=== PATIENT | male | born 1945 | race Caucasian/White ===

== ENCOUNTER 2021-03-07 15:15 | Emergency (ER) | payer MEDICARE, OTHER, SELFPAY ==
--- NOTE | 2021-03-07 | ECG_ITS ---
Test Reason : SYNCOPE Blood Pressure : / mmHG Vent. 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
--- NOTE | ~2021-03-07 | CT_ITS ---
EXAMINATION: CT CERVICAL SPINE WITHOUT CONTRAST CLINICAL INFORMATION: Fall. Neck pain. COMPARISON: None TECHNIQUE: Axial images through the cervical spine without contrast. Sagittal and coronal reconstructions on the technologist workstation were performed. Patient dose 2 3 4 mg/cm. This CT examination was performed using dose optimization techniques as appropriate, variously including the following: *Automated exposure control *Adjustment of mA and/or kV according to patient size (this includes techniques or standardized protocols for targeted exams where dose is matched to indication/reason for exam; i.e. extremities or head) *Use of iterative reconstruction technique DLP: 234 mGy-cm FINDINGS: There is curvature of the proximal cervical spine to the right and lower cervical and upper thoracic spine to the left. Bone alignment is otherwise normal. No fracture or dislocation is seen. There is multilevel degenerative spondylosis and degenerative disc disease from C2-C3 to C6-C7. There are degenerative changes at the C1 dens articulation. No fracture or dislocation is seen. There is mild left carotid calcification. Prevertebral soft tissues are normal. Visualized lung apices are clear. CT/CT cervical spine wo con IMPRESSION: Degenerative changes. No fracture or dislocation seen.
--- NOTE | ~2021-03-07 | XR_ITS ---
EXAMINATION: PORTABLE CHEST 1 VIEW CLINICAL INFORMATION: sob . COMPARISON: Prior studies including the 02/09/2018 exam.. TECHNIQUE: Portable frontal view of the chest was obtained. FINDINGS: Lungs well-expanded with chronic appearing reticular markings seen but no superimposed focal infiltrate, effusion, edema, or pneumothorax. Patient is status post sternotomy with vascular calcification within the tortuous aorta. Old healed right-sided rib fractures are again noted. XR/XR chest 1V IMPRESSION: No acute abnormality seen when compared to the prior study.
--- NOTE | ~2021-03-07 | CT_ITS ---
EXAMINATION: CT ABDOMEN AND PELVIS WITHOUT CONTRAST CLINICAL INFORMATION: Back pain. Fall. COMPARISON: Previous CT of the abdomen and pelvis most recent September 2018 TECHNIQUE: Multidetector volumetric imaging was performed from the superior aspect of the liver through the pubic symphysis. Sagittal and coronal reformatted images were obtained on the technologist's workstation. This CT examination was performed using dose optimization techniques as appropriate, variously including the following: *Automated exposure control *Adjustment of mA and/or kV according to patient size (this includes techniques or standardized protocols for targeted exams where dose is matched to indication/reason for exam; i.e. extremities or head) *Use of iterative reconstruction technique DLP: 478 mGy-cm FINDINGS: LUNG BASES: The visualized lung bases are unremarkable. LIVER, GALLBLADDER, AND BILIARY TREE: The liver is normal in size, shape, and attenuation. No focal hepatic lesion or biliary ductal dilatation is present. The gallbladder is unremarkable with no evidence of radiopaque gallstones, gallbladder wall thickening, or obvious pericholecystic inflammatory changes. PANCREAS: Unremarkable. SPLEEN: Unremarkable. ADRENAL GLANDS: Unremarkable. KIDNEYS AND URETERS: The kidneys are normal in size, shape, and attenuation. No hydronephrosis, hydroureter, or calculi seen. No perinephric stranding. BLADDER: Not well visualized due to artifact from bilateral hip replacements. GASTROINTESTINAL TRACT: There is diverticulosis of the colon. The small and large bowel are otherwise unremarkable. The appendix is unremarkable. ABDOMINAL WALL: There is a small umbilical hernia containing fat. LYMPH NODES: Normal. VASCULAR: There is evidence of atherosclerotic disease. No aneurysm is seen. PELVIC VISCERA: Prostate gland is enlarged. The prostate gland measures at least 3 x 4.8 cm in AP and transverse dimension. OSSEOUS STRUCTURES: There are degenerative changes of the spine. There are bilateral hip replacements. CT/CT abdomen pelvis wo con IMPRESSION: No acute findings. Probable enlarged prostate gland. Diverticulosis of the colon.
--- NOTE | ~2021-03-07 | CT_ITS ---
EXAMINATION: CT HEAD WITHOUT CONTRAST CLINICAL INFORMATION: Fall. Pain. COMPARISON: Previous brain MRI most recent August 2016 TECHNIQUE: Contiguous axial imaging was performed from the skull base to vertex without intravenous administration of contrast. This CT examination was performed using dose optimization techniques as appropriate, variously including the following: *Automated exposure control *Adjustment of mA and/or kV according to patient size (this includes techniques or standardized protocols for targeted exams where dose is matched to indication/reason for exam; i.e. extremities or head) *Use of iterative reconstruction technique DLP: 637 mGy-cm FINDINGS: There is no evidence of an extra-axial collection. There is no evidence of intra-axial or extra-axial hemorrhage. The ventricles and extra-axial CSF spaces are prominent suggestive of mild generalized atrophy. There is nonspecific periventricular white matter disease. No mass, mass effect or infarct is seen. Review of bone windows is normal. No skull fracture is seen. Visualized paranasal sinuses, mastoid air cells and middle ears are clear. CT/CT head/brain wo con IMPRESSION: No acute findings. Generalized atrophy and nonspecific periventricular white matter disease.
[2021-03-07 15:25] VITALS: BP 96/70; PULSE 92; O2SAT 98; BMI 19.8
[2021-03-07 15:31] VITALS: BP 141/71; PULSE 96; RESP 15; O2SAT 97
[2021-03-07 15:32] VITALS: O2SAT 97
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
[2021-03-07 16:13] LABS: MANUAL DIFF FLAG NO
[2021-03-07 16:16] LABS: Basophils Percent Auto 0.3 % (0-2); Eosinophils Percent Auto 0.5 % (0-4); Hematocrit 45.7 % (42-52); Hemoglobin 15.7 g/dl (14.0-18.0); Imm Gran Abs Auto 0.06 X10*3/uL (0.00-0.03); Imm Gran Pct Auto 0.7 % (0.0-0.4); Lymphocytes Absolute Auto 0.9 X10*3/uL (1.2-4.9); Lymphocytes Percent Auto 10.6 % (20-40); Mean Corpuscular HGB Conc 34.4 g/dl (31.0-36.0); Mean Corpuscular Hemoglobin 30.1 pg (27.0-33.0); Mean Corpuscular Volume 87.7 fL (80-98); Mean Platelet Volume 9.5 fL (9.4-12.4); Monocytes Absolute Auto 0.9 X10*3/uL (0.1-1.2); Monocytes Percent Auto 9.6 % (2-11); Neutrophils Absolute Auto 6.9 X10*3/uL (2.0-8.3); Neutrophils Percent Auto 78.3 % (45-73); Platelet Count 226 X10*3/uL (160-400); Red Blood Count 5.21 X10*6/uL (4.60-5.80); Red Cell Distribution Width 11.9 % (11.0-16.0); White Blood Count 8.9 X10*3/uL (4.8-10.8)
[2021-03-07 16:41] LABS: Anion Gap 14 (12-20); Blood Urea Nitrogen 25 mg/dL (9-16); Calcium 9.6 mg/dL (8.4-10.2); Carbon Dioxide 23 mmol/L (22-29); Chloride 112 mmol/L (96-108); Creatinine Clr Calc Pharmacy 42.2; Estimated Glomerular Filt Rate 55; Glucose Random 130 mg/dL (60-115); Potassium 4.5 mmol/L (3.3-5.1); Sodium 144 mmol/L (135-145)
[2021-03-07 16:48] LABS: Troponin-I High Sensitivity 4.3 ng/L (<3.5-35.0)
[2021-03-07 16:54] LABS: COVID-19 Test Positive (Negative)
[2021-03-07 17:10] VITALS: BP 113/62; PULSE 71; RESP 17; TEMP 37; O2SAT 96
[2021-03-07] MEDS: 0.9 % Sodium Chloride 1,000 ML 999 ML IV (17:12)
[2021-03-07 18:00] VITALS: PULSE 59; RESP 22; O2SAT 96
[2021-03-07 19:03] LABS: Troponin-I High Sensitivity 6.5 ng/L (<3.5-35.0)
[2021-03-07 19:14] VITALS: BP 134/62; PULSE 58; RESP 12; TEMP 36.7; O2SAT 97
--- NOTE | 2021-03-07 19:19 | PC.NURSE ---
This RN to bedside, first encounter with pt. Pt aaox4, resting on stretcher in NAD breathing with ease on RA. Pt c/o R lateral CP with movement, neck pain, back pain s/p fall today. Pt IVF complete. Pt denies dizziness. Pt offers no additional complaints. Pt speaking in complete clear sentences, skin warm dry and normal in appearance for age and race. Pt aware of plan for DC, is agreeable, requests this rn contact his family member Holley and/or Joy for ride home. This rn to attempt to call family members per pt request. Pt stretcher in low locked position, rails raised, call bermudez within reach
--- NOTE | 2021-03-07 19:25 | PC.NURSE ---
This RN spoke to pt's family member Joy who states she will leave the house in about 10minutes to pick pt up from ED. Pt to wait in room until his ride arrives d/t covid status. Joy made aware to notify security upon arrival. Pt IV removed, prepared for DC
== END 2021-03-07 20:05 | disposition home or self-care (01) ==
PROVIDERS: Emergency Provider Emergency Medicine Emergency Medical Services
DX: R55 Syncope and collapse (principal); U07.1 COVID-19; E86.0 Dehydration; G44.309 Post-traumatic headache, unspecified, not intractable; R10.9 Unspecified abdominal pain; M54.2 Cervicalgia; Z79.899 Other long term (current) drug therapy
CPT/HCPCS: 36415; 70450; 71045; 72125; 74176; 80048; 84484; 85025; 87635; 93005; 99284; 99285

== ENCOUNTER 2021-11-20 11:06 | Outpatient (REF) | payer MEDICARE, OTHER, SELFPAY ==
--- NOTE | ~2021-11-20 | XR_ITS ---
EXAMINATION: XR CHEST CLINICAL INFORMATION: Cough. Covid 19. COMPARISON: Chest 03/07/2021 TECHNIQUE: 2 views of the chest were obtained. FINDINGS: The lungs are well-expanded and clear of acute process. The heart size and pulmonary vascularity is normal. No gross bony abnormality seen. There are median sternotomy sutures from previous intervention. There is mild deformity right posterior seventh and eighth ribs, likely old injury. XR/XR chest 2V IMPRESSION: No acute cardiopulmonary process seen.
== END 2021-11-20 11:07 | disposition home or self-care (01) ==
LOC: HO.XRAY 11:06
PROVIDERS: PCP Student in an Organized Health Care Education/Training Program; Visit Provider Internal Medicine
DX: U07.1 COVID-19 (principal); R05.8 Other specified cough; T46.4X5A Adverse effect of angiotensin-converting-enzyme inhibitors, initial encounter; Z87.891 Personal history of nicotine dependence
CPT/HCPCS: 71046; 99202

== ENCOUNTER 2021-12-12 10:18 | Outpatient (REF) | payer MEDICARE, OTHER, SELFPAY ==
--- NOTE | 2021-12-12 11:47 | PFT_ITS ---
Forced vital capacity 92% and FEV1 89%. FEV1/FVC ratio is 70. FEF 25-75 is 72% and MVV 85%. Post bronchodilator therapy, the FEF 25-75 is improved by 22%. Total lung capacity is 87% and residual volume 95%. Diffusion capacity is 47%. CONCLUSION: The patient may have a very mild degree of small airway obstructive disorder which corrects to normal after bronchodilator therapy. This indicates possible mild bronchial asthma for which clinical correlation is recommended. The patient does have decreased diffusion capacity, but when corrected with the volume, it is 62%. This decrease in DLCO may be due to non-pulmonary factors, for which clinical correlation is recommended. Rikki Reyes MD [facility]SR[facility]ka/MODL / [id number]
== END 2021-12-12 10:19 | disposition home or self-care (01) ==
LOC: HO.RESP 10:18
PROVIDERS: Visit Provider Internal Medicine
DX: R05.8 Other specified cough (principal); T46.4X5A Adverse effect of angiotensin-converting-enzyme inhibitors, initial encounter; Z87.891 Personal history of nicotine dependence
CPT/HCPCS: 94060; 94727; 94729

== ENCOUNTER 2021-12-20 12:27 | Outpatient (REF) | payer MEDICARE, OTHER, SELFPAY | END 2021-12-20 12:28 | disposition home or self-care (01) | LOC: HO.HOSX 12:27 | PROVIDERS: Visit Provider Orthopaedic Surgery | DX: Z13.89 Encounter for screening for other disorder (principal) ==

== ENCOUNTER 2023-02-12 10:13 | Outpatient (AMB) | payer MEDICARE, SELFPAY ==
[2023-02-12 10:15] VITALS: BP 90/60; PULSE 63; BMI 22.0
--- NOTE | 2023-02-12 10:15 | A.OFFVIS_ITS ---
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 Accompanied by: Self / Same As Patient Allergies cat dander [CAT] Allergy (Unknown, Verified 02/12/23 10:15) WATERY EYES dog dander [DOG] Allergy (Unknown, Verified 02/12/23 10:15) WATERY EYES DUST Allergy (Mild, Uncoded 02/12/23 10:15) WATER EYES GRASS Allergy (Unknown, Uncoded 02/12/23 10:15) WATERY EYES Medication List - Last Reconciled 02/12/23 by Ken Walker MD albuterol sulfate 90 mcg/actuation 2 puffs inhalation Q6H PRN aspirin 81 mg PO DAILY atorvastatin 80 mg PO BEDTIME budesonide-formoterol 80-4.5 mcg/actuation (Symbicort) 2 puffs inhalation BID ezetimibe 10 mg PO DAILY fluconazole 100 mg PO DAILY losartan 25 mg PO DAILY terbinafine HCl 1% 1 appl topical BID HPI HPI Comments History of Present Illness Details Thank you for referring Cruz in cardiology consultation today for reestablishing cardiology care. He underwent coronary artery bypass grafting 2007, 3 vessel coronary artery bypass grafting for syncope. This including ELI to LAD and saphenous venous graft to the diagonal and the OM branches for left main disease. Since then he has had no cardiology follow-up. He has longstanding history of hypertension hyperlipidemia and currently takes losartan which was switched recently because of LIAM-inhibitor induced cough. His cough is improved. He also is on dual therapy with atorvastatin and Zetia for management of his lipids. In August he was admitted to [facility] with syncope in the setting of severe back pain radiating to both his legs. This was suspected to be vasovagal in nature. He underwent testing at [facility] including a CT for pulmonary embolism and aortic dissection. This also suggested occlusion of venous graft but was felt not to be the cause of his syncopal episode. At that time he had ruled out for myocardial infarction and had no acute EKG changes. Since then about 1 month ago he had another episode of dizziness and had fallen down. 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 He drinks about 12 oz of water every day. He denies any palpitations. Denies any heart failure symptoms. Does get exertional shortness of breath. No exertional chest pain. Is referred here for further evaluation management. 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 Father No problems noted. Social History Alcohol intake: current Alcohol intake frequency: holidays/special occasions only Patient Tobacco Use Status: Former Tobacco user Years Smoked: 41 years +/- Review of Systems Const Denies chills, Denies daytime sleepiness, Denies fatigue, Denies fever(s), Denies frequent falls, Denies night sweats, Denies snoring, Denies weakness, Denies weight gain and Denies weight loss Eyes Denies loss of vision ENT Denies dizziness and Denies hearing loss Card Denies chest pain, Denies chest pain with activity, Denies syncope, Denies rapid heart rate, Denies edema, Denies claudication, Denies leg edema, Denies lightheadedness, Denies palpitations, Denies dyspnea, Denies dyspnea on exertion and Denies orthopnea Resp Denies cough, Denies excessive phlegm production, Denies dyspnea, Denies dyspnea on exertion, Denies snoring and Denies wheezing GI Denies abdominal pain, Denies hematochezia, Denies change in bowel habits, Den ies change in stool character, Denies heartburn, Denies nausea and Denies vomiting Denies hematuria, Denies dysuria and Denies urinary frequency Musc Denies arthralgias, Denies muscle weakness, Denies numbness and Denies tingling Skin/Breast Denies nail changes and Denies rash Neuro Denies Abnormal speech present, Denies dizziness, Denies syncope, Denies frequent falls, Denies loss of vision, Denies memory loss, Denies numbness, Denies tingling and Denies weakness Psych Denies depression and Denies memory loss Endo Denies fatigue and Denies palpitations Aller/Immun Denies wheezing Physical Exam Vital Signs: Last Vital Signs Pulse 63 02/12/23 10:15 BP 90/60 02/12/23 10:15 BMI result Body Mass Index 22.0 Const General: cooperative, comfortable, no acute distress, alert and awake Nutritional Appearance: thin Orientation/consciousness: patient oriented x3 Limitations: no limitations HEENT Head: Yes normocephalic and Yes atraumatic Neck Neck: Yes trachea midline, Yes supple and Yes no JVD Chest Chest palpation & inspection: other (Well-healed sternotomy scar) Resp Effort & Inspection: normal respiratory effort Auscultation: clear to auscultation bilaterally Cardio Jugular venous distension: no JVD Palpation: normal PMI Rate: regular rate Rhythm: regular rhythm Heart sounds: S1 normal heart sound present, S2 normal heart sound present, no click, no gallops, no murmurs and no rubs GI Auscultation: normal bowel sounds Skin General skin exam: no rashes or lesions noted Neuro General: patient oriented x3 and no focal motor deficits Speech: No Abnormal speech present Extrem General: Yes no clubbing, cyanosis or edema Office Procedures EKG Details: EKG shows normal sinus rhythm with left axis deviation with inferior as well as anterolateral Q-waves consistent with apical infarct [id number], Complete Assessment & Plan Assessment & Plan (1) CAD (coronary artery disease): Code(s): I25.10 - Atherosclerotic heart disease of [place] coronary artery without angina pectoris Plan: Patient with remote CAD with coronary bypass grafting with CT scan in August at [facility] suggestive occlusion venous graft to the left system. However this is unclear based on this to which graft. Patient having symptoms of syncope which was his presenting symptom in 2007 although these episodes of syncopal episode appear to be related to orthostatic lightheadedness. Most likely related to relative hypovolemia. Discussed with patient about increasing his fluid intake. Continue monitor blood pressure at home. However he requires further workup given remote nature of his coronary artery bypass grafting to evaluate for myocardial ischemia and to further prognosticate from this perspective. Would suggest a vasodilating myocardial perfusion imaging as patient cannot exercise on a treadmill. Also suggest an echocardiogram to evaluate for LV systolic and diastolic function as well as a 7 day Holter monitor to evaluate for any ventricular arrhythmias given of possible apical infarct segment. Further treatment based on the findings. Currently he is on long-term aspirin therapy. Continue dual therapy for lipid with target goal LDL closer to 60 mg/dL. Blood pressure is currently well optimized on losartan therapy. Advised to monitor the same at home. Will follow up in the clinic in 6 weeks time, sooner p.r.n.. Thank you for allowing me to partake in his care Coding Level of Care Code New Pt Level 4 (27843) Diagnoses CAD (coronary artery disease) I25.10 CPT Codes EKG - CPT: 95662-[id number], Complete ([id number])
== END 2023-02-12 10:45 | disposition home or self-care (01) ==
LOC: HO.HCSM 10:13
PROVIDERS: PCP Student in an Organized Health Care Education/Training Program; Referring Provider Student in an Organized Health Care Education/Training Program; Visit Provider Internal Medicine Cardiovascular Disease
DX: I25.10 Atherosclerotic heart disease of native coronary artery without angina pectoris (principal)
CPT/HCPCS: 93010; 99204

== ENCOUNTER → 2023-02-12 10:13 | Outpatient (BNVA) | payer MEDICARE, OTHER, SELFPAY | PROVIDERS: PCP Student in an Organized Health Care Education/Training Program; Referring Provider Student in an Organized Health Care Education/Training Program; Visit Provider Internal Medicine Cardiovascular Disease | DX: I25.10 Atherosclerotic heart disease of native coronary artery without angina pectoris (principal); Z95.1 Presence of aortocoronary bypass graft; Z79.82 Long term (current) use of aspirin | CPT/HCPCS: 93005; 99202 ==

== ENCOUNTER → 2023-03-17 08:37 | Outpatient (REF) | payer MEDICARE, SELFPAY ==
--- NOTE | ~2023-03-17 | NM_ITS ---
Lexiscan Myocardial perfusion study Indication: Coronary artery disease, history of coronary artery bypass surgery, assess for ischemia Technique: The patient was brought in for a Lexiscan perfusion study on 03/17/2023 and was injected 0.4 mg of Lexiscan intravenously. Within a minute of this injection 25 mCi of sestamibi was given intravenously. Images were obtained using the SPECT gamma camera interlaced with the gating device. Images were obtained in supine position. Resting perfusion study was performed on 03/19/2023. Patient was administered 25 mCi of sestamibi intravenously at rest. Images were then obtained in supine position. Images were processed with the software and compared side to side in short axis, horizontal long axis and vertical long axis views. Total DLP 103mGy-cm. Findings: Raw acquisition reviewed. Arms by the patient's side. The stress perfusion study showed diminished tracer uptake in the distal part of inferolateral wall. No significant change with CT attenuation correction. The gated study shows normal LV systolic function with calculated LVEF of 66%. LV cavity is normal in size. The gated study shows normal wall thickening and contraction of segments. Resting study shows diminished tracer uptake in the distal part of inferolateral wall. Gating at rest reveals normal wall motion with ejection fraction at 63%. The findings are consistent with fixed distal inferolateral perfusion defect. Minimal reversibility. NM/NM kaleb perf SPECT rest & str Impression: 1. Myocardial perfusion imaging study shows old transmural infarct in the distal inferolateral wall; mild khanh-infarct ischemia. 2. Gated LVEF is 66% during stress and 63% during rest. 3. Transient ischemic dilatation not present. EKG component of the test reported separately.
--- NOTE | 2023-03-17 08:45 | HM_ITS ---
* Total monitoring time 17 days. * Underlying rhythm is sinus. Average ventricular rate 75/Min. Range 39 to 147/Min. * Frequent supraventricular ectopy with a burden of 3.8%. Very brief runs noted. * Rare ventricular ectopy. Minimal burden. * No significant pauses or AV blocks. * Patient markers used in association with sinus bradycardia and supraventricular ectopy. * No diary events. MTDD
--- NOTE | 2023-03-17 08:45 | CA_ITS ---
Acquisition Time: 2023-03-17 10:33:41 Total Exercise Time: 00:02:00 Test Indications: Medications: Protocol: LEXISCAN Max HR: 121 BPM 84% of Pred: 144 BPM Max BP: 118/054 mmHG Max Work Load: 1.0 METS Pharmacological stress test with Lexiscan injection while sitting and marching in place, without anginal symptoms, without arrhythmias, with normotensive response to injection, with nondiagnositic EKGs. Aminophylline 75mg IVP given to reverse Lexiscan. Nuclear images pending. Test reviewed with Dr. Walker Referred By: Ken Walker Overread By: KEN WALKER MD
--- NOTE | 2023-03-17 08:45 | CA_ITS ---
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 Study Quality: Fair, contrast used Conclusions: - 1. Technically limited study despite use of contrast agent 2. Normal LV ejection fraction 55-60% with underlying wall motion abnormality consistent with prior myocardial infarction 3. Limited visualization cardiac valves with normal cardiac valvular Doppler 4. Normal RV systolic pressure Findings Left Ventricle Normal left ventricular size and systolic function. The visually estimated ejection fraction is between 55-60%. Spectral Doppler is indicative of an impaired relaxation filling pattern. E/E prime ratio is <8, consistent with normal filling pressures. Evidence suggests grade I (mild) diastolic dysfunction. Wall Motion Rest Echo Findings The apical septum is akinetic. The apex and apical inferior segments are dyskinetic. All other scored wall segments showed normal motion. Right Ventricle The right ventricle was not well visualized. Atria The left atrium was not well visualized. Interatrial shunt cannot be excluded. The right atrium was not well visualized. Aortic Valve The aortic valve was not well visualized. There is no aortic valve stenosis. There is no aortic valve regurgitation. Mitral Valve The mitral valve was not well visualized. There is no mitral valve regurgitation. There is no mitral valve stenosis. Pulmonic Valve The pulmonic valve was not well visualized. Tricuspid Valve Likely normal tricuspid valve structure and function. There is trace tricuspid valve regurgitation. The right ventricular systolic pressure is normal. The right ventricular systolic pressure is 23 mmHg. Normal right atrial pressure. Great Vessels The pulmonary artery was not well visualized. There is no dilatation of the ascending aorta. Venous The inferior vena cava is normal in size and collapses greater than 50% with inspiration. Pericardium/Pleural The pericardium was not well visualized. Measurements 2D Linear Measurements LVOT Diam: 1.80 3.0+(-)1.3 cm Mitral Valve MV Pk E: 0.41 MV PK A: 0.63 MV Decel Time: 354.00 E/A: 0.60 E'Lateral: 9.82 E'Medial: 6.51 E/E' Med: 6.30 E/E' Lat: 4.20 PHT: 104.00 MVA PHT: 2.12 Decel Henry: 1.21 Aortic Valve AoV Pk Pito: 1.07 AoV Mn Pito: 0.74 AoV VTI: 0.23 AoV Pk Grad: 5.00 Aov Mn Grad: 2.00 DAVID Cont.VTI: 2.43 LVOT LVOT Pk Pito: 1.04 LVOT Mn Pito: 0.63 LVOT VTI: 0.22 LVOT Pk Grad: 4.00 LVOT Mn Grad: 2.00 LVOT Diam: 1.80 LVOT Area: 2.54 Diastolic Function MV Pk E: 0.41 MV Pk A: 0.63 E/A: 0.60 E'Medial: 6.51 E/E' Med: 6.30 E' Laterial: 9.82 E/E' Lat: 4.20 Right Ventricle TAPSE (mm): 14.90 TVS' Pito: 8.81 Tricuspid Valve TR Pk Pito: 2.21 TR Pk Grad: 20.00 RA Press: 3.00 RVSP: 23.00 Great Vessels Aorta Sinus of Valsalva: 3.11 2.0-3.[address] [place]: 2.40 1.7-3.4 cm Ao Asc: 3.10 2.1-3.4 cm Updated in Other Vendor System with Status of Final Ken Walker MD electronically signed on 03/18/2023 11:32:36 AM with status of Final
== END ==
LOC: HO.CARD 08:37
PROVIDERS: PCP Student in an Organized Health Care Education/Training Program; Visit Provider Internal Medicine Cardiovascular Disease
DX: I25.10 Atherosclerotic heart disease of native coronary artery without angina pectoris (principal)
CPT/HCPCS: 78452; 93017; 93246; 93306; A9500; J0280; J2785; Q9957

== ENCOUNTER → 2023-03-17 08:45 | Outpatient (BNV) | payer MEDICARE, SELFPAY | PROVIDERS: PCP Student in an Organized Health Care Education/Training Program; Visit Provider Internal Medicine Cardiovascular Disease | DX: I25.10 Atherosclerotic heart disease of native coronary artery without angina pectoris (principal) | CPT/HCPCS: 78452; 93016; 93018; 93306 ==

== ENCOUNTER 2023-03-22 23:51 | Inpatient (IN) | payer MEDICARE, SELFPAY ==
--- NOTE | ~2023-03-22 | XR_ITS ---
EXAMINATION: XR CHEST CLINICAL INFORMATION: Chest pain COMPARISON: 11/20/2021 TECHNIQUE: Frontal view of the chest was obtained. FINDINGS: Lungs appear mildly hypoinflated. No focal consolidation is seen. No evidence of pneumothorax, pleural effusion, or pulmonary edema. Cardiac size is within normal limits. Calcification is present at the aortic arch. Sternal wires are present. No acute osseous findings are seen. XR/XR chest 1V IMPRESSION: Low lung volumes without acute findings.
--- NOTE | ~2023-03-22 | CT_ITS ---
EXAMINATION: CT CHEST, ABDOMEN AND PELVIS WITHOUT CONTRAST CLINICAL INFORMATION: Right upper quadrant and chest wall pain, suspect pneumonia, fracture COMPARISON: 03/07/2021 TECHNIQUE: Multidetector volumetric imaging was performed from the thoracic inlet through the pubic symphysis. Sagittal and coronal reformatted images were obtained on the technologist's workstation. Axial MIP volume rendering provided. This CT examination was performed using dose optimization techniques as appropriate, variously including the following: *Automated exposure control *Adjustment of mA and/or kV according to patient size (this includes techniques or standardized protocols for targeted exams where dose is matched to indication/reason for exam; i.e. extremities or head) *Use of iterative reconstruction technique DLP: 719 mGy-cm FINDINGS: CHEST: Lungs: There is volume loss in the right lower lobe with dependent dense opacity and adjacent groundglass opacity. At least some of this is favored to represent atelectasis, though a component of infectious/inflammatory groundglass opacity cannot be excluded. There is curvilinear atelectasis/scarring in the mid to basilar left lung. Mediastinum: The visualized thyroid gland is unremarkable. Scattered mediastinal lymph nodes, some of which approach the upper limits of normal in size. Cardiac size is within normal limits; no pericardial effusion. Scattered calcifications along the aorta. Coronary Artery Calcification: Present Pleura: No pneumothorax. Trace right pleural effusion. Chest Wall/Axilla: Unremarkable. ABDOMEN/PELVIS: Liver, Gallbladder, Biliary Tree: The liver is normal in size, shape, and attenuation. No focal hepatic lesion or biliary ductal dilatation is identified on this noncontrast exam. The gallbladder is unremarkable with no evidence of radiopaque gallstones, gallbladder wall thickening, or pericholecystic inflammatory changes. Pancreas: Unremarkable. Spleen: Unremarkable. Adrenal Glands: Unremarkable. Kidneys and Ureters: Distal ureters are obscured due to streak artifact from bilateral hip arthroplasty hardware. No hydronephrosis to suggest the presence of a distal ureteral calculus. Bladder: Not well assessed, mostly obscured by streak artifact. Gastrointestinal Tract: Colonic diverticulosis is noted. The small and large bowel are otherwise unremarkable without evidence of obstruction or pericolonic inflammatory change. Borderline dilated appendix, without surrounding inflammation to suggest appendicitis. No free fluid or free air is seen. Abdominal Wall: No hernia is demonstrated. Lymphovascular Structures: Lymph nodes: Normal. Vascular: There is atherosclerotic calcification along the aorta. Pelvic Viscera: Not visualized due to streak artifact in the pelvis. OSSEOUS STRUCTURES: Multiple chronic appearing right rib deformities favoring healed old fractures. No acute fracture is seen. Multilevel degenerative changes in the thoracolumbar spine. Bilateral total hip arthroplasty hardware is noted. CT/CT abdomen pelvis wo IV con IMPRESSION: 1. No acute fracture identified. 2. Volume loss in the right lower lobe with dependent dense opacity and adjacent groundglass opacity. At least some of this is favored to represent atelectasis, though a component of infectious/inflammatory groundglass opacity cannot be excluded. 3. Trace right pleural effusion.
[2023-03-22 23:51] VITALS: BP 152/82; PULSE 102; O2SAT 96
[2023-03-23] VITALS (12 sets, daily range): BP systolic 117–133; BP diastolic 57–74; PULSE 64–112; RESP 16–26; TEMP 36.3–37.4; O2SAT 93–98; BMI 20.7; BMI 20.2
--- NOTE | 2023-03-23 00:40 | ECG_ITS ---
Test Reason : CP Blood Pressure : / mmHG Vent. 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
[2023-03-23 01:28] LABS: Venous Blood Gas Refer to POC result
[2023-03-23 01:29] LABS: INTERNATIONAL NORM RATIO 1.2 (0.9-1.1)
[2023-03-23 01:29] LABS: VBG Base Excess -0.7 mmol/L; VBG HCO3 21 mmol/L (22-26); VBG pCO2 29 mmHg; VBG pH 7.47 (7.32-7.43); VBG pO2 42 mmHg
[2023-03-23 01:34] LABS: Basophils Absolute Auto 0.1 X10*3/uL (0.0-0.2); Basophils Percent Auto 0.4 % (0-2); Eosinophils Absolute Auto 0.1 X10*3/uL (0.0-0.4); Eosinophils Percent Auto 0.9 % (0-4); Hematocrit 41.2 % (42.0-52.0); Hemoglobin 14.2 g/dl (14.0-18.0); Imm Gran Abs Auto 0.07 X10*3/uL (0.00-0.03); Imm Gran Pct Auto 0.5 % (0.0-0.4); Lymphocytes Absolute Auto 1.9 X10*3/uL (1.2-4.9); MANUAL DIFF FLAG NO; Mean Corpuscular HGB Conc 34.5 g/dl (31.0-36.0); Mean Corpuscular Hemoglobin 29.4 pg (27.0-33.0); Mean Corpuscular Volume 85.3 fL (80.0-98.0); Mean Platelet Volume 9.8 fL (9.4-12.4); Monocytes Absolute Auto 1.3 X10*3/uL (0.1-1.2); Monocytes Percent Auto 9.5 % (2-11); Neutrophils Absolute Auto 10.4 x10*3/uL (2.0-8.3); Neutrophils Percent Auto 74.7 % (45-73); PLT CLUMP 1; Red Blood Count 4.83 X10*6/uL (4.60-5.80); Red Cell Distribution Width 12.9 % (11.0-16.0); SCAN SMEAR FLAG 1; White Blood Count 13.9 X10*3/uL (4.8-10.8)
[2023-03-23 01:36] LABS: Alanine Aminotransferase 7 U/L (0-40); Albumin Level 3.9 g/dL (3.5-5.0); Alkaline Phosphatase 114 U/L (39-117); Anion Gap 15 (12-20); Aspartate Amino Transferase 10 U/L (5-37); Bilirubin Total 0.9 mg/dL (0.0-1.0); Blood Urea Nitrogen 10 mg/dL (9-16); Calcium 9.6 mg/dL (8.4-10.2); Carbon Dioxide 20 mmol/L (22-29); Chloride 108 mmol/L (96-108); Creatinine Clr Calc Pharmacy 51.3; Estimated Glomerular Filt Rate > 60; Glucose Random 119 mg/dL (60-115); Potassium 4.5 mmol/L (3.3-5.1); Sodium 138 mmol/L (135-145); Total Protein 6.9 g/dL (6.5-8.0)
[2023-03-23 01:44] LABS: COVID-19 Test Negative (Negative); IDNOW Serial# 08D9AD1C; IDNOW Serial# BCCEAD1C; Influenza A Negative (Negative); Influenza B2 Negative (Negative)
[2023-03-23 01:49] LABS: Troponin-I High Sensitivity < 2.7 ng/L (<3.5-35.0)
--- NOTE | 2023-03-23 02:11 | ED_ITS ---
HPI - General Adult General Chief complaint: General Medical Stated complaint: rt rib pain/weakness Time Seen by Provider: 03/23/23 00:24 Source: patient Mode of arrival: EMS History of Present Illness HPI narrative: This is a 77-year-old male who comes in with atraumatic right-sided rib pain that he reports goes up to his neck and states that it started approximately 1 week ago and has progressively gotten worse, and has been associated with chills and cough. Patient reports that the pain gets worse with coughing. Patient does have a significant past medical history of smoking. Related Data Home Medications Medication Instructions Recorded Confirmed albuterol sulfate 90 mcg/actuation 2 puff inhalation Q6H PRN 11/20/21 02/12/23 aerosol inhaler aspirin 81 mg tablet,delayed 81 mg PO DAILY 11/20/21 02/12/23 release budesonide-formoterol HFA 80 2 puff inhalation BID 11/20/21 02/12/23 mcg-4.5 mcg/actuation aerosol inhaler (Symbicort) ezetimibe 10 mg tablet 10 mg PO DAILY 11/20/21 02/12/23 terbinafine HCl 1 % topical cream 1 appl topical BID 11/20/21 02/12/23 atorvastatin 80 mg tablet 80 mg PO BEDTIME 02/12/23 02/12/23 fluconazole 100 mg tablet 100 mg PO DAILY 02/12/23 02/12/23 losartan 25 mg tablet 25 mg PO DAILY 02/12/23 02/12/23 Allergies Allergy/AdvReac Type Severity Reaction Status Date / Time cat dander [CAT] Allergy Unknown WATERY Verified 02/12/23 10:15 EYES dog dander [DOG] Allergy Unknown WATERY EYES Verified 02/12/23 10:15 DUST Allergy Mild WATER EYES Uncoded 02/12/23 10:15 GRASS Allergy Unknown WATERY Uncoded 02/12/23 10:15 EYES Review of Systems 2 Review of Systems: Pertinent positives and negatives as stated in HPI PMFSH Past Medical History Source: nursing notes reviewed Medical History CAD (coronary artery disease) 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 Father No problems noted. Social History Social History Alcohol intake: former Patient Tobacco Use Status: Former Tobacco user Years Smoked: 41 years +/- Smoked in Last 30 Days: No Use of substances other than those prescribed or required for medical reasons: No Advance Directives: No Advance Directives Information Provided: Yes Physical Exam ED Vital Signs: Vital Signs - 24 hr 03/23/23 00:00 03/23/23 00:19 03/23/23 00:19 Temperature 99.3 F Pulse Rate 112 H 102 H Pulse Rate [Monitor] 102 H Respiratory Rate 16 18 Blood Pressure 121/74 133/62 Pulse Oximetry 94 94 Oxygen Delivery Method Room Air Room Air 03/23/23 02:29 Temperature 98.3 F Pulse Rate 96 Pulse Rate [Monitor] Respiratory Rate 16 Blood Pressure 124/66 Pulse Oximetry 94 Oxygen Delivery Method Room Air BMI result Body Mass Index 20.7 VITAL SIGNS: Reviewed. GENERAL: Cachectic, in no acute distress. HEAD: Normocephalic/atraumatic EYES: PERRLA, EOMI EARS: Ext canals without abnormality NOSE: Nares patent bilateral OROPHARYNX: no oral lesions noted, posterior pharynx clear NECK: Supple, no adenopathy LUNGS: Normal breath sounds. No adventitious sounds or accessory muscle use. SpO2<94> CARDIOVASCULAR: Regular rate and rhythm without noted murmurs ABDOMEN: Soft, non-tender, non-distended with bowel sounds. MUSCULOSKELETAL: No tenderness, deformities, or effusions noted on gross inspection. EXTREMITIES: No cyanosis, clubbing or edema. SKIN: Inspection of the skin reveals no rashes NEUROLOGIC: Alert and oriented x 4. Strength and sensation to light touch were grossly intact x 4. Medications Administered Discontinued Medications Generic Name Dose Route Start Last Admin Trade Name Freq PRN Reason Stop Dose Admin Acetaminophen 975 mg 03/23/23 02:31 03/23/23 02:42 Acetaminophen 325 Mg Tablet PO 03/23/23 02:32 975 mg ONCE ONE Administration Piperacillin Sod/Tazobactam 50 mls @ 100 mls/hr 03/23/23 02:17 03/23/23 03:19 Sod 3.375 gm/ Sodium Chloride IV 03/23/23 02:46 Infused ONCE ONE Infusion Sodium Chloride 500 mls @ 999 mls/hr 03/23/23 02:45 03/23/23 03:04 Ns IV 03/23/23 03:15 Infused .Q31M WEI Infusion Medical Decision Making Medical Decision Making [facility] Narrative: 0105: This is a cachectic 77-year-old male who arrives via EMS for progressive worsening of right-sided lower chest pain and associated chills, DDX: Musculoskeletal, pneumonia, rib fracture, no suspicion for pneumothorax. I reviewed all investigations and hematologic indices are significant for a leukocytosis with a left shift and patient was noted to be tachycardic but afebrile. There is no anemia. Coagulation studies show mild elevation of PT-14 and INR-1.2. ABG not consistent with hypercapnic respiratory acidosis. Chemistry indices are negative for JAY, electrolyte or liver enzyme abnormalities. Troponin levels are undetectable and no acute findings on EKG. On my preliminary evaluation of the chest x-ray I determined that there was an infiltrate that was not present on prior imaging studies but was read by Radiology to be benign, this prompted me to proceed with CT of the chest which does demonstrate an infiltrate. Patient has been treated with IV fluids, antibiotics and lactic acid/blood cultures were completed. Urinalysis negative for a UTI. Viral testing is otherwise negative for COVID-19 and influenza. 0357: I discussed case with inpatient hospitalist who accepts admission. Differential Diagnosis Differential Diagnoses: The differential diagnosis associated with the presentation includes Please see the discussion above Admission/Observation Consideration of admission/observation: Escalation of care including admission/observation considered Please see the discussion above Consult Healthcare Provider Management of the patient was discussed with: Hospitalist Please see the discussion above Lab Data MDM Lab Attestation statement: I reviewed the patient's lab results. Please see the discussion above 03/23/23 01:18 03/23/23 01:18 Labs: Lab Results 03/23/23 03/23/23 03/23/23 Range/Units 01:18 01:22 02:26 WBC 13.9 H (4.8-10.8) X10*3/uL RBC 4.83 (4.60-5.80) X10*6/uL Hgb 14.2 (14.0-18.0) g/dl Hct 41.2 L (42.0-52.0) % MCV 85.3 (80.0-98.0) fL MCH 29.4 (27.0-33.0) pg MCHC 34.5 (31.0-36.0) g/dl RDW 12.9 (11.0-16.0) % Plt Count TNP MPV 9.8 (9.4-12.4) fL Immature Gran % (Auto) 0.5 H (0.0-0.4) % Neut % (Auto) 74.7 H (45-73) % Lymph % (Auto) 14.0 L (20-40) % Crawford % (Auto) 9.5 (2-11) % Eos % (Auto) 0.9 (0-4) % Baso % (Auto) 0.4 (0-2) % Lymph # (Auto) 1.9 (1.2-4.9) X10*3/uL Crawford # (Auto) 1.3 H (0.1-1.2) X10*3/uL Eos # (Auto) 0.1 (0.0-0.4) X10*3/uL Baso # (Auto) 0.1 (0.0-0.2) X10*3/uL Abs Immat Gran (auto) 0.07 H (0.00-0.03) X10*3/uL Absolute Neuts (auto) 10.4 H (2.0-8.3) x10*3/uL Absolute Nucleated RBC 0.000 (0.0-0.012) X10*3/uL Nucleated RBC % (auto) 0.0 (0.0-0.2) /100WBC PT 14.0 H (11.1-13.3) SEC INR 1.2 H (0.9-1.1) VBG pH 7.47 H (7.32-7.43) VBG pCO2 29 mmHg VBG pO2 42 mmHg VBG HCO3 21 L (22-26) mmol/L VBG O2 Saturation 76.0 % VBG Base Excess -0.7 mmol/L Sodium 138 (135-145) mmol/L Potassium 4.5 (3.3-5.1) mmol/L Chloride 108 (96-108) mmol/L Carbon Dioxide 20 L (22-29) mmol/L Anion Gap 15 (12-20) BUN 10 (9-16) mg/dL Creatinine 1.10 (0.5-1.4) mg/dL Estim Creat Clear Calc 51.3 Estimated GFR > 60 Random Glucose 119 H (60-115) mg/dL Lactic Acid 1.1 (0.5-2.0) mmol/L Calcium 9.6 (8.4-10.2) mg/dL Total Bilirubin 0.9 (0.0-1.0) mg/dL AST 10 (5-37) U/L ALT 7 (0-40) U/L Alkaline Phosphatase 114 (39-117) U/L Troponin I High Sens < 2.7 (<3.5-35.0) ng/L Total Protein 6.9 (6.5-8.0) g/dL Albumin 3.9 (3.5-5.0) g/dL Urine Color Urine Appearance Urine pH (5.0-9.0) Ur Specific [place] (1.005-1.025) Urine Protein (Neg-Trace) mg/dL Urine Glucose (UA) (Negative) mg/dL Urine Ketones (Negative) mg/dL Urine Blood (Negative) Urine Nitrite (Negative) Ur Leukocyte Esterase (Negative) Urine RBC (0-2) /HPF Urine WBC (0-5) /HPF Ur Squamous Epith Cells (0-2) /HPF Urine Bacteria (None Seen) Hyaline Casts (0-2) /LPF COVID-19 (RAY) Negative (Negative) COVID-19 Clin Com See Note Influenza Type A (LUPE) Negative (Negative) Influenza Type B (LUPE) Negative (Negative) Influenza A & B Note See Note 03/23/23 Range/Units 02:35 WBC (4.8-10.8) X10*3/uL RBC (4.60-5.80) X10*6/uL Hgb (14.0-18.0) g/dl Hct (42.0-52.0) % MCV (80.0-98.0) fL MCH (27.0-33.0) pg MCHC (31.0-36.0) g/dl RDW (11.0-16.0) % Plt Count MPV (9.4-12.4) fL Immature Gran % (Auto) (0.0-0.4) % Neut % (Auto) (45-73) % Lymph % (Auto) (20-40) % Crawford % (Auto) (2-11) % Eos % (Auto) (0-4) % Baso % (Auto) (0-2) % Lymph # (Auto) (1.2-4.9) X10*3/uL [place] # (Auto) (0.1-1.2) X10*3/uL Eos # (Auto) (0.0-0.4) X10*3/uL Baso # (Auto) (0.0-0.2) X10*3/uL Abs Immat Gran (auto) (0.00-0.03) X10*3/uL Absolute Neuts (auto) (2.0-8.3) x10*3/uL Absolute Nucleated RBC (0.0-0.012) X10*3/uL Nucleated RBC % (auto) (0.0-0.2) /100WBC PT (11.1-13.3) SEC INR (0.9-1.1) VBG pH (7.32-7.43) VBG pCO2 mmHg VBG pO2 mmHg VBG HCO3 (22-26) mmol/L VBG O2 Saturation % VBG Base Excess mmol/L Sodium (135-145) mmol/L Potassium (3.3-5.1) mmol/L Chloride (96-108) mmol/L Carbon Dioxide (22-29) mmol/L Anion Gap (12-20) BUN (9-16) mg/dL Creatinine (0.5-1.4) mg/dL Estim Creat Clear Calc Estimated GFR Random Glucose (60-115) mg/dL Lactic Acid (0.5-2.0) mmol/L Calcium (8.4-10.2) mg/dL Total Bilirubin (0.0-1.0) mg/dL AST (5-37) U/L ALT (0-40) U/L Alkaline Phosphatase (39-117) U/L Troponin I High Sens (<3.5-35.0) ng/L Total Protein (6.5-8.0) g/dL Albumin (3.5-5.0) g/dL Urine Color Yellow Urine Appearance Clear Urine pH 7.5 (5.0-9.0) Ur Specific [place] 1.025 (1.005-1.025) Urine Protein Negative (Neg-Trace) mg/dL Urine Glucose (UA) Negative (Negative) mg/dL Urine Ketones Negative (Negative) mg/dL Urine Blood Moderate (2+) H (Negative) Urine Nitrite Negative (Negative) Ur Leukocyte Esterase Negative (Negative) Urine RBC >20 H (0-2) /HPF Urine WBC 0-5 (0-5) /HPF Ur Squamous Epith Cells 0-2 (0-2) /HPF Urine Bacteria None Seen (None Seen) Hyaline Casts 0-2 (0-2) /LPF COVID-19 (RAY) (Negative) COVID-19 Clin Com Influenza Type A (LUPE) (Negative) Influenza Type B (LUPE) (Negative) Influenza A & B Note Independent Interpretation I performed an independent interpretation of an: EKG Interpretation: Normal sinus rhythm, HR-93, no STEMI, [place]/QRS/QTC is within normal limits. Radiology Impression Discussion of test interpretation with radiology: I have reviewed the radiologist's reading. Radiologist Impression: Please see the discussion above External Record Review External record reviewed: Outpatient record, Prior outpatient labs and Prior outpatient radiology Critical Care Time Critical Care Time Critical Care Time: Yes Total Critical Care Time: 30 Attestation: I personally attest to this time spent taking care of the patient. Discharge Plan Discharge Clinical Impression: Sepsis, Pneumonia Patient Disposition: Admitted As Inpatient
[2023-03-23] MEDS: Piperacillin Sodium/Tazobactam 3.375 GM in 0.9 % Sodium Chloride 50 ML IV (02:30)
[2023-03-23 02:41] LABS: Lactic Acid 1.1 mmol/L (0.5-2.0)
[2023-03-23] MEDS: Acetaminophen 325 MG TABLET 975 MG PO (02:42)
[2023-03-23] MEDS: 0.9 % Sodium Chloride 500 ML 999 ML IV (02:44)
[2023-03-23 02:47] LABS: Appearance Urine Clear; Color Urine Yellow; Glucose Urine UA Negative (Negative); Leukocyte Esterase Urine Negative (Negative); Nitrite Urine Negative (Negative); PH 7.5 (5.0-9.0); Specific Gravity - Urine 1.025 (1.005-1.025); UMIC TRIGGER UACC YES; Urine Blood Moderate (2+) (Negative); Urine Ketones Negative (Negative); Urine Protein Negative (Neg-Trace)
[2023-03-23 02:49] LABS: Bacteria Urine None Seen (None Seen); Hyaline Casts Urine 0-2 /LPF (0-2); RBC Urine >20 /HPF (0-2); Squamous Epithelial Cell Urine 0-2 /HPF (0-2); WBC Urine 0-5 /HPF (0-5)
--- NOTE | 2023-03-23 02:51 | PC.NURSE ---
Pt aox4 resting at the bedside. No apparent distress noted. Reports right side flank pain, 8/10. Medicated as ordered. Labs and urine and sent. Pt is aware of plan of care.
--- NOTE | 2023-03-23 06:22 | PM.IMHP ---
History of Present Illness Date of Service: 03/23/23 Chief Complaint: Shortness of breath This is a 77-year-old male with past medical history of CAD, hyperlipidemia of the hypertension comes into the hospital with complaints of shortness of breath for the past 2 days. Patient reports no cough, no sputum production, no fever some chills. No abdominal pain nausea vomiting, no diarrhea constipation, no urinary symptoms and no lower extremity edema On arrival to the ED patient hemodynamically stable with a heart rate of 112 Labs are significant for WBC count of 13.9, COVID-19, RSV and influenza negative Chest CT shows dense opacity in the right lower lobe Patient will be admitted for further management Review of Systems Review of Systems: Yes all other systems are reviewed and are negative [facility] Medical History (Updated 03/23/23 @ 06:48 by Fatuma Davenport MD) Hyperlipidemia Hypertension CAD (coronary artery disease) Cough due to LIAM inhibitor History of smoking at least 1 pack per day for at least 30 years Cough in adult Family History Mother No problems noted. Father No problems noted. Surgical History S/P CABG x 3 Social History Alcohol intake: former Patient Tobacco Use Status: Former Tobacco user Years Smoked: 41 years +/- Smoked in Last 30 Days: No Use of substances other than those prescribed or required for medical reasons: No Advance Directives: No Advance Directives Information Provided: Yes Nutrition Risks: Poor intake 0-25% >4 days Meds Allergies Allergy/AdvReac Type Severity Reaction Status Date / Time cat dander [CAT] Allergy Unknown WATERY Verified 02/12/23 10:15 EYES dog dander [DOG] Allergy Unknown WATERY EYES Verified 02/12/23 10:15 DUST Allergy Mild WATER EYES Uncoded 02/12/23 10:15 GRASS Allergy Unknown WATERY Uncoded 02/12/23 10:15 EYES Active Medications: Current Medications Acetaminophen (Acetaminophen 325 Mg Tablet) 650 mg PO Q6H PRN PRN Reason: Pain, Mild (Pain Scale 1-3) Docusate Sodium (Docusate Sodium 100 Mg Capsule) 100 mg PO DAILY PRN PRN Reason: Constipation Ceftriaxone Sodium 1 gm/ (Sodium Chloride) 50 mls @ 100 mls/hr IV Q24H [facility] Azithromycin 500 mg/ Sodium (Chloride) 250 mls @ 125 mls/hr IV Q24H [facility] Ondansetron HCl (Ondansetron Hcl 4 Mg/2 Ml Vial) 4 mg IVPUSH Q8H PRN PRN Reason: Nausea and Vomiting Sodium Chloride (0.9 % Sodium Chloride Flush 3 Ml Syringe) 3 ml IVFLUSH QSHIFT [facility] Home Medications Medication Instructions Recorded Confirmed Last Taken Type albuterol sulfate 90 mcg/actuation 2 puff inhalation Q6H PRN 11/20/21 02/12/23 Unknown History aerosol inhaler aspirin 81 mg tablet,delayed 81 mg PO DAILY 11/20/21 02/12/23 Unknown History release budesonide-formoterol HFA 80 2 puff inhalation BID 11/20/21 02/12/23 Unknown History mcg-4.5 mcg/actuation aerosol inhaler (Symbicort) ezetimibe 10 mg tablet 10 mg PO DAILY 11/20/21 02/12/23 Unknown History terbinafine HCl 1 % topical cream 1 appl topical BID 11/20/21 02/12/23 Unknown History atorvastatin 80 mg tablet 80 mg PO BEDTIME 02/12/23 02/12/23 Unknown History fluconazole 100 mg tablet 100 mg PO DAILY 02/12/23 02/12/23 Unknown History losartan 25 mg tablet 25 mg PO DAILY 02/12/23 02/12/23 Unknown History Physical Exam Vital Signs and Narrative: Vital Signs: Last Vital Signs Temp 98.0 F 03/23/23 05:55 Pulse 69 03/23/23 05:55 Resp 18 03/23/23 05:55 BP 117/63 03/23/23 05:55 Pulse Ox 93 03/23/23 05:55 O2 Del Method Room Air 03/23/23 05:55 BMI result Body Mass Index 20.7 Const: General: cooperative and no acute distress Orientation/consciousness: patient oriented x3 Eyes: General: appearance normal, both eyes and all related structures Resp: Other: Crackles right lower lobe Effort & Inspection: normal respiratory effort Cardio: Rate: regular rate Rhythm: regular rhythm GI: Palpation (GI): Soft to palpation Auscultation: normal bowel sounds Skin: General skin exam: no rashes or lesions noted Neuro: General: patient oriented x3 Cognition (Neuro): normal cognition Extrem: General: Yes normal to inspection and Yes no pedal edema Results Labs 03/23/23 01:18 03/23/23 01:18 Labs: Laboratory Results - last 24 hr 03/23/23 03/23/23 03/23/23 01:18 01:22 02:26 MCV 85.3 MCH 29.4 MCHC 34.5 RDW 12.9 Plt Count TNP MPV 9.8 Immature Gran % (Auto) 0.5 H Neut % (Auto) 74.7 H Lymph % (Auto) 14.0 L [place] % (Auto) 9.5 Eos % (Auto) 0.9 Baso % (Auto) 0.4 Lymph # (Auto) 1.9 [place] # (Auto) 1.3 H Eos # (Auto) 0.1 Baso # (Auto) 0.1 Abs Immat Gran (auto) 0.07 H Absolute Neuts (auto) 10.4 H Absolute Nucleated RBC 0.000 Nucleated RBC % (auto) 0.0 PT 14.0 H INR 1.2 H VBG pH 7.47 H VBG pCO2 29 VBG pO2 42 VBG HCO3 21 L VBG O2 Saturation 76.0 VBG Base Excess -0.7 Anion Gap 15 Estim Creat Clear Calc 51.3 Estimated GFR > 60 Random Glucose 119 H Lactic Acid 1.1 Calcium 9.6 Total Bilirubin 0.9 AST 10 ALT 7 Alkaline Phosphatase 114 Total Protein 6.9 Albumin 3.9 Urine Color Urine Appearance Urine pH Ur Specific [place] Urine Protein Urine Glucose (UA) Urine Ketones Urine Blood Urine Nitrite Ur Leukocyte Esterase Urine RBC Urine WBC Ur Squamous Epith Cells Urine Bacteria Hyaline Casts COVID-19 (RAY) Negative COVID-19 Clin Com See Note Influenza Type A (LUPE) Negative Influenza Type B (LUPE) Negative Influenza A & B Note See Note 03/23/23 02:35 MCV MCH MCHC RDW Plt Count MPV Immature Gran % (Auto) Neut % (Auto) Lymph % (Auto) [place] % (Auto) Eos % (Auto) Baso % (Auto) Lymph # (Auto) [place] # (Auto) Eos # (Auto) Baso # (Auto) Abs Immat Gran (auto) Absolute Neuts (auto) Absolute Nucleated RBC Nucleated RBC % (auto) PT INR VBG pH VBG pCO2 VBG pO2 VBG HCO3 VBG O2 Saturation VBG Base Excess Anion Gap Estim Creat Clear Calc Estimated GFR Random Glucose Lactic Acid Calcium Total Bilirubin AST ALT Alkaline Phosphatase Total Protein Albumin Urine Color Yellow Urine Appearance Clear Urine pH 7.5 Ur Specific [place] 1.025 Urine Protein Negative Urine Glucose (UA) Negative Urine Ketones Negative Urine Blood Moderate (2+) H Urine Nitrite Negative Ur Leukocyte Esterase Negative Urine RBC >20 H Urine WBC 0-5 Ur Squamous Epith Cells 0-2 Urine Bacteria None Seen Hyaline Casts 0-2 COVID-19 (RAY) COVID-19 Clin Com Influenza Type A (LUPE) Influenza Type B (LUPE) Influenza A & B Note Imaging Radiologist's Impressions: Impressions Chest X-Ray 03/23/23 01:45 IMPRESSION: Low lung volumes without acute findings. Abdomen/Pelvis CT 03/23/23 03:25 IMPRESSION: 1. No acute fracture identified. 2. Volume loss in the right lower lobe with dependent dense opacity and adjacent groundglass opacity. At least some of this is favored to represent atelectasis, though a component of infectious/inflammatory groundglass opacity cannot be excluded. 3. Trace right pleural effusion. Chest CT 03/23/23 03:25 IMPRESSION: 1. No acute fracture identified. 2. Volume loss in the right lower lobe with dependent dense opacity and adjacent groundglass opacity. At least some of this is favored to represent atelectasis, though a component of infectious/inflammatory groundglass opacity cannot be excluded. 3. Trace right pleural effusion. Assessment and Plan (1) Sepsis: Qualifiers: Sepsis type: sepsis due to unspecified organism Sepsis acute organ dysfunction status: without acute organ dysfunction Qualified Code(s): A41.9 - Sepsis, unspecified organism Status: Acute (2) Pneumonia: Qualifiers: Pneumonia type: due to unspecified organism Laterality: right Lung location: lower lobe of lung Qualified Code(s): J18.9 - Pneumonia, unspecified organism Status: Acute Plan 77-year-old male past medical history of CAD HTN HLD comes into the hospital with complaints of shortness of breath found to have sepsis and pneumonia # sepsis - leukocytosis, tachycardic - secondary to pneumonia - IV antibiotics - follow cultures # community-acquired pneumonia - will treat with IV antibiotics - follow cultures # HTN - stable - continue antihypertensives # HLD - continue statin DVT prophylaxis Lovenox Given patient's need for IV antibiotics patient require minimum 2 nights inpatient hospital stay for further management and monitoring Time Spent With Patient Time: Total time managing care of this patient today ____ minutes. Quality Stroke Does the patient have a stroke diagnosis?: No VTE Prior VTE?: No VTE Risk Level:: Medical - moderate - high VTE Device Contraindication: Treatment Not Indicated VTE Drug Contraindication: N/A - Med Ordered
[2023-03-23] MEDS: cefTRIAXone sodium 1 GM in 0.9 % Sodium Chloride 50 ML IV (06:30)
[2023-03-23] MEDS: Azithromycin 500 MG in 0.9 % Sodium Chloride 250 ML 125 MG IV (07:38)
[2023-03-23] MEDS: 0.9 % Sodium Chloride Flush 3 ML SYRINGE IVFLUSH ×3 (07:39→23:50)
--- NOTE | 2023-03-23 07:50 | PC.NURSE ---
PT IS A/O X 3, NO SOB/THEO NOTED SPEAKS IN FULL SENTENCES . CAHUILLA. LUNGS - DIMINISHED. HEART SOUNDS REGULAR. ABD SOFT AND NON-TENDER.BS + X 4 QUADS. NO EDEMA NOTED. PT IS ADMITTED TO HOSP. PT IS AWARE OF PLAN OF CARE.
--- NOTE | 2023-03-23 08:11 | PHA.MEDREC ---
Pharmacy Consult ? Medication Reconciliation Pharmacy has completed the medication reconciliation.
--- NOTE | 2023-03-23 08:50 | PC.NURSE ---
PT IS EATING BREAKFAST.
--- NOTE | 2023-03-23 09:25 | PM.EVENT ---
Event Note Date of Service: 03/24/23 Event Note: I personally saw and examined this patient admitted this morning for treatment of Sepsis d/t PNA and responding to IV Abx, A/P as per H and P from this morning. Time Spent With Patient Time: Total time managing care of this patient today ____ minutes.
[2023-03-23] MEDS: Losartan Potassium 25 MG TABLET PO (10:37)
[2023-03-23] MEDS: Fluticasone/Vilanterol 100/25 BLST.W.DEV 1 PUFF INHALE (10:37)
[2023-03-23] MEDS: Ezetimibe 10 MG TABLET PO (10:37)
[2023-03-23] MEDS: Aspirin Enteric Coated 81 MG TABLET.DR PO (10:37)
--- NOTE | 2023-03-23 12:08 | PC.NURSE ---
RN TO RN REPORT GIVEN TO KEM. PT AWARE OF PLAN OF CARE.
[2023-03-23] MEDS: Acetaminophen 325 MG TABLET 650 MG PO ×2 (12:49→21:09)
--- NOTE | 2023-03-23 18:20 | PC.NURSE ---
Pt doing well, on RA, able to make needs known, lungs clear, no cough or SOB, call bermudez within reach, will continue to monitor for needs. IV ABT in early AM tomorrow.
[2023-03-23] MEDS: Atorvastatin Calcium 80 MG TABLET PO (21:07)
[2023-03-24 03:07] VITALS: BP 114/57; PULSE 89; RESP 14; TEMP 36.1; O2SAT 92
[2023-03-24] MEDS: cefTRIAXone sodium 1 GM in 0.9 % Sodium Chloride 50 ML IV (05:32)
[2023-03-24 05:55] LABS: MANUAL DIFF FLAG NO
[2023-03-24 06:14] LABS: Anion Gap 14 (12-20); Blood Urea Nitrogen 10 mg/dL (9-16); Calcium 9.5 mg/dL (8.4-10.2); Carbon Dioxide 22 mmol/L (22-29); Chloride 108 mmol/L (96-108); Creatinine Clr Calc Pharmacy 52.1; Estimated Glomerular Filt Rate > 60; Glucose Random 103 mg/dL (60-115); Potassium 4.5 mmol/L (3.3-5.1); Sodium 139 mmol/L (135-145)
[2023-03-24 06:24] LABS: Basophils Absolute Auto 0.1 X10*3/uL (0.0-0.2); Basophils Percent Auto 0.5 % (0-2); Eosinophils Absolute Auto 0.5 X10*3/uL (0.0-0.4); Eosinophils Percent Auto 3.9 % (0-4); Hematocrit 41.2 % (42.0-52.0); Hemoglobin 13.7 g/dl (14.0-18.0); Imm Gran Abs Auto 0.06 X10*3/uL (0.00-0.03); Imm Gran Pct Auto 0.5 % (0.0-0.4); Lymphocytes Absolute Auto 2.3 X10*3/uL (1.2-4.9); Lymphocytes Percent Auto 19.3 % (20-40); Mean Corpuscular HGB Conc 33.3 g/dl (31.0-36.0); Mean Corpuscular Hemoglobin 29.5 pg (27.0-33.0); Mean Corpuscular Volume 88.8 fL (80.0-98.0); Mean Platelet Volume 9.7 fL (9.4-12.4); Monocytes Absolute Auto 1.3 X10*3/uL (0.1-1.2); Monocytes Percent Auto 10.7 % (2-11); Neutrophils Absolute Auto 7.9 x10*3/uL (2.0-8.3); Neutrophils Percent Auto 65.1 % (45-73); Platelet Count 263 X10*3/uL (160-400); Red Blood Count 4.64 X10*6/uL (4.60-5.80); White Blood Count 12.1 X10*3/uL (4.8-10.8)
[2023-03-24] MEDS: traMADoL HCL 50 MG TABLET PO (06:28)
[2023-03-24] MEDS: Azithromycin 500 MG in 0.9 % Sodium Chloride 250 ML 125 MG IV (06:28)
[2023-03-24 07:21] VITALS: BP 115/68; PULSE 93; RESP 18; TEMP 37.3; O2SAT 93
[2023-03-24] MEDS: 0.9 % Sodium Chloride Flush 3 ML SYRINGE IVFLUSH ×3 (08:43→23:44)
[2023-03-24] MEDS: Aspirin Enteric Coated 81 MG TABLET.DR PO (08:43)
[2023-03-24] MEDS: Ezetimibe 10 MG TABLET PO (08:43)
[2023-03-24] MEDS: Losartan Potassium 25 MG TABLET PO (08:43)
--- NOTE | 2023-03-24 09:50 | MHC.CM.PN ---
IMM DELIVERED. PT LIVES IN A SECOND FLOOR APARTMENT WITH DAUGHTER AND GRANDCHILDREN. NO SERVICES, INDEPENDENT, USES CANE PRN. PCP: DR. WINN, [facility], RESOURCE GUIDE PROVIDED. NO HCP IN PLACE, PROVIDED EDUCATION, PT DECLINES AT THIS TIME BUT WILL ADDRESS WITH PCP. DP: PT WISHES TO RETURN HOME, NO SERVICES. DAUGHTER CAN TRANSPORT.
--- NOTE | 2023-03-24 11:00 | P.PNIM_ITS ---
Subjective Subjective Date of Service: 03/24/23 Interval History: f/u on sepsis, PNA interval history: he is doing better, and feels better, no sob Physical Exam 2 Vital Signs: Vital Signs: Last Vital Signs Temp 99.1 F 03/24/23 07:21 Pulse 93 03/24/23 07:21 Resp 18 03/24/23 07:21 BP 115/68 03/24/23 07:21 Pulse Ox 93 03/24/23 07:21 O2 Del Method Room Air 03/24/23 07:21 BMI result Body Mass Index 20.2 Const: Other: General: AO X 3, no acute distress Resp: CTA bilateral CVS: S1,S2,RRR GI: +BS, NT, no distention Skin: No rash Neuro: motor grossly intact Psych: appropriate affect Objective Data Active Medications Acetaminophen (Acetaminophen 325 Mg Tablet) 650 mg PO Q6H PRN PRN Reason: Pain, Mild (Pain Scale 1-3) Last Admin: 03/23/23 21:09 Dose: 650 mg Documented By: SAVANNA Albuterol Sulfate (Albuterol Sulfate 90 Mcg 8 Gm Inhaler) 2 puff INHALE Q6H PRN PRN Reason: Shortness Of Breath Aspirin (Aspirin Enteric Coated 81 Mg Tablet.Dr) 81 mg PO DAILY [facility] Last Admin: 03/24/23 08:43 Dose: 81 mg Documented By: AVA Atorvastatin Calcium (Atorvastatin Calcium 80 Mg Tablet) 80 mg PO BEDTIME [facility] Last Admin: 03/23/23 21:07 Dose: 80 mg Documented By: SAVANNA Docusate Sodium (Docusate Sodium 100 Mg Capsule) 100 mg PO DAILY PRN PRN Reason: Constipation Ezetimibe (Ezetimibe 10 Mg Tablet) 10 mg PO DAILY [facility] Last Admin: 03/24/23 08:43 Dose: 10 mg Documented By: AVA Fluticasone/Vilanterol (Fluticasone/Vilanterol 100/25 Blst.W.Dev) 1 puff INHALE RDAILY [facility] Last Admin: 03/23/23 10:37 Dose: 1 puff Documented By: TAYO Guaifenesin/Codeine Phosphate (Guaifen/Codeine Sf 200/20/10ml 10 Ml Liquid) 5 ml PO Q6H PRN PRN Reason: Cough Ceftriaxone Sodium 1 gm/ (Sodium Chloride) 50 mls @ 100 mls/hr IV Q24H [facility] Last Infusion: 03/24/23 06:02 Dose: Infused Documented By: VINCENZO Azithromycin 500 mg/ Sodium (Chloride) 250 mls @ 125 mls/hr IV Q24H [facility] Last Infusion: 03/24/23 08:38 Dose: Infused Documented By: AVA Losartan Potassium (Losartan Potassium 25 Mg Tablet) 25 mg PO DAILY [facility]; Protocol Last Admin: 03/24/23 08:43 Dose: 25 mg Documented By: AVA Non-Formulary Medication (Clobetasol) 1 appl TOPICAL Q OTHER DAY [facility] Ondansetron HCl (Ondansetron Hcl 4 Mg/2 Ml Vial) 4 mg IVPUSH Q8H PRN PRN Reason: Nausea and Vomiting Sodium Chloride (0.9 % Sodium Chloride Flush 3 Ml Syringe) 3 ml IVFLUSH QSHIFT [facility] Last Admin: 03/24/23 08:43 Dose: 3 ml Documented By: AVA Tramadol HCl (Tramadol Hcl 50 Mg Tablet) 25 mg PO Q6H PRN PRN Reason: Pain, Severe (Pain Scale 7-10) Labs 03/24/23 05:31 03/24/23 05:31 Labs: Laboratory Results - last 24 hr 03/24/23 05:31 MCV 88.8 MCH 29.5 MCHC 33.3 RDW 13.0 Plt Count 263 MPV 9.7 Immature Gran % (Auto) 0.5 H Neut % (Auto) 65.1 Lymph % (Auto) 19.3 L [place] % (Auto) 10.7 Eos % (Auto) 3.9 Baso % (Auto) 0.5 Lymph # (Auto) 2.3 [place] # (Auto) 1.3 H Eos # (Auto) 0.5 H Baso # (Auto) 0.1 Abs Immat Gran (auto) 0.06 H Absolute Neuts (auto) 7.9 Absolute Nucleated RBC 0.000 Nucleated RBC % (auto) 0.0 Anion Gap 14 Estim Creat Clear Calc 52.1 Estimated GFR > 60 Random Glucose 103 Calcium 9.5 Microbiology Microbiology Results: Microbiology 03/23/23 02:26 Blood Culture - Preliminary Blood - Venous No growth after 24 hours. 03/23/23 02:26 Blood Culture - Preliminary Blood - Venous No growth after 24 hours. Assessment and Plan (1) Sepsis: Status: Acute (2) Pneumonia: Status: Acute Plan 77-year-old male past medical history of CAD HTN HLD comes into the hospital with complaints of shortness of breath found to have sepsis and pneumonia # sepsis d/t PNA, clinically responding to treatment, WBC down, no fever, Sepsis resolved. -Continue Ceftriaxone + Azithro, Cultures thus far negative. # HTN--Losartan # HLD - continue statin DVT prophylaxis Lovenox Need for inpt: IV Abx for Sepsis Time Spent With Patient Time: Total time managing care of this patient today ____ minutes. Quality Stroke Does the patient have a stroke diagnosis?: No VTE Prior VTE?: No VTE Risk Level:: Medical - moderate - high VTE Device Contraindication: Treatment Not Indicated VTE Drug Contraindication: N/A - Med Ordered
[2023-03-24] MEDS: guaiFEN/Codeine SF 200/20/10ML 10 ML LIQUID 5 ML PO (11:14)
[2023-03-24 11:56] VITALS: TEMP 37
[2023-03-24 12:26] LABS: Hematocrit 42.4 % (42.0-52.0); Hemoglobin 14.2 g/dl (14.0-18.0); Mean Corpuscular HGB Conc 33.5 g/dl (31.0-36.0); Mean Corpuscular Hemoglobin 29.6 pg (27.0-33.0); Mean Corpuscular Volume 88.3 fL (80.0-98.0); Mean Platelet Volume 9.3 fL (9.4-12.4); Platelet Count 288 X10*3/uL (160-400); White Blood Count 12.2 X10*3/uL (4.8-10.8)
[2023-03-24 15:10] VITALS: BP 111/59; PULSE 63; RESP 16; TEMP 36.7; O2SAT 94
[2023-03-24 19:09] VITALS: BP 119/57; PULSE 78; RESP 16; TEMP 36.7; O2SAT 94
[2023-03-24] MEDS: Atorvastatin Calcium 80 MG TABLET PO (20:15)
[2023-03-25 03:13] VITALS: BP 112/53; PULSE 68; RESP 14; TEMP 36.7; O2SAT 94
[2023-03-25] MEDS: guaiFEN/Codeine SF 200/20/10ML 10 ML LIQUID 5 ML PO (04:31)
[2023-03-25] MEDS: traMADoL HCL 50 MG TABLET 25 MG PO (04:31)
[2023-03-25] MEDS: cefTRIAXone sodium 1 GM in 0.9 % Sodium Chloride 50 ML IV (05:38)
[2023-03-25] MEDS: Azithromycin 500 MG in 0.9 % Sodium Chloride 250 ML 125 MG IV (06:38)
[2023-03-25 06:57] VITALS: BP 106/57; PULSE 78; RESP 16; TEMP 37.1; O2SAT 93
[2023-03-25] MEDS: Aspirin Enteric Coated 81 MG TABLET.DR PO (08:44)
[2023-03-25] MEDS: Fluticasone/Vilanterol 100/25 BLST.W.DEV 1 PUFF INHALE (08:44)
[2023-03-25] MEDS: Ezetimibe 10 MG TABLET PO (08:45)
[2023-03-25] MEDS: Losartan Potassium 25 MG TABLET PO (08:45)
[2023-03-25] MEDS: 0.9 % Sodium Chloride Flush 3 ML SYRINGE IVFLUSH ×3 (08:45→23:48)
[2023-03-25 08:49] VITALS: PULSE 78; RESP 16; O2SAT 94
[2023-03-25 10:10] VITALS: PULSE 78
--- NOTE | 2023-03-25 14:46 | P.PNIM_ITS ---
Subjective Subjective Date of Service: 03/25/23 Interval History: f/u on sepsis, PNA Review of Systems no sob , cough improving no fevers Physical Exam 2 Vital Signs: Vital Signs: Last Vital Signs Temp 98.7 F 03/25/23 06:57 Pulse 78 03/25/23 10:10 Resp 16 03/25/23 08:49 BP 106/57 L 03/25/23 06:57 Pulse Ox 93 03/25/23 06:57 O2 Del Method Room Air 03/25/23 06:57 BMI result Body Mass Index 20.2 General: AO X 3, no acute distress Resp: CTA bilateral CVS: S1,S2,RRR GI: +BS, NT, no distention Skin: No rash Neuro: motor grossly intact Psych: appropriate affect Objective Data Active Medications Acetaminophen (Acetaminophen 325 Mg Tablet) 650 mg PO Q6H PRN PRN Reason: Pain, Mild (Pain Scale 1-3) Last Admin: 03/23/23 21:09 Dose: 650 mg Documented By: SAVANNA Albuterol Sulfate (Albuterol Sulfate 90 Mcg 8 Gm Inhaler) 2 puff INHALE Q6H PRN PRN Reason: Shortness Of Breath Aspirin (Aspirin Enteric Coated 81 Mg Tablet.Dr) 81 mg PO DAILY [facility] Last Admin: 03/25/23 08:44 Dose: 81 mg Documented By: LUIS MANUEL Atorvastatin Calcium (Atorvastatin Calcium 80 Mg Tablet) 80 mg PO BEDTIME [facility] Last Admin: 03/24/23 20:15 Dose: 80 mg Documented By: DANNY Docusate Sodium (Docusate Sodium 100 Mg Capsule) 100 mg PO DAILY PRN PRN Reason: Constipation Ezetimibe (Ezetimibe 10 Mg Tablet) 10 mg PO DAILY [facility] Last Admin: 03/25/23 08:45 Dose: 10 mg Documented By: LUIS MANUEL Fluticasone/Vilanterol (Fluticasone/Vilanterol 100/25 Blst.W.Dev) 1 puff INHALE RDAILY [facility] Last Admin: 03/25/23 08:44 Dose: 1 puff Documented By: GADIEL Guaifenesin/Codeine Phosphate (Guaifen/Codeine Sf 200/20/10ml 10 Ml Liquid) 5 ml PO Q6H PRN PRN Reason: Cough Last Admin: 03/25/23 04:31 Dose: 5 ml Documented By: VINCENZO Ceftriaxone Sodium 1 gm/ (Sodium Chloride) 50 mls @ 100 mls/hr IV Q24H [facility] Last Infusion: 03/25/23 06:10 Dose: Infused Documented By: VINCENZO Azithromycin 500 mg/ Sodium (Chloride) 250 mls @ 125 mls/hr IV Q24H [facility] Last Infusion: 03/25/23 09:01 Dose: Infused Documented By: AVA Losartan Potassium (Losartan Potassium 25 Mg Tablet) 25 mg PO DAILY [facility]; Protocol Last Admin: 03/25/23 08:45 Dose: 25 mg Documented By: LUIS MANUEL Non-Formulary Medication (Clobetasol) 1 appl TOPICAL Q OTHER DAY [facility] Ondansetron HCl (Ondansetron Hcl 4 Mg/2 Ml Vial) 4 mg IVPUSH Q8H PRN PRN Reason: Nausea and Vomiting Sodium Chloride (0.9 % Sodium Chloride Flush 3 Ml Syringe) 3 ml IVFLUSH QSHIFT [facility] Last Admin: 03/25/23 08:45 Dose: 3 ml Documented By: LUIS MANUEL Tramadol HCl (Tramadol Hcl 50 Mg Tablet) 25 mg PO Q6H PRN PRN Reason: Pain, Severe (Pain Scale 7-10) Last Admin: 03/25/23 04:31 Dose: 25 mg Documented By: VINCENZO Labs 03/24/23 11:57 03/24/23 05:31 Microbiology Microbiology Results: Microbiology 03/23/23 02:26 Blood Culture - Preliminary Blood - Venous No growth after 48 hours. 03/23/23 02:26 Blood Culture - Preliminary Blood - Venous No growth after 48 hours. Assessment and Plan (1) Pneumonia: Status: Acute (2) Sepsis: Status: Acute Plan 77-year-old male past medical history of CAD HTN HLD comes into the hospital with complaints of shortness of breath found to have sepsis and pneumonia sepsis d/t PNA, clinically responding to treatment, WBC down, no fever, Sepsis resolved. Continue Ceftriaxone + Azithro since (03/23/23), Cultures thus far negative. HTN--Losartan HLD- continue statin DVT prophylaxis Lovenox generalised weak-Pt eval. Need for inpt: IV Abx for Sepsis/pneumonia ,pt eval Time Spent With Patient Time: Total time managing care of this patient today ____ minutes. Quality Stroke Does the patient have a stroke diagnosis?: No VTE Prior VTE?: No VTE Risk Level:: Medical - moderate - high VTE Device Contraindication: Treatment Not Indicated VTE Drug Contraindication: N/A - Med Ordered
[2023-03-25 15:25] VITALS: BP 103/54; PULSE 67; RESP 16; TEMP 36.9; O2SAT 93
[2023-03-25] MEDS: Acetaminophen 325 MG TABLET 650 MG PO (16:49)
[2023-03-25 19:33] VITALS: BP 101/52; PULSE 63; RESP 16; TEMP 36.7; O2SAT 94
[2023-03-25] MEDS: Atorvastatin Calcium 80 MG TABLET PO (20:58)
[2023-03-26 03:36] VITALS: BP 122/68; PULSE 68; RESP 16; TEMP 36; O2SAT 94
[2023-03-26] MEDS: cefTRIAXone sodium 1 GM in 0.9 % Sodium Chloride 50 ML IV (05:39)
[2023-03-26] MEDS: Azithromycin 500 MG in 0.9 % Sodium Chloride 250 ML 125 MG IV (06:12)
[2023-03-26 07:55] VITALS: BP 119/69; PULSE 93; RESP 16; TEMP 36.6; O2SAT 95
[2023-03-26 08:19] VITALS: PULSE 90; RESP 16; O2SAT 94
[2023-03-26] MEDS: Fluticasone/Vilanterol 100/25 BLST.W.DEV 1 PUFF INHALE (08:19)
[2023-03-26] MEDS: Losartan Potassium 25 MG TABLET PO (08:51)
[2023-03-26] MEDS: Aspirin Enteric Coated 81 MG TABLET.DR PO (08:51)
[2023-03-26] MEDS: 0.9 % Sodium Chloride Flush 3 ML SYRINGE IVFLUSH (08:52)
[2023-03-26] MEDS: Ezetimibe 10 MG TABLET PO (08:52)
--- NOTE | 2023-03-26 09:45 | PM.DS ---
DS: Providers Provider Date of Service: 03/26/23 Date of admission: 03/23/23 06:08 Date of discharge: 03/26/23 Primary care physician: Maddi Sellers MD Attending physician on discharge: Paola Davison Discharging clinician: Paola Davison DS: Diagnosis Discharge Diagnosis (1) Pneumonia: Status: Acute (2) Sepsis: Status: Acute DS: Summary Hospital Course Hospital Course: HPI: 77-year-old male with past medical history of CAD, hyperlipidemia of the hypertension comes into the hospital with complaints of shortness of breath for the past 2 days. Patient reports no cough, no sputum production, no fever some chills. No abdominal pain nausea vomiting, no diarrhea constipation, no urinary symptoms and no lower extremity edema On arrival to the ED patient hemodynamically stable with a heart rate of 112 Labs are significant for WBC count of 13.9, COVID-19, RSV and influenza negative Chest CT shows dense opacity in the right lower lobe Patient will be admitted for further management. Hospital course: Patient was admitted for shortness of breath found to have sepsis secondary to pneumonia started on IV antibiotic and blood cultures sent. Patient's symptoms seems to be improved with above management. Blood culture negative at 48 hours, patient will be going home with p.o. antibiotics(Ceftin and azithromycin for 6 more days.). Patient was advised to have chest imaging in 3-4 weeks to see resolution of pneumonia outpatient. Patient was seen by PT-recommended home pt. Follow-up with PCP. plan; Complete Ceftin and azithromycin for 6 more days. Patient was advised to have chest imaging in 3-4 weeks to see resolution of pneumonia outpatient. Assessment plan coordination time spent 50 minute. Time Spent with Patient Time attestation: Total time managing care of this patient today ____ minutes. Discharge coordination time: Greater than 30 minutes Quality: Safe Use of Opioids Does Pt have an Active Cancer Diagnosis on the Problem List?: No Quality: Stroke Does the patient have a stroke diagnosis?: No Physical Exam Vital Signs: Vital Signs: Last Vital Signs Temp 97.9 F 03/26/23 07:55 Pulse 90 03/26/23 08:19 Resp 16 03/26/23 08:19 BP 119/69 03/26/23 07:55 Pulse Ox 95 03/26/23 07:55 O2 Del Method Room Air 03/26/23 07:55 BMI result Body Mass Index 20.2 General: AO X 3, no acute distress Resp: CTA bilateral CVS: S1,S2,RRR GI: +BS, NT, no distention Skin: No rash Neuro: motor grossly intact Psych: appropriate affect DS: Data Data Completed and Pending Labs on day of discharge: Preliminary micro results at discharge 03/23/23 02:26 Blood Culture - Preliminary Blood - Venous No growth after 48 hours. 03/23/23 02:26 Blood Culture - Preliminary Blood - Venous No growth after 48 hours. Imaging Chest x-ray: Radiologist's impression: ITS Impressions Chest X-Ray 03/23/23 01:45 IMPRESSION: Low lung volumes without acute findings. Abdomen/Pelvis CT 03/23/23 03:25 IMPRESSION: 1. No acute fracture identified. 2. Volume loss in the right lower lobe with dependent dense opacity and adjacent groundglass opacity. At least some of this is favored to represent atelectasis, though a component of infectious/inflammatory groundglass opacity cannot be excluded. 3. Trace right pleural effusion. Chest CT 03/23/23 03:25 IMPRESSION: 1. No acute fracture identified. 2. Volume loss in the right lower lobe with dependent dense opacity and adjacent groundglass opacity. At least some of this is favored to represent atelectasis, though a component of infectious/inflammatory groundglass opacity cannot be excluded. 3. Trace right pleural effusion. Discharge Plan Discharge Anticipated Discharge Date/Time: 03/26/23 09:38 Patient Disposition: Home Health Service Discharge Diagnosis: sepsis sec to pneumonia ,generalised weak Referrals: Maddi Sellers MD [Primary Care Provider] - 1 Week Discharge Medications: New cefuroxime axetil 500 mg tablet 500 mg PO BID Qty: 12 0RF azithromycin 500 mg tablet 500 mg PO DAILY 6 Days Qty: 6 0RF Continued clobetasol 0.05 % shampoo 1 appl topical Q OTHER DAY aspirin 81 mg tablet,delayed release (DR/EC) 81 mg PO DAILY ezetimibe 10 mg tablet 10 mg PO DAILY terbinafine HCl 1 % cream 1 appl topical BID albuterol sulfate 90 mcg/actuation HFA aerosol inhaler 2 puff inhalation Q6H PRN (Reason: Shortness Of Breath) budesonide-formoterol [Symbicort] 80-4.5 mcg/actuation HFA aerosol inhaler 2 puff inhalation BID atorvastatin 80 mg tablet 80 mg PO BEDTIME losartan 25 mg tablet 25 mg PO DAILY Discharge Orders: Discharge Order (Routine); Ordered 03/26/23 Ordered By: Paola Davison Diet: Advance to usual diet Activity on Discharge: As tolerated Stand Alone Forms: Patient Portal Discharge page Care Plan Goals: Patient was admitted for shortness of breath found to have sepsis secondary to pneumonia started on IV antibiotic and blood cultures sent. Patient's symptoms seems to be improved with above management. Blood culture negative at 48 hours, patient will be going home with p.o. antibiotics(Ceftin and azithromycin for 6 more days.). Patient was advised to have chest imaging in 3-4 weeks to see resolution of pneumonia outpatient. Patient was seen by PT-recommended home pt. Follow-up with PCP. Health Concerns: As above. Plan of Treatment: As above. Assessment: As above.
--- NOTE | 2023-03-26 09:48 | P.F2F_ITS ---
Service Date Service Date: 03/26/23 Encounter Date of encounter: 03/26/23 Encounter: sepsis /pneumonia Reasons for Services Signs and symptoms assessed: Shortness of breath or cough or fever Reason for long term: medication management, medication treatment and teach disease management Reason for physical therapy: home safety and mobility, therapeutic exercises, restore joint function, gait/transfer training, assess need for DME, ADL training, energy conservation and other MD Overseeing Care: Maddi Sellers Homebound: Leaving the home is medically contraindicated at this time without the asist of a device and/or another person due th the listed conditions above and below. Reason homebound: weakness related to hospital stay Homebound supporting statement: Patient is generalized weak post hospitalization stay has multiple comorbidities: Need help disease management, appointment, with PT. Certification: Based on the above findings, I certify that this patient is confined to the home and needs intermittent long term care, physical therapy and/or speech therapy, or continues to need occupational therapy. The patient is under my care, and I have initiated the establishment of the plan of care. The patient will be followed by a physician who will periodically review the plan of care. Time Spent With Patient Time: Total time managing care of this patient today ____ minutes.
--- NOTE | 2023-03-26 10:37 | MHC.CM.PN ---
Patient is discharged to home today. [facility] was referred at patients request. They are 1st choice. They will provide Home services , SN and PT. All dc info has been sent to the [facility]. Patients dtr will provide transport home.
== END 2023-03-26 10:38 | disposition home health service (06) | DRG 871 ==
LOC: HO.ED 03-23 02:33 → HO.EDOVER 03-23 06:16 → HO.S3 03-23 12:57
PROVIDERS: Internal Medicine; Admitting Provider Internal Medicine; Emergency Provider Student in an Organized Health Care Education/Training Program; PCP Student in an Organized Health Care Education/Training Program; Visit Provider Internal Medicine
DX: A41.9 Sepsis, unspecified organism (principal); J18.9 Pneumonia, unspecified organism; I25.10 Atherosclerotic heart disease of native coronary artery without angina pectoris; I10 Essential (primary) hypertension; E78.5 Hyperlipidemia, unspecified; Z20.822 Contact with and (suspected) exposure to COVID-19; Z95.1 Presence of aortocoronary bypass graft; Z79.82 Long term (current) use of aspirin; Z79.899 Other long term (current) drug therapy
CPT/HCPCS: 36415; 71045; 71250; 74176; 80048; 80053; 81001; 82803; 83605; 84484; 85025; 85027; 85610; 87040; 87502; 87635; 93005; 94640; 97162; 99221; 99285; J0456; J0696; J2543

== ENCOUNTER → 2023-03-23 06:08 | Outpatient (BNV) | payer MEDICARE, SELFPAY | PROVIDERS: Admitting Provider Internal Medicine; Emergency Provider Student in an Organized Health Care Education/Training Program; PCP Student in an Organized Health Care Education/Training Program; Visit Provider Internal Medicine | DX: J18.9 Pneumonia, unspecified organism (principal); A41.9 Sepsis, unspecified organism | CPT/HCPCS: 99223; 99232; 99239; 99499; G0180 ==

== ENCOUNTER 2023-09-18 10:47 | Outpatient (REF) | payer MEDICARE, SELFPAY ==
--- NOTE | ~2023-09-18 | XR_ITS ---
STUDY: Bilateral hands. INDICATION: Numbness and tingling right hand, left hand pain. COMPARISON: None TECHNIQUE: 3 views each hand. FINDINGS: Right hand: No fracture or dislocation. Alignment and articulations are maintained. No focal soft tissue swelling. Left hand: Alignment and articulations are maintained. No fracture or dislocation. No focal soft tissue swelling. XR/XR hand LT min 3V IMPRESSION: No acute bony pathology bilateral hands.
--- NOTE | ~2023-09-18 | XR_ITS ---
STUDY: Bilateral hands. INDICATION: Numbness and tingling right hand, left hand pain. COMPARISON: None TECHNIQUE: 3 views each hand. FINDINGS: Right hand: No fracture or dislocation. Alignment and articulations are maintained. No focal soft tissue swelling. Left hand: Alignment and articulations are maintained. No fracture or dislocation. No focal soft tissue swelling. XR/XR hand RT min 3V IMPRESSION: No acute bony pathology bilateral hands.
[2023-09-18 11:25] LABS: MANUAL DIFF FLAG NO
[2023-09-18 11:47] LABS: Basophils Absolute Auto 0.1 X10*3/uL (0.0-0.2); Basophils Percent Auto 0.8 % (0-2); Eosinophils Absolute Auto 0.3 X10*3/uL (0.0-0.4); Eosinophils Percent Auto 2.9 % (0-4); Hematocrit 50.4 % (42.0-52.0); Hemoglobin 16.8 g/dl (14.0-18.0); Imm Gran Abs Auto 0.07 X10*3/uL (0.00-0.03); Imm Gran Pct Auto 0.7 % (0.0-0.4); Lymphocytes Percent Auto 31.4 % (20-40); Mean Corpuscular HGB Conc 33.3 g/dl (31.0-36.0); Mean Corpuscular Hemoglobin 29.2 pg (27.0-33.0); Mean Corpuscular Volume 87.7 fL (80.0-98.0); Mean Platelet Volume 9.5 fL (9.4-12.4); Monocytes Absolute Auto 0.8 X10*3/uL (0.1-1.2); Monocytes Percent Auto 8.5 % (2-11); Neutrophils Absolute Auto 5.3 x10*3/uL (2.0-8.3); Neutrophils Percent Auto 55.7 % (45-73); Platelet Count 253 X10*3/uL (160-400); Red Blood Count 5.75 X10*6/uL (4.60-5.80); Red Cell Distribution Width 12.7 % (11.0-16.0); White Blood Count 9.5 X10*3/uL (4.8-10.8)
[2023-09-18 12:06] LABS: Alanine Aminotransferase 15 U/L (0-40); Albumin Level 4.5 g/dL (3.5-5.0); Alkaline Phosphatase 70 U/L (39-117); Anion Gap 13 (12-20); Aspartate Amino Transferase 17 U/L (5-37); Bilirubin Total 0.7 mg/dL (0.0-1.0); Blood Urea Nitrogen 22 mg/dL (9-16); Calcium 9.7 mg/dL (8.4-10.2); Carbon Dioxide 24 mmol/L (22-29); Chloride 110 mmol/L (96-108); Cholesterol 120 mg/dL (<200); Estimated Glomerular Filt Rate 50; Glucose Random 99 mg/dL (60-115); HDL Cholesterol 42 mg/dL (>40); LDL Cholesterol Calculated 40 mg/dL (<100); Potassium 4.6 mmol/L (3.3-5.1); Sodium 142 mmol/L (135-145); Total Protein 7.4 g/dL (6.5-8.0); Triglycerides 191 mg/dL (<150)
[2023-09-18 12:28] LABS: TSH reflex Free T4 2.53 uIU/mL (0.32-4.0)
[2023-09-18 12:35] LABS: Folate 8.2 ng/mL (> or = 4.0); Vitamin B12 330 pg/mL (200-900)
[2023-09-18 14:37] LABS: Creatinine Urine 169.09 mg/dL; Microalbum/Creatinine Ratio Ur 5.9 ug/mg cr (<30)
== END 2023-09-18 10:48 | disposition home or self-care (01) ==
LOC: HO.XRAY 10:47
PROVIDERS: PCP Family Medicine; Visit Provider Family Medicine
DX: Z13.6 Encounter for screening for cardiovascular disorders (principal); J44.9 Chronic obstructive pulmonary disease, unspecified; R20.0 Anesthesia of skin; R20.2 Paresthesia of skin; M79.642 Pain in left hand
CPT/HCPCS: 36415; 73130; 80053; 80061; 82043; 82570; 82607; 82746; 84443; 85025

== ENCOUNTER 2023-12-04 06:45 | Outpatient (REF) | payer MEDICARE, SELFPAY | END 2023-12-04 06:46 | disposition home or self-care (01) | LOC: HO.HOSX 06:45 | PROVIDERS: Visit Provider Orthopaedic Surgery | DX: Z13.89 Encounter for screening for other disorder (principal) ==

== ENCOUNTER 2023-12-12 06:36 | Outpatient (REF) | payer MEDICARE, SELFPAY ==
--- NOTE | ~2023-12-12 | XR_ITS ---
EXAMINATION: XR PELVIS CLINICAL INFORMATION: Pain. COMPARISON: CT abdomen/pelvis 03/23/2023. TECHNIQUE: AP view of the pelvis. FINDINGS: Total bilateral hip arthroplasties. No evidence of hardware fracture or malfunctioning. No acute fractures or subluxation. Small pelvic phleboliths. Scattered vascular calcifications. No significant soft tissue abnormality. XR/XR pelvis 1-2V IMPRESSION: Total bilateral hip arthroplasties. No acute radiographic abnormality.
== END 2023-12-12 06:37 | disposition home or self-care (01) ==
LOC: HO.HOSX 06:36
PROVIDERS: Visit Provider Orthopaedic Surgery
DX: M47.816 Spondylosis without myelopathy or radiculopathy, lumbar region (principal); M25.551 Pain in right hip; M25.552 Pain in left hip; Z96.643 Presence of artificial hip joint, bilateral
CPT/HCPCS: 72170; 99202

== ENCOUNTER 2023-12-12 12:03 | Outpatient (AMB) | payer MEDICARE, SELFPAY ==
--- NOTE | 2023-12-12 12:09 | MHC.OFFVIS ---
Intake Visit Reasons: New Patient - B/L hip pain/ Rt hip worse Intake Note: Yamil is a 78 year old male who presents today as a new patient with complaints of bilateral hip pain. Right hip worse than the left. He has had hip surgery with Dr. Smith in the past. He reports both were hip replacements done many years ago. He takes Tylenol as needed for his pain. He does not use ice or heat and he has not had any physical therapy for his hips in the last year. He had x rays updated in the office today. He does use a salonpas cream to help with the pain. Allergies cat dander [CAT] Allergy (Unknown, Verified 12/12/23 12:13) WATERY EYES dog dander [DOG] Allergy (Unknown, Verified 12/12/23 12:13) WATERY EYES DUST Allergy (Mild, Uncoded 12/12/23 12:13) WATER EYES GRASS Allergy (Unknown, Uncoded 12/12/23 12:13) WATERY EYES Medication List - Last Reconciled 12/12/23 by Marlene Hernandez RN albuterol sulfate 90 mcg/actuation 2 puffs inhalation Q6H PRN aspirin 81 mg PO DAILY atorvastatin 80 mg PO BEDTIME azithromycin 500 mg PO DAILY 6 days budesonide-formoterol 80-4.5 mcg/actuation (Symbicort) 2 puffs inhalation BID cefuroxime axetil 500 mg PO BID clobetasol 0.05% 1 appl topical Q OTHER DAY ezetimibe 10 mg PO DAILY losartan 25 mg PO DAILY terbinafine HCl 1% 1 appl topical BID HPI HPI New Patient - B/L hip pain/ Rt hip worse: Details: Yamil had a left hip replacement in 2013 and a right hip replacement in 2017. He complains of occasional bilateral anterior hip pain right greater than left. This pain extends into his thighs. It has not associated with activity and there is no burning numbness or tingling. His primary pain complaint is back pain. He does not use a cane to walk and for the most part feels good [facility] Medical History (Updated 12/12/23 @ 12:31 by Artur Smith MD) Hyperlipidemia Hypertension CAD (coronary artery disease) Cough due to LIAM inhibitor History of smoking at least 1 pack per day for at least 30 years Cough in adult Surgical History (Updated 12/12/23 @ 12:33 by Artur Smith MD) S/P CABG x 3 Family History Mother No problems noted. Father No problems noted. Social History Household Members: Family Housing: Apartment Do you presently have visiting nurse or other home services: No Alcohol intake: former Patient Tobacco Use Status: Former Tobacco user Years Smoked: 41 years +/- Substance Use Type: Marijuana service: No Physical Exam Extrem Other: Normal gait. No pain with hip range of motion. Results Reviewed Results Reviewed: I personally reviewed relevant radiographs. Bilateral total knee arthroplasty in expected post operative position with no hardware complications or evidence of loosening Assessment & Plan Assessment & Plan (1) Lumbar arthropathy: Code(s): M47.816 - Spondylosis without myelopathy or radiculopathy, lumbar region Category: Medical Plan: I referred Yamil to pain management for his ongoing lumbar back pain. (2) Status post bilateral total hip replacement: Code(s): Z96.643 - Presence of artificial hip joint, bilateral Category: Surgical Plan: This is a 78-year-old gentleman status post bilateral hip replacements doing well. No evidence of hip pathology. I do not think his pain is from his hips. Continue activity as tolerated Orders: Orders XR pelvis 1-2V Today M25.559 - Pain in unspecified hip Referrals Pain Management Referral M47.816 - Spondylosis without myelopathy or radiculopathy, lumbar region Coding Level of Care Code New Pt Level 3 (19168) Diagnoses Lumbar arthropathy M47.816 Status post bilateral total hip replacement Z96.643
== END 2023-12-12 12:35 | disposition home or self-care (01) ==
PROVIDERS: PCP Family Medicine; Visit Provider Orthopaedic Surgery
DX: M47.816 Spondylosis without myelopathy or radiculopathy, lumbar region (principal); Z96.643 Presence of artificial hip joint, bilateral
CPT/HCPCS: 99203

== ENCOUNTER 2024-01-23 10:36 | Outpatient (AMB) | payer MEDICARE, SELFPAY ==
--- NOTE | 2024-01-23 10:43 | A.OFFVIS_ITS ---
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 Endorses midline lower back pain with radiation across his lower back. He has been suffering with this pain for greater than 10 years. Denies radiation of the pain down either lower extremity, though does report some discomfort in both anterior thighs. Denies radiation into the buttocks Denies numbness, weakness, tingling of either lower extremity Pain is worse with activity,, rising from a seated position and bending forward at the waist Denies recent fall, trauma, injury. Denies flag symptoms including new loss of bowel, bladder or saddle anesthesia. Patient denies previous attempts at physical therapy, chiropractor, acupuncture, massage or injections. Denies history of spinal surgeries. Taking Tylenol with minimal improvement of his symptoms. Certainly anti-inflammatory medications due to current use of Plavix Will use Salonpas with some improvement his symptoms. In terms of muscle damage condition is described as stabbing, sharp, throbbing. Pain is negatively impacting patient's enjoyment of life, general activity, sl eeping, walking. Denies implantable devices, pacemaker defibrillator Endorses current use anticoagulants. [facility] Medical History (Updated 01/23/24 @ 11:09 by Cheri Angeles APRN, [employer] REPRESENTATIVE) Hyperlipidemia Hypertension CAD (coronary artery disease) Cough due to LIAM inhibitor History of smoking at least 1 pack per day for at least 30 years Cough in adult Surgical History (Updated 12/12/23 @ 12:33 by Artur Smith MD) S/P CABG x 3 Family History Mother No problems noted. Father No problems noted. Social History Household Members: Family Housing: Apartment Do you presently have visiting nurse or other home services: No Alcohol intake: former Patient Tobacco Use Status: Former Tobacco user Years Smoked: 41 years +/- Substance Use Type: Marijuana service: No Review of Systems Const All systems reviewed & are unremarkable except as noted in HPI and below Physical Exam Vital Signs: Last Vital Signs Pulse 71 01/23/24 10:48 BP 120/70 01/23/24 10:48 Pulse Ox 98 01/23/24 10:48 Oxygen Delivery Method Room Air 01/23/24 10:48 BMI result Body Mass Index 20.7 General: awake, alert, oriented. Answers questions appropriately. Fully engaged in examination. Skin: warm, dry, intact HEENT: Normocephalic. Hearing intact. Cardiac: External chest normal in appearance. Respiratory: No cough, audible wheezing or stridor. Abdomen: without gross distension. MS: No obvious swelling or deformities. Able to stand on bilateral tiptoes and bilateral heels.? Able to transition from sit to stand unassisted. Ambulates with bilaterally normal heel strike and toe off Facet loading positive Tender to palpation midline lumbar vertebrae and lumbar paraspinal muscle SLR negative bilaterally Nontender over bilateral PSIS Decreased range motion, pain with forward flexion Bilateral lower extremity strength 5/5 Neurological: Oriented to person, place, time and situation. Thought process intact. No gait abnormalities appreciated. Psychiatric: Appropriate mood and affect. Good judgment and insight. Assessment & Plan Assessment & Plan (1) Lumbar arthropathy: Code(s): M47.816 - Spondylosis without myelopathy or radiculopathy, lumbar region Category: Medical (2) Lower back pain: Code(s): M54.50 - Low back pain, unspecified Category: Medical Plan Yamil is a very pleasant 78-year-old male who presents the office today for evaluation and management of his chronic lower back pain History, physical exam and provocative testing consistent with lumbar spondylosis without radiculopathy. Order placed for PT eval and treat Lidocaine 5% patches, apply to most painful area 12 hours daily. Continue with Tylenol as needed. Unable to take nonsteroidal anti-inflammatory medications due to current use of Plavix. All questions and concerns answered, patient agrees with the plan. Follow up after PT, sooner if needed. Orders: Orders PT Evaluation and Treatment Today M47.816 - Spondylosis without myelopathy or radiculopathy, lumbar region, M54.50 - Low back pain, unspecified XR lumbar spine 4V min Today M47.816 - Spondylosis without myelopathy or radiculopathy, lumbar region, M54.50 - Low back pain, unspecified Medications: New lidocaine 5% leave on most painful area for up to 12 hrs 1 patch topical DAILY 30 ea 3RF Coding Level of Care Code New Pt Level 4 (04784) Diagnoses Lumbar arthropathy M47.816 Lower back pain M54.50
[2024-01-23 10:48] VITALS: BP 120/70; PULSE 71; O2SAT 98; BMI 20.7
== END 2024-01-23 11:03 | disposition home or self-care (01) ==
PROVIDERS: PCP Family Medicine; Referring Provider Orthopaedic Surgery; Visit Provider Registered Nurse Emergency
DX: M47.816 Spondylosis without myelopathy or radiculopathy, lumbar region (principal); M54.50 Low back pain, unspecified
CPT/HCPCS: 99204

== ENCOUNTER 2024-01-23 10:36 | Outpatient (REF) | payer MEDICARE, SELFPAY ==
--- NOTE | ~2024-01-23 | XR_ITS ---
EXAMINATION: XR LUMBOSACRAL SPINE WITH OBLIQUES CLINICAL INFORMATION: Low back pain. COMPARISON: CT abdomen/pelvis 03/23/2023. TECHNIQUE: AP, both oblique, and lateral views of the lumbar spine. Lateral view of the lumbosacral junction. FINDINGS: No evidence of acute compression deformity or subluxation. Moderate multilevel spondylosis with intervertebral disc height loss and facet arthropathy leading to some degree of neural foraminal encroachment from L3 through S1. Prominent multilevel anterior marginal osteophytes, largest at L2-L3. Atherosclerotic disease of the abdominal aorta. No significant paraspinal soft tissue abnormality. XR/XR lumbar spine 4V min IMPRESSION: 1. No acute compression deformity or subluxation. 2. Lumbar spondylosis with neural foraminal encroachment in the lower lumbar spine, further evaluation with an MRI as clinically warranted.
== END 2024-01-23 10:37 | disposition home or self-care (01) ==
LOC: HO.XRAY 10:36
PROVIDERS: PCP Family Medicine; Referring Provider Orthopaedic Surgery; Visit Provider Registered Nurse Emergency
DX: M54.50 Low back pain, unspecified (principal); M47.816 Spondylosis without myelopathy or radiculopathy, lumbar region
CPT/HCPCS: 72110; 99202

== ENCOUNTER 2024-02-03 14:27 | Outpatient (REF) | payer MEDICARE, SELFPAY ==
--- NOTE | ~2024-02-03 | US_ITS ---
EXAMINATION: ULTRASOUND RIGHT INGUINAL REGION CLINICAL INFORMATION: Right lower quadrant and inguinal pain. COMPARISON: None available. TECHNIQUE: Using a linear transducer with grayscale and color analysis on ultrasound examination is performed of the right groin soft tissues. FINDINGS: The cutaneous, subcutaneous, muscular and fascial planes are unremarkable. At the site of pain described by the patient in the right inguinal region, measuring 3.0 x 0.6 x 0.7 cm lymph node is seen. No mass or fluid collection is seen. There is no foreign body. No hernia defect is noted. The right common femoral vein is patent and compressible. No right common femoral artery aneurysm is seen. US/US pelvic limited IMPRESSION: A mildly prominent, nonspecific right inguinal lymph node is seen, corresponding with the palpable finding described by the patient. Recommend management on a clinical basis. Electronically signed by: Rafa Davila MD 02/23/2024 10:26 PM EDT Workstation: -WS
== END 2024-02-03 14:28 | disposition home or self-care (01) ==
LOC: HO.US 14:27
PROVIDERS: PCP Family Medicine; Visit Provider Family Medicine
DX: R10.31 Right lower quadrant pain (principal)
CPT/HCPCS: 76857

== ENCOUNTER 2024-11-22 09:52 | Outpatient (REF) | payer MEDICARE, SELFPAY ==
--- OUTSIDE RECORDS SUMMARY | 2024-11-22 10:40 | XMS_ITS | Encounter Summary ---
Author Organization [facility] [employer] Address [address] [place] [address] [address] [place] [address] Care Team Providers Care Director Talent Management Name Role Phone Valery Espinoza MD Primary Care Provider [phone] Reason for Visit * Reason Comments Med Refill Encounter Details Date Type Department Care Team (Late st Contact Info) Description 10/28/2024 Refill [facility] MEDICINE [address] [place] [address] Pam Mnedoza FNP [address] [place] [address] Social History Tobacco Use Types Packs/Day Years Used Date Smoking Tobacco: Former Cigarettes 2 45 1 963 - 2008 Smokeless Tobacco: Never Alcohol Use Standard Drinks/Week Comments Never 0 (1 standard drink = 0.6 oz pur e alcohol) Depression Answer Date Recorded Patient Health Questionnaire-9 Score 0 10/21/2024 Patient Health Questionnaire-9 Score 0 10/21/2024 Last PHQ-9: Questionnaire Data Not on file 0 10/21/2024 Housing Stability Answer Date Recorded What is your housing situation today? I have joselin lucero 10/14/[address] you li ve. Do you have problems with any of the following? Pests such as bugs, ants, or mice 10/14/2024 Food Insecurity Answer Date Recorded Within the past 12 months, y ou worried that your food would run out before you got money to buy more: Never True 10/14/2024 Within the past 12 months,th e food you bought just didn't last and you didn't have enough money to get more: Never True Transportation Answer Date Recorded In the past 12 months, has l ack of transportation kept you from medical appts, meetings, work or from getting things needed for daily living? No 10/14/2024 Utilities Answer Date Recorded In the past 12 months, has t he electric, gas, oil or water company threatened to shut off services in your home? No 10/14/2024 Depression Answer Date Recorded Patient Health Questionnaire-2 Score 0 10/21/2024 Internet Access Answer Date Recorded Internet Access Q1 No 10/14/2024 Internet Access Q2 I do not want or need it 09/22 Sex and Gender Information Value Date Recorded Sex Assigned at Male 04/22/2022 10:18 AM EDT Legal Sex Male 10:18 AM EDT Gender Identity Male 04/22/2022 10:18 AM EDT Sexual Orientation Don't know 04/22/2022 10 :18 AM EDT documented as of this encounter Plan of Treatment Not on file documented as of this encounter Visit Diagnoses Not on filedocumented in this encounter Additional Health Concerns Assessment Noted Time PHQ-9 Depression Total Score: 0 10/22/19 25 11:28 AM EDT documented as of this encounter Care Teams Director Talent Management Relationship Specialty Start Date End Date Valery Espinoza MD [address] [place] [address] PCP - General Family Medicine 09/14/21 Antoine Billings MD Hardware Technician 04/24/23 documented as of this encounter
[2024-11-22 12:26] LABS: Vitamin B12 284 pg/mL (200-900)
== END 2024-11-22 09:53 | disposition home or self-care (01) ==
LOC: HO.LAB 09:52
PROVIDERS: PCP Family Medicine; Visit Provider Psychiatry & Neurology Neurology
DX: F01.50 Vascular dementia, unspecified severity, without behavioral disturbance, psychotic disturbance, mood disturbance, and anxiety (principal)
CPT/HCPCS: 36415; 82607

== ENCOUNTER 2025-03-15 15:13 | Outpatient (AMB) | payer MEDICARE, SELFPAY ==
--- NOTE | 2025-03-15 15:15 | A.OFFVIS_ITS ---
Intake Visit Reasons: 2m AD Allergies cat dander (CAT) Allergy (Unknown, Verified 01/23/24 10:47) WATERY EYES dog dander (DOG) Allergy (Unknown, Verified 01/23/24 10:47) WATERY EYES DUST Allergy (Mild, Uncoded 12/12/23 12:13) WATER EYES GRASS Allergy (Unknown, Uncoded 12/12/23 12:13) WATERY EYES HPI Comments Details: 79 y/o man with h/o chronic migriane in young age with vascular dementiing process, probably CADASIL. He is presenting for a follow-up on dementia management. He reports challenges with sleep patterns, generally sleeping at 2:00 AM but managing to nap during the afternoon without feeling sleep-deprived. His sleep-wake cycles are noted to be inconsistent, a common occurrence in dementia. He is on a stable regimen of memantine, twice daily, with adherence and no significant side effects reported. Activities of daily living include staying at home and watching television, maintaining a consistent routine despite cognitive challenges. [facility] Medical History (Updated 03/15/25 @ 15:20 by Aniceto Lizarraga MD) Vascular dementia Hyperlipidemia Hypertension CAD (coronary artery disease) Cough due to LIAM inhibitor History of smoking at least 1 pack per day for at least 30 years Cough in adult Surgical History (Updated 12/12/23 @ 12:33 by Artur Smith MD) S/P CABG x 3 Family History Mother No problems noted. Father No problems noted. Social History Household Members: Family Housing: Apartment Do you presently have visiting nurse or other home services: No Alcohol intake: former Patient Tobacco Use Status: Former Tobacco user Years Smoked: 41 years +/- Substance Use Type: Marijuana service: No Review of Systems Const Details: - Neurological: Reports difficulty with maintaining structured sleep-wake cycles. - General: Denies feeling sleep deprived. Physical Exam Neuro Other: Mental Status: Alert and oriented to person, place, and time. Normal attention. Normal spontaneous speech, fluency, and comprehension. No obvious issues with mood and memory. Affect is appropriate. Cranial Nerves: CN II: Visual streeter full to confrontation, visual acuity intact. CN III, IV, : Pupils equal, round, reactive to light and accommodation. Extraocular movements are normal. CN V: Facial sensation is normal. CN VII: Facial movements symmetrical. CN VIII: Hearing intact to bedside conversation is normal. CN IX, X: Palate elevates symmetrically. CN XI: Shoulder shrug and head turn symmetrical. CN XII: Tongue midline without atrophy or fasciculations. Extrapyramidal: Full facial expressions and blinking. No rigidity. Movements are appropriate with no tremor or abnormality. Speech: Normal; no dysarthria or tremor. Assessment & Plan Assessment & Plan (1) Vascular dementia: Comment: MRI brain WO at [facility] [place] [place] in 2017: mild to mod diff atrophy and mod non specific WM lesions, probably microangiopathic. Code(s): F01.50 - Vascular dementia, unspecified severity, without behavioral disturbance, psychotic disturbance, mood disturbance, and anxiety Category: Medical Qualifiers: Dementia severity: moderate Dementia behavioral or psychological symptom: without behavioral, psychotic, or mood disturbance or anxiety Qualified Code(s): F01.B0 - Vascular dementia, moderate, without behavioral disturbance, psychotic disturbance, mood disturbance, and anxiety Plan We discussed the continued use of memantine for dementia management. I explained that disturbed sleep-wake cycles are typical in dementia patients, and specific sleep pattern regulations might not be necessary unless they cause distress or f unctional impairment. The patient and family were reassured about the current approach to his sleep schedule, emphasizing that maintaining a flexible attitude towards his sleeping habits is appropriate. Follow-up was advised to monitor his cognitive status and medication tolerance. Medications: New memantine (Namenda) 10 mg PO BID 180 tabs 1RF Coding Level of Care Code Est Pt Level 4 (40906) Diagnoses Moderate vascular dementia without behavioral disturbance, psychotic disturbance, mood disturbance, or anxiety F01.B0 Dementia severity: moderate Dementia behavioral or psychological symptom: without behavioral, psychotic, or mood disturbance or anxiety
--- OUTSIDE RECORDS SUMMARY | 2025-03-15 18:10 | XMS_ITS | Clinical Summary ---
Author Organization [employer] Address [address] [place] [address] [address] [place] [address] Care Team Providers Care Refinisher Name Role Phone Valery Espinoza MD Primary Care Provider [phone] Allergies Active Allergy Reactions Criticality Noted Date Comments Cat Dander 11/20/2018 Dust Mite Extract 11/20/2018 Gramineae Pollens 03/18/2024 Morphine Unknown 04/25/2023 Vomiting Medications cetirizine (ZyrTEC) 10 MG tablet Take 1 tablet by mouth if needed each day. 12/27/19 22 Active famotidine (Pepcid) 20 MG tablet Take 20 mg by mouth at bedtime. 04/11/20 22 Active hydrocortisone 2.5 % cream Apply 1 application topically every 12 (twelve) hours. 04/04/20 22 Active tiZANidine (Zanaflex) 4 MG tabletIndications: Paraspinal muscle spasm Take 1 tablet (4 mg) by mouth every 6 (six) hours if needed for muscle spasms for up to 10 days. 30 tablet 12/24/19 23 Active albuterol 108 (90 Base) MCG/ACT inhaler Inhale 2 puffs every 4 (four) hours if needed for shortness of breath or wheezing. 18 g 2 03/28/20 23 Active lisinopril 5 MG tablet 04/24/20 23 Active nitroglycerin (Nitrostat) 0.[address] 1 tablet (0.4 mg) under the tongue every 5 (five) minutes if needed for chest pain. 10 tablet 04/25/20 23 Active Blood Pressure kitIndications:Hyp ertension, unspecified type 1 Units in the morning. 1 kit 05/01/20 23 Active aspirin 81 MG chewable tablet Chew 81 mg in the morning. 04/25/20 23 Active acetaminophen (Tylenol Extra Strength) 500 MG tablet Take 2 tablets (1,000 mg) by mouth every 8 (eight) hours if needed for mild pain. 90 tablet 06/26/19 24 Active Diclofenac Sodium 1 % gel Apply 1 Application topically 4 times daily. 200 g 2 06/26/19 24 Active ketoconazole (Nizoral) 2 % shampooIndications :Sebopsoriasis Apply topically 2 (two) times a week. 120 mL 3 07/31/19 24 Active Diclofenac Sodium 1 % gel Apply 5 g topically 4 times daily. 200 g 3 11/06/19 24 Active montelukast (Singulair) 10 MG tablet Take 1 tablet (10 mg) by mouth at bedtime. 90 tablet 1 11/26/19 24 Active metoprolol succinate XL (Toprol-XL) 25 MG 24 hr tablet Take 1 tablet (25 mg) by mouth Once per day. 90 tablet 1 03/11/20 24 Active temazepam (Restoril) 7.5 MG capsule Take 1 capsule (7.5 mg) by mouth if needed at bedtime for sleep. 28 capsule 1 03/11/20 24 Active olopatadine (Pataday) 0.2 % ophthalmic solution Administer 1 drop into affected eye(s) Once per day. 2.5 mL 2 03/15/20 24 Active clopidogrel (Plavix) 75 MG tablet Take 1 tablet (75 mg) by mouth Once per day. 90 tablet 1 04/29/20 24 Active clobetasol (Temovate) 0.05 % gelIndications:Steve opsoriasis 1 ribbon to rub on the scalp daily 60 g 1 07/13/19 25 Active Fluocinolone Acetonide Scalp 0.01 % oilIndications:Steve opsoriasis USE DIRECTED TWICE A WEEK; COVER THE HEAD WITH A DURAG-CAP 118.28 mL 1 08/04/19 25 Active fenofibrate (Triglide) 160 MG tablet TAKE ONE TABLET (!60MG) BY MOUTH DAILY AT 9 AM 90 tablet 11 09/21/19 25 Active ezetimibe (Zetia) 10 MG tabletIndications: Mixed hyperlipidemia TAKE ONE TABLET (10MG) BY MOUTH DAILY AT 9 AM 90 tablet 11 09/30/19 25 Active rosuvastatin (Crestor) 40 MG tabletIndications: Mixed hyperlipidemia TAKE ONE TABLET (40 MG) BY MOUTH DAILY AT 9 PM AT BEDTIME FOR CHOLESTEROL 90 tablet 11 09/30/19 25 Active pantoprazole (ProtoNix) 40 MG EC tablet Take 1 tablet (40 mg) by mouth if needed each day (acid reflux). 90 tablet 1 10/22/19 25 Active Symbicort 160-4.5 MCG/ACT inhaler Inhale 2 puffs in the morning and at bedtime. Rinse mouth with water after use to reduce aftertaste and incidence of candidiasis. Do not swallow. 10.2 g 1 10/22/19 25 Active Spacer/Aero-Holdin g Chambers deviceIndications: COPD without exacerbation (CMS/HCC) 1 Units 2 times daily. 1 Units 1 10/22/19 25 Active predniSONE (Deltasone) 20 MG tabletIndications: Acute midline low back pain without sciatica Take 1 tablet (20 mg) by mouth Once per day for 5 days. 5 tablet 03/02/20 25 025 acetaminophen (Tylenol) 325 MG tabletIndications: Acute midline low back pain without sciatica Take 2 tablets (650 mg) by mouth every 8 (eight) hours if needed for mild pain for up to 10 days. 40 tablet 03/02/20 25 025 Active Problems Problem Noted Date Diagnosed Date Loss of functional autonomy in activities of daily living (ADLs) 10/21/2024 Assessment & Plan (10/21/2024 12:19 PM EDT): [facility] is [facility] including help with medications and transportation to appointments. Family reports that current level of care may be insufficient, particularly in light of suspected cognitive decline. Plan: - Provide letter requesting re-evaluation of personal care assistance needs to current home care agency - Advise family on process for requesting increased home care services - Recommend family explore alternative agencies if current services are unsatisfactory Itch of eye 03/11/2024 Assessment & Plan (03/11/2024 7:57 PM EDT): Advised to use eye drops for Sx and follow up with Ophthalmology. Right inguinal pain 01/28/2024 Assessment & Plan (01/28/2024 4:41 PM EDT): Patient with right inguinal pain, no herniation appreciated on exam but tenderness on palpation, will send to groin US. Right hip pain 11/06/2023 Assessment & Plan (11/11/2023 11:38 AM EDT): Pt was provided a letter of medical necessity to support his request for re- location to first-floor apartment. Will send imaging of hip and lumbar ddx osteoarthritis. Patient reports he prefers seeing Ortho, referral placed Numbness and tingling in right hand 09/01/2023 Assessment & Plan (09/01/2023 11:30 PM EDT): Right hand pain and tingling persist. Plan to conduct X-ray and EMG test for further evaluation. + Tinel. Back pain of lumbar region with sciatica 024 Assessment & Plan (06/26/2023 3:49 PM EST): Patient that presented visit with complaints of back pain will be provided with a higher dose of Tylenol, and topical Diclofenac to treat concern. Left hand pain 06/26/2023 Assessment & Plan (06/26/2023 3:48 PM EST): Patient that presented visit with complaints of L Hand Pain will be sent for imaging for further evaluation. Chronic pain of both knees 06/26/2023 Assessment & Plan (06/26/2023 3:43 PM EST): Medical Condition and Necessity for Knee Braces: Yamil Hurt has been diagnosed with bilateral knee pain resulting from osteoarthritis. This chronic pain significantly impairs their ability to perform daily activities and maintain mobility. Moreover, the pain has secondary effects, causing strain on their lower back, resulting in additional discomfort and limitations in movement. We recommended the use of knee braces as part of the treatment plan to provide support, reduce pain, and prevent further deterioration of the knee joints. The braces are deemed medically necessary to stabilize the knees, alleviate discomfort, and mitigate the associated back pain. The goal is to improve Yamil Hurt 's quality of life by managing pain, enhancing mobility, and preventing further complications related to their knee and back conditions. Counseling regarding advance d care planning and goals of care 05/20/2023 Assessment & Plan (05/20/2023 2:56 PM EST): Advanced care was discussed and filled by patient. Thickened nails 05/20/2023 Assessment & Plan (05/20/2023 2:57 PM EST): Patient with concerns of thicken nails will be referred to Podiatry. NSTEMI (non-ST elevated myocardial infarction) 1 06/25/2022 Assessment & Plan (04/25/2023 10:24 AM EDT): Patient with complaints of chest pains will be prescribed Nitroglycerin. Insomnia 04/25/2023 Assessment & Plan (09/01/2023 11:30 PM EDT): Over-sedation noted with current sleeping medication. Plan to reduce the dose and advised patient to use the bathroom before taking the medication. F/U to evaluate the effectiveness of the sleeping medication dose adjustment and to review results of the EMG, XR and labs. Assessment & Plan (06/26/2023 3:48 PM EST): Patient still presents visit with complaints of insomnia, therefore, will change medications for further improvements. Recommended to notify office if is in need of a medication refill. Assessment & Plan (04/25/2023 10:19 AM EDT): Patient with complaints of insomnia will be prescribed Zolpidem. Patient was advised if medication doesn't improve concern, will try another medication. COPD without exacerbation 09/11/2022 Assessment & Plan (10/21/2024 12:16 PM EDT): - Continue Symbicort inhaler, 2 puffs twice daily - Prescribe spacer device to improve medication delivery - Sent to patient's pharmacy with instructions for daily use - Educate patient on proper inhaler technique - Recommend visit to pharmacy for technique assessment - Consider referral to configuration engineer for further evaluation and management - Advise to seek immediate care for severe exacerbations - Encourage smoking cessation if still smoking Assessment & Plan (09/01/2023 11:31 PM EDT): Noted low oxygen levels and wheezing. Plan to prescribe a 5-day course of steroids to improve air movement. Compliant with current cardiac medications. No changes recommended at this time. Labs: CBC, Comprehensive Metabolic Panel, Lipid Panel, Albumin, TSH w/ reflex to FT4, Vitamin B12 Assessment & Plan (04/25/2023 10:24 AM EDT): Patient still presents complains of dry cough due to COPD: will be prescribing Montelukast. Paraspinal muscle spasm 08/26/2022 Assessment & Plan (08/26/2022 4:38 PM EST): Paraspinal spasms on examination, will send muscle relaxer and NSAIDs, f/u as needed Vascular dementia 01/25/2019 Assessment & Plan (03/24/2024 1:11 PM EDT): Patient with known MCI, concern for dementia, family concern of behavioral issues associated with his Ordering lab work for TSH and referral to Neurology for further evaluation. Tubular adenoma 01/25/2019 Overview (08/13/2022): 2007 colonoscopy History of substance abuse 01/25/2019 Overview (08/13/2022): Hx use of cocaine. Hiatal hernia 01/25/2019 Overview (08/13/2022): [facility] assoc w/ GERD, barium swallow 07/2009 [facility]. History of bilateral hip replacements 01/25/2019 Asthma 01/25/2019 Arthritis 11/20/2018 Assessment & Plan (12/23/2022 4:00 PM EDT): Patient with history of arthritis and persistent chronic joint pain. Will send trial of oxycodone for x5 days prn and muscle relaxer. GERD (gastroesophageal reflux disease) 9 Assessment & Plan (10/21/2024 12:15 PM EDT): Patient has not refilled his PPI since 2022, will refill protonix and f/up in 6 weeks to assess if he has improvement of symptoms. Assessment & Plan (04/06/2023 8:32 AM EDT): Refill pantoprazole PRN Mild intermittent asthma 05/16/2015 Avascular necrosis of bone of hip 09/13/2013 HTN (hypertension) 06/04/2012 Assessment & Plan (08/26/2022 4:38 PM EST): Controlled. Will send lab testing. Carotid stenosis 06/04/2012 Atherosclerosis of coronary artery 05/06/2012 External hemorrhoids 05/06/2012 Sebopsoriasis 11/22/2011 Assessment & Plan (12/23/2022 4:01 PM EDT): Patient with history of psoriasis with recent exacerbation. Will scheduled appointment with Dr. Ag for further evaluation on 2022. Depressive disorder 06/23/1959 Mixed hyperlipidemia 06/23/1959 Assessment & Plan (04/06/2023 8:30 AM EDT): Reviewed active medications with patient, he has bottles for both atorvastatin 80mg nightly and rosuvastatin 40mg nightly Discussed risks of duplicate therapy Plan: DC atorvastatin, continue rosuvastatin Multi-infarct dementia, uncomplicated 06/23/1959 Assessment & Plan (10/21/2024 12:18 PM EDT): There is concern for cognitive decline, as evidenced by the family's request for increased home care assistance and the scheduled neurology appointment for dementia evaluation. The patient has demonstrated forgetfulness, including missing appointments and potentially not taking medications as prescribed. Plan: - Neurology appointment scheduled for November 22 at 9:10 AM for dementia evaluation - Provide letter requesting re-evaluation of personal care assistance needs - Recommend changing primary contact and service clerks supervisor for appointment notifications to ensure family awareness - Advise family to request portal password reset at front desk admin to maintain access to patient's medical information Assessment & Plan (03/11/2024 7:55 PM EDT): Ordering lab work for TSH and referral to Neurology for further evaluation. Encounters Date Type Department Care Team Description 03/03/2025 Results Follow-Up [facility] [address] [place] [address] Valery Espinoza MD XR Lumbar Spine Complete 4+ Views 03/02/2025 3:20 PM EDT Office Visit [facility] [address] [place] [address] Vasquez Whitley MD Acute midline low back pain without sciatica (Primary Dx) 03/02/2025 Travel 02/25/2025 Telephone [facility] [address] [place] [address] Valery Espinoza MD Appointment Request 02/08/2025 Telephone [facility] [address] [place] [address] Valery Espinoza MD chart prep from Last 3 Months Immunizations Immunization Administration Dates Next Due Influenza High-dose Quadrivalent Preservative Fr ee 04/04/2022 Pfizer Covid-19 Vaccine 12+ 11/02/2020, Pneumococcal Conjugate PCV 20 05/20/2023 TD (adult), 2 Lf tetanus tox oid, preservative free, adsorbed 01/28/2012,11/10/2010 Td (adult) 01/28/2012 Social History Tobacco Use Types Packs/Day Years Used Date Smoking Tobacco: Former Cigarettes 2 45 1 963 - 2007 Smokeless Tobacco: Never Tobacco Cessation:Counseling Given: Not Answered Alcohol Use Standard Drinks/Week Comments Never 0 [...] Don't know 04/22/2022 10 :18 AM EDT Last Filed Vital Signs Vital Sign Reading Time Taken Comments Blood Pressure 113/66 03/02/2025 2:48 PM EDT Pulse 75 03/02/2025 2:48 PM EDT Temperature 36.4 C (97.5 F) 10/21/2024 11:27 AM EDT Respiratory Rate 20 03/02/2025 2:48 PM EDT Oxygen Saturation 97% 03/02/2025 2:48 PM EDT Inhaled Oxygen Concentration - - Weight 68.5 kg (151 lb) 03/02/2025 2:48 PM EDT Height 171 cm (5' 7.32 ) 03/02/2025 2:48 PM EDT Body Mass Index 23.43 03/02/2025 2:48 PM EDT Plan of Treatment Upcoming Encounters Date Type Department Care Team (Late st Contact Info) Description 04/14/2025 11:15 AM EDT Office Visit [facility] [address] [place] [address] Valery Espinoza MD [address] [place] [address] 04/27/2025 11:30 AM EST Office Visit [facility] [address] [place] [address] Valery Espinoza MD [address] [place] [address] 07/15/2025 9:00 AM EST Office Visit [facility] [address] [place] [address] Zay, Leonor, OD [address] [place] [address] Health Maintenance Due Date Last Done Comments Dental Prophylaxis 1945 Hepatitis C Screening 1964 Zoster Vaccines (1 of 2) 1996 Dental X-Ray: Bitewings 11/25/2013 11/24/2012 Dental X-Ray: Full Mouth 05/13/2016 013, 11/24/2012 RSV Patients and Patients Aged 60 years or older (1 - 1-dose 75+ series) 2021 Dental Oral Exam 09/16/2024 03/18/2024, 05/12/2013, 11/24/2012 COVID-19 Vaccine (4 - 2024-2 6 season) 2025 06/13/2021, 11/02/2020, 10/12/2020 Influenza Vaccine (#1) 2025 04/04/2022 SDOH Screening 10/14/2025 10/14/2024 Alcohol/Substance Use Screening 10/21/2025 10/21/2024 DTaP/Tdap/Td Vaccines (1 - Tdap) 10/21/2025 01/28/2012, 01/28/2012, 11/10/2010 Postponed from 01/29/2012 (Patient Refused) Depression Screening 10/21/2025 10/21/2024, 10/21/2024 Tobacco Screening 10/21/2025 10/21/2024 Lipid Panel 09/17/2028 09/18/2023, 08/23/2022 Colonoscopy Discontinued 10/18/2018 Colorectal Cancer Screening Discontinued Pneumococcal Vaccine: 50+ Years Completed 05/20/2023 CT Colonography Discontinued FIT DNA/Cologuard Discontinued FIT Discontinued FOBT Discontinued HIB Vaccines Aged Out No longer eligi ble based on patient's age to complete this topic HPV Vaccines Aged Out No longer eligi ble based on patient's age to complete this topic Hepatitis A Vaccines Aged Out No long er eligible based on patient's age to complete this topic Hepatitis B Vaccines Aged Out No long er eligible based on patient's age to complete this topic IPV Vaccines Aged Out No longer eligi ble based on patient's age to complete this topic Meningococcal B Vaccine Aged Out No l onger eligible based on patient's age to complete this topic Meningococcal Vaccine Aged Out No tammie hola eligible based on patient's age to complete this topic RSV under 20 months Aged Out No longe r eligible based on patient's age to complete this topic Rotavirus Vaccines Aged Out No longer eligible based on patient's age to complete this topic Sigmoidoscopy Discontinued Procedures Procedure Name Priority Date/Time Associated Diagnosis Comments XR LUMBAR SPINE COMPLETE 4+ VIEWS Routine 03/02/2025 Acute midline low back pain without sciatica PERIODIC ORAL EVALUATION - ESTABLISHED PATIENT Routine 03/18/2024 1:30 PM EDT LIPID PANEL, STANDARD Routine 09/18/2023 11:24 AM EDT COPD without exacerbation (CMS/HCC) HM COLONOSCOPY Routine 10/18/2018 PANORAMIC RADIOGRAPHIC IMAGE Routine 05/12/2013 12:00 AM EST INTRAORAL - COMPLETE SERIES OF RADIOGRAPHIC IMAGES Routine 11/24/2012 12:00 AM EDT from Last 3 Months or Most Recently Relevant to Health Maintenance Results * XR Lumbar Spine Complete 4+ Views (03/02/2025) Anatomical Region Laterality Modality Spine, L-spine Radiographic Dana ging us Vasquez Whitley MD IMG XR PROCEDURES Final Res ult * (ABNORMAL) Lipid Panel, Standard (09/18/2023 11:24 AM EDT) Triglycerides 191(H) <150 mg/dL [facility] Comment:Desirable Triglyceri de: less than 150 mg/dLBorderline High Triglyceride 150-199 mg/dLHigh Triglyceride: 200-499 mg/dLVery High Triglyceride: greater than or equal to 5OO mg/dL Cholesterol 120 <200 mg/dL [facility] Comment:Desirable Cholestero l: less than 200 mg/dLBorderline High Cholesterol: 200-239 mg/dLHigh Cholesterol: greater than 239 mg/dL LDL Cholesterol Calculated 40 <100 mg/dL [facility] Comment:Desirable LDL: less than 100 mg/dLNear Optimal/Above Optimal LDL: 110- 129 mg/dLBorderline High LDL: 130-159 mg/dLHigh LDL: 160-189 mg/dLVery High LDL: greater than or equal to 190 mg/dL HDL Cholesterol 42 >40 mg/dL [facility] Comment:Desirable HDL: great er than 40 mg/dL Note: This HDL assay may give artificially low results in patients with liver disease. 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
--- OUTSIDE RECORDS SUMMARY | 2025-03-15 18:10 | XMS_ITS | Encounter Summary ---
Author Organization [employer] Address [address] [place] [address] [address] [place] [address] Care Team Providers Care Consumer Affairs Specialist Name Role Phone Valery Espinoza MD Primary Care Provider [phone] Reason for Visit * Reason Comments Med Refill Encounter Details Date Type Department Care Team ([facility] st Contact Info) Description 07/31/2023 Refill [facility] [address] [place], [place] [phone] Valery Espinoza MD [address] [place] [address] Social History Tobacco Use Types Packs/Day Years Used Date Smoking Tobacco: Former Cigarettes 2 45 1 963 - 2008 Smokeless Tobacco: Never Alcohol Use Standard Drinks/Week Comments Never 0 (1 standard drink = 0.6 oz pur e alcohol) Depression Answer Date Recorded Patient Health Questionnaire-9 Score 2 04/25/2023 Patient Health Questionnaire-9 Score 2 04/25/2023 Last PHQ-9: Questionnaire Data Not on file 1 06/25/2022 Housing Stability Answer Date Recorded What is your housing situation today? I have joselin lucero 04/07/[address] you li ve. Do you have problems with any of the following? None of the above 04/07/2023 Food Insecurity Answer Date Recorded Within the past 12 months, y ou worried that your food would run out before you got money to buy more: Never True 04/07/2023 Within the past 12 months,th e food you bought just didn't last and you didn't have enough money to get more: Never True Transportation Answer Date Recorded In the past 12 months, has l ack of transportation kept you from medical appts, meetings, work or from getting things needed for daily living? Yes, it has kept me from medical appointments or getting medications. 04/01/2023 Utilities Answer Date Recorded In the past 12 months, has t he [employer], gas, oil or water company threatened to shut off services in your home? No 04/07/2023 Depression Answer Date Recorded Patient Health Questionnaire-2 Score 2 04/25/2023 Sex and Gender Information Value Date Recorded Sex Assigned at Male 04/22/2022 10:18 AM EDT Legal Sex Male 10:18 AM EDT Gender Identity Male 04/22/2022 10:18 AM EDT Sexual Orientation Don't know 04/22/2022 10 :18 AM EDT documented as of this encounter Plan of Treatment Upcoming Encounters Date Type Department Care Team (Late st Contact Info) Description 04/14/2025 11:15 AM EDT Office Visit [facility] [address] [place] [address] Valery Espinoza MD [address] [place] [address] 04/27/2025 11:30 AM EST Office Visit [facility] [address] [place] [address] Valery Espinoza MD [address] [place] [address] 07/15/2025 9:00 AM EST Office Visit [facility] [address] [place], [place] [phone] Leonor Collazo, OD [address] [place] [address] documented as of this encounter Visit Diagnoses Not on filedocumented in this encounter Additional Health Concerns Assessment Noted Time PHQ-9 Depression Total Score: 2 11/03/20 23 9:44 AM EDT documented as of this encounter Care Teams Consumer Affairs Specialist Relationship Specialty Start Date End Date Valery Espinoza MD [address] [place] [address] PCP - General Family Medicine 09/14/21 Antoine Billings MD Warp Doffer 04/24/23 documented as of this encounter
--- OUTSIDE RECORDS SUMMARY | 2025-03-15 18:10 | XMS_ITS | Encounter Summary ---
Author Organization [employer] Address [address] [place] [address] 7t [place] [address] Care Team Providers Care Electrician Aircraft Name Role Phone Valery Espinoza MD Primary Care Provider [phone] Reason for Visit * Reason Onset Date Comments Referral 08/19/2024 Encounter Details Date Type Department Care Team (Late st Contact Info) Description 08/19/2024 Telephone [facility] MEDICINE 230 [place] [address] Valery Espinoza MD [address] [place] [address] Referral Social History Tobacco Use Types Packs/Day Years [...] housing situation today? I have joselin lucero 08/14/[address] you li ve. Do you have problems with any of the following? Pests such as bugs, ants, or mice 08/14/2023 Food Insecurity Answer Date Recorded Within the [...] AM EDT documented as of this encounter Miscellaneous Notes * Telephone Encounter - Wing Roxy RN - 08/20/2024 1:46 PM EST Tc to pt's daughter about neurology request. Said referral was done by PCP on 03/11/24 and neurologyappt was suppose to be on 06/02/24. No note from this neurology visit if it did occur in [facility] or [facility] chart. No answer, left message to call back. * Telephone Encounter - Weston Torres - 08/19/2024 12:36 PM EST TC from pt Daughter requesting Ref[place] for [place] [facility] Contact pt Daughter at [phone] documented in this encounter Plan of Treatment Upcoming Encounters Date Type Department Care Team (Late st Contact Info) Description 04/14/2025 11:15 AM EDT Office Visit [facility] MED & PEDS 505 [place] [address] Valery Espinoza MD 505 [place] [address] 04/27/2025 11:30 AM EST Office Visit [facility] MED & PEDS 505 [place] [address] Valery Espinoza MD 505 [place] [address] 07/15/2025 9:00 AM EST Office Visit [facility] OPTOMETRY [address] [place] [address] ZayLeonor patel, OD 230 [place] [address] documented as of this encounter Visit Diagnoses Not on filedocumented in this encounter Additional Health Concerns Assessment Noted Time PHQ-9 Depression Total Score: 2 04/25/20 23 9:44 AM EDT documented as of this encounter Care Teams Electrician Aircraft Relationship Specialty Start Date End Date Valery Espinoza MD 230 [place] [address] PCP - General Family Medicine 09/14/21 Antoine Billings MD Prepared Foods Production Team Member 04/24/23 documented as of this encounter
--- OUTSIDE RECORDS SUMMARY | 2025-03-15 18:10 | XMS_ITS | Encounter Summary ---
Author Organization [employer] Address [address] [facility] 7t [place] [address] Care Team Providers Care Senior Research Analyst Name Role Phone Valery Espinoza MD Primary Care Provider [phone] Encounter Details Date Type Department Care Team (Late st Contact Info) Description 04/12/2024 Telephone [facility] MEDICINE 230 [place] [address] Valery Espinoza MD [address] [place], [place] [phone] Social History Tobacco Use Types Packs/Day Years [...] the past 12 months, has t he [employer], gas, oil or water company threatened to [...] Description 04/14/2025 11:15 AM EDT Office Visit [facility] MED & PEDS 505 [place] [address] Valery Espinoza MD 505 [place] [address] 04/27/2025 11:30 AM EST Office Visit [facility] MED & PEDS 505 [place] [address] Valery Espinoza MD 505 [place] [address] 07/15/2025 9:00 AM EST Office Visit [facility] OPTOMETRY [address] [place] [address] Leonor Collazo, OD [address] [place] [address] documented as of this encounter Visit Diagnoses Not on filedocumented in this encounter Additional Health Concerns Assessment Noted Time PHQ-9 Depression Total Score: 2 04/25/20 9:44 AM EDT documented as of this encounter Care Teams Senior Research Analyst Relationship Specialty Start Date End Date Valery Espinoza MD [address] [place] [address] PCP - General Family Medicine 09/14/21 Antoine Billings MD Clinching Machine Operator 04/24/23 documented as of this encounter
--- OUTSIDE RECORDS SUMMARY | 2025-03-15 18:10 | XMS_ITS | Encounter Summary ---
Author Organization [employer] Address [address] [place] [address] 7t [place] [address] Care Team Providers Care Loom Repairer Name Role Phone Valery Espinoza MD Primary Care Provider [phone] Reason for Visit * Reason Onset Date Comments Med Refill 02/14/2023 Encounter Details Date Type Department Care Team ([facility] st Contact Info) Description 02/14/2023 Telephone [facility] CHC MED & PEDS 505 [place], [place] [phone] Valery Espinoza MD 505 [place] [address] Med Refill Social History Tobacco Use Types Packs/Day Years Used Date Smoking Tobacco: Former Cigarettes 2 45 1 963 - 2008 Smokeless Tobacco: Never Alcohol Use Standard Drinks/Week Comments Never 0 (1 standard drink = 0.6 oz pur e alcohol) Sex and Gender Information Value Date Recorded Sex Assigned at Male 04/22/2022 10:18 AM EDT Legal Sex Male 10:18 AM EDT Gender Identity Male 04/22/2022 10:18 AM EDT Sexual Orientation Don't know 04/22/2022 10 :18 AM EDT documented as of this encounter Miscellaneous Notes * Telephone Encounter - Megan Brito LPN - 02/14/2023 3:02 PM EDT Tacrolimus was sent to [id number] on 02/11/23 with 1 refill and Losartan was sent on 09/11/22 #90 with 1 refill. * Telephone Encounter - Nayely Hanley - 02/14/2023 3:00 PM EDT Tc from pt requesting medication refill on tacrolimus (Protopic) 0.1 % ointment and losartan (Cozaar) 25 MG tablet documented in this encounter Plan of Treatment Upcoming Encounters Date Type Department Care Team (Late st Contact Info) Description 04/14/2025 11:15 AM EDT Office Visit [facility] MED & PEDS 505 [place] [address] Valery Espinoza MD 505 [place] [address] 04/27/2025 11:30 AM EST Office Visit [facility] MED & PEDS [address] [place] [address] Valery Espinoza MD 505 [place] [address] 07/15/2025 9:00 AM EST Office Visit [facility] OPTOMETRY [address] [place] [address] Leonor Collazo, OD 230 [place] [address] documented as of this encounter Visit Diagnoses Not on filedocumented in this encounter Care Teams Loom Repairer Relationship Specialty Start Date End Date Valery Espinoza MD 230 [place] [address] PCP - General Family Medicine 09/14/21 Antoine Billings MD Drop Board Worker 04/24/23 documented as of this encounter
--- OUTSIDE RECORDS SUMMARY | 2025-03-15 18:10 | XMS_ITS | Encounter Summary ---
Author Organization [employer] Address [address] [place] [address] 7t [place] [address] Care Team Providers Care Release Engineer Name Role Phone Valery Espinoza MD Primary Care Provider [phone] Reason for Visit * Reason Comments Med Refill Encounter Details Date Type Department Care Team (Late st Contact Info) Description 10/28/2024 Refill [facility] MEDICINE 230 [place] [address] Pam Mendoza FNP 505 [place] [address] Social History Tobacco Use Types Packs/Day Years [...] the past 12 months, has t he [employer], gas, oil or water company threatened to [...] Description 04/14/2025 11:15 AM EDT Office Visit [facility] MED & PEDS 505 [place] [address] Valery Espinoza MD 505 [place] [address] 04/27/2025 11:30 AM EST Office Visit [facility] MED & PEDS [address] [place] [address] Valery Espinoza MD 505 [place] [address] 07/15/2025 9:00 AM EST Office Visit [facility] OPTOMETRY [address] [place] [address] Zay, Leonor, OD [address] [place] [address] documented as of this encounter Visit Diagnoses Not on filedocumented in this encounter Additional Health Concerns Assessment Noted Time PHQ-9 Depression Total Score: 0 10/22/19 25 11:28 AM EDT documented as of this encounter Care Teams Release Engineer Relationship Specialty Start Date End Date Valery Espinoza MD 230 [place] [address] PCP - General Family Medicine 09/14/21 Antoine Billings MD Eyeglass Lens Generator 04/24/23 documented as of this encounter
--- OUTSIDE RECORDS SUMMARY | 2025-03-15 18:10 | XMS_ITS | Encounter Summary ---
Author Organization [employer] Address [address] [place] [address] 7t [place] [address] Care Team Providers Care Electronic Science Teacher Name Role Phone Valery Espinoza MD Primary Care Provider [phone] Reason for Visit * Reason Onset Date Comments Med Refill 10/12/2024 Encounter Details Date Type Department Care Team (Late st Contact Info) Description 10/12/2024 Telephone [facility] 230 [place] [address] Valery Espinoza MD 505 [place] [address] Med Refill Social History Tobacco Use Types [...] Recorded Patient Health Questionnaire-2 Score 2 04/25/2023 Internet Access Answer Date Recorded Internet Access [...] Telephone Encounter - Megan Brito LPN - 10/12/2024 11:49 AM EDT Scripts were sent to [facility] on 09/29/24 with 11 refills. * Telephone Encounter - Weston Torres - 10/12/2024 11:32 AM EDT TC from pt requesting medication refill. Medications needing refill : ezetimibe (Zetia) 10 MG tablet rosuvastatin (Crestor) 40 MG tablet To be sent to: [facility] ([place]) - [facility] [place] - [address] [place] [address] documented in this encounter Plan of Treatment Upcoming Encounters Date Type Department Care Team (Late st Contact Info) Description 04/14/2025 11:15 AM EDT [facility] Visit [facility] MED [facility]EDS 505 [place] [address] Valery Espinoza MD 505 [place] [address] 04/27/2025 11:30 AM EST Office Visit [facility] MED & PEDS [address] [place] [address] Valery Espinoza MD 505 [place] [address] 07/15/2025 9:00 AM EST Office Visit [facility] [address] [place] [address] Leonor Collazo, OD 230 [place] [address] documented as of this encounter Visit Diagnoses Not on filedocumented in this encounter Additional Health Concerns Assessment Noted Time PHQ-9 Depression Total Score: 2 04/25/20 23 9:44 AM EDT documented as of this encounter Care Teams Electronic Science Teacher Relationship Specialty Start Date End Date Valery Espinoza MD 230 [place] [address] PCP - General Family Medicine 09/14/21 Antoine Billings MD Content Creation Manager 04/24/23 documented as of this encounter
--- OUTSIDE RECORDS SUMMARY | 2025-03-15 18:10 | XMS_ITS | Encounter Summary ---
Author Organization [employer] Address [address] [facility] 7t [place] [address] Care Team Providers Care In Flight Technician Name Role Phone Valery Espinoza MD Primary Care Provider [phone] Encounter Details Date Type Department Care Team (Late st Contact Info) Description 07/01/2024 Telephone [facility] MEDICINE 230 [place] [address] Valery Espinoza MD [address] [place], [place] [phone] Social History Tobacco Use Types Packs/Day Years [...] the past 12 months, has t he [employer], gas, oil or water company threatened to [...] Description 04/14/2025 11:15 AM EDT Office Visit [facility] CHC MED & PEDS 505 [place] [address] Valery Espinoza MD 505 [place] [address] 04/27/2025 11:30 AM EST Office Visit [facility] MED & PEDS 505 [place] [address] Valery Espinoza MD 505 [place] [address] 07/15/2025 9:00 AM EST Office Visit [facility] OPTOMETRY [address] [place] [address] Leonor Collazo, OD [address] [place] [address] documented as of this encounter Visit Diagnoses Not on filedocumented in this encounter Additional Health Concerns Assessment Noted Time PHQ-9 Depression Total Score: 2 04/25/20 9:44 AM EDT documented as of this encounter Care Teams In Flight Technician Relationship Specialty Start Date End Date Valery Espinoza MD [address] [place] [address] PCP - General Family Medicine 09/14/21 Antoine Billings MD Javascript Ui Developer 04/24/23 documented as of this encounter
--- OUTSIDE RECORDS SUMMARY | 2025-03-15 18:10 | XMS_ITS | Encounter Summary ---
Author Organization [employer] Address [address] [place] [address] 7t [place] [address] Care Team Providers Care Sales Clerk Name Role Phone Valery Espinoza MD Primary Care Provider [phone] Reason for Visit * Reason Onset Date Comments Referral 10/21/2022 Encounter Details Date Type Department Care Team ([facility] st Contact Info) Description 10/21/2022 Telephone [facility] MED & PEDS 505 [place], [place] [phone] Valery Espinoza MD 505 [place] [address] Referral Social History Tobacco Use Types Packs/Day [...] encounter Miscellaneous Notes * Telephone Encounter - Shira Mortensen - 10/25/2022 2:09 PM EDT Tc from pt requesting status on referral made for Podiatry on 09/11/2022. Please contact pt at [phone] * Telephone Encounter - Shira Mortensen - 10/21/2022 11:17 AM EDT Tc from pt requesting status on referral made for Podiatry on 09/11/2022. Please contact pt at [phone] documented in this encounter Plan of Treatment Upcoming Encounters Date Type Department Care Team (Late st Contact Info) Description 04/14/2025 11:15 AM EDT Office Visit [facility] MED & PEDS 505 [place] [address] Valery Espinoza MD 505 [place] [address] 04/27/2025 11:30 AM EST Office Visit [facility] MED & PEDS 505 [place] [address] Valery Espinoza MD 505 [place] [address] 07/15/2025 9:00 AM EST Office Visit [facility] OPTOMETRY [address] [place] [address] Leonor Collazo, OD 230 [place] [address] documented as of this encounter Visit Diagnoses Not on filedocumented in this encounter Care Teams Sales Clerk Relationship Specialty Start Date End Date Valery Espinoza MD 230 [place] [address] PCP - General Family Medicine 09/14/21 Antoine Billings MD Clinical Law Professor 04/24/23 documented as of this encounter
--- OUTSIDE RECORDS SUMMARY | 2025-03-15 18:10 | XMS_ITS | Encounter Summary ---
Author Organization [employer] Address [address] [place] [address] 7t [place] [address] Care Team Providers Care Automotive Consultant Name Role Phone Valery Espinoza MD Primary Care Provider Reason for Visit * Reason Onset Date Comments Med Refill 04/12/2024 Encounter Details Date Type Department Care Team (Late st Contact Info) Description 04/12/2024 Telephone [facility] MEDICINE 230 [place] [address] Valery Espinoza MD 505 [place] [address] Med Refill Social History Tobacco Use Types [...] Telephone Encounter - Megan Brito LPN - 04/12/2024 1:13 PM EDT Patient needs to call to confirm changing pharmacies. * Telephone Encounter - Salma Curtis - 04/12/2024 12:58 PM EDT TC from [facility] requesting medication refill for pt and changing location for pickup. Medications needing refill : montelukast (Singulair) 10 MG tablet , temazepam (Restoril) 7.5 MG capsule , rosuvastatin (Crestor) 40 MG tablet To be sent to: [facility] [address] [facility] [place] [address] documented in this encounter Plan of Treatment Upcoming Encounters Date Type Department Care Team (Late st Contact Info) Description 04/14/2025 11:15 AM EDT Office Visit [facility] MED [facility] PEDS [address] [place] [address] Valery Espinoza MD 505 [place] [address] 04/27/2025 11:30 AM EST Office Visit [facility] MED & PEDS 505 [place] [address] Valery Espinoza MD 505 [place] [address] 07/15/2025 9:00 AM EST Office Visit [facility] OPTOMETRY [address] [place] [address] Leonor Collazo, OD 230 [place] [address] documented as of this encounter Visit Diagnoses Not on filedocumented in this encounter Additional Health Concerns Assessment Noted Time PHQ-9 Depression Total Score: 2 04/25/20 23 9:44 AM EDT documented as of this encounter Care Teams Automotive Consultant Relationship Specialty Start Date End Date Valery Espinoza MD 230 [place] [address] PCP - General Family Medicine 09/14/21 Antoine Billings MD Office System Analyst 04/24/23 documented as of this encounter
--- OUTSIDE RECORDS SUMMARY | 2025-03-15 18:10 | XMS_ITS | Encounter Summary ---
Author Organization [employer] Address [address] [place] [address] 7t [place] [address] Care Team Providers Care Author Name Role Phone Valery Espinoza MD Primary Care Provider [phone] Reason for Visit * Reason Comments Med Refill Encounter Details Date Type Department Care Team ([facility] Contact Info) Description 05/24/[address] [facility] CHC MED & PEDS 505 [place], [place] [phone] Valery Espinoza MD 505 [place] [address] Social History Tobacco Use Types Packs/Day Years [...] the past 12 months, has t he [employer], gas, oil or water company threatened to [...] Description 04/14/2025 11:15 AM EDT Office Visit [facility] MED & PEDS 505 [place] [address] Valery Espinoza MD [address] [place] [address] 04/27/2025 11:30 AM EST Office Visit [facility] MED & PEDS [address] [place] [address] Valery Espinoza MD [address] [place] [address] 07/15/2025 9:00 AM EST Office [facility] OPTOMETRY [address] [place] [address] Leonor Collazo, OD [address] [place] [address] documented as of this encounter Visit Diagnoses Not on filedocumented in this encounter Additional Health Concerns Assessment Noted Time PHQ-9 Depression Total Score: 2 04/25/20 23 9:44 AM EDT documented as of this encounter Care Teams Author Relationship Specialty Start Date End Date Valery Espinoza MD 230 [place] [address] PCP - General Family Medicine 09/14/21 Antoine Billings MD Kayaking Instructor 04/24/23 documented as of this encounter
== END 2025-03-15 15:25 | disposition home or self-care (01) ==
LOC: HO.HSM 15:13
PROVIDERS: PCP Family Medicine; Visit Provider Psychiatry & Neurology Neurology
DX: F01.B0 Vascular dementia, moderate, without behavioral disturbance, psychotic disturbance, mood disturbance, and anxiety (principal)
CPT/HCPCS: 99214

== ENCOUNTER → 2025-03-15 15:13 | Outpatient (BNVA) | payer MEDICARE, SELFPAY | PROVIDERS: PCP Family Medicine; Visit Provider Psychiatry & Neurology Neurology | DX: F01.B0 Vascular dementia, moderate, without behavioral disturbance, psychotic disturbance, mood disturbance, and anxiety (principal) | CPT/HCPCS: 99212 ==

== ENCOUNTER 2025-04-14 14:24 | Outpatient (REF) | payer MEDICARE, SELFPAY ==
--- OUTSIDE RECORDS SUMMARY | 2025-04-14 11:15 | XMS_ITS | Encounter Summary ---
Author Organization [employer] Address [address] [place] [address] 7 [place] [address] Care Team Providers Care Pipeline Superintendent Name Role Phone Valery Espinoza MD Primary Care Provider Reason for Referral * PFT (Routine) - Authorized Specialty Diagnoses / Procedures Referred By Contac t Referred To Contact Diagnoses COPD without exacerbation ([facility]/HCC) ([facility]) Procedures Pulmonary Function Test Valery Espinoza MD [address] [place] [address] Phone: tel: fax: [address] Phone: tel: fax: Referral ID Status Reason Start Date Expiration Date V isits Requested Visits Authorized [id number] Authorized 04/14/2025 04/14/2026 1 1 Encounter Details Date Type Department Care Team ([facility] st Contact Info) Description 04/14/2025 11:15 AM EDT Office Visit [facility] MED & PEDS 505 [place], [place] [phone] Valery Espinoza MD [address] [place], [place] [phone] COPD without exacerbation (CMS/HCC) (HCC) (Primary Dx); Dizziness of unknown etiology; JAY (acute kidney injury) Social History Tobacco Use Types Packs/Day Years Used Date Smoking Tobacco: Former Cigarettes 2 45 1 963 - 2007 Smokeless Tobacco: Never Alcohol Use Standard Drinks/Week Comments Never 0 (1 standard drink = 0.6 oz pur e alcohol) Depression Answer Date Recorded Patient Health Questionnaire-9 Score 0 10/21/2024 Patient Health Questionnaire-9 Score 0 10/21/2024 Last PHQ-9: Questionnaire Data Not on file 0 10/21/2024 Housing Stability Answer Date Recorded What is your housing situation today? I have joselinelly lucero 10/14/[address] you [...] AM EDT documented as of this encounter Last Filed Vital Signs Vital Sign Reading Time Taken Comments Blood Pressure 100/63 04/14/2025 11:10 AM EDT Pulse 84 04/14/2025 11:10 AM EDT Temperature 36.6 C (97.8 F) 04/14/2025 11:10 AM EDT Respiratory Rate 20 04/14/2025 11:10 AM EDT Oxygen Saturation 97% 04/14/2025 11:10 AM EDT Inhaled Oxygen Concentration - - Weight 68 kg (150 lb) 04/14/2025 11:10 AM EDT Height 170.2 cm (5' 7 ) 04/14/2025 11:10 AM EDT Body Mass Index 23.49 04/14/2025 11:10 AM EDT documented in this encounter Plan of Treatment Upcoming Encounters Date Type Department Care Team (Late st Contact Info) Description 04/20/2025 9:15 AM EDT Office Visit [facility] MED & PEDS [address] [place] [address] Vasquez Whitley MD 505 [place] [address] 04/27/2025 11:30 AM EST Office Visit [facility]C MED & PEDS 505 [place] [address] Valery Espinoza MD [address] [place] [address] 07/15/2025 9:00 AM EST Office Visit [facility] OPTOMETRY [address] [place] [address] ZayLeonor patel, OD [address] [place] [address] Scheduled Orders Name Type Priority Associated Diagnoses Orde r Schedule Pulmonary Function Test PFT Routine COPD without exacerbation (CMS/HCC) (HCC) Expected: 04/14/2025, Expires: 10/13/2025 documented as of this encounter Procedures Procedure Name Priority Date/Time Associated Diagnosis Comments BASIC METABOLIC PANEL Routine 04/14/2025 2:27 PM EDT JAY (acute kidney injury) documented in this encounter Results * (ABNORMAL) Basic Metabolic Panel (04/14/2025 2:27 PM EDT) Sodium 143 135 - 145 mmol/L [facility] Potassium 4.4 3.3 - 5.1 mmol/L [facility] Chloride 111(H) 96 - 108 mmol/L [facility] Carbon Dioxide 24 22 - 29 mmol/L [facility] Anion Gap 12 12 - 20 [facility] Urea Nitrogen (BUN) 17(H) 9 - 16 mg/dL [facility] Creatinine, Serum 1.56(H) 0.5 - 1.4 mg/dL [facility] Estimated Glomerular Filt Rate 43 [facility] Comment:Chronic Kidney Disea se: Estimated GFR < 60 mL/min/[id number] Kidney Disease: Estimated GFR < 15 mL/min/1.73m2 Glucose 81 60 - 115 mg/dL [facility] Calcium 9.5 8.4 - 10.2 mg/dL [facility] Blood Venous blood specimen / Unknown 04/14/2025 2:27 PM EDT 04/14/2025 5:50 PM EDT us Valery Espinoza MD LAB BLOOD ORDERABLES Final Re sult [facility] [address] [place] [phone] documented in this encounter Visit Diagnoses Diagnosis COPD without exacerbation (CMS/HCC) (HCC)- Primary Dizziness of unknown etiology JAY (acute kidney injury) documented in this encounter Additional Health Concerns Assessment Noted Time PHQ-9 Depression Total Score: 0 10/22/19 25 11:28 AM EDT documented as of this encounter Care Teams Pipeline Superintendent Relationship Specialty Start Date End Date Valery Espinoza MD [address] [place] [address] PCP - General Family Medicine 09/14/21 Antoine Billings MD Justice Professor 04/24/23 documented as of this encounter
[2025-04-14 18:17] LABS: Anion Gap 12 (12-20); Blood Urea Nitrogen 17 mg/dL (9-16); Calcium 9.5 mg/dL (8.4-10.2); Carbon Dioxide 24 mmol/L (22-29); Chloride 111 mmol/L (96-108); Estimated Glomerular Filt Rate 43; Potassium 4.4 mmol/L (3.3-5.1); Sodium 143 mmol/L (135-145)
--- OUTSIDE RECORDS SUMMARY | 2025-04-14 18:18 | XMS_ITS | Encounter Summary ---
Author Organization [employer] Address [address] [place] [address] [address] [place] [address] Care Team Providers Care Ad Operations Coordinator Name Role Phone Valery Espinoza MD Primary Care Provider Reason for Visit * Reason Onset Date Comments Referral 10/21/2022 Encounter Details Date Type Department Care Team ([facility] st Contact Info) Description 10/21/2022 Telephone C [facility] MED [facility]EDS [address] [place], [place] [phone] Valery Espinoza MD [address] [place] [address] Referral Social History Tobacco Use Types Packs/Day [...] Podiatry on 09/11/2022. Please contact pt at [phone] * Telephone Encounter - Shira Mortensen - 10/21/2022 11:17 AM EDT Tc from pt requesting status on referral made for Podiatry on 09/11/2022. Please contact pt at [phone] documented in this encounter Plan of Treatment Upcoming Encounters Date Type Department Care Team (Late st Contact Info) Description 04/20/2025 9:15 AM EDT Office Visit [facility] CHC MED & PEDS [address] [place] [address] Vasquez Whitley MD [address] [place] [address] 04/27/2025 11:30 AM EST Office Visit [facility] CHC MED & PEDS [address] [place] [address] Valery Espinoza MD [address] [place] [address] 07/15/2025 9:00 AM EST Office Visit [facility] OPTOMETRY [address] [place] [address] Leonor Collazo, OD [address] [place] [address] documented as of this encounter Visit Diagnoses Not on filedocumented in this encounter Care Teams Ad Operations Coordinator Relationship Specialty Start Date End Date Valery Espinoza MD [address] [place] [address] PCP - General Family Medicine 09/14/21 Antoine Billings MD Dry Transfer Worker 04/24/23 documented as of this encounter
--- OUTSIDE RECORDS SUMMARY | 2025-04-14 18:18 | XMS_ITS | Encounter Summary ---
Author Organization [employer] Address [address] [place] [address] 7[address] [place] [address] Care Team Providers Care Pipe Joints Supervisor Name Role Phone Valery Espinoza MD Primary Care Provider [phone] Reason for Visit * Reason Comments Med Refill Encounter Details Date Type Department Care Team (Late st Contact Info) Description 10/28/2024 Refill [facility] [address] [place] [address] Pam Mendoza FNP [address] [place] [address] Social History Tobacco Use Types Packs/Day Years [...] the past 12 months, has t he [employer], gas, oil or water company threatened to [...] Description 04/20/2025 9:15 AM EDT Office Visit [facility] MED & PEDS [address] [place] [address] Vasuqez Whitley MD [address] [place] [address] 04/27/2025 11:30 AM EST Office Visit [facility] MED & PEDS [address] [place] [address] Valery Espinoza MD [address] [place] [address] 07/15/2025 9:00 AM EST Office Visit [facility] OPTOMETRY [address] [place] [address] Leonor Collazo, OD [address] [place] [address] documented as of this encounter Visit Diagnoses Not on filedocumented in this encounter Additional Health Concerns Assessment Noted Time PHQ-9 Depression Total Score: 0 10/22/19 11:28 AM EDT documented as of this encounter Care Teams Pipe Joints Supervisor Relationship Specialty Start Date End Date Valery Espinoza MD [address] [place] [address] PCP - General Family Medicine 09/14/21 Antoine Billings MD Booking Supervisor 04/24/23 documented as of this encounter
--- OUTSIDE RECORDS SUMMARY | 2025-04-14 18:18 | XMS_ITS | Encounter Summary ---
Author Organization [employer] Address [address] [place] [address] [address] [place] [address] Care Team Providers Care Die Casting Supervisor Name Role Phone Valery Espinoza MD Primary Care Provider [phone] Reason for Visit * Reason Onset Date Comments chart prep 04/13/2025 Encounter Details Date Type Department Care Team ([facility] Contact Info) Description 04/13/2025 Telephone [facility] CHC MED & PEDS [address] [place], [place] [phone] Valery Espinoza MD [address] [place] [address] chart prep Social History Tobacco Use Types Packs/Day Years [...] encounter Miscellaneous Notes * Telephone Encounter - Connie Francis MA - 04/13/2025 2:41 PM EDT Chart Prep Labs: done Images: done Referrals: complete Vaccines due: Covid, Flu, RSV, and Zoster Screenings: Overdue care gaps: documented in this encounter Plan of Treatment Upcoming Encounters Date Type Department Care Team (Late st Contact Info) Description 04/20/2025 9:15 AM EDT Office Visit [facility] MED & PEDS [address] [place] [address] Vasquez Whitley MD [address] [place] [address] 04/27/2025 11:30 AM EST Office Visit [facility] MED & PEDS [address] [place] [address] aVlery Espinoza MD [address] [place] [address] 07/15/2025 9:00 AM EST Office Visit [facility] OPTOMETRY [address] [place] [address] Zay, Leonor, OD [address] [place] [address] documented as of this encounter Visit Diagnoses Not on filedocumented in this encounter Additional Health Concerns Assessment Noted Time PHQ-9 Depression Total Score: 0 10/22/19 25 11:28 AM EDT documented as of this encounter Care Teams Die Casting Supervisor Relationship Specialty Start Date End Date Valery Espinoza MD [address] [place] [address] PCP - General Family Medicine 09/14/21 Antoine Billings MD Auto Painter Helper 04/24/23 documented as of this encounter
--- OUTSIDE RECORDS SUMMARY | 2025-04-14 18:18 | XMS_ITS | Encounter Summary ---
Author Organization [employer] Address [address] [facility] [address] [place] [address] Care Team Providers Care Dry End Tester Name Role Phone Valery Espinoza MD Primary Care Provider [phone] Encounter Details Date Type Department Care Team (Late st Contact Info) Description 04/12/2024 Telephone [facility] [address] [place] [address] Valery Espinoza MD [address] [place], [place] [phone] Social History Tobacco Use Types Packs/Day Years [...] the past 12 months, has t he [employer], gas, oil or water company threatened to [...] Description 04/20/2025 9:15 AM EDT Office Visit [facility] CHC MED & PEDS [address] [place] [address] Vasquez Whitley MD [address] [place] [address] 04/27/2025 11:30 AM EST Office Visit [facility] MED & PEDS [address] [place] [address] Valery Espinoza MD [address] [place] [address] 07/15/2025 9:00 AM EST Office Visit [facility] OPTOMETRY [address] [place] [address] Leonor Collazo, OD [address] [place] [address] documented as of this encounter Visit Diagnoses Not on filedocumented in this encounter Additional Health Concerns Assessment Noted Time PHQ-9 Depression Total Score: 2 04/25/20 9:44 AM EDT documented as of this encounter Care Teams Dry End Tester Relationship Specialty Start Date End Date Valery Espinoza MD [address] [place] [address] PCP - General Family Medicine 09/14/21 Antoine Billings MD Senior Business Development Analyst 04/24/23 documented as of this encounter
--- OUTSIDE RECORDS SUMMARY | 2025-04-14 18:18 | XMS_ITS | Encounter Summary ---
Author Organization [employer] Address [address] [place] [address] 7[address] [place] [address] Care Team Providers Care Electric Range Servicer Name Role Phone Valery Espinoza MD Primary Care Provider [phone] Reason for Visit * Reason Onset Date Comments Med Refill 04/12/2024 Encounter Details Date Type Department Care Team (Late st Contact Info) Description 04/12/2024 Telephone [facility] [address] [place] [address] Valery Espinoza MD [address] [place] [address] Med Refill Social History Tobacco Use Types [...] To be sent to: [facility] [id number] [facility] [place] [address] documented in this encounter Plan of Treatment Upcoming Encounters Date Type Department Care Team (Late st Contact Info) Description 04/20/2025 9:15 AM EDT Office Visit [facility] MED & PEDS [address] [place] [address] Vasquez Whitley MD [address] [place] [address] 04/27/2025 11:30 AM EST Office Visit [facility] MED & PEDS [address] [place] [address] Valery Espinoza MD [address] [place] [address] 07/15/2025 9:00 AM EST Office Visit [facility] OPTOMETRY [address] [place] [address] Leonor Collazo, OD [address] [place] [address] documented as of this encounter Visit Diagnoses Not on filedocumented in this encounter Additional Health Concerns Assessment Noted Time PHQ-9 Depression Total Score: 2 04/25/20 23 9:44 AM EDT documented as of this encounter Care Teams Electric Range Servicer Relationship Specialty Start Date End Date Valery Espinoza MD [address] [place] [address] PCP - General Family Medicine 09/14/21 Antoine Billings MD Seo Coordinator 04/24/23 documented as of this encounter
--- OUTSIDE RECORDS SUMMARY | 2025-04-14 18:18 | XMS_ITS | Encounter Summary ---
Author Organization [employer] Address [address] [place] [address] [address]t [place] [address] Care Team Providers Care Foreign Collection Clerk Name Role Phone Valery Espinoza MD Primary Care Provider [phone] Reason for Visit * Reason Onset Date Comments Med Refill 02/14/2023 Encounter Details Date Type Department Care Team ([facility] st Contact Info) Description 02/14/2023 Telephone [facility] CHC MED & PEDS [address] [place], [place] [phone] Valery Espinoza MD [address] [place] [address] Med Refill Social History Tobacco Use Types [...] PM EDT Tacrolimus was sent to [id number] on 02/11/23 with 1 refill and Losartan [...] Description 04/20/2025 9:15 AM EDT Office Visit [facility] & PEDS [address] [place] [address] Vasquez Whitley MD [address] [place] [address] 04/27/2025 11:30 AM EST Office Visit [facility] MED & PEDS [address] [place] [address] Valery Espinoza MD [address] [place] [address] 07/15/2025 9:00 AM EST Office Visit [facility] OPTOMETRY [address] [place] [address] Leonor Collazo, OD [address] [place] [address] documented as of this encounter Visit Diagnoses Not on filedocumented in this encounter Care Teams Foreign Collection Clerk Relationship Specialty Start Date End Date Valery Espinoza MD [address] [place] [address] PCP - General Family Medicine 09/14/21 Antoine Billings MD Ward Assistant 04/24/23 documented as of this encounter
--- OUTSIDE RECORDS SUMMARY | 2025-04-14 18:18 | XMS_ITS | Clinical Summary ---
Author Organization [employer] Address [address] [place] [address] 7t [place] [address] Care Team Providers Care Wastewater Treatment Engineer Name Role Phone Valery Espinoza MD Primary Care Provider [phone] Allergies Active Allergy Reactions Criticality Noted Date Comments Cat Dander 11/20/2018 Dust Mite Extract 11/20/2018 Gramineae Pollens 03/18/2024 Morphine Unknown 04/25/2023 Vomiting Medications cetirizine (ZyrTEC) 10 MG tablet Take 1 tablet by mouth if needed each day. Active famotidine (Pepcid) 20 MG tablet Take 20 mg by mouth at bedtime. Active hydrocortisone 2.5 % cream Apply 1 application topically every 12 (twelve) hours. 022 Active tiZANidine (Zanaflex) 4 MG tabletIndications :Paraspinal muscle spasm Take 1 tablet (4 mg) by mouth every 6 (six) hours if needed for muscle spasms for up to 10 days. 30 tablet 023 Active albuterol 108 (90 Base) MCG/ACT inhaler Inhale 2 puffs every 4 (four) hours if needed for shortness of breath or wheezing. 18 g 2 023 Active nitroglycerin (Nitrostat) 0.[address] 1 tablet (0.4 mg) under the tongue every 5 (five) minutes if needed for chest pain. 10 tablet 023 Active Blood Pressure kitIndications:Hy pertension, unspecified type 1 Units in the morning. 1 kit 023 Active aspirin 81 MG chewable tablet Chew 81 mg in the morning. 023 Active acetaminophen (Tylenol Extra Strength) 500 MG tablet Take 2 tablets (1,000 mg) by mouth every 8 (eight) hours if needed for mild pain. 90 tablet 024 Active Diclofenac Sodium 1 % gel Apply 1 Application topically 4 times daily. 200 g 2 024 Active ketoconazole (Nizoral) 2 % shampooIndication s:Sebopsoriasis Apply topically 2 (two) times a week. 120 mL 3 024 Active Diclofenac Sodium 1 % gel Apply 5 g topically 4 times daily. 200 g 3 024 Active montelukast (Singulair) 10 MG tablet Take 1 tablet (10 mg) by mouth at bedtime. 90 tablet 1 024 Active temazepam (Restoril) 7.5 MG capsule Take 1 capsule (7.5 mg) by mouth if needed at bedtime for sleep. 28 capsule 1 024 Active olopatadine (Pataday) 0.2 % ophthalmic solution Administer 1 drop into affected eye(s) Once per day. 2.5 mL 2 024 Active clopidogrel (Plavix) 75 MG tablet Take 1 tablet (75 mg) by mouth Once per day. 90 tablet 1 024 Active clobetasol (Temovate) 0.05 % gelIndications:Se bopsoriasis 1 ribbon to rub on the scalp daily 60 g 1 025 Active Fluocinolone Acetonide Scalp 0.01 % oilIndications:Se bopsoriasis USE DIRECTED TWICE A WEEK; COVER THE HEAD WITH A DURAG-CAP 118.28 mL 1 025 Active fenofibrate (Triglide) 160 MG tablet TAKE ONE TABLET (!60MG) BY MOUTH DAILY AT 9 AM 90 tablet 11 025 Active ezetimibe (Zetia) 10 MG tabletIndications :Mixed hyperlipidemia TAKE ONE TABLET (10MG) BY MOUTH DAILY AT 9 AM 90 tablet 11 025 Active rosuvastatin (Crestor) 40 MG tabletIndications :Mixed hyperlipidemia TAKE ONE TABLET (40 MG) BY MOUTH DAILY AT 9 PM AT BEDTIME FOR CHOLESTEROL 90 tablet 11 025 Active pantoprazole (ProtoNix) 40 MG EC tablet Take 1 tablet (40 mg) by mouth if needed each day (acid reflux). 90 tablet 1 025 Active Symbicort 160-4.5 MCG/ACT inhaler Inhale 2 puffs in the morning and at bedtime. Rinse mouth with water after use to reduce aftertaste and incidence of candidiasis. Do not swallow. 10.2 g 1 Active Spacer/Aero-Holdi ng Chambers deviceIndications :COPD without exacerbation (CMS/HCC) (HCC) 1 Units 2 times daily. 1 Units 1 Active memantine (Namenda) 5 MG tablet Take 1 tablet by mouth 2 times daily. Active metoprolol succinate XL (Toprol XL) 25 MG 24 hr tablet Take 0.5 tablets (12.5 mg) by mouth Once per day. Do not crush or chew. 15 tablet 5 Active lisinopril 5 MG tablet 023 2024 Discontinued(T herapy completed) metoprolol succinate XL (Toprol-XL) 25 MG 24 hr tablet Take 1 tablet (25 mg) by mouth Once per day. 90 tablet 1 024 2024 Discontinued Active Problems Problem Noted Date Diagnosed Date Dizziness of unknown etiology 04/14/2025 JAY (acute kidney injury) 04/14/2025 Loss of functional autonomy in activities of daily living (ADLs) 10/21/2024 Assessment & Plan (10/21/2024 12:19 PM EDT): [facility], including help with medications and transportation [...] will try another medication. COPD without exacerbation ([facility]) 09/11/2022 Assessment & Plan (10/21/2024 12:16 PM EDT): - Continue Symbicort inhaler, 2 puffs twice daily - Prescribe spacer device to improve medication delivery - Sent to patient's pharmacy with instructions for daily use - Educate patient on proper inhaler technique - Recommend visit to pharmacy for technique assessment - Consider referral to ip counsel for further evaluation and management - Advise [...] (08/13/2022): 2007 colonoscopy History of substance abuse ([facility]) 01/25/2019 Overview (08/13/2022): Hx use of cocaine. Hiatal hernia 01/25/2019 Overview (08/13/2022): [facility]oc w/ GERD, barium swallow 07/2009 [facility]. History of bilateral hip replacements 01/25/2019 Asthma [...] DC atorvastatin, continue rosuvastatin Multi-infarct dementia, uncomplicated (CMS/HCC) 06/23/1959 Assessment & Plan (10/21/2024 12:18 PM [...] assistance needs - Recommend changing primary contact clerk for appointment notifications to ensure family awareness - Advise family to request portal password reset at bowling or skating front desk clerk to maintain access to patient's medical information Assessment & Plan (03/11/2024 7:55 PM EDT): Ordering lab work for TSH and referral to Neurology for further evaluation. Encounters Date Type Department Care Team Description 04/14/2025 11:15 AM EDT Office Visit [facility] [address] [place] [address] Valery Espinoza MD COPD without exacerbation (CMS/HCC) (HCC) (Primary Dx); Dizziness of unknown etiology; JAY (acute kidney injury) 04/14/2025 Travel 04/13/2025 Telephone [facility] [address] [place] [address] Valery Espinoza MD chart prep 03/03/2025 Results Follow-Up [facility] [address] [place] [address] Valery Espinoza MD XR Lumbar Spine Complete 4+ Views 03/02/2025 3:20 PM EDT Office Visit [facility] [address] [place] [address] Vasquez Whitley MD Acute midline low back pain without sciatica (Primary Dx) 03/02/2025 Travel 02/25/2025 Telephone [facility] [address] [place] [address] Valery Espinoza MD Appointment Request 02/08/2025 Telephone [facility] [address] [place] [address] Valery Espinoza MD chart prep from Last [...] 1 963 - 2008 Smokeless Tobacco: Never Tobacco Cessation:Counseling Given: Not [...] Mass Index 23.49 04/14/2025 11:10 AM EDT Plan of Treatment Upcoming Encounters Date Type Department Care Team (Late st Contact Info) Description 04/20/2025 9:15 AM EDT Office Visit [facility] [address] [place] [address] Vsaquez Whitley MD [address] [place] [address] 04/27/2025 11:30 AM EST Office Visit [facility] [address] [place] [address] Valery Espinoza MD [address] [place] [address] 07/15/2025 9:00 AM EST Office Visit [facility] [address] [place] [address] Leonor Collazo, OD [address] [place] [address] Health Maintenance Due Date Last Done Comments [...] Depression Screening 10/21/2025 10/21/2024, 10/21/2024 Tobacco Screening 04/14/2026 04/14/2025 Lipid Panel 09/17/2028 09/18/2023, 08/23/2022 Colonoscopy Discontinued [...] 2:27 PM EDT JAY (acute kidney injury) XR LUMBAR SPINE COMPLETE 4+ VIEWS Routine [...] Recently Relevant to Health Maintenance Results * (ABNORMAL) Basic Metabolic Panel (04/14/2025 2:27 PM EDT) Sodium 143 135 - 145 mmol/L [facility] Potassium 4.4 3.3 - 5.1 mmol/L [facility] Chloride 111(H) 96 - 108 mmol/L [facility] Carbon Dioxide 24 22 - 29 mmol/L [facility] Anion Gap 12 12 - 20 [facility] Urea Nitrogen (BUN) 17(H) 9 - 16 mg/dL [facility] Creatinine, Serum 1.56(H) 0.5 - 1.4 mg/dL [facility] Estimated Glomerular Filt Rate 43 [facility] Comment:Chronic Kidney Disea se: Estimated GFR < 60 mL/min/[id number] Kidney Disease: Estimated GFR < 15 mL/min/1.73m2 Glucose 81 60 - 115 mg/dL [facility] Calcium 9.5 8.4 - 10.2 mg/dL [facility] Blood Venous blood specimen / Unknown 04/14/2025 2:27 PM EDT 04/14/2025 5:50 PM EDT us Valery Espinoza MD LAB BLOOD ORDERABLES Final Re sult [facility] [address] [place] [address] [phone] * XR Lumbar Spine Complete 4+ Views (03/02/2025) Anatomical Region Laterality Modality Spine, L-spine Radiographic Dana ging us Vasquez Whitley MD IMG XR PROCEDURES Final Res ult * (ABNORMAL) Lipid Panel, Standard (09/18/2023 11:24 AM EDT) Triglycerides 191(H) <150 mg/dL [facility] Comment:Desirable Triglyceri de: less than 150 mg/dLBorderline High Triglyceride 150-199 mg/dLHigh Triglyceride: 200-499 mg/dLVery High Triglyceride: greater than or equal to 5OO mg/dL Cholesterol 120 <200 mg/dL [facility] Comment:Desirable Cholestero l: less than 200 mg/dLBorderline High Cholesterol: 200-239 mg/dLHigh Cholesterol: greater than 239 mg/dL LDL Cholesterol Calculated 40 <100 mg/dL [facility] Comment:Desirable LDL: less than 100 mg/dLNear Optimal/Above Optimal LDL: 110- 129 mg/dLBorderline High LDL: 130-159 mg/dLHigh LDL: 160-189 mg/dLVery High LDL: greater than or equal to 190 mg/dL HDL Cholesterol 42 >40 mg/dL [facility] Comment:Desirable HDL: great er than 40 mg/dL Note: This HDL assay may give artificially low results in patients with liver disease. Blood Venous blood specimen / Unknown 09/18/2023 11:24 AM EDT 09/18/2023 11:24 AM EDT us Valery Espinoza MD LAB BLOOD ORDERABLES Final Re sult [facility] [address] [place] [address] [phone] * Hm Colonoscopy (10/18/2018) Colonoscopy performed us Historical Provider HEALTH MAINTENANCE Final Result from Last 3 Months or Most Recently Relevant to Health Maintenance Insurance DENTAL - HSN PARTIAL (MEDICAID) Advance Directives Documents on File Type Date Recorded Patient Rippler Expl anation MOLST form 05/21/2023 ROSE MARY napier for Life-Sustaining Treatment Care Teams Wastewater Treatment Engineer Relationship Specialty Start Date End Date Valery Espinoza MD [address] [place] [address] PCP - General Family Medicine 09/14/21 Antoine Billings MD Technical Assistance Consultant 04/24/23
--- OUTSIDE RECORDS SUMMARY | 2025-04-14 18:18 | XMS_ITS | Encounter Summary ---
Author Organization [employer] Address [address] [place] [address] Care Team Providers Care Play Therapist Name Role Phone Valery Espinoza MD Primary Care Provider [phone] Encounter Details Date Type Department Care Team (Latest Contact Info) Description 04/14/2025 Travel Social History Tobacco Use Types Packs/Day Years [...] 9:15 AM EDT Office Visit [facility] [address] [place] [address] Vasquez Whitley MD [address] [place] [address] 04/27/2025 11:30 AM EST Office Visit [facility] [address] [place] [address] Valery Espinoza MD [address] [place] [address] 07/15/2025 9:00 AM EST Office Visit [facility] [address] [place] [address] Zay, Leonor, OD [address] [place] [address] documented as of this encounter Visit Diagnoses Not on filedocumented in this encounter Additional Health Concerns Assessment Noted Time PHQ-9 Depression Total Score: 0 10/22/19 25 11:28 AM EDT documented as of this encounter Care Teams Play Therapist Relationship Specialty Start Date End Date Valery Espinoza MD [address] [place] [address] PCP - General Family Medicine 09/14/21 Antoine Billings MD Metal Mockup Maker 04/24/23 documented as of this encounter
--- OUTSIDE RECORDS SUMMARY | 2025-04-14 18:18 | XMS_ITS | Encounter Summary ---
Author Organization [employer] Address [address] [place] [address] [address]t [place] [address] Care Team Providers Care Coper Hand Name Role Phone Valery Espinoza MD Primary Care Provider [phone] Reason for Visit * Reason Comments Med Refill Encounter Details Date Type Department Care Team ([facility] Contact Info) Description 05/24/2024 Refill [facility]S [address] [place], [place] [phone] Valery Espinoza MD [address] [place] [address] Social History Tobacco Use Types Packs/Day Years [...] Description 04/20/2025 9:15 AM EDT Office Visit [facility] [address] [place] [address] Vasquez Whitley MD [address] [place] [address] 04/27/2025 11:30 AM EST Office Visit [facility] [address] [place] [address] Valery Espinoza MD [address] [place] [address] 07/15/2025 9:00 AM EST Office Visit [facility] [address] [place], [place] [phone] Leonor Collazo, OD [address] [place] [address] documented as of this encounter Visit Diagnoses Not on filedocumented in this encounter Additional Health Concerns Assessment Noted Time PHQ-9 Depression Total Score: 2 04/25/20 23 9:44 AM EDT documented as of this encounter Care Teams Coper Hand Relationship Specialty Start Date End Date Valery Espinoza MD [address] [place] [address] PCP - General Family Medicine 09/14/21 Antoine Billings MD Signal Helper 04/24/23 documented as of this encounter
--- OUTSIDE RECORDS SUMMARY | 2025-04-14 18:18 | XMS_ITS | Encounter Summary ---
Author Organization [employer] Address [address] [place] [address] [address]t [place] [address] Care Team Providers Care Intake Coordinator Name Role Phone Valery Espinoza MD Primary Care Provider [phone] Reason for Visit * Reason Comments Med Refill Encounter Details Date Type Department Care Team ([facility] st Contact Info) Description 07/31/2023 Refill [facility] & PEDS [address] [place], [place] [phone] Valery Espinoza MD [address] [place] [address] Social History Tobacco Use Types Packs/Day Years [...] the past 12 months, has t he [employer], gas, oil or water company threatened to [...] Description 04/20/2025 9:15 AM EDT Office Visit [facility] PEDS [address] [place] [address] Vasquez Whitley MD [address] [place] [address] 04/27/2025 11:30 AM EST Office Visit [facility] [address] [place] [address] Valery Espinoza MD [address] [place] [address] 07/15/2025 9:00 AM EST Office Visit [facility] [address] [place] [address] Leonor Collazo, OD [address] [place] [address] documented as of this encounter Visit Diagnoses Not on filedocumented in this encounter Additional Health Concerns Assessment Noted Time PHQ-9 Depression Total Score: 2 04/25/20 23 9:44 AM EDT documented as of this encounter Care Teams Intake Coordinator Relationship Specialty Start Date End Date Valery Espinoza MD [address] [place] [address] PCP - General Family Medicine 09/14/21 Antoine Billings MD Electrogalvanizing Machine Operator 04/24/23 documented as of this encounter
--- OUTSIDE RECORDS SUMMARY | 2025-04-14 18:18 | XMS_ITS | Encounter Summary ---
Author Organization [employer] Address [address] [facility] 7t [place] [address] Care Team Providers Care Academic Affairs Specialist Name Role Phone Valery Espinoza MD Primary Care Provider [phone] Encounter Details Date Type Department Care Team (Late st Contact Info) Description 07/01/2024 Telephone [facility] [address] [place] [address] Valery Espinoza MD [address] [place], [place] [phone] Social History Tobacco Use Types Packs/Day Years [...] the past 12 months, has t he [employer] gas, oil or water company threatened to [...] Description 04/20/2025 9:15 AM EDT Office Visit [facility] [address] [place] [address] Vasquez Whitley MD [address] [place] [address] 04/27/2025 11:30 AM EST Office Visit [facility] [address] [place] [address] Valery Espinoza MD [address] [place] [address] 07/15/2025 9:00 AM EST Office Visit [facility] [address] [place] [address] Leonor Collazo, OD [address] [place] [address] documented as of this encounter Visit Diagnoses Not on filedocumented in this encounter Additional Health Concerns Assessment Noted Time PHQ-9 Depression Total Score: 2 04/25/20 9:44 AM EDT documented as of this encounter Care Teams Academic Affairs Specialist Relationship Specialty Start Date End Date Valery Espinoza MD [address] [place] [address] PCP - General Family Medicine 09/14/21 Antoine Billings MD Financial Coordinator 04/24/23 documented as of this encounter
--- OUTSIDE RECORDS SUMMARY | 2025-04-14 18:19 | XMS_ITS | Encounter Summary ---
Author Organization [employer] Address [address] [place] [address] [address]t [place] [address] Care Team Providers Care Fast Food Fry Cook Name Role Phone Valery Espinoza MD Primary Care Provider [phone] Reason for Visit * Reason Onset Date Comments Referral 08/19/2024 Encounter Details Date Type Department Care Team (Late st Contact Info) Description 08/19/2024 Telephone [facility] [address] [place] [address] Valery Espinoza MD [address] [place] [address] Referral Social History Tobacco Use Types Packs/Day [...] neurology visit if it did occur in [facility] or [facility] chart. No answer, left message to call back. * Telephone Encounter - Weston Torres - 08/19/2024 12:36 PM EST TC from pt Daughter requesting Referral for Neurology for [facility]. Contact pt Daughter at [phone] documented in this encounter Plan of Treatment Upcoming Encounters Date Type Department Care Team (Late st Contact Info) Description 04/20/2025 9:15 AM EDT Office Visit [facility] [address] [place] [address] Vasquez Whitley MD [address] [place] [address] 04/27/2025 11:30 AM EST Office Visit [facility] [address] [place] [address] Valery Espinoza MD [address] [place], [place] [phone] 07/15/2025 9:00 AM EST Office Visit [facility] [address] [place] [address] ZayLeonor patel, OD [address] [place] [address] documented as of this encounter Visit Diagnoses Not on filedocumented in this encounter Additional Health Concerns Assessment Noted Time PHQ-9 Depression Total Score: 2 04/25/20 23 9:44 AM EDT documented as of this encounter Care Teams Fast Food Fry Cook Relationship Specialty Start Date End Date Valery Espinoza MD [address] [place] [address] PCP - General Family Medicine 09/14/21 Antoine Billings MD Air Compressor Engineer 04/24/23 documented as of this encounter
--- OUTSIDE RECORDS SUMMARY | 2025-04-14 18:19 | XMS_ITS | Encounter Summary ---
Author Organization [employer] Address [address] [place] [address] [address]t [place] [address] Care Team Providers Care Cooky Machine Operator Name Role Phone Valery Espinoza MD Primary Care Provider [phone] Reason for Visit * Reason Onset Date Comments Med Refill 10/12/2024 Encounter Details Date Type Department Care Team (Late st Contact Info) Description 10/12/2024 Telephone [facility] [address] [place] [address] Valery Espinoza MD [address] [place] [address] Med Refill Social History Tobacco Use Types [...] is your housing situation today? I have joselni lucero 10/14/[address] you [...] 11:49 AM EDT Scripts were sent to [facility] on 09/29/24 with 11 refills. * Telephone Encounter - Weston Torres - 10/12/2024 11:32 AM EDT TC from pt requesting medication refill. Medications needing refill : ezetimibe (Zetia) 10 MG tablet rosuvastatin (Crestor) 40 MG tablet To be sent to: [facility] [employer] [facility] ([place]) - [facility] [place] - [address] [place] [address] documented in this encounter Plan of Treatment Upcoming Encounters Date Type Department Care Team (Late st Contact Info) Description 04/20/2025 9:15 AM EDT Office Visit [facility] [address] [place] [address] Vasquez Whitley MD [address] [place] [address] 04/27/2025 11:30 AM EST Office Visit [facility] [address] [place] [address] Valery Espinoza MD [address] [place] [address] 07/15/2025 9:00 AM EST Office Visit [facility] [address] [place] [address] Leonor Collazo, OD [address] [place] [address] documented as of this encounter Visit Diagnoses Not on filedocumented in this encounter Additional Health Concerns Assessment Noted Time PHQ-9 Depression Total Score: 2 04/25/20 23 9:44 AM EDT documented as of this encounter Care Teams Cooky Machine Operator Relationship Specialty Start Date End Date Valery Espinoza MD [address] [place] [address] PCP - General Family Medicine 09/14/21 Antoine Billings MD Gambreler Helper 04/24/23 documented as of this encounter
== END 2025-04-14 14:25 | disposition home or self-care (01) ==
LOC: HO.CHCLDS 14:24
PROVIDERS: Visit Provider Family Medicine
DX: N17.9 Acute kidney failure, unspecified (principal)
CPT/HCPCS: 36415; 80048

== ENCOUNTER 2025-04-19 14:54 | Outpatient (REF) | payer MEDICARE, SELFPAY ==
--- OUTSIDE RECORDS SUMMARY | 2025-04-14 11:15 | XMS_ITS | Encounter Summary ---
Author Organization [email or web address] Address [address] [place] [address] 7[address] [place] [address] Care Team Providers Care Soap Worker Name Role Phone Valery Espinoza MD Primary Care Provider [phone] Reason for Referral * PFT (Routine) - Authorized Specialty Diagnoses / Procedures Referred By Contac t Referred To Contact Diagnoses COPD without exacerbation ([facility]/HCC) ([facility]) Procedures Pulmonary Function Test Valery Espinoza MD [address] [place] [address] Phone: tel: fax: [address] Phone: tel: fax: Referral ID Status Reason Start Date Expiration Date V isits Requested Visits Authorized [id number] Authorized 04/14/2025 04/14/2026 1 1 Reason for Visit * Reason Comments COPD Encounter Details Date Type Department Care Team ([facility] Contact Info) Description 04/14/2025 11:15 AM EDT Office Visit [facility] MED & [facility] [address] [place], [place] [phone] Valery Espinoza MD [address] [place], [place] [phone] COPD without exacerbation (CMS/HCC) (HCC) (Primary Dx); [...] 11:10 AM EDT documented in this encounter Progress Notes * Valery Espinoza MD - 04/14/2025 11:15 AM EDT Subjective Patient ID: Yamil Hurt is a 79 y.o. male who presents for COPD. Yamil presents for follow-up of ongoing dizziness that led to hospitalization on March 21. During that hospitalization, he was found to have acute kidney injury and bradycardia, which were identified as contributing factors to his dizziness. He was advised to discontinue his blood pressure medication until his cardiology appointment with Dr. Antoine Billings scheduled for April 26 at 3:20 PM. The patient reports that his dizziness has continued since discharge, stating it continues and noting that he almost fell. His blood pressure remains low, which is contributing to his ongoing symptoms. He has been experiencing orthostatic symptoms related to his hypotension. Regarding medication adherence, the patient stopped taking the Symbicort inhalers that were previously prescribed because he wasn't sure if they were helping. He continues taking his BP meds. The patient recently started physical therapy on April 11 and has an upcoming appointment scheduled for April 21 at 11 AM. This represents a new addition to his treatment regimen since the last visit. Medical History - Hospitalization on March 21 for acute kidney injury and bradycardia with associated dizziness Review of Systems Neurological: Positive for dizziness with near fall episode. Review of Systems Musculoskeletal: Positive for arthralgias and gait problem. Neurological: Positive for dizziness, weakness and light-headedness. Negative for seizures, speech difficulty and headaches. Objective BP 100/63 Pulse 84 Temp 97.8 ??F (36.6 ??C) (Oral) Resp 20 Ht 5' 7 (1.702 m) Wt 150 lb (68 kg) SpO2 97% BMI 23.49 kg/m?? Physical Exam Constitutional: Appearance: He is not toxic-appearing or diaphoretic. HENT: Head: Normocephalic and atraumatic. Eyes: Extraocular Movements: Extraocular movements intact. Pupils: Pupils are equal, round, and reactive to light. Cardiovascular: Rate and Rhythm: Regular rhythm. Pulses: Normal pulses. Pulmonary: Effort: Pulmonary effort is normal. Breath sounds: Normal breath sounds. Neurological: Gait: Gait abnormal. Assessment/Plan Problem List Items Addressed This Visit COPD without exacerbation (CMS/HCC) (HCC) - Primary Relevant Orders Pulmonary Function Test Dizziness of unknown etiology JAY (acute kidney injury) Relevant Medications metoprolol succinate XL (Toprol XL) 25 MG 24 hr tablet Other Relevant Orders Basic Metabolic Panel (Completed) Yamil presents with ongoing dizziness following hospitalization on March 21 for acute kidney injury and bradycardia-induced dizziness. Dizziness with hypotension Assessment: Patient continues to experience dizziness following recent hospitalization where he hadbradycardia and acute kidney injury. Current blood pressure is low, contributing to ongoing dizziness symptoms. Patient reports nearly falling due to persistent dizziness. Hospital recommended discontinuing blood pressure medications until cardiology follow-up. Plan: - Discontinue lisinopril - Reduce metoprolol from 25 mg to 12.5 mg once daily - Increase dietary salt intake - Obtain orthostatic vital signs to assess blood pressure in different positions - Follow up with cardiology (Dr. Antoine Billings) on April 26 at 3:20 PM Acute kidney injury, resolved Assessment: Patient had acute kidney injury during recent hospitalization with creatinine elevated to 2.34, which has improved to 1.34 on repeat testing. Blood culture was negative, no anemia present, platelets normal at 208. Sodium normal at 140, potassium was elevated during hospitalization. Plan: - Continue monitoring kidney function COPD Assessment: Patient was previously prescribed Symbicort inhaler but discontinued use due to uncertainty about its effectiveness. Plan: - Resume Symbicort if not , discard if - Pharmacy to contact patient for medication reconciliation Physical therapy needs Assessment: Patient recently started physical therapy on April 11. Plan: - Continue physical therapy with next appointment scheduled for April 21 at 11 AM documented in this encounter Plan of Treatment Upcoming Encounters Date Type Department Care Team (Late st Contact Info) Description 04/27/2025 11:30 AM EST Office Visit [facility] CHC MED & PEDS [address] [place], [place] [phone] Valery Espinoza MD [address] [place], [place] [phone] 07/15/2025 9:00 AM EST Office Visit [facility] OPTOMETRY [address] [place] [address] ZayLeonor, OD [address] [place], [place] [phone] Scheduled Orders Name Type Priority Associated Diagnoses Orde r Schedule Pulmonary Function Test PFT Routine COPD without exacerbation ([facility]) ([facility]) Expected: 04/14/2025, Expires: 10/13/2025 documented as of this encounter Procedures Procedure Name Priority Date/Time Associated Diagnosis Comments BASIC METABOLIC PANEL Routine 04/14/2025 2:27 PM EDT JAY (acute kidney injury) documented in this encounter Results * (ABNORMAL) Basic Metabolic Panel (04/14/2025 2:27 PM EDT) Sodium 143 135 - 145 mmol/L [facility] Potassium 4.4 3.3 - 5.1 mmol/L [facility] Chloride 111(H) 96 - 108 mmol/L [facility] Carbon Dioxide 24 22 - 29 mmol/L [facility] Anion Gap 12 12 - 20 [facility] Urea Nitrogen (BUN) 17(H) 9 - 16 mg/dL [facility] Creatinine, Serum 1.56(H) 0.5 - 1.4 mg/dL [facility] Estimated Glomerular Filt Rate 43 [facility] Comment:Chronic Kidney Disea se: Estimated GFR < 60 mL/min/1.62e4Tjhbkh Kidney Disease: Estimated GFR < 15 mL/min/1.73m2 Glucose 81 60 - 115 mg/dL [facility] Calcium 9.5 8.4 - 10.2 mg/dL [facility] Blood Venous blood specimen / Unknown 04/14/2025 2:27 PM EDT 04/14/2025 5:50 PM EDT us Valery Espinoza MD LAB BLOOD ORDERABLES Final Re sult [facility] [address] [place] [address] [phone] documented in this encounter Visit Diagnoses Diagnosis COPD without exacerbation (CMS/HCC) (HCC)- Primary Dizziness of unknown etiology JAY (acute kidney injury) documented in this encounter Additional Health Concerns Assessment Noted Time PHQ-9 Depression Total Score: 0 10/22/19 11:28 AM EDT documented as of this encounter Care Teams Soap Worker Relationship Specialty Start Date End Date Valery Espinoza MD [address] [place] [address] PCP - General Family Medicine 09/14/21 Antoine Billings MD Environmental Program Manager 04/24/23 documented as of this encounter
[2025-04-19 18:36] LABS: Anion Gap 15 (12-20); Blood Urea Nitrogen 27 mg/dL (9-16); Calcium 9.6 mg/dL (8.4-10.2); Carbon Dioxide 21 mmol/L (22-29); Chloride 109 mmol/L (96-108); Estimated Glomerular Filt Rate 41; Potassium 4.5 mmol/L (3.3-5.1); Sodium 140 mmol/L (135-145)
--- OUTSIDE RECORDS SUMMARY | 2025-04-19 19:19 | XMS_ITS | Encounter Summary ---
Author Organization [employer] Address [address] [place] [address] [address] [place] [address] Care Team Providers Care Gas Appliance Adjuster Name Role Phone Valery Espinoza MD Primary Care Provider [phone] Reason for Visit * Reason Comments Med Refill Encounter Details Date Type Department Care Team (Late st Contact Info) Description 10/28/2024 Refill [facility] MED[facility] [address] [place] [address] Pam Mendoza FNP [address] [place] [address] Social History Tobacco Use Types Packs/Day Years [...] the past 12 months, has t he [employer], gas, oil or water company threatened to [...] Description 04/27/2025 11:30 AM EST Office Visit [facility] MED & PEDS [address] [place] [address] Valery Espinoza MD [address] [place] [address] 07/15/2025 9:00 AM EST Office Visit [facility] [address] [place] [address] Zay, Leonor, OD [address] [place] [address] documented as of this encounter Visit Diagnoses Not on filedocumented in this encounter Additional Health Concerns Assessment Noted Time PHQ-9 Depression Total Score: 0 10/22/19 25 11:28 AM EDT documented as of this encounter Care Teams Gas Appliance Adjuster Relationship Specialty Start Date End Date Valrey Espinoza MD [address] [place] [address] PCP - General Family Medicine 09/14/21 Antoine Billings MD Drilling And Production Superintendent 04/24/23 documented as of this encounter
--- OUTSIDE RECORDS SUMMARY | 2025-04-19 19:20 | XMS_ITS | Encounter Summary ---
Author Organization [employer] Address [address] [place] [address] 7t [place] [address] Care Team Providers Care Child Caregiver Private Home Name Role Phone Valery Espinoza MD Primary Care Provider [phone] Reason for Visit * Reason Onset Date Comments Med Refill 10/12/2024 Encounter Details Date Type Department Care Team (Late st Contact Info) Description 10/12/2024 Telephone [facility] MEDICINE [address] [place] [address] Valery Espinoza MD [address] [place] [address] Med Refill Social History Tobacco Use Types [...] 11:49 AM EDT Scripts were sent to [facility] on 09/29/24 with 11 refills. * Telephone Encounter - Weston Torres - 10/12/2024 11:32 AM EDT TC from pt requesting medication refill. Medications needing refill : ezetimibe (Zetia) 10 MG tablet rosuvastatin (Crestor) 40 MG tablet To be sent [place]: [facility] [place] [facility] [address] [place] [address] documented in this encounter Plan of Treatment Upcoming Encounters Date Type Department Care Team (Late st Contact Info) Description 04/27/2025 11:30 AM EST Office Visit [facility] [address] [place] [address] Valery Espinoza MD [address] [place] [address] 07/15/2025 9:00 AM EST Office Visit [facility] OPTOMETRY [address] [place] [address] ZayMitch pateln, OD [address] [place] [address] documented as of this encounter Visit Diagnoses Not on filedocumented in this encounter Additional Health Concerns Assessment Noted Time PHQ-9 Depression Total Score: 2 04/25/20 23 9:44 AM EDT documented as of this encounter Care Teams Child Caregiver Private Home Relationship Specialty Start Date End Date Valery Espinoza MD [address] [place] [address] PCP - General Family Medicine 09/14/21 Antoine Billings MD Wage Conciliator 04/24/23 documented as of this encounter
--- OUTSIDE RECORDS SUMMARY | 2025-04-19 19:20 | XMS_ITS | Clinical Summary ---
Author Organization [employer] Address [address] [place] [address] 7t [place] [address] Care Team Providers Care Head Of Human Resources Name Role Phone Valery Espinoza MD Primary Care Provider [phone] Allergies Active Allergy Reactions Criticality Noted Date Comments Cat Dander 11/20/2018 Dust Mite Extract 11/20/2018 Gramineae Pollens 03/18/2024 Morphine Unknown 04/25/2023 Vomiting Medications cetirizine (ZyrTEC) 10 MG tablet Take 1 tablet by mouth if needed each day. 022 Active albuterol 108 (90 Base) MCG/ACT inhaler [...] for mild pain. 90 tablet 024 Active clopidogrel (Plavix) 75 MG tablet Take 1 tablet (75 mg) by mouth Once per day. 90 tablet 1 Active Fluocinolone Acetonide Scalp 0.01 % oilIndications:Se bopsoriasis USE DIRECTED TWICE A WEEK; COVER THE HEAD WITH A DURAG-CAP 118.28 mL 1 Active fenofibrate (Triglide) 160 MG tablet TAKE [...] AT BEDTIME FOR CHOLESTEROL 90 tablet 11 Active pantoprazole (ProtoNix) 40 MG EC tablet Take 1 tablet (40 mg) by mouth if needed each day (acid reflux). 90 tablet 1 Active Symbicort 160-4.5 MCG/ACT inhaler Inhale 2 [...] crush or chew. 15 tablet 5 Active famotidine (Pepcid) 20 MG tablet Take 20 mg by mouth at bedtime. 2024 Discontinued(M ed list cleanup (will not trigger notification to Pharmacy)) hydrocortisone 2.5 % cream Apply 1 application topically every 12 (twelve) hours. 2024 Discontinued(M ed list cleanup (will not trigger notification to Pharmacy)) tiZANidine (Zanaflex) 4 MG tabletIndications :Paraspinal muscle spasm Take 1 tablet (4 mg) by mouth every 6 (six) hours if needed for muscle spasms for up to 10 days. 30 tablet 023 2024 Discontinued(M ed list cleanup (will not trigger notification to Pharmacy)) lisinopril 5 MG tablet 023 2024 Discontinued(T herapy completed) Diclofenac Sodium 1 % gel Apply 1 Application topically 4 times daily. 200 g 2 024 2024 Discontinued(M ed list cleanup (will not trigger notification to Pharmacy)) ketoconazole (Nizoral) 2 % shampooIndication s:Sebopsoriasis Apply topically 2 (two) times a week. 120 mL 3 024 2024 Discontinued(M ed list cleanup (will not trigger notification to Pharmacy)) Diclofenac Sodium 1 % gel Apply 5 g topically 4 times daily. 200 g 3 024 2024 Discontinued(M ed list cleanup (will not trigger notification to Pharmacy)) montelukast (Singulair) 10 MG tablet Take 1 tablet (10 mg) by mouth at bedtime. 90 tablet 1 024 2024 Discontinued(M ed list cleanup (will not trigger notification to Pharmacy)) metoprolol succinate XL (Toprol-XL) 25 MG 24 hr tablet Take 1 tablet (25 mg) by mouth Once per day. 90 tablet 1 024 2024 Discontinued temazepam (Restoril) 7.5 MG capsule Take 1 capsule (7.5 mg) by mouth if needed at bedtime for sleep. 28 capsule 1 024 2024 Discontinued(M ed list cleanup (will not trigger notification to Pharmacy)) olopatadine (Pataday) 0.2 % ophthalmic solution Administer 1 drop into affected eye(s) Once per day. 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 COPD without exacerbation ([facility]) 09/11/2022 Assessment & Plan (10/21/2024 12:16 PM EDT): - Continue Symbicort inhaler, 2 puffs twice daily - Prescribe spacer device to improve medication delivery - Sent to patient's pharmacy with instructions for daily use - Educate patient on proper inhaler technique - Recommend visit to pharmacy for technique assessment - Consider referral to health services director for further evaluation and management - Advise [...] (08/13/2022): 2007 colonoscopy History of substance abuse ([facility]) 01/25/2019 Overview (08/13/2022): Hx use of cocaine. Hiatal hernia 01/25/2019 Overview (08/13/2022): [facility] assoc w/ GERD, barium swallow 07/2009 [facility]. History of bilateral hip replacements 01/25/2019 [...] DC atorvastatin, continue rosuvastatin Multi-infarct dementia, uncomplicated ([facility]) 06/23/1958 Assessment & Plan (10/21/2024 12:18 PM [...] care assistance needs - Recommend changing primary crewman armoured personnel carrier [email or web address] for appointment notifications to ensure family awareness - Advise family to request portal password reset at desk assistant to maintain access to patient's medical information Assessment & Plan (03/11/2024 7:55 PM EDT): Ordering lab work for TSH and referral to Neurology for further evaluation. Encounters Date Type Department Care Team Description 04/19/2025 Telephone [facility] MED & PEDS [address] [place] [address] Valery Espinoza MD Chart Prep 04/15/2025 Results Follow-Up [facility] MED & PEDS [address] [place] [address] Valery Espinoza MD Basic Metabolic Panel 04/14/2025 11:15 AM EDT Office Visit [facility] MED & PEDS [address] [place] [address] Valery Espinoza MD COPD without exacerbation (CMS/HCC) (HCC) (Primary Dx); Dizziness of unknown etiology; JAY (acute kidney injury) 04/14/2025 Travel 04/13/2025 Telephone [facility] MED & PEDS [address] [place] [address] Valery Espinoza MD chart prep 03/03/2025 Results Follow-Up [facility] & PEDS [address] [place] [address] Valery Espinoza MD XR Lumbar Spine Complete 4+ Views 03/02/2025 3:20 PM EDT Office Visit [facility] MED & PEDS [address] [place] [address] Vasquez Whitley MD Acute midline low back pain without sciatica (Primary Dx) 03/02/2025 Travel 02/25/2025 Telephone [facility] MED & PEDS [address] [place] [address] Valery Espinoza MD Appointment Request 02/08/2025 Telephone [facility] PED[facility] [address] [place] [address] Valery Espinoza MD chart prep from Last 3 Months Immunizations Immunization Administration Dates Next Due Influenza High-dose Quadrivalent Preservative Fr ee 04/04/2022 Pfizer Covid-19 Vaccine 12+ 11/02/2020, 1 Pneumococcal Conjugate PCV 20 05/20/2023 TD (adult), [...] Description 04/27/2025 11:30 AM EST Office Visit [facility] MED & PEDS [address] [place] [address] Valery Espinoza MD [address] [place] [address] 07/15/2025 9:00 AM EST Office Visit [facility] OPTOMETRY [address] [place] [address] Leonor Collazo, OD [address] [place] [address] Health Maintenance Due Date Last Done Comments [...] Associated Diagnosis Comments BASIC METABOLIC PANEL Routine 04/19/2025 2:56 PM EDT JYA (acute kidney injury) BASIC METABOLIC PANEL Routine 04/14/2025 2:27 PM [...] Maintenance Results * (ABNORMAL) Basic Metabolic Panel (04/19/2025 2:56 PM EDT) Only the most recent of2 resultswithin the time period is included. Sodium 140 135 - 145 mmol/L [facility] Potassium 4.5 3.3 - 5.1 mmol/L [facility] Chloride 109(H) 96 - 108 mmol/L [facility] Carbon Dioxide 21(L) 22 - 29 mmol/L [facility] Anion Gap 15 12 - 20 [facility] Urea Nitrogen (BUN) 27(H) 9 - 16 mg/dL [facility] Creatinine, Serum 1.62(H) 0.5 - 1.4 mg/dL [facility] Estimated Glomerular Filt Rate 41 [facility] Comment:Chronic Kidney Disea se: Estimated GFR < 60 mL/min/1.91a4Hbifvt Kidney Disease: Estimated GFR < 15 mL/min/1.73m2 Glucose 87 60 - 115 mg/dL [facility] Calcium 9.6 8.4 - 10.2 mg/dL [facility] Blood Venous blood specimen / Unknown 04/19/2025 2:56 PM EDT 04/19/2025 6:04 PM EDT us Valery Espinoza MD LAB BLOOD ORDERABLES Final Re sult [facility] [address] [place] [phone] * XR Lumbar Spine Complete 4+ Views (03/02/2025) Anatomical Region Laterality Modality Spine, L-spine Radiographic Dana ging us Vasquez Whitley MD IMG XR PROCEDURES Final Res ult * (ABNORMAL) Lipid Panel, Standard (09/18/2023 11:24 AM EDT) Triglycerides 191(H) <150 mg/dL [facility] Comment:Desirable Triglyceri de: less than 150 mg/dLBorderline High Triglyceride 150-199 mg/dLHigh Triglyceride: 200-499 mg/dLVery High Triglyceride: greater than or equal to 5OO mg/dL Cholesterol 120 <200 mg/dL [facility] Comment:Desirable Cholestero l: less than 200 mg/dLBorderline High Cholesterol: 200-239 mg/dLHigh Cholesterol: greater than 239 mg/dL LDL Cholesterol Calculated 40 <100 mg/dL [facility] Comment:Desirable LDL: less than 100 mg/dLNear Optimal/Above Optimal LDL: 110- 129 mg/dLBorderline High LDL: 130-159 mg/dLHigh LDL: 160-189 mg/dLVery High LDL: greater than or equal to 190 mg/dL HDL Cholesterol 42 >40 mg/dL [facility] Comment:Desirable HDL: great er than 40 mg/dL Note: This HDL assay may give artificially low results in patients with liver disease. Blood Venous blood specimen / Unknown 09/18/2023 11:24 AM EDT 09/18/2023 11:24 AM EDT Valery Espinoza MD LAB BLOOD ORDERABLES Final Re sult [facility] [address] [place] [phone] * Colonoscopy (10/18/2018) Colonoscopy performed Historical Provider HEALTH MAINTENANCE Final Result from Last 3 Months or Most Recently Relevant to Health Maintenance Insurance [facility] [place]IC[place] [phone] DENTAL - HSN PARTIAL (MEDICAID) Advance Directives Documents on File Type Date Recorded Patient Loan Supervisor Expl anation MOLST form 05/21/2023 ROSE MARY napier for Life-Sustaining Treatment Care Teams Head Of Human Resources Relationship Specialty Start Date End Date Valery Espinoza MD [address] [place] [address] PCP - General Family Medicine 09/14/21 Antoine Billings MD Baling Machine Operator 04/24/23
--- OUTSIDE RECORDS SUMMARY | 2025-04-19 19:20 | XMS_ITS | Encounter Summary ---
Author Organization [employer] Address [address] [facility] 7t [place] [address] Care Team Providers Care Hot Wire Glass Tube Cutter Name Role Phone Valery Espinoza MD Primary Care Provider [phone] Encounter Details Date Type Department Care Team (Late st Contact Info) Description 04/12/2024 Telephone [facility] MEDICINE [address] [place] [address] Valery Espinoza MD [address] [place], [place] [phone] Social History Tobacco Use Types Packs/Day Years [...] the past 12 months, has t he [employer], gas, oil or water company threatened to [...] Description 04/27/2025 11:30 AM EST Office Visit [facility] MED [facility] PEDS 505 [place] [address] Valery Espinoza MD 505 [place] [address] 07/15/2025 9:00 AM EST Office Visit [facility] OPTOMETRY [address] [place] [address] Zay, Leonor, OD 230 [place] [address] documented as of this encounter Visit Diagnoses Not on filedocumented in this encounter Additional Health Concerns Assessment Noted Time PHQ-9 Depression Total Score: 2 04/25/20 23 9:44 AM EDT documented as of this encounter Care Teams Hot Wire Glass Tube Cutter Relationship Specialty Start Date End Date Valery Espinoza MD [address] [place] [address] PCP - General Family Medicine 09/14/21 Antoine Billings MD Health And Human Performance Professor 04/24/23 documented as of this encounter
--- OUTSIDE RECORDS SUMMARY | 2025-04-19 19:20 | XMS_ITS | Encounter Summary ---
Author Organization [employer] Address [address] 7[address] [place] [address] Care Team Providers Care Senior Recruiter Name Role Phone Valery Espinoza MD Primary Care Provider [phone] Encounter Details Date Type Department Care Team [...] Description 04/27/2025 11:30 AM EST Office Visit [facility] MED [facility] PEDS [address] [place] [address] Valery Espinoza MD [address] [place] [address] 07/15/2025 9:00 AM EST Office Visit [facility] OPTOMETRY [address] [place] [address] Zay, Leonor, OD [address] [place] [address] documented as of this encounter Visit Diagnoses Not on filedocumented in this encounter Additional Health Concerns Assessment Noted Time PHQ-9 Depression Total Score: 0 10/22/19 11:28 AM EDT documented as of this encounter Care Teams Senior Recruiter Relationship Specialty Start Date End Date Valery Espinoza MD [address] [place] [address] PCP - General Family Medicine 09/14/21 Antoine Billings MD Company Accountant 04/24/23 documented as of this encounter
--- OUTSIDE RECORDS SUMMARY | 2025-04-19 19:20 | XMS_ITS | Encounter Summary ---
Author Organization [employer] Address [address] [facility] 7[address] [place] [address] Care Team Providers Care Stranding Supervisor Name Role Phone Valery Espinoza MD Primary Care Provider [phone] Encounter Details Date Type Department Care Team (Late st Contact Info) Description 07/01/2024 Telephone [facility] MEDICINE [address] [place] [address] Valery Espinoza MD [address] [place], [place] [phone] Social History Tobacco Use Types Packs/Day Years [...] the past 12 months, has t he [employer], gas, oil or water company threatened to [...] Description 04/27/2025 11:30 AM EST Office Visit [facility] MED [facility] PEDS [address] [place] [address] Valery Espinoza MD [address] [place] [address] 07/15/2025 9:00 AM EST Office Visit [facility] OPTOMETRY [address] [place] [address] Zay, Leonor, OD [address] [place] [address] documented as of this encounter Visit Diagnoses Not on filedocumented in this encounter Additional Health Concerns Assessment Noted Time PHQ-9 Depression Total Score: 2 04/25/20 23 9:44 AM EDT documented as of this encounter Care Teams Stranding Supervisor Relationship Specialty Start Date End Date Valery Espinoza MD [address] [place] [address] PCP - General Family Medicine 09/14/21 Antoine Billings MD Canvas Shop Laborer 04/24/23 documented as of this encounter
--- OUTSIDE RECORDS SUMMARY | 2025-04-19 19:20 | XMS_ITS | Encounter Summary ---
Author Organization [employer] Address [address] [place] [address] 7t [place] [address] Care Team Providers Care Strand Galvanizer Name Role Phone Valery Espinoza MD Primary Care Provider Reason for Visit * Reason Onset Date Comments Med Refill 02/14/2023 Encounter Details Date Type Department Care Team ([facility] st Contact Info) Description 02/14/2023 Telephone [facility] MED & PEDS [address] [place], [place] [phone] Valery Espinoza MD [address] [place] [address] Med Refill Social History Tobacco Use Types [...] PM EDT Tacrolimus was sent to [id number] on 02/11/23 with 1 refill and Losartan was sent on 09/11/22 #90 with 1 refill. * Telephone Encounter - Nayely Talon - 02/14/2023 3:00 PM EDT Tc from pt requesting medication refill on tacrolimus (Protopic) 0.1 % ointment and losartan (Cozaar) 25 MG tablet documented in this encounter Plan of Treatment Upcoming Encounters Date Type Department Care Team (Late st Contact Info) Description 04/27/2025 11:30 AM EST Office Visit [facility] MED & PEDS [address] [place] [address] Valery Espinoza MD [address] [place] [address] 07/15/2025 9:00 AM EST Office Visit [facility] OPTOMETRY [address] [place] [address] Leonor Collazo, OD [address] [place] [address] documented as of this encounter Visit Diagnoses Not on filedocumented in this encounter Care Teams Strand Galvanizer Relationship Specialty Start Date End Date Valery Espinoza MD [address] [place] [address] PCP - General Family Medicine 09/14/21 Antoine Billings MD Art Objects Repairer 04/24/23 documented as of this encounter
--- OUTSIDE RECORDS SUMMARY | 2025-04-19 19:20 | XMS_ITS | Encounter Summary ---
Author Organization [employer] Address [address] [place] [address] 7t [place] [address] Care Team Providers Care Corrosion Engineer Name Role Phone Valery Espinoza MD Primary Care Provider [phone] Reason for Visit * Reason Onset Date Comments Referral 08/19/2024 Encounter Details Date Type Department Care Team (Late st Contact Info) Description 08/19/2024 Telephone [facility] MEDICINE [address] [place] [address] Valery Espinoza MD [address] [place] [address] Referral Social History Tobacco Use Types Packs/Day [...] neurology visit if it did occur in [facility] or [facility] chart. No answer, left message to call back. * Telephone Encounter - Weston Torres - 08/19/2024 12:36 PM EST TC from pt Daughter requesting Referral for Neurology for [facility]. Contact pt Daughter at [phone] documented in this encounter Plan of Treatment Upcoming Encounters Date Type Department Care Team (Late st Contact Info) Description 04/27/2025 11:30 AM EST Office Visit [facility] MED & PEDS [address] [place], [place] [phone] Valery Espinoza MD [address] [place] [address] 07/15/2025 9:00 AM EST Office Visit [facility] OPTOMETRY [address] [place] [address] Zay Leonor, OD [address] [place] [address] documented as of this encounter Visit Diagnoses Not on filedocumented in this encounter Additional Health Concerns Assessment Noted Time PHQ-9 Depression Total Score: 2 04/25/20 9:44 AM EDT documented as of this encounter Care Teams Corrosion Engineer Relationship Specialty Start Date End Date Valery Espinoza MD [address] [place] [address] PCP - General Family Medicine 09/14/21 Antoine Billings MD Hand Trucker 04/24/23 documented as of this encounter
--- OUTSIDE RECORDS SUMMARY | 2025-04-19 19:20 | XMS_ITS | Encounter Summary ---
Author Organization [employer] Address [address] [place] [address] [address]t [place] [address] Care Team Providers Care Summer Sessions Director Name Role Phone Valery Espinoza MD Primary Care Provider [phone] Encounter Details Date Type Department Care Team ([facility] [address] Contact Info) Description 04/15/2025 Results Follow-Up [facility] MED & PEDS [address] [place], [place] [phone] Valery Espinoza MD [address] [place], [place] [phone] Basic Metabolic Panel Social History Tobacco Use Types Packs/Day Years [...] the past 12 months, has t he [employer], gas, oil or water company threatened to [...] encounter Miscellaneous Notes * Telephone Encounter - Angeli Mir RN - 04/16/2025 9:55 AM EDT TC placed to pt to discuss the message below patient daughter states that all pt medication is sentto the home already set up with meds so medication should be accurate if med changes have been made. Patient is aware of HDF and daughter will make sure pt has labs done prior to appointment to recheck kidney function. Daughter states pt doesn't like water to much encouraged to have pt drink liquids that he likes. ----- Message from Vaelry Espinoza MD sent at 04/15/2025 12:52 PM EDT ----- Please inform patient that his kidney function is worse, last visit I requested for him to stop hislisinopril and I lowered his metoprolol, recommended adequate hydration. I will repeat test to be done next week Friday or Friday, Please and thanks! Preferably before he comes and sees Dr. Whitley. ----- Message ----- From: Interface, Lab Results In Sent: 04/14/2025 6:17 PM EDT To: Valery Espinoza MD documented in this encounter Plan of Treatment Upcoming Encounters Date Type Department Care Team (Late st Contact Info) Description 04/27/2025 11:30 AM EST Office Visit [facility] MED & PEDS [address] [place], [place] [phone] Valery Espinoza MD [address] [place], [place] [phone] 07/15/2025 9:00 AM EST Office Visit [facility] OPTOMETRY [address] [place], [place] [phone] Zay, Leonor, OD [address] [place] [address] documented as of this encounter Procedures Procedure Name Priority Date/Time Associated Diagnosis Comments BASIC METABOLIC PANEL Routine 04/19/2025 2:56 PM EDT JAY (acute kidney injury) documented in this encounter Results * (ABNORMAL) Basic Metabolic Panel (04/19/2025 2:56 PM EDT) Sodium 140 135 - 145 mmol/L [facility] [...] Kidney Disea se: Estimated GFR < 60 mL/min/[id number] Kidney Disease: Estimated GFR < 15 mL/min/1.73m2 Glucose 87 60 - 115 mg/dL [facility] Calcium 9.6 8.4 - 10.2 mg/dL [facility] Blood Venous blood specimen / Unknown 04/19/2025 2:56 PM EDT 04/19/2025 6:04 PM EDT us Valery Espinoza MD LAB BLOOD ORDERABLES Final Re sult [facility] [address] [place] [phone] [phone] documented in this encounter Visit Diagnoses Diagnosis JAY (acute kidney injury)- Primary documented in this encounter Additional Health Concerns Assessment Noted Time PHQ-9 Depression Total Score: 0 10/22/19 25 11:28 AM EDT documented as of this encounter Care Teams Summer Sessions Director Relationship Specialty Start Date End Date Valery Espinoza MD [address] [place] [address] PCP - General Family Medicine 09/14/21 Antoine Billings MD Gospel Worker 04/24/23 documented as of this encounter
--- OUTSIDE RECORDS SUMMARY | 2025-04-19 19:20 | XMS_ITS | Encounter Summary ---
Author Organization [employer] Address [address] [place] [address] 7t [place] [address] Care Team Providers Care Pencils Washer Name Role Phone Valery Espinoza MD Primary Care Provider [phone] Reason for Visit * Reason Comments Med Refill Encounter Details Date Type Department Care Team ([facility] st Contact Info) Description 07/31/2023 Refill [facility] CHC MED & PEDS [address] [place], [place] [phone] Valery Espinoza MD 505 [place] [address] Social History Tobacco Use Types Packs/Day Years [...] Description 04/27/2025 11:30 AM EST Office Visit [facility] CHC MED & PEDS [address] [place] [address] Valery Espinoza MD [address] [place] [address] 07/15/2025 9:00 AM EST Office Visit [facility] OPTOMETRY [address] [place] [address] Leonor Collazo, OD [address] [place] [address] documented as of this encounter Visit Diagnoses Not on filedocumented in this encounter Additional Health Concerns Assessment Noted Time PHQ-9 Depression Total Score: 2 04/25/20 23 9:44 AM EDT documented as of this encounter Care Teams Pencils Washer Relationship Specialty Start Date End Date Valery Espinoza MD 230 [place] [address] PCP - General Family Medicine 09/14/21 Antoine Billings MD Retail Support Manager 04/24/23 documented as of this encounter
--- OUTSIDE RECORDS SUMMARY | 2025-04-19 19:20 | XMS_ITS | Encounter Summary ---
Author Organization [employer] Address [address] [place] [address] 7t [place] [address] Care Team Providers Care Facilities Maintenance Worker Name Role Phone Valery Espinoza MD Primary Care Provider [phone] Reason for Visit * Reason Onset Date Comments Referral 10/21/2022 Encounter Details Date Type Department Care Team ([facility] st Contact Info) Description 10/21/2022 Telephone C CHC MED & PEDS [address] [place], [place] [phone] Valery Espinoza MD 505 [place] [address] Referral Social History Tobacco Use Types Packs/Day [...] Podiatry on 09/11/2022. Please contact pt at [phone] * Telephone Encounter - Shira Mortensen - 10/21/2022 11:17 AM EDT Tc from pt requesting status on referral made for Podiatry on 09/11/2022. Please contact pt at [phone] documented in this encounter Plan of Treatment Upcoming Encounters Date Type Department Care Team (Late st Contact Info) Description 04/27/2025 11:30 AM EST Office Visit [facility] CHC MED & PEDS [address] [place] [address] Valery Espinoza MD 505 [place] [address] 07/15/2025 9:00 AM EST Office Visit [facility] OPTOMETRY [address] [place] [address] Leonor Collazo, OD 230 [place] [address] documented as of this encounter Visit Diagnoses Not on filedocumented in this encounter Care Teams Facilities Maintenance Worker Relationship Specialty Start Date End Date Valery Espinoza MD 230 [place] [address] PCP - General Family Medicine 09/14/21 Antoine Billings MD Turnaround Engineer 04/24/23 documented as of this encounter
--- OUTSIDE RECORDS SUMMARY | 2025-04-19 19:20 | XMS_ITS | Encounter Summary ---
Author Organization [employer] Address [address] [place] [address] 7t [place] [address] Care Team Providers Care Technician Chemical Cleaning Name Role Phone Valery Espinoza MD Primary Care Provider [phone] Reason for Visit * Reason Comments Med Refill Encounter Details Date Type Department Care Team ([facility] Contact Info) Description 05/24/2024 Refill [facility] CHC MED & PEDS 505 [place], [place] [phone] Valery Espinoza MD 505 [place] [address] Social History Tobacco Use Types Packs/Day Years [...] Description 04/27/2025 11:30 AM EST Office Visit [facility] CHC MED & PEDS [address] [place] [address] Valery Espinoza MD 505 [place] [address] 07/15/2025 9:00 AM EST Office Visit [facility] OPTOMETRY [address] [place] [address] Zay, Leonor, OD [address] [place] [address] documented as of this encounter Visit Diagnoses Not on filedocumented in this encounter Additional Health Concerns Assessment Noted Time PHQ-9 Depression Total Score: 2 04/25/20 23 9:44 AM EDT documented as of this encounter Care Teams Technician Chemical Cleaning Relationship Specialty Start Date End Date Valery Espinoza MD 230 [place] [address] PCP - General Family Medicine 09/14/21 Antoine Billings MD Balance Staff Staker 04/24/23 documented as of this encounter
--- OUTSIDE RECORDS SUMMARY | 2025-04-19 19:20 | XMS_ITS | Encounter Summary ---
Author Organization [employer] Address [address] [place] [address] 7t [place] [address] Care Team Providers Care Ear Nose Throat Surgeon Name Role Phone Valery Espinoza MD Primary Care Provider [phone] Reason for Visit * Reason Onset Date Comments Med Refill 04/12/2024 Encounter Details Date Type Department Care Team (Late st Contact Info) Description 04/12/2024 Telephone [facility] MEDICINE 230 [place] [address] Valery Espinoza MD 505 [place] [address] Med Refill Social History Tobacco Use Types [...] To be sent to: [facility] [address] [place] [address] documented in this encounter Plan of Treatment Upcoming Encounters Date Type Department Care Team (Late st Contact Info) Description 04/27/2025 11:30 AM EST Office Visit [facility] MED & PEDS [address] [place] [address] Valery Espinoza MD [address] [place] [address] 07/15/2025 9:00 AM EST Office Visit [facility] OPTOMETRY [address] [place] [address] Zay, Leonor, OD [address] [place] [address] documented as of this encounter Visit Diagnoses Not on filedocumented in this encounter Additional Health Concerns Assessment Noted Time PHQ-9 Depression Total Score: 2 04/25/20 23 9:44 AM EDT documented as of this encounter Care Teams Ear Nose Throat Surgeon Relationship Specialty Start Date End Date Valery Espinoza MD 230 [place] [address] PCP - General Family Medicine 09/14/21 Antoine Billings MD Mri Assistant 04/24/23 documented as of this encounter
--- OUTSIDE RECORDS SUMMARY | 2025-04-19 19:20 | XMS_ITS | Encounter Summary ---
Author Organization [employer] Address [address] [place] [address] 7t [place] [address] Care Team Providers Care Fretted Instrument Inspector Name Role Phone Valery Espinoza MD Primary Care Provider [phone] Reason for Visit * Reason Onset Date Comments Chart Prep 04/19/2025 Encounter Details Date Type Department Care Team ([facility] Contact Info) Description 04/19/2025 Telephone [facility] CHC MED & PEDS 505 [place], [place] [phone] Valery Espinoza MD 505 [place] [address] Chart Prep Social History Tobacco Use Types Packs/Day Years [...] encounter Miscellaneous Notes * Telephone Encounter - Janelle Pritchett MA - 04/19/2025 9:48 AM EDT Chart Prep Labs: not done Images: done Referrals: appointment pending Vaccines due: Covid, Flu, RSV, and Zoster Screenings: not applicable Overdue care gaps: Tobacco documented in this encounter Plan of Treatment Upcoming Encounters Date Type Department Care Team (Late st Contact Info) Description 04/27/2025 11:30 AM EST Office Visit [facility] CHC MED & PEDS [address] [place] [address] Valery Espinoza MD 505 [place] [address] 07/15/2025 9:00 AM EST Office Visit [facility] OPTOMETRY [address] [place] [address] Zay Leonor, OD 230 [place] [address] documented as of this encounter Visit Diagnoses Not on filedocumented in this encounter Additional Health Concerns Assessment Noted Time PHQ-9 Depression Total Score: 0 10/22/19 11:28 AM EDT documented as of this encounter Care Teams Fretted Instrument Inspector Relationship Specialty Start Date End Date Valery Espinoza MD [address] [place] [address] PCP - General Family Medicine 09/14/21 Antoine Billings MD Youth Corrections Officer 04/24/23 documented as of this encounter
== END 2025-04-19 14:55 | disposition home or self-care (01) ==
LOC: HO.CHCLDS 14:54
PROVIDERS: Visit Provider Family Medicine
DX: N17.9 Acute kidney failure, unspecified (principal)
CPT/HCPCS: 36415; 80048

== ENCOUNTER 2025-04-28 13:02 | Outpatient (REF) | payer MEDICARE, SELFPAY ==
--- OUTSIDE RECORDS SUMMARY | 2025-04-27 11:30 | XMS_ITS | Encounter Summary ---
Author Organization [employer] Address [address] [place] [address] 7 [place] [address] Care Team Providers Care Wildlife Rehabilitator Name Role Phone Valery Espinoza MD Primary Care Provider [phone] Reason for Referral * Consultation (STAT) - Canceled Specialty Diagnoses / Procedures Referred By Josh t Referred To Contact Case Management Diagnoses Vascular dementia with other behavioral disturbance, unspecified dementia severity (CMS/HCC) ([facility]) AD (Alzheimer's disease) ([facility]) Valery Espinoza MD [address] [place] [address] Phone: tel: fax: Referral ID Status Reason Start Date Expiration Date Visits Requested Visits Authorized [id number] Canceled Specialty Services Required 04/27/2025 04/27/2026 1 1 Reason for Visit * Reason Comments Follow-up Encounter Details Date Type Department Care Team ([facility] Contact Info) Description 04/27/2025 11:30 AM EST Office Visit [facility] CHC MED & PEDS [address] [place] [address] Valery Espinoza MD [address] [place] [phone] Vascular dementia with other behavioral disturbance, unspecified [...] to relocate to his ex-'s place at [address] [place] [address], a intermediate facility with an elevator. He has a court date scheduled for June and is dealing with housing issues, with waiting lists not currently open. He does not have food stamps and there are concerns about using emergency funds. Recent healthcare interactions include seeing a corporate specialist yesterday who performed cardiac monitoring, and he had an echocardiogram that showed diastolic dysfunction. A brain scan was requested butdenied. He has upcoming appointments including one with Dr. Sanford in [place] in June and a follow-up in two [...] Relevant Orders FLU VACCINE TRIVALENT HIGH DOSE [phone] (Fluzone) 66 yrs + Yamil Hurt is [...] worsening kidney function - Patient to contact [facility] for ultrasound scheduling Dizziness and medication management [...] apartment and has identified potential placement at intermediate facility at [facility] with elevator access. Will require personal lines appraiser for cleaning and organizing assistance. Has court date in June related to housing situation. Plan: - Contact case management for housing assistance - Arrange social service worker consultation for housing support - CIGAR [employer]BAC[employer] PROCESSING SUPERVISOR services needed once relocated to intermediate facility Preventive care Assessment: Patient due for routine immunizations and screening tests. Plan: - Administer flu shot today - RSV and COVID nasal swab testing documented in this encounter Plan of Treatment Upcoming Encounters Date Type Department Care Team (Late st Contact Info) Description 05/13/2025 1:00 PM EST Office Visit [facility] CHC MED & PEDS [address] [place] [address] Valery Espinoza MD 505 [place] [address] 07/15/2025 9:00 AM EST Office Visit [facility] OPTOMETRY [address] [place] [address] Zay, Leonor, OD [address] [place] [address] Scheduled Referrals Name Type Priority Associated Diagnoses Orde r Schedule Referral to Case Management Outpatient Referral STAT Vascular dementia with other behavioral disturbance, unspecified dementia severity (CMS/[facility]) ([facility]) AD (Alzheimer's disease) ([facility]) Expected: 04/27/2025 (Approximate), Expires: 04/27/2026 documented as of this encounter Visit Diagnoses Diagnosis Vascular dementia with other behavioral disturbance, unspecified dementia severity (CMS/HCC) (HCC)- Primary AD (Alzheimer's disease) (HCC) Alzheimer's disease Encounter for immunization documented in this encounter Additional Health Concerns Assessment Noted Time PHQ-9 Depression Total Score: 0 10/22/19 11:28 AM EDT documented as of this encounter Care Teams Wildlife Rehabilitator Relationship Specialty Start Date End Date Valery Espinoza MD [address] [place] [address] PCP - General Family Medicine 09/14/21 Antoine Billings MD Slitter Cut Off Operator 04/24/23 documented as of this encounter
[2025-04-28 14:47] LABS: Anion Gap 11 (12-20); Blood Urea Nitrogen 19 mg/dL (9-16); Calcium 9.4 mg/dL (8.4-10.2); Carbon Dioxide 23 mmol/L (22-29); Chloride 112 mmol/L (96-108); Estimated Glomerular Filt Rate 48; Potassium 4.3 mmol/L (3.3-5.1); Sodium 142 mmol/L (135-145)
[2025-04-28 15:02] LABS: Osmolality, Serum 303 mosm/kg (281-305)
--- OUTSIDE RECORDS SUMMARY | 2025-04-28 15:55 | XMS_ITS | Encounter Summary ---
Author Organization [employer] Address [address] [place] [address] 7t [place] [address] Care Team Providers Care Bass Viol Repairer Name Role Phone Valery Espinoza MD Primary Care Provider [phone] Reason for Visit * Reason Comments Med Refill Encounter Details Date Type Department Care Team (Late st Contact Info) Description 10/28/2024 Refill [facility] MEDICINE [address] [place] [address] Pam Mendoza FNP [address] [place] [address] Social History Tobacco Use Types Packs/Day Years [...] the past 12 months, has t he [employer], gas, oil or water company threatened to [...] Description 05/13/2025 1:00 PM EST Office Visit [facility] CHC MED & PEDS [address] [place] [address] Valery Espinoza MD [address] [place] [address] 07/15/2025 9:00 AM EST Office Visit [facility] OPTOMETRY [address] [place] [address] Zay, Leonor, OD [address] [place] [address] documented as of this encounter Visit Diagnoses Not on filedocumented in this encounter Additional Health Concerns Assessment Noted Time PHQ-9 Depression Total Score: 0 10/22/19 25 11:28 AM EDT documented as of this encounter Care Teams Bass Viol Repairer Relationship Specialty Start Date End Date Valery Espinoza MD [address] [place] [address] PCP - General Family Medicine 09/14/21 Antoine Billings MD Food Science Technician 04/24/23 documented as of this encounter
--- OUTSIDE RECORDS SUMMARY | 2025-04-28 15:55 | XMS_ITS | Encounter Summary ---
Author Organization [employer] Address [address] [place] [address] 7t [place] [address] Care Team Providers Care Budget Manager Name Role Phone Valery Espinoza MD Primary Care Provider [phone] Reason for Visit * Reason Onset Date Comments Med Refill 10/12/2024 Encounter Details Date Type Department Care Team (Late st Contact Info) Description 10/12/2024 Telephone [facility] MEDICINE [address] [place] [address] Valery Espinoza MD [address] [place] [address] Med Refill Social History Tobacco Use Types [...] 11:49 AM EDT Scripts were sent to [facility] on 09/29/24 with 11 refills. * Telephone Encounter - Weston Torres - 10/12/2024 11:32 AM EDT TC from pt requesting medication refill. Medications needing refill : ezetimibe (Zetia) 10 MG tablet rosuvastatin (Crestor) 40 MG tablet To be sent to: [facility] ([place]) - [facility] [place] - [address] [place] [address] documented in this encounter Plan of Treatment Upcoming Encounters Date Type Department Care Team (Late st Contact Info) Description 05/13/2025 1:00 PM EST Office Visit [facility] [address] [place] [address] Valery Espinoza MD [address] [place] [address] 07/15/2025 9:00 AM EST Office Visit [facility] [address] [place] [address] ZayMitch pateln, OD 230 [place] [address] documented as of this encounter Visit Diagnoses Not on filedocumented in this encounter Additional Health Concerns Assessment Noted Time PHQ-9 Depression Total Score: 2 04/25/20 23 9:44 AM EDT documented as of this encounter Care Teams Budget Manager Relationship Specialty Start Date End Date Valery Espinoza MD 230 [place] [address] PCP - General Family Medicine 09/14/21 Antoine Billnigs MD Sander Operator 04/24/23 documented as of this encounter
--- OUTSIDE RECORDS SUMMARY | 2025-04-28 15:55 | XMS_ITS | Encounter Summary ---
Author Organization [employer] Address [address] [place] [address] 7t [place] [address] Care Team Providers Care Circus Performer Name Role Phone Valery Espinoza MD Primary Care Provider [phone] Reason for Visit * Reason Comments Med Refill Encounter Details Date Type Department Care Team ([facility] Contact Info) Description 04/28/2025 Refill [facility] & PEDS [address] [place], [place] [phone] Valery Espinoza MD 505 [place] [address] Social History Tobacco Use Types Packs/Day Years [...] the past 12 months, has t he [employer], gas, oil or water company threatened to [...] Description 05/13/2025 1:00 PM EST Office Visit [facility] PEDS [address] [place] [address] Valery Espinoza MD [address] [place] [address] 07/15/2025 9:00 AM EST Office Visit [facility] [address] [place] [address] Zay, Leonor, OD 230 [place] [address] documented as of this encounter Visit Diagnoses Not on filedocumented in this encounter Additional Health Concerns Assessment Noted Time PHQ-9 Depression Total Score: 0 10/22/19 25 11:28 AM EDT documented as of this encounter Care Teams Circus Performer Relationship Specialty Start Date End Date Valery Espinoza MD 230 [place] [address] PCP - General Family Medicine 09/14/21 Antoine Billings MD Senior Market Research Analyst 04/24/23 documented as of this encounter
--- OUTSIDE RECORDS SUMMARY | 2025-04-28 15:55 | XMS_ITS | Encounter Summary ---
Author Organization [employer] Address [address] [place] [address] 7t [place] [address] Care Team Providers Care Land Surveying Party Chief Name Role Phone Valery Espinoza MD Primary Care Provider [phone] Reason for Visit * Reason Comments Med Refill Encounter Details Date Type Department Care Team ([facility] Contact Info) Description 05/24/2024 Refill [facility] PEDS [address] [place], [place] [phone] Valery Espinoza MD 505 [place] [address] Social History Tobacco Use Types Packs/Day Years [...] Description 05/13/2025 1:00 PM EST Office Visit [facility]ED[facility] [address] [place] [address] Valery Espinoza MD 505 [place] [address] 07/15/2025 9:00 AM EST Office Visit [facility] [address] [place] [address] Zay, Leonor, OD [address] [place] [address] documented as of this encounter Visit Diagnoses Not on filedocumented in this encounter Additional Health Concerns Assessment Noted Time PHQ-9 Depression Total Score: 2 04/25/20 23 9:44 AM EDT documented as of this encounter Care Teams Land Surveying Party Chief Relationship Specialty Start Date End Date Valery Espinoza MD 230 [place] [address] PCP - General Family Medicine 09/14/21 Antoine Billings MD Atomic Fuel Assembler 04/24/23 documented as of this encounter
--- OUTSIDE RECORDS SUMMARY | 2025-04-28 15:55 | XMS_ITS | Encounter Summary ---
Author Organization [employer] Address [address] [facility] 7t [place] [address] Care Team Providers Care Granulizing Machine Operator Name Role Phone Valery Espinoza MD Primary Care Provider [phone] Encounter Details Date Type Department Care Team (Late st Contact Info) Description 07/01/[address] [facility] MEDICINE [address] [place] [address] Valery Espinoza MD [address] [place], [place] [phone] Social History Tobacco Use Types Packs/Day Years [...] the past 12 months, has t he [employer], gas, oil or water company threatened to [...] Description 05/13/2025 1:00 PM EST Office Visit [facility] MED & PEDS 505 [place] [address] Valery Espinoza MD [address] [place] [address] 07/15/2025 9:00 AM EST Office Visit [facility] [address] [place] [address] Zay, Leonor, OD 230 [place] [address] documented as of this encounter Visit Diagnoses Not on filedocumented in this encounter Additional Health Concerns Assessment Noted Time PHQ-9 Depression Total Score: 2 04/25/20 23 9:44 AM EDT documented as of this encounter Care Teams Granulizing Machine Operator Relationship Specialty Start Date End Date Valery Espinoza MD 230 [place] [address] PCP - General Family Medicine 09/14/21 Antoine Billings MD Cook Jelly 04/24/23 documented as of this encounter
--- OUTSIDE RECORDS SUMMARY | 2025-04-28 15:55 | XMS_ITS | Encounter Summary ---
Author Organization [employer] Address [address] [place] [address] 7t [place] [address] Care Team Providers Care Storeroom Clerk Name Role Phone Valery Espinoza MD Primary Care Provider [phone] Reason for Visit * Reason Comments Care Coordination CHW outreach for SDO H housing search-no answer LVM Encounter Details Date Type Department Care Team (Latest Contact Info) Description 04/28/2025 Patient Outreach [facility] MEDICINE 230 [place] [address] Valery Espinoza MD [address] [place] [address] Care Coordination (CHW outreach for SDOH housing search-no answer LVM ) Social History Tobacco Use Types Packs/Day Years [...] AM EDT documented as of this encounter Progress Notes * Ludwin Gaona - 04/28/2025 8:40 AM EST CHW Ludwin Gaona, placed outbound call to patient for assistance with SDOH as a referral was placed by the provider. Patient had screened positive for the following SDOH housing insecurities. Patient did not answer at this time. Patient's name and were not confirmed. CHW left detailed message and provided contact information requesting return call for more assistance. documented in this encounter Plan of Treatment Upcoming Encounters Date Type Department Care Team ([facility] st Contact Info) Description 05/13/2025 1:00 PM EST Office Visit [facility]S [address] [place], [place] [phone] Valery Espinoza MD [address] [place] [address] 07/15/2025 9:00 AM EST Office Visit [facility] OPTOMETRY [address] [place], [place] [phone] Leonor Collazo, OD [address] [place] [address] documented as of this encounter Visit Diagnoses Not on filedocumented in this encounter Additional Health Concerns Assessment Noted Time PHQ-9 Depression Total Score: 0 10/22/19 11:28 AM EDT documented as of this encounter Care Teams Storeroom Clerk Relationship Specialty Start Date End Date Valery Espinoza MD [address] [place] [address] PCP - General Family Medicine 09/14/21 Antoine Billings MD Sales Consultant 04/24/23 documented as of this encounter
--- OUTSIDE RECORDS SUMMARY | 2025-04-28 15:55 | XMS_ITS | Encounter Summary ---
Author Organization [employer] Address [address] [place] [address] 7t [place] [address] Care Team Providers Care Turret Lathe Operator Name Role Phone Valery Espinoza MD Primary Care Provider [phone] Encounter Details Date Type Department Care Team ([facility] st Contact Info) Description 04/27/2025 Telephone [facility] MED & PEDS [address] [place], [place] [phone] Valery Espinoza MD [address] [place], [place] [phone] Social History Tobacco Use Types Packs/Day Years [...] encounter Miscellaneous Notes * Telephone Encounter - Valery Espinoza MD - 04/27/2025 1:43 PM EST Patient having issues with housing and needs help with re-locating, can we please assist this patient? Please and thanks! Valery documented in this encounter Plan of Treatment Upcoming Encounters Date Type Department Care Team (Late st Contact Info) Description 05/13/2025 1:00 PM EST Office Visit [facility] MED & PEDS [address] [place] [address] Valery Espinoza MD [address] [place] [address] 07/15/2025 9:00 AM EST Office Visit [facility] OPTOMETRY [address] [place] [address] ZayLeonor patel, OD [address] [place] [address] documented as of this encounter Visit Diagnoses Not on filedocumented in this encounter Additional Health Concerns Assessment Noted Time PHQ-9 Depression Total Score: 0 10/22/19 11:28 AM EDT documented as of this encounter Care Teams Turret Lathe Operator Relationship Specialty Start Date End Date Valery Espinoza MD [address] [place] [address] PCP - General Family Medicine 09/14/21 Antoine Billings MD Detailer Furniture 04/24/23 documented as of this encounter
--- OUTSIDE RECORDS SUMMARY | 2025-04-28 15:55 | XMS_ITS | Encounter Summary ---
Author Organization [employer] Address [address] [place] [address] 7t [place] [address] Care Team Providers Care Hot Billet Shear Operator Name Role Phone Valery Espinoza MD Primary Care Provider [phone] Reason for Visit * Reason Onset Date Comments Referral 08/19/2024 Encounter Details Date Type Department Care Team (Late st Contact Info) Description 08/19/[address] [facility] MEDICINE [address] [place] [address] Valery Espinoza MD [address] [place] [address] Referral Social History Tobacco Use Types Packs/Day [...] neurology visit if it did occur in [facility] or [facility] chart. No answer, left message to call back. * Telephone Encounter - Weston Torres - 08/19/2024 12:36 PM EST TC from pt Daughter requesting Referral for Neurology for [facility]. Contact pt Daughter at [phone] documented in this encounter Plan of Treatment Upcoming Encounters Date Type Department Care Team (Late st Contact Info) Description 05/13/2025 1:00 PM EST Office Visit [facility] MED & PEDS [address] [place], [place] [phone] Valery Espinoza MD [address] [place] [address] 07/15/2025 9:00 AM EST Office Visit [facility] OPTOMETRY [address] [place] [address] Zay Leonor, OD [address] [place] [address] documented as of this encounter Visit Diagnoses Not on filedocumented in this encounter Additional Health Concerns Assessment Noted Time PHQ-9 Depression Total Score: 2 04/25/20 9:44 AM EDT documented as of this encounter Care Teams Hot Billet Shear Operator Relationship Specialty Start Date End Date Valery Espinoza MD [address] [place] [address] PCP - General Family Medicine 09/14/21 Antoine Billings MD C2 Tactical Analysis Technician 04/24/23 documented as of this encounter
--- OUTSIDE RECORDS SUMMARY | 2025-04-28 15:55 | XMS_ITS | Encounter Summary ---
Author Organization [employer] Address [address] [place] [address] [address]t [place] [address] Care Team Providers Care Gas Plant Worker Name Role Phone Valery Espinoza MD Primary Care Provider [phone] Reason for Visit * Reason Onset Date Comments Referral 10/21/2022 Encounter Details Date Type Department Care Team ([facility] st Contact Info) Description 10/21/2022 Telephone [facility]S [address] [place], [place] [phone] Valery Espinoza MD [address] [place] [address] Referral Social History Tobacco Use Types Packs/Day [...] Podiatry on 09/11/2022. Please contact pt at [phone] * Telephone Encounter - Shira Mortensen - 10/21/2022 11:17 AM EDT Tc from pt requesting status on referral made for Podiatry on 09/11/2022. Please contact pt at [phone] documented in this encounter Plan of Treatment Upcoming Encounters Date Type Department Care Team (Late st Contact Info) Description 05/13/2025 1:00 PM EST Office Visit [facility] MED & PEDS [address] [place] [address] Valery Espinoza MD [address] [place] [address] 07/15/2025 9:00 AM EST Office Visit [facility] OPTOMETRY [address] [place] [address] Leonor Collazo, OD 230 [place] [address] documented as of this encounter Visit Diagnoses Not on filedocumented in this encounter Care Teams Gas Plant Worker Relationship Specialty Start Date End Date Valery Espinoza MD [address] [place] [address] PCP - General Family Medicine 09/14/21 Antoine Billings MD Tape Controlled Machine Stitcher 04/24/23 documented as of this encounter
--- OUTSIDE RECORDS SUMMARY | 2025-04-28 15:55 | XMS_ITS | Encounter Summary ---
Author Organization [employer] Address [address] 7[address] [place] [address] Care Team Providers Care Air Surveillance Operator Name Role Phone Valery Espinoza MD Primary Care Provider [phone] Encounter Details Date Type Department Care Team (Latest Contact Info) Description 04/27/2025 Travel Social History Tobacco Use Types Packs/Day [...] Description 05/13/2025 1:00 PM EST Office Visit [facility] MED & PEDS [address] [place] [address] Valery Espinoza MD 505 [place] [address] 07/15/2025 9:00 AM EST Office Visit [facility] OPTOMETRY [address] [place] [address] Zay, Leonor, OD 230 [place] [address] documented as of this encounter Visit Diagnoses Not on filedocumented in this encounter Additional Health Concerns Assessment Noted Time PHQ-9 Depression Total Score: 0 10/22/19 25 11:28 AM EDT documented as of this encounter Care Teams Air Surveillance Operator Relationship Specialty Start Date End Date Valery Espinoza MD [address] [place] [address] PCP - General Family Medicine 09/14/21 Antoine Billings MD Cargo Bracer 04/24/23 documented as of this encounter
--- OUTSIDE RECORDS SUMMARY | 2025-04-28 15:55 | XMS_ITS | Clinical Summary ---
Author Organization [employer] Address [address] [place] [address] 7t [place] [address] Care Team Providers Care Cloth Neutralizer Name Role Phone Valery Espinoza MD Primary Care Provider [phone] Allergies Active Allergy Reactions Criticality Noted Date [...] per day. 90 tablet 1 024 Active Fluocinolone Acetonide Scalp 0.01 % oilIndications:Se [...] BEDTIME FOR CHOLESTEROL 90 tablet 11 Active Symbicort 160-4.5 MCG/ACT inhaler Inhale 2 puffs in the morning and at bedtime. Rinse mouth with water after use to reduce aftertaste and incidence of candidiasis. Do not swallow. 10.2 g 1 Active Spacer/Aero-Holdi ng Chambers deviceIndications :COPD without exacerbation (CMS/HCC) (HCC) 1 Units 2 times daily. 1 Units 1 Active metoprolol succinate XL (Toprol XL) 25 MG 24 hr tablet Take 0.5 tablets (12.5 mg) by mouth Once per day. Do not crush or chew. 15 tablet 5 Active memantine (Namenda) 10 MG tablet TAKE ONE TABLET BY MOUTH TWICE DAILY AT 9AM & 5PM Active pantoprazole (ProtoNix) 40 MG EC tablet TAKE ONE TABLET (40 MG) BY MOUTH EVERY DAY NEEDED FOR ACID REFLUX 90 tablet 3 Active famotidine (Pepcid) 20 MG tablet Take [...] cleanup (will not trigger notification to Pharmacy)) pantoprazole (ProtoNix) 40 MG EC tablet Take 1 tablet (40 mg) by mouth if needed each day (acid reflux). 90 tablet 1 025 2024 Discontinued memantine (Namenda) 5 MG tablet Take 1 tablet by mouth 2 times daily. 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, including help with medications and transportation [...] will try another medication. COPD without exacerbation ([facility]) 09/11/2022 Assessment & Plan (10/21/2024 12:16 PM EDT): - Continue Symbicort inhaler, 2 puffs twice daily - Prescribe spacer device to improve medication delivery - Sent to patient's pharmacy with instructions for daily use - Educate patient on proper inhaler technique - Recommend visit to pharmacy for technique assessment - Consider referral to greenskeeper head for further evaluation and management - Advise [...] (08/13/2022): 2007 colonoscopy History of substance abuse ([facility]) 01/25/2019 Overview (08/13/2022): Hx use of cocaine. Hiatal hernia 01/25/2019 Overview (08/13/2022): [facility]oc w/ GERD, barium swallow 07/2009 [facility]. History of bilateral hip replacements 01/25/2019 [...] care assistance needs - Recommend changing primary personal banking representative for appointment notifications to ensure family awareness - Advise family to request portal password reset at front clerk to maintain access to patient's medical information Assessment & Plan (03/11/2024 7:55 PM EDT): Ordering lab work for TSH and referral to Neurology for further evaluation. Encounters Date Type Department Care Team Description 04/28/2025 Patient Outreach [facility] MED[facility]INE [address] [place] [phone] Valery Espinoza MD Care Coordination (CHW outreach for SDOH housing search-no answer LVM ) 04/28/2025 Refill [facility] [address] [place] [address] Valery Espinoza MD 04/27/2025 11:30 AM EST Office Visit [facility] [address] [place] [address] Valery Espinoza MD Vascular dementia with other behavioral disturbance, unspecified dementia severity (CMS/HCC) (HCC) (Primary Dx); AD (Alzheimer's disease) ([facility]); Encounter for immunization 04/27/2025 Telephone [facility] [address] [place] [address] Valery Espinoza MD 04/27/2025 Travel 04/26/2025 Telephone [facility] [address] [place] [address] Valery Espinoza MD Chart Prep 04/19/2025 Telephone [facility] [address] [place] [address] Valery Espinoza MD Chart Prep 04/15/2025 Results Follow-Up [facility] [address] [place] [address] Valery Espinoza MD Basic Metabolic Panel, Basic Metabolic Panel 04/14/2025 11:15 AM EDT Office Visit [facility] [address] [place] [address] Valery Espinoza MD COPD without exacerbation (CMS/HCC) (HCC) (Primary Dx); Dizziness of unknown etiology; JAY (acute kidney injury) 04/14/2025 Travel 04/13/2025 Telephone [facility] [address] [place] [address] Valery Espinoza MD chart prep 03/03/2025 Results Follow-Up [facility] [address] [place] [address] Valery Espinoza MD XR Lumbar Spine Complete 4+ Views 03/02/2025 3:20 PM EDT Office Visit [facility] [address] [place] [address] Vasquez Whitley MD Acute midline low back pain without sciatica (Primary Dx) 03/02/2025 Travel 02/25/2025 Telephone [facility] [address] [place], [place] [phone] Valery Espinoza MD Appointment Request 02/08/2025 Telephone [facility] [address] [place], [place] [phone] Valery Espinoza MD chart prep from Last 3 Months Immunizations Immunization Administration Dates Next Due Influenza High-dose Quadrivalent Preservative Fr ee 04/04/2022 Influenza, High Dose Seasonal, Preservative Free 04/27/2025 Pfizer Covid-19 Vaccine 12+ 11/02/2020, Pneumococcal Conjugate [...] Mass Index 23.65 04/27/2025 11:51 AM EST Plan of Treatment Upcoming Encounters Date Type Department Care Team (Late st Contact Info) Description 05/13/2025 1:00 PM EST Office Visit [facility] PEDS [address] [place] [address] Valery Espinoza MD [address] [place] [address] 07/15/2025 9:00 AM EST Office Visit [facility] OPTOMETRY [address] [place] [address] Leonor Collazo, OD [address] [place] [address] Health Maintenance Due Date Last Done Comments [...] 2024-2 6 season) 2025 06/13/2021, 11/02/2020, 10/12/2020 SDOH Screening 10/14/2025 10/14/2024 Alcohol/Substance Use Screening 10/21/2025 10/21/2024 DTaP/Tdap/Td Vaccines (1 - Tdap) 10/21/2025 01/28/2012, 01/28/2012, 11/10/2010 Postponed from 01/29/2012 (Patient Refused) Depression Screening 10/21/2025 10/21/2024, 10/21/2024 Tobacco Screening 04/27/2026 04/27/2025 Lipid Panel 09/17/2028 09/18/2023, 08/23/2022 Colonoscopy Discontinued 10/18/2018 Colorectal Cancer Screening Discontinued Pneumococcal Vaccine: 50+ Years Completed 05/20/2023 Influenza Vaccine Completed 04/27/2025, 04/04/2022 CT Colonography Discontinued FIT DNA/Cologuard Discontinued FIT [...] Procedure Name Priority Date/Time Associated Diagnosis Comments OSMOLALITY (SERUM) Routine 04/28/2025 1: 04 PM EST JAY (acute kidney injury) BASIC METABOLIC PANEL Routine 04/28/2025 1:04 PM EST JAY (acute kidney injury) BASIC METABOLIC PANEL Routine 04/19/2025 2:56 PM EDT JAY (acute kidney injury) BASIC METABOLIC PANEL Routine [...] Recently Relevant to Health Maintenance Results * Osmolality, Serum (04/28/2025 1:04 PM EST) Osmolality (Serum) 303 281 - 305 mosm/kg [facility] Blood Venous blood specimen / Unknown 04/28/2025 1:04 PM EST 04/28/2025 2:02 PM EST us Valery Espinoza MD LAB BLOOD ORDERABLES Final Re sult [facility] [address] [place] [phone] * (ABNORMAL) Basic Metabolic Panel (04/28/2025 1:04 PM EST) Only the most recent of3 resultswithin the time period is included. Sodium 142 135 - 145 mmol/L [facility] Potassium 4.3 3.3 - 5.1 mmol/L [facility] Chloride 112(H) 96 - 108 mmol/L [facility] Carbon Dioxide 23 22 - 29 mmol/L [facility] Anion Gap 11(L) 12 - 20 [facility] Urea Nitrogen (BUN) 19(H) 9 - 16 mg/dL [facility] Creatinine, Serum 1.42(H) 0.5 - 1.4 mg/dL [facility] Estimated Glomerular Filt Rate 48 [facility] Comment:Chronic Kidney Disea se: Estimated GFR < 60 mL/min/1.39n4Smbsqc Kidney Disease: Estimated GFR < 15 mL/min/1.73m2 Glucose 80 60 - 115 mg/dL [facility] Calcium 9.4 8.4 - 10.2 mg/dL [facility] Blood Venous blood specimen / Unknown 04/28/2025 1:04 PM EST 04/28/2025 2:02 PM EST us Valery Espinoza MD LAB BLOOD ORDERABLES Final Re sult [facility] [address] [place] [phone] * XR Lumbar Spine Complete 4+ Views (03/02/2025) Anatomical Region Laterality Modality Spine, L-spine Radiographic Dana ging us Vasquez Whitley MD IMG XR PROCEDURES Final Res ult * (ABNORMAL) Lipid Panel, Standard (09/18/2023 11:24 AM EDT) Triglycerides 191(H) <150 mg/dL [facility] Comment:Desirable Triglyceri de: less than 150 mg/dLBorderline High Triglyceride 150-199 mg/dLHigh Triglyceride: 200-499 mg/dLVery High Triglyceride: greater than or equal to 5OO mg/dL Cholesterol 120 <200 mg/dL [facility] Comment:Desirable Cholestero l: less than 200 mg/dLBorderline High Cholesterol: 200-239 mg/dLHigh Cholesterol: greater than 239 mg/dL LDL Cholesterol Calculated 40 <100 mg/dL [facility] Comment:Desirable LDL: less than 100 mg/dLNear Optimal/Above Optimal LDL: 110- 129 mg/dLBorderline High LDL: 130-159 mg/dLHigh LDL: 160-189 mg/dLVery High LDL: greater than or equal to 190 mg/dL HDL Cholesterol 42 >40 mg/dL [facility] Comment:Desirable HDL: great er than 40 mg/dL Note: This HDL assay may give artificially low results in patients with liver disease. Blood Venous blood specimen / Unknown 09/18/2023 11:24 AM EDT 09/18/2023 11:24 AM EDT Valery Espinoza MD LAB BLOOD ORDERABLES Final Re sult [facility] [address] [place] [phone] * Colonoscopy (10/18/2018) Colonoscopy performed Historical Provider HEALTH MAINTENANCE Final Result from Last 3 Months or Most Recently Relevant to Health Maintenance Insurance [facility] MEDICARE ADVANTAGE HMO DENTAL - [place] PARTIAL (MEDICAID) Advance Directives Documents on File Type Date Recorded Patient Engraver Picture Expl anation MOLST form 05/21/2023 ROSE MARY napier for Life-Sustaining Treatment Care Teams Cloth Neutralizer Relationship Specialty Start Date End Date Valery Espinoza MD [address] [place] [address] PCP - General Family Medicine 09/14/21 Antoine Billings MD Computational Linguist 04/24/23
--- OUTSIDE RECORDS SUMMARY | 2025-04-28 15:55 | XMS_ITS | Encounter Summary ---
Author Organization [employer] Address [address] [place] [address] 7t [place] [address] Care Team Providers Care Casino Duty Manager Name Role Phone Valery Espinoza MD Primary Care Provider [phone] Reason for Visit * Reason Comments Med Refill Encounter Details Date Type Department Care Team ([facility] st Contact Info) Description 07/31/2023 Refill [facility]EDS [address] [place], [place] [phone] Valery Espinoza MD [address] [place] [address] Social History Tobacco Use Types Packs/Day Years [...] Description 05/13/2025 1:00 PM EST Office Visit [facility] PEDS [address] [place] [address] Valery Espinoza MD [address] [place] [address] 07/15/2025 9:00 AM EST Office Visit [facility] OPTOMETRY [address] [place] [address] Leonor Collazo, OD [address] [place] [address] documented as of this encounter Visit Diagnoses Not on filedocumented in this encounter Additional Health Concerns Assessment Noted Time PHQ-9 Depression Total Score: 2 04/25/20 23 9:44 AM EDT documented as of this encounter Care Teams Casino Duty Manager Relationship Specialty Start Date End Date Valery Espinoza MD [address] [place] [address] PCP - General Family Medicine 09/14/21 Antoine Billings MD Home Care Provider 04/24/23 documented as of this encounter
--- OUTSIDE RECORDS SUMMARY | 2025-04-28 15:55 | XMS_ITS | Encounter Summary ---
Author Organization [employer] Address [address] [place] [address] 7t [place] [address] Care Team Providers Care Cnc Grinder Name Role Phone Valery Espinoza MD Primary Care Provider [phone] Reason for Visit * Reason Onset Date Comments Med Refill 04/12/2024 Encounter Details Date Type Department Care Team (Late st Contact Info) Description 04/12/2024 Telephone [facility] [address] [place] [address] Valery Espinoza MD [address] [place] [address] Med Refill Social History Tobacco Use Types [...] To be sent to: [facility] [phone] [facility] [place] [address] documented in this encounter Plan of Treatment Upcoming Encounters Date Type Department Care Team (Late st Contact Info) Description 05/13/2025 1:00 PM EST Office Visit [facility] [address] [place] [address] Valery Espinoza MD [address] [place] [address] 07/15/2025 9:00 AM EST Office Visit [facility] OPTOMETRY [address] [place] [address] Zay, Leonor, OD [address] [place] [address] documented as of this encounter Visit Diagnoses Not on filedocumented in this encounter Additional Health Concerns Assessment Noted Time PHQ-9 Depression Total Score: 2 04/25/20 23 9:44 AM EDT documented as of this encounter Care Teams Cnc Grinder Relationship Specialty Start Date End Date Valery Espinoza MD [address] [place] [address] PCP - General Family Medicine 09/14/21 Antoine Billings MD Expedition Supervisor 04/24/23 documented as of this encounter
--- OUTSIDE RECORDS SUMMARY | 2025-04-28 15:55 | XMS_ITS | Encounter Summary ---
Author Organization [employer] Address [address] [facility] [address]t [place] [address] Care Team Providers Care Answering Service Telephone Operator Name Role Phone Valery Espinoza MD Primary Care Provider [phone] Encounter Details Date Type Department Care Team (Late st Contact Info) Description 04/12/2024 Telephone [facility] [address] [place] [address] Valery Espinoza MD [address] [place], [place] [phone] Social History Tobacco Use Types Packs/Day Years [...] the past 12 months, has t he [employer], gas, oil or water company threatened to [...] Description 05/13/2025 1:00 PM EST Office Visit [facility] MED [facility] PEDS [address] [place] [address] Valery Espinoza MD [address] [place] [address] 07/15/2025 9:00 AM EST Office Visit [facility] OPTOMETRY [address] [place] [address] Zay, Leonor, OD [address] [place] [address] documented as of this encounter Visit Diagnoses Not on filedocumented in this encounter Additional Health Concerns Assessment Noted Time PHQ-9 Depression Total Score: 2 04/25/20 23 9:44 AM EDT documented as of this encounter Care Teams Answering Service Telephone Operator Relationship Specialty Start Date End Date Valery Espinoza MD [address] [place] [address] PCP - General Family Medicine 09/14/21 Antoine Billings MD Chassis Wirer 04/24/23 documented as of this encounter
--- OUTSIDE RECORDS SUMMARY | 2025-04-28 15:55 | XMS_ITS | Encounter Summary ---
Author Organization [employer] Address [address] [place] [address] [address] [place] [address] Care Team Providers Care Surplus Property Disposal Agent Name Role Phone Valery Espinoza MD Primary Care Provider Reason for Visit * Reason Onset Date Comments Med Refill 02/14/2023 Encounter Details Date Type Department Care Team ([facility] st Contact Info) Description 02/14/[address] [facility] MED & PEDS [address] [place], [place] [phone] Valery Espinoza MD [address] [place] [address] Med Refill Social History Tobacco Use Types [...] Miscellaneous Notes * Telephone Encounter - Megan rBito LPN - 02/14/2023 3:02 PM EDT Tacrolimus was sent to [facility] #[id number] on 02/11/23 with 1 refill and Losartan [...] 1:00 PM EST Office Visit [facility] MED & PEDS [address] [place] [address] Valery Espinoza MD [address] [place] [address] 07/15/2025 9:00 AM EST Office Visit [facility] OPTOMETRY [address] [place] [address] Leonor Collazo, OD [address] [place] [address] documented as of this encounter Visit Diagnoses Not on filedocumented in this encounter Care Teams Surplus Property Disposal Agent Relationship Specialty Start Date End Date Valery Espinoza MD [address] [place] [address] PCP - General Family Medicine 09/14/21 Antoine Billings MD Private Equity Analyst 04/24/23 documented as of this encounter
--- OUTSIDE RECORDS SUMMARY | 2025-04-28 15:55 | XMS_ITS | Encounter Summary ---
Author Organization [employer] Address [address] [place] [address] [address] [place] [address] Care Team Providers Care Quality Assurance Supervisor Body Name Role Phone Valery Espinoza MD Primary Care Provider [phone] Reason for Visit * Reason Onset Date Comments Chart Prep 04/26/2025 Encounter Details Date Type Department Care Team ([facility] st Contact Info) Description 04/26/2025 Telephone [facility] MED & PEDS [address] [place], [place] [phone] Valery Espinoza MD [address] [place] [address] Chart Prep Social History Tobacco Use Types [...] encounter Miscellaneous Notes * Telephone Encounter - Aleena Ramachandran MA - 04/26/2025 11:03 AM EST Chart Prep Labs: not done Images: done Referrals: appointment pending Vaccines due: Covid, Flu, RSV, and Zoster Screenings: STI screening Overdue care gaps: Not applicable documented in this encounter Plan of Treatment Upcoming Encounters Date Type Department Care Team (Late st Contact Info) Description 05/13/2025 1:00 PM EST Office Visit [facility] MED & PEDS [address] [place] [address] Valery Espinoza MD [address] [place] [address] 07/15/2025 9:00 AM EST Office Visit [facility] OPTOMETRY [address] [place] [address] Leonor Collazo, OD [address] [place] [address] documented as of this encounter Visit Diagnoses Not on filedocumented in this encounter Additional Health Concerns Assessment Noted Time PHQ-9 Depression Total Score: 0 10/22/19 25 11:28 AM EDT documented as of this encounter Care Teams Quality Assurance Supervisor Body Relationship Specialty Start Date End Date Valery Espinoza MD [address] [place] [address] PCP - General Family Medicine 09/14/21 Antoine Billings MD Benefits Clerk 04/24/23 documented as of this encounter
== END 2025-04-28 13:03 | disposition home or self-care (01) ==
LOC: HO.CHCLDS 13:02
PROVIDERS: Visit Provider Family Medicine
DX: N17.9 Acute kidney failure, unspecified (principal)
CPT/HCPCS: 36415; 80048; 83930

== ENCOUNTER 2025-04-29 10:39 | Outpatient (REF) | payer MEDICARE, SELFPAY ==
--- OUTSIDE RECORDS SUMMARY | 2025-04-27 11:30 | XMS_ITS | Encounter Summary ---
Author Organization [employer] Address [address] [place] [address] 7 [place] [address] Care Team Providers Care It Auditor Name Role Phone Valery Espinoza MD Primary Care Provider [phone] Reason for Referral * Consultation (STAT) - Canceled Specialty Diagnoses / Procedures Referred By Josh t Referred To Contact Case Management Diagnoses Vascular dementia with other behavioral disturbance, unspecified dementia severity (CMS/HCC) ([facility]) AD (Alzheimer's disease) ([facility]) Valery Espinoza MD [address] [place] [address] Phone: tel: fax: Referral ID Status Reason Start Date Expiration Date Visits Requested Visits Authorized [id number] Canceled Specialty Services Required 04/27/2025 04/27/2026 1 1 Reason for Visit * Reason Comments Follow-up Encounter Details Date Type Department Care Team ([facility] Contact Info) Description 04/27/2025 11:30 AM EST Office Visit [facility] CHC MED & PEDS [address] [place] [address] Valery Espinoza MD [address] [place] [phone] Vascular dementia with other behavioral disturbance, unspecified dementia severity (CMS/HCC) (HCC) (Primary Dx); AD (Alzheimer's disease) (HCC); Encounter for immunization Social History Tobacco Use Types Packs/Day Years [...] Sign Reading Time Taken Comments Blood Pressure 138/78 04/27/2025 11:51 AM EST Pulse 78 04/27/2025 11:51 AM EST Temperature 36.6 C (97.8 F) 04/27/2025 11:51 AM EST Respiratory Rate 18 04/27/2025 11:51 AM EST Oxygen Saturation 97% 04/27/2025 11:51 AM EST Inhaled Oxygen Concentration - - Weight 68.5 kg (151 lb) 04/27/2025 11:51 AM EST Height 170.2 cm (5' 7 ) 04/27/2025 11:51 AM EST Body Mass Index 23.65 04/27/2025 11:51 AM EST documented in this encounter Progress Notes * Valery Espinoza MD - 04/27/2025 11:30 AM EST Subjective Patient ID: Yamil Hurt is a 79 y.o. male who presents for No chief complaint on file.. Yamil Hurt is a male patient who presents for follow-up after a recent hospitalization, with multiple canceled appointments and ongoing concerns about worsening kidney function, dizziness, and mobility issues. The patient was recently hospitalized and had poor kidney function during his stay. Multiple follow-up appointments have been canceled, including a hospital discharge appointment with Dr. Tineo that was scheduled for one week after hospitalization, as well as appointments on April 19 and .His kidney function continues to worsen since the hospitalization. His gait has changed significantly, raising concerns about fall risk. He owns a cane but is not currently using it. The patient is in the process of moving out of his current apartment and plans to relocate to his ex-'s place at [address] [place] [address], a retirement facility with an elevator. He has a court date scheduled for June and is dealing with housing issues, with waiting lists not currently open. He does not have food stamps and there are concerns about using emergency funds. Recent healthcare interactions include seeing a director river restoration yesterday who performed cardiac monitoring, and he had an echocardiogram that showed diastolic dysfunction. A brain scan was requested butdenied. He has upcoming appointments including one with Dr. Safnord in [place] in June and a follow-up in two weeks on Friday at 1 p.m. Medications and Supplements - Memantine - Increased from 5 to 10 mg. - Lisinopril - Stopped taking due to dizziness and worsening kidney function. - Metoprolol - Stopped taking. Was told to take half dose. Review of Systems HEENT: Positive for eye irritation. Neurological: Positive for dizziness, gait changes. Review of Systems Objective BP 138/78 Pulse 78 Temp 97.8 ??F (36.6 ??C) (Oral) Resp 18 Ht 5' 7 (1.702 m) Wt 151 lb (68.5 kg) SpO2 97% BMI 23.65 kg/m?? Physical Exam Constitutional: General: He is not in acute distress. Appearance: He is not ill-appearing. HENT: Head: Normocephalic and atraumatic. Nose: No congestion. Pulmonary: Effort: Pulmonary effort is normal. No respiratory distress. Breath sounds: Normal breath sounds. Musculoskeletal: Cervical back: Normal range of motion. Neurological: General: No focal deficit present. Mental Status: He is alert. Psychiatric: Mood and Affect: Mood normal. Assessment/Plan Problem List Items Addressed This Visit Vascular dementia (HCC) - Primary Relevant Medications memantine (Namenda) 10 MG tablet Other Relevant Orders Referral to Case Management Other Visit Diagnoses AD (Alzheimer's disease) (HCC) Relevant Medications memantine (Namenda) 10 MG tablet Other Relevant Orders Referral to Case Management Encounter for immunization Relevant Orders FLU VACCINE TRIVALENT HIGH DOSE [id number] (Fluzone) 65 yrs + Yamil Hurt is a male patient with worsening kidney function, dizziness, gait instability, and housing concerns requiring case management assistance. Worsening kidney function Assessment: Patient has declining renal function that was noted during recent hospitalization and continues to worsen. Kidney function deterioration prompted discontinuation of certain medications and requires ongoing monitoring with repeat laboratory studies and imaging evaluation. Plan: - Repeat labs to check kidney function - Renal ultrasound ordered due to worsening kidney function - Patient to contact [facility] for ultrasound scheduling Dizziness and medication management Assessment: Patient experiencing significant dizziness that was severe enough to warrant holding certain medications. Memantine was increased from 5 to 10 mg. Lisinopril and metoprolol were discontinued due to dizziness and worsening kidney function, with cardiology recommending to keep metoprolol at half dose if restarted. Plan: - Continue holding lisinopril - If restarting metoprolol, use half dose as recommended by cardiology - Monitor dizziness symptoms Gait instability and fall risk Assessment: Patient's gait has significantly changed, creating substantial fall risk. Patient has acane available but is not using it consistently. Plan: - Recommend consistent use of existing cane - Consider walker if cane proves insufficient for stability Diastolic heart dysfunction Assessment: Echocardiogram revealed diastolic dysfunction, indicating impaired cardiac relaxation. Cardiology has been involved in management and placed monitoring equipment. Plan: - Continue cardiology follow-up and monitoring Housing instability Assessment: Patient is moving out of current apartment and has identified potential placement at retirement facility at [facility] with elevator access. Will require personal chef for cleaning and organizing assistance. Has court date in June related to housing situation. Plan: - Contact case management for housing assistance - Arrange social research assistant consultation for housing support - SWEETBREAD TRIMMER services needed once relocated to retirement facility Preventive care Assessment: Patient due for routine immunizations and screening tests. Plan: - Administer flu shot today - RSV and COVID nasal swab testing documented in this encounter Plan of Treatment Upcoming Encounters Date Type Department Care Team (Late st Contact Info) Description 05/13/2025 1:00 PM EST Office Visit [facility] CHC MED & PEDS 505 [place] [address] Valery Espinoza MD 505 [place] [address] 07/15/2025 9:00 AM EST Office Visit [facility] OPTOMETRY [address] [place] [address] Zay, Leonor, OD [address] [place] [address] Scheduled Referrals Name Type Priority Associated Diagnoses Orde r Schedule Referral to Case Management Outpatient Referral STAT Vascular dementia with other behavioral disturbance, unspecified dementia severity (CMS/[facility]) ([facility]) AD (Alzheimer's disease) ([facility]) Expected: 04/27/2025 (Approximate), Expires: 04/27/2026 documented as of this encounter Visit Diagnoses Diagnosis Vascular dementia with other behavioral disturbance, unspecified dementia severity (CMS/HCC) (HCC)- Primary AD (Alzheimer's disease) (HCC) Alzheimer's disease Encounter for immunization documented in this encounter Additional Health Concerns Assessment Noted Time PHQ-9 Depression Total Score: 0 10/22/19 11:28 AM EDT documented as of this encounter Care Teams It Auditor Relationship Specialty Start Date End Date Valery Espinoza MD [address] [place] [address] PCP - General Family Medicine 09/14/21 Antoine Billings MD Kindergarten Tutor 04/24/23 documented as of this encounter
--- OUTSIDE RECORDS SUMMARY | 2025-04-29 12:36 | XMS_ITS | Clinical Summary ---
Author Organization [employer] Address [address] [place] [address] 7[address] [place] [address] Care Team Providers Care Tray Setter Name Role Phone Valery Espinoza MD Primary Care Provider [phone] Allergies Active Allergy Reactions Criticality Noted Date [...] Patient is [facility], including help with medications and transportation [...] will try another medication. COPD without exacerbation ([facility]) 09/11/2022 Assessment & Plan (10/21/2024 12:16 PM EDT): - Continue Symbicort inhaler, 2 puffs twice daily - Prescribe spacer device to improve medication delivery - Sent to patient's pharmacy with instructions for daily use - Educate patient on proper inhaler technique - Recommend visit to pharmacy for technique assessment - Consider referral to volleyball commentator for further evaluation and management - Advise [...] (08/13/2022): 2007 colonoscopy History of substance abuse ([facility]) 01/25/2019 Overview (08/13/2022): Hx use of cocaine. Hiatal hernia 01/25/2019 Overview (08/13/2022): Reducible assoc w/ GERD, barium swallow 07/2009 [facility]. History of bilateral hip replacements 01/25/2019 [...] assistance needs - Recommend changing primary contact center professional for appointment notifications to ensure family awareness - Advise family to request portal password reset at front end software engineer to maintain access to patient's medical information Assessment & Plan (03/11/2024 7:55 PM EDT): Ordering lab work for TSH and referral to Neurology for further evaluation. Encounters Date Type Department Care Team Description 04/28/2025 Telephone [facility] CHC MED & PEDS [address] [place] [address] Valery Espinoza MD 04/28/2025 Patient Outreach [facility] MEDICINE [address] [place] [address] Valery Espinoza MD Care Coordination (CHW outreach for SDOH housing search-no answer LVM ) 04/28/2025 Refill [facility] [address] [place], [place] [phone] Valery Espinoza MD 04/27/2025 11:30 AM EST Office Visit [facility] [address] [place], [place] [phone] Valery Espinoza MD Vascular dementia with other behavioral disturbance, unspecified dementia severity (CMS/HCC) (HCC) (Primary Dx); AD (Alzheimer's disease) (HCC); Encounter for immunization 04/27/2025 Telephone [facility] [address] [place], [place] [phone] Valery Espinoza MD 04/27/2025 Travel 04/26/2025 Telephone [facility] [address] [place], [place] [phone] Valery Espinoza MD Chart Prep 04/19/2025 Telephone [facility] [address] [place], [place] [phone] Valery Espinoza MD Chart Prep 04/15/2025 Results Follow-Up [facility] [address] [place], [place] [phone] Valery Espinoza MD Basic Metabolic Panel, Basic Metabolic Panel, Basic Metabolic Panel, Osmolality, Serum 04/14/2025 11:15 AM EDT Office Visit [facility] [address] [place], [place] [phone] Valery Espinoza MD COPD without exacerbation (CMS/HCC) (HCC) (Primary Dx); Dizziness of unknown etiology; JAY (acute kidney injury) 04/14/2025 Travel 04/13/2025 Telephone [facility] [address] [place], [place] [phone] Valery Espinoza MD chart prep 03/03/2025 Results Follow-Up [facility] [address] [place], [place] [phone] Valery Espinoza MD XR Lumbar Spine Complete 4+ Views 03/02/2025 3:20 PM EDT Office Visit [facility] [address] [place] [address] Vasquez Whitley MD Acute midline low back pain without sciatica (Primary Dx) 03/02/2025 Travel 02/25/2025 Telephone [facility] [address] [place] [address] Valery Espinoza MD Appointment Request 02/08/2025 Telephone [facility] [address] [place] [address] Valery Espinoza MD chart prep from Last [...] your housing situation today? I have joselin jazmine 10/14/[address] you li [...] Description 05/13/2025 1:00 PM EST Office Visit [facility] CHC MED & PEDS [address] [place] [address] Valery Espinoza MD [address] [place] [address] 07/15/2025 9:00 AM EST Office Visit [facility] OPTOMETRY [address] [place] [address] Leonor Collazo, OD [address] [place] [address] Health Maintenance Due Date Last Done Comments [...] Osmolality (Serum) 303 281 - 305 mosm/kg [facility] Blood Venous blood specimen / Unknown 04/28/2025 1:04 PM EST 04/28/2025 2:02 PM EST us Valery Espinoza MD LAB BLOOD ORDERABLES Final Re sult [facility] [address] [place] [phone] * (ABNORMAL) Basic Metabolic Panel (04/28/2025 1:04 PM EST) Only the most recent of3 resultswithin the time period is included. Sodium 142 135 - 145 mmol/L [facility] Potassium 4.3 3.3 - 5.1 mmol/L [facility] Chloride 112(H) 96 - 108 mmol/L [facility] Carbon Dioxide 23 22 - 29 mmol/L [facility] Anion Gap 11(L) 12 - 20 [facility] Urea Nitrogen (BUN) 19(H) 9 - 16 mg/dL [facility] Creatinine, Serum 1.42(H) 0.5 - 1.4 mg/dL [facility] Estimated Glomerular Filt Rate 48 [facility] Comment:Chronic Kidney Disea se: Estimated GFR < 60 mL/min/[id number] Kidney Disease: Estimated GFR < 15 mL/min/1.73m2 Glucose 80 60 - 115 mg/dL [facility] Calcium 9.4 8.4 - 10.2 mg/dL [facility] Blood Venous blood specimen / Unknown 04/28/2025 1:04 PM EST 04/28/2025 2:02 PM EST us Valery Espinoza MD LAB BLOOD ORDERABLES Final Re sult [facility] [address] [place] [phone] * XR Lumbar Spine Complete 4+ Views (03/02/2025) Anatomical Region Laterality Modality Spine, L-spine Radiographic Dana ging us Vasquez Whitley MD IMG XR PROCEDURES Final Res ult * (ABNORMAL) Lipid Panel, Standard (09/18/2023 11:24 AM EDT) Triglycerides 191(H) <150 mg/dL [facility] Comment:Desirable Triglyceri de: less than 150 mg/dLBorderline High Triglyceride 150-199 mg/dLHigh Triglyceride: 200-499 mg/dLVery High Triglyceride: greater than or equal to 5OO mg/dL Cholesterol 120 <200 mg/dL [facility] Comment:Desirable Cholestero l: less than 200 mg/dLBorderline High Cholesterol: 200-239 mg/dLHigh Cholesterol: greater than 239 mg/dL LDL Cholesterol Calculated 40 <100 mg/dL [facility] Comment:Desirable LDL: less than 100 mg/dLNear Optimal/Above Optimal LDL: 110- 129 mg/dLBorderline High LDL: 130-159 mg/dLHigh LDL: 160-189 mg/dLVery High LDL: greater than or equal to 190 mg/dL HDL Cholesterol 42 >40 mg/dL [facility] Comment:Desirable HDL: great er than 40 mg/dL Note: This HDL assay may give artificially low results in patients with liver disease. Blood Venous blood specimen / Unknown 09/18/2023 11:24 AM EDT 09/18/2023 11:24 AM EDT Valery Espinoza MD LAB BLOOD ORDERABLES Final Re sult [facility] [address] [place] [phone] * Colonoscopy (10/18/2018) Colonoscopy performed Historical Provider HEALTH MAINTENANCE Final Result from Last 3 Months or Most Recently Relevant to Health Maintenance Insurance [facility] MEDICARE ADVANTAGE HMO DENTAL - HSN PARTIAL (MEDICAID) Advance Directives Documents on File Type Date Recorded Patient Pin Drafting Machine Operator Expl anation MOLST form 05/21/2023 ROSE MARY valentino for Life-Sustaining Treatment Care Teams Tray Setter Relationship Specialty Start Date End Date Valery Espinoza MD [address] [place] [address] PCP - General Family Medicine 09/14/21 Antoine Billings MD Coal Shoveler 04/24/23
--- OUTSIDE RECORDS SUMMARY | 2025-04-29 12:36 | XMS_ITS | Encounter Summary ---
Author Organization [employer] Address [address] [place] [address] 7[address] [place] [address] Care Team Providers Care Buttermaker Helper Name Role Phone Valery Espinoza MD Primary Care Provider [phone] Encounter Details Date Type Department Care Team ([facility] st Contact Info) Description 04/27/2025 Telephone [facility] CHC MED & PEDS [address] [place], [place] [phone] Valery Espinoza MD [address] [place], [place] [phone] Social History Tobacco Use Types Packs/Day Years [...] Description 05/13/2025 1:00 PM EST Office Visit [facility] CHC MED & PEDS [address] [place] [address] Valery Espinoza MD [address] [place] [address] 07/15/2025 9:00 AM EST Office Visit [facility] OPTOMETRY [address] [place] [address] ZayLeonor patel, OD [address] [place] [address] documented as of this encounter Visit Diagnoses Not on filedocumented in this encounter Additional Health Concerns Assessment Noted Time PHQ-9 Depression Total Score: 0 10/22/19 11:28 AM EDT documented as of this encounter Care Teams Buttermaker Helper Relationship Specialty Start Date End Date Valery Espinoza MD [address] [place] [address] PCP - General Family Medicine 09/14/21 Antoine Billings MD Litigation Examiner 04/24/23 documented as of this encounter
--- OUTSIDE RECORDS SUMMARY | 2025-04-29 12:36 | XMS_ITS | Encounter Summary ---
Author Organization [employer] Address [address] [facility] 7t [place] [address] Care Team Providers Care Custodian Manager Name Role Phone Valery Espinoza MD Primary Care Provider [phone] Encounter Details Date Type Department Care Team (Late st Contact Info) Description 07/01/2024 Telephone [facility] MEDICINE [address] [place] [address] Valery Espinoza MD [address] [place], [place] [phone] Social History Tobacco Use Types Packs/Day Years [...] the past 12 months, has t he [employer], gas, oil or water company threatened to [...] 1:00 PM EST Office Visit [facility] CHC MED & PEDS [address] [place] [address] Valery Espinoza MD [address] [place] [address] 07/15/2025 9:00 AM EST Office Visit [facility] OPTOMETRY [address] [place] [address] Zay, Leonor, OD [address] [place] [address] documented as of this encounter Visit Diagnoses Not on filedocumented in this encounter Additional Health Concerns Assessment Noted Time PHQ-9 Depression Total Score: 2 04/25/20 23 9:44 AM EDT documented as of this encounter Care Teams Custodian Manager Relationship Specialty Start Date End Date Valery Espinoza MD [address] [place] [address] PCP - General Family Medicine 09/14/21 Antoine Billings MD Brim And Crown Presser 04/24/23 documented as of this encounter
--- OUTSIDE RECORDS SUMMARY | 2025-04-29 12:36 | XMS_ITS | Encounter Summary ---
Author Organization [employer] Address [address] [place] [address] 7t [place] [address] Care Team Providers Care Enrollment Advisor Name Role Phone Valery Espinoza MD Primary Care Provider [phone] Reason for Visit * Reason Onset Date Comments Med Refill 04/12/2024 Encounter Details Date Type Department Care Team (Late st Contact Info) Description 04/12/2024 Telephone [facility] MEDICINE [address] [place] [address] Valery Espinoza MD [address] [place] [address] Med Refill Social History Tobacco Use Types [...] To be sent to: [facility] [phone] [facility] [place] [address] documented in this encounter Plan of Treatment Upcoming Encounters Date Type Department Care Team (Late st Contact Info) Description 05/13/2025 1:00 PM EST Office Visit [facility] MED & PEDS [address] [place] [address] Valery Espinoza MD [address] [place] [address] 07/15/2025 9:00 AM EST Office Visit [facility] OPTOMETRY [address] [place] [address] Zay, Leonor, OD [address] [place] [address] documented as of this encounter Visit Diagnoses Not on filedocumented in this encounter Additional Health Concerns Assessment Noted Time PHQ-9 Depression Total Score: 2 04/25/20 23 9:44 AM EDT documented as of this encounter Care Teams Enrollment Advisor Relationship Specialty Start Date End Date Valery Espinoza MD [address] [place] [address] PCP - General Family Medicine 09/14/21 Antoine Billings MD Entertainment Usher 04/24/23 documented as of this encounter
--- OUTSIDE RECORDS SUMMARY | 2025-04-29 12:36 | XMS_ITS | Encounter Summary ---
Author Organization [employer] Address [address] [place] [address] 7t [place] [address] Care Team Providers Care Hazardous Materials Analyst Name Role Phone Valery Espinoza MD Primary Care Provider Reason for Visit * Reason Onset Date Comments Referral 08/19/2024 Encounter Details Date Type Department Care Team (Late st Contact Info) Description 08/19/2024 Telephone [facility] MEDICINE [address] [place] [address] Valery Espinoza MD [address] [place] [address] Referral Social History Tobacco Use Types Packs/Day [...] neurology visit if it did occur in [facility] or [facility] chart. No answer, left message to call back. * Telephone Encounter - Weston Torres - 08/19/2024 12:36 PM EST TC from pt Daughter requesting Referral for Neurology for [facility]. Contact pt Daughter at [phone] documented in this encounter Plan of Treatment Upcoming Encounters Date Type Department Care Team (Late st Contact Info) Description 05/13/2025 1:00 PM EST Office Visit [facility] MED & PEDS [address] [place], [place] [phone] Valery Espinoza MD [address] [place] [address] 07/15/2025 9:00 AM EST Office Visit [facility] OPTOMETRY [address] [place] [address] Zay Leonor, OD [address] [place] [address] documented as of this encounter Visit Diagnoses Not on filedocumented in this encounter Additional Health Concerns Assessment Noted Time PHQ-9 Depression Total Score: 2 04/25/20 9:44 AM EDT documented as of this encounter Care Teams Hazardous Materials Analyst Relationship Specialty Start Date End Date Valery Espinoza MD [address] [place] [address] PCP - General Family Medicine 09/14/21 Antoine Billings MD Hat Former 04/24/23 documented as of this encounter
--- OUTSIDE RECORDS SUMMARY | 2025-04-29 12:36 | XMS_ITS | Encounter Summary ---
Author Organization [employer] Address [address] [place] [address] 7 [place] [address] Care Team Providers Care Film Critic Name Role Phone Shazia Bowden MD Primary Care Provider [phone] Reason for Referral * Imaging (Routine) - Authorized Specialty Diagnoses / Procedures Referred By Contac t Referred To Contact Diagnoses JAY (acute kidney injury) Procedures Renal Ultrasound Shazia Bowden MD [address] [place] [address] Phone: tel: fax: [address] Phone: tel: fax: Referral ID Status Reason Start Date Expiration Date V isits Requested Visits Authorized [id number] Authorized 04/20/2025 04/20/2026 1 1 Encounter Details Date Type Department Care Team ([facility] st Contact Info) Description 04/15/2025 Results Follow-Up [facility] CHC MED & PEDS [address] [place], [place] [phone] Shazia Bowden MD [address] [place], [place] [phone] Basic Metabolic Panel, Basic Metabolic Panel, Basic Metabolic Panel, Osmolality, Serum Social History Tobacco Use Types Packs/Day Years [...] encounter Miscellaneous Notes * Telephone Encounter - Katherine Johnson RN - 04/29/2025 11:26 AM EST Parish Carrera * Result Encounter Note - Shazia Bowden MD - 04/28/2025 4:07 PM EST Jose's kidney function has improved but not back to baseline. At this moment will refer to nephrology. Thanks! Shazia * Telephone Encounter - Lubna Sharma RN - 04/22/2025 2:32 PM EDT TC to pt daughter to review results. No answer. VM left instructing pt to either return call or respond via [facility]. * Telephone Encounter - Lubna Sharma RN - 04/22/2025 2:32 PM EDT ----- Message from Shazia Bowden MD sent at 04/20/2025 10:57 AM EDT ----- At this point will refer him to nephrology TIBURCIO and also further elucidate etiology of his kidney dysfunction. Will check renal US, FeNa/FeUrea and osmolarity. Will check a urinalysis, BUN/Cr suggestpre-renal uremia vs obstruction hence ordered renal US to be done TIBURCIO. Hold PPI, his lisinopril was stopped. ----- Message ----- From: Interface, Lab Results In Sent: 04/19/2025 6:37 PM EDT To: Shazia Bowden MD * Addendum Note - Shazia Bowden MD - 04/20/2025 10:57 AM EDTAddended by: SHAZIA BOWDEN on: 04/20/2025 10:57 AM Modules accepted: Orders * Telephone Encounter - Angeli Mir RN [...] liquids that he likes. ----- Message from Shazia Bowden MD sent at 04/15/2025 12:52 PM EDT [...] In Sent: 04/14/2025 6:17 PM EDT To: Shazia Bowden MD documented in this encounter Plan of Treatment Upcoming Encounters Date Type Department Care Team (Late st Contact Info) Description 05/13/2025 1:00 PM EST Office Visit [facility] CHC MED & PEDS [address] [place] [address] Shazia Bowden MD [address] [place] [address] 07/15/2025 9:00 AM EST Office Visit [facility] OPTOMETRY [address] [place] [address] Leonor Collazo, OD [address] [place] [address] Scheduled Orders Name Type Priority Associated Diagnoses Orde r Schedule Renal Ultrasound Procedures Routine JAY (acute kidney injury) Expected: 04/20/2025 (Approximate), Expires: 04/20/2026 Sodium Without creatinine, Random Urine Lab Routine AJY (acute kidney injury) Expected: 04/20/2025 (Approximate), Expires: 04/20/2026 Creatinine, Random Urine Lab Routine JAY (acute kidney injury) Expected: 04/20/2025, Expires: 04/20/2026 Osmolality, Urine Lab Routine JAY (acute kidney injury) Expected: 04/20/2025 (Approximate), Expires: 04/20/2026 Urinalysis with reflex microscopic Lab Routine JAY (acute kidney injury) Expected: 04/20/2025, Expires: 04/20/2026 documented as of this encounter Procedures Procedure Name Priority Date/Time Associated Diagnosis Comments OSMOLALITY (SERUM) Routine 04/28/2025 1: 04 PM EST JAY (acute kidney injury) BASIC METABOLIC PANEL Routine 04/28/2025 1:04 PM EST JAY (acute kidney injury) BASIC METABOLIC PANEL Routine 04/19/2025 2:56 PM EDT JAY (acute kidney injury) documented in this encounter Results * Osmolality, Serum (04/28/2025 1:04 PM EST) Osmolality (Serum) 303 281 - 305 mosm/kg [facility] Blood Venous blood specimen / Unknown 04/28/2025 1:04 PM EST 04/28/2025 2:02 PM EST us Shazia Bowden MD LAB BLOOD ORDERABLES Final Re sult [facility] [address] [place], [place] [phone] * (ABNORMAL) Basic Metabolic Panel (04/28/2025 1:04 PM EST) Sodium 142 135 - 145 mmol/L [facility] Potassium 4.3 3.3 - 5.1 mmol/L [facility] Chloride 112(H) 96 - 108 mmol/L [facility] Carbon Dioxide 23 22 - 29 mmol/L [facility] Anion Gap 11(L) 12 - 20 [facility] Urea Nitrogen (BUN) 19(H) 9 - 16 mg/dL [facility] Creatinine, Serum 1.42(H) 0.5 - 1.4 mg/dL [facility] Estimated Glomerular Filt Rate 48 [facility] Comment:Chronic Kidney Disea se: Estimated GFR < 60 mL/min/[id number] Kidney Disease: Estimated GFR < 15 mL/min/1.73m2 Glucose 80 60 - 115 mg/dL [facility] Calcium 9.4 8.4 - 10.2 mg/dL [facility] Blood Venous blood specimen / Unknown 04/28/2025 1:04 PM EST 04/28/2025 2:02 PM EST us Shazia Bowden MD LAB BLOOD ORDERABLES Final Re sult [facility] [address] [place] [phone] [phone] * (ABNORMAL) Basic Metabolic Panel (04/19/2025 2:56 PM EDT) Sodium 140 135 - 145 mmol/L [facility] Potassium 4.5 3.3 - 5.1 mmol/L [facility] Chloride 109(H) 96 - 108 mmol/L [facility] Carbon Dioxide 21(L) 22 - 29 mmol/L [facility] Anion Gap 15 12 - 20 [facility] Urea Nitrogen (BUN) 27(H) 9 - 16 mg/dL [facility] Creatinine, Serum 1.62(H) 0.5 - 1.4 mg/dL [facility] Estimated Glomerular Filt Rate 41 [facility] Comment:Chronic Kidney Disea se: Estimated GFR < 60 mL/min/[id number] Kidney Disease: Estimated GFR < 15 mL/min/1.73m2 Glucose 87 60 - 115 mg/dL [facility] Calcium 9.6 8.4 - 10.2 mg/dL [facility] Blood Venous blood specimen / Unknown 04/19/2025 2:56 PM EDT 04/19/2025 6:04 PM EDT us Shazia Bowden MD LAB BLOOD ORDERABLES Final Re sult [facility] [address] [place] [phone] documented in this encounter Visit Diagnoses Diagnosis JAY (acute kidney injury)- Primary documented in this encounter Additional Health Concerns Assessment Noted Time PHQ-9 Depression Total Score: 0 10/22/19 11:28 AM EDT documented as of this encounter Care Teams Film Critic Relationship Specialty Start Date End Date Shazia Bowden MD [address] [place] [address] PCP - General Family Medicine 09/14/21 Antoine Billings MD Webmethods Consultant 04/24/23 documented as of this encounter
--- OUTSIDE RECORDS SUMMARY | 2025-04-29 12:36 | XMS_ITS | Encounter Summary ---
Author Organization [employer] Address [address] [place] [address] [address] [place] [address] Care Team Providers Care Toe Sewer Name Role Phone Valery Espinoza MD Primary Care Provider [phone] Reason for Visit * Reason Comments Med Refill Encounter Details Date Type Department Care Team (Late st Contact Info) Description 10/28/2024 Refill [facility] MEDICINE [address] [place] [address] Pam Mendoza FNP [address] [place] [address] Social History Tobacco Use Types Packs/Day Years [...] the past 12 months, has t he [employer], gas, oil or water company threatened to [...] Description 05/13/2025 1:00 PM EST Office Visit [facility]C MED & PEDS [address] [place] [address] Valery Espinoza MD [address] [place] [address] 07/15/2025 9:00 AM EST Office Visit [facility] OPTOMETRY [address] [place] [address] Zay, Leonor, OD [address] [place] [address] documented as of this encounter Visit Diagnoses Not on filedocumented in this encounter Additional Health Concerns Assessment Noted Time PHQ-9 Depression Total Score: 0 10/22/19 25 11:28 AM EDT documented as of this encounter Care Teams Toe Sewer Relationship Specialty Start Date End Date Valery Espinoza MD [address] [place] [address] PCP - General Family Medicine 09/14/21 Antoine Billings MD Chicken And Fish Cleaner 04/24/23 documented as of this encounter
--- OUTSIDE RECORDS SUMMARY | 2025-04-29 12:36 | XMS_ITS | Encounter Summary ---
Author Organization [employer] Address [address] [place] [address] 7t [place] [address] Care Team Providers Care Acetylene Cutter Name Role Phone Valery Espinoza MD Primary Care Provider [phone] Reason for Visit * Reason Comments Med Refill Encounter Details Date Type Department Care Team ([facility] Contact Info) Description 04/28/[address] [facility] CHC MED & PEDS [address] [place], [place] [phone] Valery Espinoza MD 505 [place] [address] Social History Tobacco Use Types Packs/Day Years [...] the past 12 months, has t he [employer], gas, oil or water company threatened to [...] 05/13/2025 1:00 PM EST Office Visit [facility] CHC MED & PEDS [address] [place] [address] Valery Espinoza MD 505 [place] [address] 07/15/2025 9:00 AM EST Office Visit [facility] OPTOMETRY [address] [place] [address] Zay, Leonor, OD [address] [place] [address] documented as of this encounter Visit Diagnoses Not on filedocumented in this encounter Additional Health Concerns Assessment Noted Time PHQ-9 Depression Total Score: 0 10/22/19 25 11:28 AM EDT documented as of this encounter Care Teams Acetylene Cutter Relationship Specialty Start Date End Date Valery Espinoza MD 230 [place] [address] PCP - General Family Medicine 09/14/21 Antoine Billings MD Ed Special Education Teacher 04/24/23 documented as of this encounter
--- OUTSIDE RECORDS SUMMARY | 2025-04-29 12:36 | XMS_ITS | Encounter Summary ---
Author Organization [email or web address] Address [address] [place] [address] 7t [place] [address] Care Team Providers Care Equity Manager Name Role Phone Valery Espinoza MD Primary Care Provider [phone] Reason for Visit * Reason Onset Date Comments Referral 10/21/2022 Encounter Details Date Type Department Care Team ([facility] st Contact Info) Description 10/21/2022 Telephone C CHC MED & PEDS [address] [place], [place] [phone] Valery Espinoza MD 505 [place] [address] Referral Social History Tobacco Use Types Packs/Day [...] Podiatry on 09/11/2022. Please contact pt at [phone] * Telephone Encounter - Shira Mortensen - 10/21/2022 11:17 AM EDT Tc from pt requesting status on referral made for Podiatry on 09/11/2022. Please contact pt at [phone] documented in this encounter Plan of Treatment Upcoming Encounters Date Type Department Care Team (Late st Contact Info) Description 05/13/2025 1:00 PM EST Office Visit [facility] CHC MED & PEDS [address] [place] [address] Valery Espinoza MD 505 [place] [address] 07/15/2025 9:00 AM EST Office Visit [facility] OPTOMETRY [address] [place] [address] Leonor Collazo, OD [address] [place] [address] documented as of this encounter Visit Diagnoses Not on filedocumented in this encounter Care Teams Equity Manager Relationship Specialty Start Date End Date Valery Espinoza MD 230 [place] [address] PCP - General Family Medicine 09/14/21 Antoine Billings MD Aws Solution Architect 04/24/23 documented as of this encounter
--- OUTSIDE RECORDS SUMMARY | 2025-04-29 12:36 | XMS_ITS | Encounter Summary ---
Author Organization [employer] Address [address] [place] [address] 7t [place] [address] Care Team Providers Care Ribbon Cleaner Name Role Phone Valery Espinoza MD Primary Care Provider [phone] Reason for Visit * Reason Comments Care Coordination CHW outreach for SDO H housing search-no answer LVM Encounter Details Date Type Department Care Team (Latest Contact Info) Description 04/28/2025 Patient Outreach [facility] MEDICINE [address] [place] [address] Valery Espinoza MD 505 [place] [address] Care Coordination (CHW outreach for SDOH housing [...] Upcoming Encounters Date Type Department Care Team ([facility] st Contact Info) Description 05/13/2025 1:00 PM EST Office Visit [facility] MED & PEDS 505 [place], [place] [phone] Valery Espinoza MD 505 [place] [address] 07/15/2025 9:00 AM EST Office Visit [facility] OPTOMETRY [address] [place], [place] [phone] Leonor Collazo, OD [address] [place] [address] documented as of this encounter Visit Diagnoses Not on filedocumented in this encounter Additional Health Concerns Assessment Noted Time PHQ-9 Depression Total Score: 0 10/22/19 11:28 AM EDT documented as of this encounter Care Teams Ribbon Cleaner Relationship Specialty Start Date End Date Valery Espinoza MD 230 [place] [address] PCP - General Family Medicine 09/14/21 Antoine Billings MD Rippler 04/24/23 documented as of this encounter
--- OUTSIDE RECORDS SUMMARY | 2025-04-29 12:36 | XMS_ITS | Encounter Summary ---
Author Organization [employer] Address [address] [place] [address] 7t [place] [address] Care Team Providers Care Db2 Systems Programmer Name Role Phone Valery Espinoza MD Primary Care Provider [phone] Reason for Visit * Reason Comments Med Refill Encounter Details Date Type Department Care Team ([facility] st Contact Info) Description 07/31/2023 Refill [facility] CHC MED & PEDS [address] [place], [place] [phone] Valery Espinoza MD 505 [place] [address] Social History Tobacco Use Types Packs/Day Years [...] 1:00 PM EST Office Visit [facility] CHC MED & PEDS [address] [place] [address] Valery Espinoza MD [address] [place] [address] 07/15/2025 9:00 AM EST Office Visit [facility] OPTOMETRY [address] [place] [address] Leonor Collazo, OD 230 [place] [address] documented as of this encounter Visit Diagnoses Not on filedocumented in this encounter Additional Health Concerns Assessment Noted Time PHQ-9 Depression Total Score: 2 04/25/20 23 9:44 AM EDT documented as of this encounter Care Teams Db2 Systems Programmer Relationship Specialty Start Date End Date Valery Espinoza MD 230 [place] [address] PCP - General Family Medicine 09/14/21 Antoine Billings MD Clinical Support Tech 04/24/23 documented as of this encounter
--- OUTSIDE RECORDS SUMMARY | 2025-04-29 12:36 | XMS_ITS | Encounter Summary ---
Author Organization [employer] Address [address] [place] [address] 7t [place] [address] Care Team Providers Care Care Connector Name Role Phone Valery Espinoza MD Primary Care Provider [phone] Reason for Referral * Consultation (Urgent) - Pending Review Specialty Diagnoses / Procedures Referred By Josh t Referred To Contact Nephrology Diagnoses JAY (acute kidney injury) Valery Espinoza MD 505 [place] [address] Phone: tel: fax: Referral ID Status Reason Start Date Expiration Date Visits Requested Visits Authorized [id number] Pending Review Specialty Services Required 04/28/2025 04/28/2026 1 1 Encounter Details Date Type Department Care Team (Late st Contact Info) Description 04/28/2025 Telephone [facility] CHC MED & PEDS [address] [place], [place] [phone] Valery Espinoza MD 505 [place] [address] Social History Tobacco Use Types Packs/Day Years [...] Telephone Encounter - Valery Espinoza MD - 04/28/2025 4:07 PM EST Referral to nephrology, persistent renal failure. documented in this encounter Plan of Treatment Upcoming Encounters Date Type Department Care Team (Late st Contact Info) Description 05/13/2025 1:00 PM EST Office Visit [facility] CHC MED & PEDS [address] [place] [address] Valery Espinoza MD [address] [place] [address] 07/15/2025 9:00 AM EST Office Visit [facility] OPTOMETRY [address] [place] [address] Leonor Collazo, OD 230 [place], [place] [phone] Scheduled Referrals Name Type Priority Associated Diagnoses Order Schedule Referral to Nephrology Outpatient Referral Urgent JAY (acute kidney injury) Expected: 04/28/2025 (Approximate), Expires: 04/28/2026 documented as of this encounter Visit Diagnoses Diagnosis JAY (acute kidney injury)- Primary documented in this encounter Additional Health Concerns Assessment Noted Time PHQ-9 Depression Total Score: 0 10/22/19 25 11:28 AM EDT documented as of this encounter Care Teams Care Connector Relationship Specialty Start Date End Date Valery Espinoza MD 230 [place] [address] PCP - General Family Medicine 09/14/21 Antoine Billings MD Radio Mechanic 04/24/23 documented as of this encounter
--- OUTSIDE RECORDS SUMMARY | 2025-04-29 12:36 | XMS_ITS | Encounter Summary ---
Author Organization [employer] Address [address] [place] [address] 7t [place] [address] Care Team Providers Care Noc Engineer Name Role Phone Valery Espinoza MD Primary Care Provider Reason for Visit * Reason Onset Date Comments Med Refill 10/12/2024 Encounter Details Date Type Department Care Team (Late st Contact Info) Description 10/12/2024 Telephone [facility] MEDICINE [address] [place] [address] Valery Espinoza MD 505 [place] [address] Med Refill Social History Tobacco Use Types [...] 11:49 AM EDT Scripts were sent to [facility] on 09/29/24 with 11 refills. * Telephone Encounter - Weston Torres - 10/12/2024 11:32 AM EDT TC from pt requesting medication refill. Medications needing refill : ezetimibe (Zetia) 10 MG tablet rosuvastatin (Crestor) 40 MG tablet To be sent to: [facility] ([place]) - [facility] [place] - [address] [place] [address] documented in this encounter Plan of Treatment Upcoming Encounters Date Type Department Care Team (Late st Contact Info) Description 05/13/2025 1:00 PM EST Office Visit [facility] CHC MED & PEDS [address] [place] [address] Valery Espinoza MD [address] [place] [address] 07/15/2025 9:00 AM EST Office Visit [facility] OPTOMETRY [address] [place] [address] ZayMitch pateln, OD 230 [place] [address] documented as of this encounter Visit Diagnoses Not on filedocumented in this encounter Additional Health Concerns Assessment Noted Time PHQ-9 Depression Total Score: 2 04/25/20 23 9:44 AM EDT documented as of this encounter Care Teams Noc Engineer Relationship Specialty Start Date End Date Valery Espinoza MD 230 [place] [address] PCP - General Family Medicine 09/14/21 Antoine Billings MD Breaker Operator 04/24/23 documented as of this encounter
--- OUTSIDE RECORDS SUMMARY | 2025-04-29 12:36 | XMS_ITS | Encounter Summary ---
Author Organization [employer] Address [address] 7t [place] [address] Care Team Providers Care Thermoforming Machine Operator Name Role Phone Valery Espinoza MD Primary Care Provider [phone] Encounter Details Date Type Department Care Team [...] Description 05/13/2025 1:00 PM EST Office Visit [facility] CHC MED & PEDS [address] [place] [address] Valery Espinoza MD 505 [place] [address] 07/15/2025 9:00 AM EST Office Visit [facility] OPTOMETRY [address] [place] [address] Zay, Leonor, OD 230 [place] [address] documented as of this encounter Visit Diagnoses Not on filedocumented in this encounter Additional Health Concerns Assessment Noted Time PHQ-9 Depression Total Score: 0 10/22/19 25 11:28 AM EDT documented as of this encounter Care Teams Thermoforming Machine Operator Relationship Specialty Start Date End Date Valery Espinoza MD 230 [place] [address] PCP - General Family Medicine 09/14/21 Antoine Billings MD Chocolate Molder 04/24/23 documented as of this encounter
--- OUTSIDE RECORDS SUMMARY | 2025-04-29 12:36 | XMS_ITS | Encounter Summary ---
Author Organization [employer] Address [address] [place] [address] 7t [place] [address] Care Team Providers Care Photographic Machine Operator Name Role Phone Valery Espinoza MD Primary Care Provider [phone] Reason for Visit * Reason Onset Date Comments Chart Prep 04/26/2025 Encounter Details Date Type Department Care Team ([facility] st Contact Info) Description 04/26/2025 Telephone [facility] CHC MED & PEDS 505 [place], [place] [phone] Valery Espinoza MD 505 [place] [address] Chart Prep Social History Tobacco Use Types [...] Description 05/13/2025 1:00 PM EST Office Visit [facility] CHC MED & PEDS 505 [place] [address] Valery Espinoza MD 505 [place] [address] 07/15/2025 9:00 AM EST Office Visit [facility] OPTOMETRY [address] [place] [address] Leonor Collazo, OD [address] [place] [address] documented as of this encounter Visit Diagnoses Not on filedocumented in this encounter Additional Health Concerns Assessment Noted Time PHQ-9 Depression Total Score: 0 10/22/19 25 11:28 AM EDT documented as of this encounter Care Teams Photographic Machine Operator Relationship Specialty Start Date End Date Valery Espinoza MD 230 [place] [address] PCP - General Family Medicine 09/14/21 Antoine Billings MD Mission Manager 04/24/23 documented as of this encounter
--- OUTSIDE RECORDS SUMMARY | 2025-04-29 12:36 | XMS_ITS | Encounter Summary ---
Author Organization [employer] Address [address] [place] [address] 7t [place] [address] Care Team Providers Care Regulatory Manager Name Role Phone Valery Espinoza MD Primary Care Provider Reason for Visit * Reason Comments Med Refill Encounter Details Date Type Department Care Team ([facility] Contact Info) Description 05/24/2024 Refill [facility] CHC MED & PEDS 505 [place], [place] [phone] Valery Espinoza MD 505 [place] [address] Social History Tobacco Use Types Packs/Day Years [...] Description 05/13/2025 1:00 PM EST Office Visit [facility] CHC MED & PEDS [address] [place] [address] Valery Espinoza MD 505 [place] [address] 07/15/2025 9:00 AM EST Office Visit [facility] OPTOMETRY [address] [place] [address] Zay, Leonor, OD 230 [place] [address] documented as of this encounter Visit Diagnoses Not on filedocumented in this encounter Additional Health Concerns Assessment Noted Time PHQ-9 Depression Total Score: 2 04/25/20 23 9:44 AM EDT documented as of this encounter Care Teams Regulatory Manager Relationship Specialty Start Date End Date Valery Espinoza MD 230 [place] [address] PCP - General Family Medicine 09/14/21 Antoine Billings MD Sql Etl Developer 04/24/23 documented as of this encounter
--- OUTSIDE RECORDS SUMMARY | 2025-04-29 12:36 | XMS_ITS | Encounter Summary ---
Author Organization [employer] Address [address] [facility] 7t [place] [address] Care Team Providers Care Filter Tank Tender Helper Name Role Phone Valery Espinoza MD Primary Care Provider [phone] Encounter Details Date Type Department Care Team (Late st Contact Info) Description 04/12/2024 Telephone [facility] MEDICINE [address] [place] [address] Valery Espinoza MD [address] [place], [place] [phone] Social History Tobacco Use Types Packs/Day Years [...] the past 12 months, has t he [employer], gas, oil or water company threatened to [...] Description 05/13/2025 1:00 PM EST Office Visit [facility] CHC MED & PEDS 505 [place] [address] Valery Espinoza MD 505 [place] [address] 07/15/2025 9:00 AM EST Office Visit [facility] OPTOMETRY [address] [place] [address] Zay, Leonor, OD 230 [place] [address] documented as of this encounter Visit Diagnoses Not on filedocumented in this encounter Additional Health Concerns Assessment Noted Time PHQ-9 Depression Total Score: 2 04/25/20 23 9:44 AM EDT documented as of this encounter Care Teams Filter Tank Tender Helper Relationship Specialty Start Date End Date Valery Espinoza MD [address] [place] [address] PCP - General Family Medicine 09/14/21 Antoine Billings MD Elementary Educator 04/24/23 documented as of this encounter
--- OUTSIDE RECORDS SUMMARY | 2025-04-29 12:36 | XMS_ITS | Encounter Summary ---
Author Organization [employer] Address [address] [place] [address] 7t [place] [address] Care Team Providers Care Electronic Equipment Installer Name Role Phone Valery Espinoza MD Primary Care Provider [phone] Reason for Visit * Reason Onset Date Comments Med Refill 02/14/2023 Encounter Details Date Type Department Care Team ([facility] st Contact Info) Description 02/14/2023 Telephone [facility] CHC MED & PEDS [address] [place], [place] [phone] Valery Espinoza MD 505 [place] [address] Med Refill Social History Tobacco Use Types [...] PM EDT Tacrolimus was sent to [id number] on 02/11/23 with 1 refill and Losartan [...] Description 05/13/2025 1:00 PM EST Office Visit [facility] CHC MED & PEDS [address] [place] [address] Valery Espinoza MD 505 [place] [address] 07/15/2025 9:00 AM EST Office Visit [facility] OPTOMETRY [address] [place] [address] Leonor Collazo, OD [address] [place] [address] documented as of this encounter Visit Diagnoses Not on filedocumented in this encounter Care Teams Electronic Equipment Installer Relationship Specialty Start Date End Date Valery Espinoza MD [address] [place] [address] PCP - General Family Medicine 09/14/21 Antoine Billings MD Rod Mill Operator 04/24/23 documented as of this encounter
[2025-04-29 14:31] LABS: Appearance Urine Clear; Glucose Urine UA Negative (Negative); PH 5.5 (5.0-9.0); Specific Gravity - Urine 1.010 (1.005-1.025)
== END 2025-04-29 10:40 | disposition home or self-care (01) ==
LOC: HO.CHCLNP 10:39
PROVIDERS: PCP Family Medicine; Visit Provider Family Medicine
DX: Z13.89 Encounter for screening for other disorder (principal)
CPT/HCPCS: 81003; 82570; 84300

== ENCOUNTER 2025-04-29 13:13 | Outpatient (REF) | payer MEDICARE, SELFPAY ==
--- NOTE | ~2025-04-29 | US_ITS ---
EXAMINATION: US KIDNEY BILATERAL HISTORY: JAY TECHNIQUE: Real-time grayscale ultrasound imaging of the kidneys was performed and images were reviewed. COMPARISON: Correlation is made with an unenhanced CT of the abdomen dated 03/23/2023. FINDINGS: Right kidney: The right kidney measures 9.8 x 4.6 x 4.2 cm. Renal parenchymal echotexture and thickness are normal. There is a 7 x 5 x 5 mm upper pole cyst. There is no hydronephrosis or renal calculi. Left Kidney: The left kidney measures 10.3 x 4.3 x 4.2 cm. Renal parenchymal echotexture and thickness are normal. There is a 4 x 3 x 5 mm lower pole cyst. A subtle 1.4 x 1.2 x 1.1 cm slightly hyperechoic focus is seen in the interpolar region. This could represent a hypertrophied column of Jaxson or possibly a mass. There is no hydronephrosis or renal calculi. US/US renal BI IMPRESSION: 1.4 x 1.2 x 1.1 cm slightly hyperechoic focus in the interpolar region of the left kidney. This could represent a hypertrophied column of Jaxson or possibly a mass. A follow-up renal ultrasound is recommended in 6 months. Electronically signed by: Dominic Albrecht MD 04/29/2025 02:05 PM DIANE OLIVERA
--- OUTSIDE RECORDS SUMMARY | 2025-04-29 15:22 | XMS_ITS | Encounter Summary ---
Author Organization [facility] Address [address] [place] [address] Care Team Providers Care Corporate Security Officer Name Role Phone Amador Chakraborty MD Primary Care Provider [phone] Ehsan Sullivan MD Unavailable Unavailable Reason for Visit * Reason Onset Date Comments refill request 02/07/2021 Encounter Details Date Type Department Care Team Description 02/07/2021 Refill Adult Medicine [facility] [address] [place] [address] Amador Chakraborty MD [address] [place] [address] refill request Social History Tobacco Use Types Packs/Day Years Used Date Smoking Tobacco: Former Smokeless Tobacco: Former Comments:quit in 2007 Alcohol Use Standard Drinks/Week Comments No 0 (1 standard drink = 0.6 oz pur e alcohol) Sex Assigned at Date Recorded Not on file Job Start Date Occupation Industry Not on file Not on file Not on file documented as of this encounter Miscellaneous Notes * Telephone Encounter - Paz Wooten - 02/07/2021 3:11 PM EDT Patient would like script to be: E-PRESCRIBED/FAXED TO PHARMACY WHEN WAS THE PATIENT'S LAST APPOINTMENT IN ADULT MEDICINE? 11/02/19 WHEN WAS THE LAST TIME THE PATIENT SAW THEIR PCP? Same as above Does patient have an upcoming appointment? Yes 03/30/21 (THE MEDICATION REQUESTED IS ON THE MED LIST ABOVE) All of the medications requested were on the CURRENT MEDS list Did you check the Pharmacy information above?: YES Patient wants: 90 -day supply Is this a mail order prescription request ? NO If the refill is from a FAXED refill request what is the RX # listed on the fax? N/A Patients current insurance carrier is: Payor: [employer] / Plan: [facility] MEDICARE COMPLETE $0 [id number] / Product Type: HMO [id number] documented in this encounter Plan of Treatment Not on file documented as of this encounter Visit Diagnoses Not on filedocumented in this encounter Care Teams Corporate Security Officer Relationship Specialty Start Date End Date Amador Chakraborty MD [address] [place] [address] PCP - General Internal Medicine 02/07/21 Ehsan Sullivan MD [address] [place] [address] 02/07/21 documented as of this encounter
--- OUTSIDE RECORDS SUMMARY | 2025-04-29 15:22 | XMS_ITS | Clinical Summary ---
Author Organization [facility] Address [address] [place] [address] Care Team Providers Care Hard Metals Hand Engraver Name Role Phone Amador Chakraborty MD Primary Care Provider [phone] Ehsan Sullivan MD Unavailable Unavailable Allergies Active Allergy Reactions Severity Noted Date Comments Cats 11/20/2018 Dust Mite 11/20/2018 No Known Drug Allergies 01/25/2019 Medications Medication Sig Dispensed Refills Start Date End Date Status IRON CR OR Take by mouth. 0 Active Multiple Vitamin (MULTIVITAMIN OR) Take 1 Tab by mouth daily. 0 Active aspirin 81 MG tablet Take 1 Tab by mouth daily. 30 Tab 5 02/24/2019 Active nitroGLYCERIN (NITROQUICK) 0.[address] 1 Tab under the tongue every 5 minutes as needed for Chest pain. 100 Bottle 3 02/24/2019 Active nystatin-triamcinolo ne (MYCOLOG II) cream To affected area, bid 30 g 3 04/05/2021 Active lisinopril (PRINIVIL,ZESTRIL) 5 MG tablet Take 1 tablet by mouth daily. 90 tablet 1 04/26/2021 Active atorvastatin (LIPITOR) 80 MG tablet Take 1 tablet by mouth daily. 90 tablet 1 04/26/2021 Active ezetimibe (ZETIA) 10 MG tablet Take 1 tablet by mouth daily. 90 tablet 1 04/26/2021 Active clobetasol (TEMOVATE) 0.05 % external solution Apply to scalp 2 times daily for 14 days 50 mL 0 05/08/2021 Active ondansetron (ZOFRAN) 4 MG tablet Take 4 mg by mouth every 8 hours as needed. 0 Active Active Problems Problem Noted Date Depression 01/25/2019 Vascular dementia 01/25/2019 Asthma 01/25/2019 History of substance abuse 01/25/2019 Overview: Hx use of cocaine. Tubular adenoma 01/25/2019 Overview: 2007 colonoscopy Hiatal hernia 01/25/2019 Overview: Reducible assoc w/ GERD, barium swallow 07/2009 [facility]. History of bilateral hip replacements GERD (gastroesophageal reflux disease) 0 11/20/2018 Osteoarthritis 11/20/2018 Hyperlipidemia 06/04/2012 CAD (coronary artery disease) 06/04/2012 Overview: NSTEMI with 3 vessel CABG 10/25/2007, LEI to LAD, right saphenous vein graft to diagonal and obtuse marginal. Coronary atherosclerosis of artery bypas s graft 06/04/2012 Overview: 10/25/07, ELI to LAD, SVG to diagonal and obtuse marginal Carotid stenosis 06/04/2012 HTN (hypertension) 06/04/2012 Resolved Problems Problem Noted Date Resolved Date Avascular necrosis of hip 01/25/20192019 Overview: Left Carotid stenosis 06/04/2012 12/17/2018 Overview: Ultrasound 06/30 < 50% stenosis bilateral ICAs. Immunizations Name Administration Dates Next Due TD (STATE SUPPLIED FOR ADULTS AND CHILDREN) 12/2011 Family History Medical History Relation Name Comments DVT/PE Father CA Mother Relation Name Status Comments Father Mother Social History Tobacco Use Types Packs/Day Years Used Date Smoking Tobacco: Former Smokeless Tobacco: Former Comments:quit in 2007 Alcohol Use Standard Drinks/Week Comments No 0 (1 standard drink = 0.6 oz pur e alcohol) Sex Assigned at Date Recorded Not on file Job Start Date Occupation Industry Not on file Not on file Not on file Last Filed Vital Signs Vital Sign Reading Time Taken Comments Blood Pressure 110/56 06/19/2021 2:31 PM EST Pulse 74 06/19/2021 2:31 PM EST Temperature 37 C (98.6 F) 06/19/2021 2:31 PM EST Respiratory Rate 13 06/19/2021 2:31 PM EST Oxygen Saturation 98% 05/08/2021 1:24 PM EST Inhaled Oxygen Concentration - - Weight 68.5 kg (151 lb) 06/19/2021 2:31 PM EST Height 170.2 cm (5' 7 ) 06/19/2021 2:31 PM EST Body Mass Index 23.65 06/19/2021 2:31 PM EST Plan of Treatment Health Maintenance Due Date Last Done Comments Covid-19 Vaccine (#1) 1945 SHINGLES VACCINE (1 of 2) 1996 PNEUMOCOCCAL VACCINE (1 - PCV) 2011 DTAP/TDAP/TD (1 - Tdap) 01/29/2012 01/28/2012 INFLUENZA (#1) 2025 CHOLESTEROL SCREENING 06/19/2026 06/19/2021, 019 Care Teams Hard Metals Hand Engraver Relationship Specialty Start Date End Date Amador Chakraborty MD [address] [place] [address] PCP - General Internal Medicine 02/07/21 Ehsan Sullivan MD [address] [place] [address] 02/07/21
--- OUTSIDE RECORDS SUMMARY | 2025-04-29 15:22 | XMS_ITS | Encounter Summary ---
Author Organization [facility] Address [address] [place] [address] Care Team Providers Care Mining Plant Operator Name Role Phone Enrique Hillman MD Primary Care Provider [phone] Kuldeep Henriquez MD Primary Care Provider Unavaila ble Manasa Khoury DO Primary Care Pro vider Unavailable Ehsan Sullivan MD Primary Care Provider Unavail able Amador Chakraborty MD Primary Care Provider [phone] Manasa Khoury DO Unavailable Unavailable Ehsan Sullivan MD Unavailable Unavailable Encounter Details Date Type Department Care Team Description 11/24/2018 Orders Only Adult Medicine [address] [address] Hemalatha Rascon PA-C Hyperinflation of lungs (Primary Dx) Social History Tobacco Use Types Packs/Day Years Used Date Smoking Tobacco: Former Smokeless Tobacco: Former Comments:quit in 2007 Alcohol Use Standard Drinks/Week Comments No 0 (1 standard drink = 0.6 oz pur e alcohol) Sex Assigned at Date Recorded Not on file Job Start Date Occupation Industry Not on file Not on file Not on file documented as of this encounter Plan of Treatment Not on file documented as of this encounter Results * PFT FULL (60 MINUTES) (02/08/2019) Impressions Alf Smith MD - 02/08/2019 02/08/19. Complete PFT with pre/post bronchodilator, lung volumes and DLCO diffusion Technique: Reproducible and Repeatable Graphic recording: There is not obstruction or restriction on the graphic recording. No obstruction. No restriction. Mild decreased DLCO diffusion. DLCO: 75 Reduced DLCO is compatible with mild loss of alveolar arterial exchange function. All of these findings are suggestive of: Decreased or loss of the effective pulmonary alveolarcapilaris surface membrane like Emphysema, Fibrosis, Anemia, Drugs, Heart failure and others. Also poor maneuvers or poor inspiratory technique in healthy people. SPO2 on RA 97 Clinical correlation is required. For details please review a copy of the test available in EMR Hemalatha Rascon PA-C PULMONOLOGY documented in this encounter Visit Diagnoses Diagnosis Hyperinflation of lungs- Primary Other symptoms involving respiratory system and chest Hyperinflation of lungs Other symptoms involving respiratory system and chest documented in this encounter Care Teams Mining Plant Operator Relationship Specialty Start Date End Date Enrique Hillman MD PCP - General Internal Medicine 11/19/18 03/09/19 Kuldeep Henriquez MD PCP - General Internal Medicine 03/10/19 10/26/19 Manasa Khoury DO PCP - General Internal Medicine 10/27/19 05/25/20 Ehsan Sullivan MD PCP - General 05/26/20 02/06/21 Amador Chakraborty MD [address] [place] [address] PCP - General Internal Medicine 02/07/21 Manasa Khoury DO Internal Medicine 05/26/20 02/06/21 Ehsan Sullivan MD 02/07/21 documented as of this encounter
== END 2025-04-29 13:14 | disposition home or self-care (01) ==
LOC: HO.HMGCX 13:13
PROVIDERS: PCP Family Medicine; Visit Provider Family Medicine
DX: N17.9 Acute kidney failure, unspecified (principal)
CPT/HCPCS: 76775; 81003; 82570; 84300

== ENCOUNTER → 2025-04-29 13:26 | Outpatient (BNV) | payer MEDICARE, SELFPAY | PROVIDERS: PCP Family Medicine; Visit Provider Radiology Diagnostic Radiology | DX: N17.9 Acute kidney failure, unspecified (principal) | CPT/HCPCS: 76775 ==

== ENCOUNTER 2025-05-10 13:53 | Outpatient (AMB) | payer MEDICARE, SELFPAY ==
[2025-05-10 13:51] VITALS: BP 100/70; PULSE 95; O2SAT 98; BMI 21.7
--- NOTE | 2025-05-10 13:51 | HO.NEPHOV_ITS ---
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 The patient was hospitalized approximately one month ago after an episode of syncope. The syncopal episode occurred while he was out playing pool; he felt the need to go to the bathroom and then passed out. During the hospitalization, he received intravenous fluids and his kidney function improved. Regarding his kidney health, blood tests from April 28 showed a kidney function of about 40-%, which was an improvement from a couple of weeks prior. A kidney ultrasound performed about 10 days ago was reportedly normal. A urinalysis was negative for protein and blood. The patient reports some trouble with urination and dizziness when he stands, but denies issues with elimination. Past medical history is significant for hypertension, diabetes, and heart problems, including a triple bypass in 2007. He also reports a chronic cough that has persisted for a couple of years and wakes him up at night. He is jabari eduled to see his mid level business analyst tomorrow to receive a heart monitor for further evaluation. The patient's medication history is noted to be complex. He reports taking losartan 25 mg. He was previously on Celebrex for joint pain but has been advised to discontinue it and stopped taking metformin due to concerns about its effect on his kidneys. PCP reportedly told him to stop taking lisinopril last month. 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 Father No problems noted. Social History Household Members: Family Housing: Apartment Do you presently have visiting nurse or other home services: No Alcohol intake: former Patient Tobacco Use Status: Former Tobacco user Years Smoked: 41 years +/- Substance Use Type: Marijuana service: No Review of Systems Const No Other Denies fever(s) and Denies weight loss Card Denies chest pain and Reports dyspnea on exertion Resp Denies cough, Denies hemoptysis and Reports dyspnea on exertion GI Denies abdominal pain, Denies diarrhea and Denies nausea Musc Denies back pain Neuro Denies focal weakness Physical Exam Vital Signs: Last Vital Signs Pulse 95 05/10/25 13:51 BP 80/60 L 05/10/25 14:51 Pulse Ox 98 05/10/25 13:51 Oxygen Delivery Method Room Air 05/10/25 13:51 BMI result Body Mass Index 21.7 Comfortable Neck supple no JVD. Lungs entry equal no rales. Heart S1-S2 heard no gallop or rub. Abdomen soft nontender. Neuro alert awake oriented. No asterixis. Extremities no edema. Results Reviewed Nephrology Results: Sodium, (135-145) 142 mmol/L 04/28/25 Potassium, (3.3-5.1) 4.3 mmol/L 04/28/25 Chloride, (96-108) 112 mmol/L H 04/28/25 Carbon Dioxide, (22-29) 23 mmol/L 04/28/25 BUN, (9-16) 19 mg/dL H 04/28/25 Creatinine, (0.5-1.4) 1.42 mg/dL H 04/28/25 Calcium, (8.4-10.2) 9.4 mg/dL 04/28/25 Urine Protein, (Neg-Trace) Negative mg/dL 04/29/25 Urine Creatinine 72.67 mg/dL 04/29/25 Renal US 04/29/25 Assessment & Plan Assessment & Plan (1) CKD (chronic kidney disease): Code(s): N18.9 - Chronic kidney disease, unspecified Category: Medical Plan JAY superimposed on CKD. JAY is most likely due to hypoperfusion from relative low blood pressure and volume depletion. He was on Celebrex which could have also contributed to hypoperfusion. Recent ultrasonogram did not reveal any obstruction. Recent urine studies were benign without any significant proteinuria or hematuria. Recommendation discontinue all antihypertensives. Agree with holding lisinopril Encouraged p.o. intake. Avoid NSAIDs and Celebrex. Await cardiac workup. He is scheduled for cardiac testing tomorrow. Medication list is unclear encouraged to bring the complete list of medications during next visit Recheck renal panel within a week If he is symptomatic from low blood pressure he should come into the hospital for further evaluation and possible IV hydration. Further workup will be based on the outcome of the above baseline investigations. Orders: Orders Basic Metabolic Panel 05/10/25 N18.9 - Chronic kidney disease, unspecified Coding Level of Care Code New Pt Level 4 (59513) Diagnoses CKD (chronic kidney disease) N18.9
[2025-05-10 14:51] VITALS: BP 80/60
--- OUTSIDE RECORDS SUMMARY | 2025-05-11 07:41 | XMS_ITS | Encounter Summary ---
Author Organization [facility] Address [address] [place] [address] [address] [place] [address] Care Team Providers Care Post Graduate Internship Name Role Phone Valery Espinoza MD Primary Care Provider [phone] Reason for Visit * Reason Comments Med Refill Encounter Details Date Type Department Care Team (Late st Contact Info) Description 10/28/2024 Refill [facility] [address] [place] [address] Pam Mendoza FNP [address] [place] [address] Social History Tobacco Use Types Packs/Day Years [...] the past 12 months, has t he oLyfe, gas, oil or water company threatened to [...] Description 05/13/2025 1:00 PM EST Office Visit [facility] [address] [place] [address] Valery Espinoza MD [address] [place] [address] 07/15/2025 9:00 AM EST Office Visit [facility] [address] [place] [address] Zay, Leonor, OD [address] [place] [address] documented as of this encounter Visit Diagnoses Not on filedocumented in this encounter Additional Health Concerns Assessment Noted Time PHQ-9 Depression Total Score: 0 10/22/19 25 11:28 AM EDT documented as of this encounter Care Teams Post Graduate Internship Relationship Specialty Start Date End Date Valery Espinoza MD [address] [place] [address] PCP - General Family Medicine 09/14/21 Antoine Billings MD Artillery Meteorological Man 04/24/23 documented as of this encounter
--- OUTSIDE RECORDS SUMMARY | 2025-05-11 07:41 | XMS_ITS | Clinical Summary ---
Author Organization [employer] Address [address] [place] [address] 7t [place] [address] Care Team Providers Care Brake Operator Helper Name Role Phone Valery Espinoza MD Primary Care Provider [phone] Allergies Active Allergy Reactions Criticality Noted Date [...] Patient is currently receiving some assistance from [employer] [facility], including help with medications and transportation to [...] will try another medication. COPD without exacerbation ([facility]) 09/11/2022 Assessment & Plan (10/21/2024 12:16 PM EDT): - Continue Symbicort inhaler, 2 puffs twice daily - Prescribe spacer device to improve medication delivery - Sent to patient's pharmacy with instructions for daily use - Educate patient on proper inhaler technique - Recommend visit to pharmacy for technique assessment - Consider referral to supervisor press room for further evaluation and management - Advise [...] (08/13/2022): 2007 colonoscopy History of substance abuse ([facility]) 01/25/2019 Overview (08/13/2022): Hx use of cocaine. Hiatal hernia 01/25/2019 Overview (08/13/2022): Reducible assoc w/ GERD, barium swallow 07/2009 [facility]. History of bilateral hip replacements 01/25/2019 [...] family to request portal password reset at motel front desk clerk to maintain access to patient's medical information Assessment & Plan (03/11/2024 7:55 PM EDT): Ordering lab work for TSH and referral to Neurology for further evaluation. Encounters Date Type Department Care Team Description 05/10/2025 Telephone [facility] [address] [place] [address] Calin Ocampo DMD 04/29/2025 Telephone [facility] [address] [place] [address] ManancherieCalin, DMD 04/29/2025 Results Follow-Up [facility] [address] [place] [address] Valery Espinoza MD US Renal Complete 04/29/2025 Orders Only [facility] [address] [place] [address] Valery Espinoza MD 04/28/2025 Telephone [facility] [address] [place], [place] [phone] Valery Espinoza MD 04/28/2025 Patient Outreach [facility] [address] [place] [address] Valery Espinoza MD Care Coordination (CHW outreach for SDOH housing search-no answer LVM ) 04/28/2025 Refill [facility] [address] [place] [phone] Valery Espinoza MD 04/27/2025 11:30 AM EST Office Visit [facility] [address] [place] [address] Valery Espinoza MD Vascular dementia with other behavioral disturbance, unspecified dementia severity (CMS/HCC) (HCC) (Primary Dx); AD (Alzheimer's disease) (HCC); Encounter for immunization 04/27/2025 Telephone [facility] [address] [place] [address] Valery Espinoza MD 04/27/2025 Travel 04/26/2025 Telephone [facility] [address] [place] [address] Valery Espinoza MD Chart Prep 04/19/2025 Telephone [facility] [address] [place] [address] Valery Espinoza MD Chart Prep 04/15/2025 Results Follow-Up [facility] [address] [place] [address] Valery Espinoza MD Basic Metabolic Panel, Basic Metabolic Panel, Basic Metabolic Panel, Osmolality, Serum 04/14/2025 11:15 AM EDT Office Visit [facility] [address] [place] [address] Valery Espinoza MD COPD without exacerbation (CMS/HCC) (HCC) (Primary Dx); Dizziness of unknown etiology; JAY (acute kidney injury) 04/14/2025 Travel 04/13/2025 Telephone [facility] [address] [place] [address] Valery Espinoza MD chart prep 03/03/2025 Results Follow-Up [facility] [address] [place] [address] Valery Espinoza MD XR Lumbar Spine Complete 4+ Views 03/02/2025 3:20 PM EDT Office Visit [facility] [address] [place] [address] Vasquez Whitley MD Acute midline low back pain without sciatica (Primary Dx) 03/02/2025 Travel 02/25/2025 Telephone [facility] [address] [place] [address] Valery Espinoza MD Appointment Request 02/08/2025 Telephone [facility] [address] [place] [address] Valery Espinoza MD chart prep from Last [...] 05/13/2025 1:00 PM EST Office Visit [facility] [address] [place] [address] Valery Espinoza MD [address] [place] [address] 07/15/2025 9:00 AM EST Office Visit [facility] [address] [place] [address] ZayLeonor patel, OD [address] [place] [address] Health Maintenance Due Date Last Done Comments [...] Procedure Name Priority Date/Time Associated Diagnosis Comments US RENAL COMPLETE Routine 04/29/2025 1:2 9 PM EST URINALYSIS WITH REFLEX MICROSCOPIC Routine 04/29/2025 8:12 AM EST JAY (acute kidney injury) CREATININE, RANDOM URINE Routine 04/29/2025 8:12 AM EST JAY (acute kidney injury) SODIUM W/O CREATININE, RANDOM URINE Routine 04/29/2025 8:12 AM EST JAY (acute kidney injury) OSMOLALITY (SERUM) Routine 04/28/2025 1: 04 PM [...] Recently Relevant to Health Maintenance Results * US Renal Complete (04/29/2025 1:29 PM EST) Anatomical Region Laterality Modality Kidney Ultrasound 04/29/2025 1:29 PM EST Narrative 04/29/2025 2:07 PM EST [facility] [address] [place] [address] [place] [address] Ultrasound Report Signed Patient: Yamil Hurt MR#: [id number] 4 : 1945 Acct:[id number] Age/Sex: 79 / M ADM Date: 04/29/25 Loc: HO.HMGCX Attending Dr: Valery Espinoza MD Ordering Physician: Valery Espinoza MD Date of Service: 04/29/25 Procedure(s): US renal BI Accession Number(s): [id number] cc: Valery Espinoza MD Reason for Exam: JAY EXAMINATION: US KIDNEY BILATERAL HISTORY: JAY TECHNIQUE: Real-time grayscale ultrasound imaging of the kidneys was performed and images were reviewed. COMPARISON: Correlation is made with an unenhanced CT of the abdomen dated 03/23/2023. FINDINGS: Right kidney: The right kidney measures 9.8 x 4.6 x 4.2 cm. Renal parenchymal echotexture and thickness are normal. There is a 7 x 5 x 5 mm upper pole cyst. There is no hydronephrosis or renal calculi. Left Kidney: The left kidney measures 10.3 x 4.3 x 4.2 cm. Renal parenchymal echotexture and thickness are normal. There is a 4 x 3 x 5 mm lower pole cyst. A subtle 1.4 x 1.2 x 1.1 cm slightly hyperechoic focus is seen in the interpolar region. This could represent a hypertrophied column of Jaxson or possibly a mass. There is no hydronephrosis or renal calculi. US/US renal BI IMPRESSION: 1.4 x 1.2 x 1.1 cm slightly hyperechoic focus in the interpolar region of the left kidney. This could represent a hypertrophied column of Jaxson or possibly a mass. A follow-up renal ultrasound is recommended in 6 months. Electronically signed by: Dominic Albrecht MD 04/29/2025 02:05 PM EST Dictated By: Dominic Albrecht MD Signed By: <Electronically signed by Dominic Albrecht MD in OV> 04/29/25 1405 DD/ 1329 TD/TT: 04/29/25 1356 Hot Wire Glass Tube Cutter: Procedure Note Donotuseinterpreter, Image - 04/29/2025 [facility] [address] [place] [address] [place] [address] Ultrasound Report Signed Patient: Katharina Hurt#: [id number] 4 : 1945cct:[id number] Age/Sex: 79 / MADM Date: 04/29/25 Loc: HO.HMGCX Attending Dr: Valery Espinoza MD Ordering Physician: Valery Espinoza MD Date of Service: 04/29/25 Procedure(s): US renal BI Accession Number(s): [id number] cc: Valery Espinoza MD Reason for Exam: JAY EXAMINATION: US KIDNEY BILATERAL HISTORY: JAY TECHNIQUE: Real-time grayscale ultrasound imaging of the kidneys was performed and images were reviewed. COMPARISON: Correlation is made with an unenhanced CT of the abdomen dated 03/23/2023. FINDINGS: Right kidney: The right kidney measures 9.8 x 4.6 x 4.2 cm. Renal parenchymal echotexture and thickness are normal. There is a 7 x 5 x 5 mm upper pole cyst. There is no hydronephrosis or renal calculi. Left Kidney: The left kidney measures 10.3 x 4.3 x 4.2 cm. Renal parenchymal echotexture and thickness are normal. There is a 4 x 3 x 5 mm lower pole cyst. A subtle 1.4 x 1.2 x 1.1 cm slightly hyperechoic focus is seen in the interpolar region. This could represent a hypertrophied column of Jaxson or possibly a mass. There is no hydronephrosis or renal calculi. US/US renal BI IMPRESSION: 1.4 x 1.2 x 1.1 cm slightly hyperechoic focus in the interpolar region of the left kidney. This could represent a hypertrophied column of Jaxson or possibly a mass. A follow-up renal ultrasound is recommended in 6 months. Electronically signed by: Dominic Albrecht MD 04/29/2025 02:05 PM EST Dictated By: Dominic Albrecht MD Signed By: <Electronically signed by Dominic Albrecht MD in OV> 04/29/25 1405 DD/ 1329 TD/TT: 04/29/25 1356 Hot Wire Glass Tube Cutter: us Valery Espinoza MD IMG US PROCEDURES Final Resul t * Sodium Without creatinine, Random Urine (04/29/2025 8:12 AM EST) Sodium Urine Random 51.0 mmol/L [facility] Urine Urine specimen obtained by clean catch procedure / Unknown 04/29/2025 8:12 AM EST 04/29/2025 2:25 PM EST us Valery Espinoza MD LAB BLOOD ORDERABLES Final Re sult [facility] [address] [place] [phone] * Creatinine, Random Urine (04/29/2025 8:12 AM EST) Creatinine, Urine 72.67 mg/dL [facility] Urine (Urine, Random) 04/29/2025 8:12 AM EST 04/29/2025 2:25 PM EST us Valery Espinoza MD LAB URINE ORDERABLES Final Re sult Performing Organization Address [facility] Co de Phone Number [facility] [address] [place] [phone] * Urinalysis with reflex microscopic (04/29/2025 8:12 AM EST) Color Urine Yellow [facility] Appearance Urine Clear [facility] PH 5.5 5.0 - 9.0 [facility] Glucose Urine UA Negative Negative mg/dL [facility] Urine Blood Negative Negative [facility] Specific [place] - Urine 1.010 1.005 - 1.025 [facility] Urine Protein Negative Neg-Trace mg/dL [facility] Urine Ketones Negative Negative mg/dL [facility] Nitrite Urine Negative Negative [facility] Leukocyte Esterase Urine Negative Negative [facility] Urine (Urine, Random) 04/29/2025 8:12 AM EST 04/29/2025 2:25 PM EST Narrative [facility] - 04/29/2025 2:35 PM EST [id number], Clean Catch us Valery Espinoza MD LAB URINE ORDERABLES Final Re sult Performing Organization Address [facility] Co de Phone Number [facility] [address] [place] [phone] * Osmolality, Serum (04/28/2025 1:04 PM EST) Osmolality (Serum) 303 281 - 305 mosm/kg [facility] Blood Venous blood specimen / Unknown 04/28/2025 1:04 PM EST 04/28/2025 2:02 PM EST us Valery Espinoza MD LAB BLOOD ORDERABLES Final Re sult Performing Organization Address [facility] Co de Phone Number [facility] [address] [place] [address] [phone] * (ABNORMAL) Basic Metabolic Panel (04/28/2025 1:04 PM EST) Only the most recent of3 resultswithin the time period is included. Sodium 142 135 - 145 mmol/L [facility] Potassium 4.3 3.3 - 5.1 mmol/L [facility] Chloride 112(H) 96 - 108 mmol/L [facility] Carbon Dioxide 23 22 - 29 mmol/L [facility] Anion Gap 11(L) 12 - 20 [facility] Urea Nitrogen (BUN) 19(H) 9 - 16 mg/dL [facility] Creatinine, Serum 1.42(H) 0.5 - 1.4 mg/dL [facility] Estimated Glomerular Filt Rate 48 [facility] Comment:Chronic Kidney Disea se: Estimated GFR < 60 mL/min/1.35x9Zjeimk Kidney Disease: Estimated GFR < 15 mL/min/1.73m2 Glucose 80 60 - 115 mg/dL [facility] Calcium 9.4 8.4 - 10.2 mg/dL [facility] Blood Venous blood specimen / Unknown 04/28/2025 1:04 PM EST 04/28/2025 2:02 PM EST us Valery Espinoza MD LAB BLOOD ORDERABLES Final Re sult [facility] [address] [place] [phone] * XR Lumbar Spine Complete 4+ Views (03/02/2025) Anatomical Region Laterality Modality Spine, L-spine Radiographic Dana ging us Vasquez Whitley MD IMG XR PROCEDURES Final Res ult * (ABNORMAL) Lipid Panel, Standard (09/18/2023 11:24 AM EDT) Triglycerides 191(H) <150 mg/dL [facility] Comment:Desirable Triglyceri de: less than 150 mg/dLBorderline High Triglyceride 150-199 mg/dLHigh Triglyceride: 200-499 mg/dLVery High Triglyceride: greater than or equal to 5OO mg/dL Cholesterol 120 <200 mg/dL [facility] Comment:Desirable Cholestero l: less than 200 mg/dLBorderline High Cholesterol: 200-239 mg/dLHigh Cholesterol: greater than 239 mg/dL LDL Cholesterol Calculated 40 <100 mg/dL [facility] Comment:Desirable LDL: less than 100 mg/dLNear Optimal/Above Optimal LDL: 110- 129 mg/dLBorderline High LDL: 130-159 mg/dLHigh LDL: 160-189 mg/dLVery High LDL: greater than or equal to 190 mg/dL HDL Cholesterol 42 >40 mg/dL [facility] Comment:Desirable HDL: great er than 40 mg/dL Note: This HDL assay may give artificially low results in patients with liver disease. Blood Venous blood specimen / Unknown 09/18/2023 11:24 AM EDT 09/18/2023 11:24 AM EDT Valery Espinoza MD LAB BLOOD ORDERABLES Final Re sult [facility] [address] [place] [phone] * Colonoscopy (10/18/2018) Colonoscopy performed Historical Provider HEALTH MAINTENANCE Final Result from Last 3 Months or Most Recently Relevant to Health Maintenance Insurance 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
--- OUTSIDE RECORDS SUMMARY | 2025-05-11 07:41 | XMS_ITS | Encounter Summary ---
Author Organization [employer] Address [address] [place] [address] [address] [place] [address] Care Team Providers Care Cashier Office Name Role Phone Valery Espinoza MD Primary Care Provider [phone] Reason for Visit * Reason Onset Date Comments Med Refill 04/12/2024 Encounter Details Date Type Department Care Team (Late st Contact Info) Description 04/12/2024 Telephone [facility] [address] [place] [address] Valery Espinoza MD [address] [place] [address] Med Refill Social History Tobacco Use Types [...] be sent to: [facility] [address] [facility] [place] [address] documented in this encounter Plan of Treatment Upcoming Encounters Date Type Department Care Team (Late st Contact Info) Description 05/13/2025 1:00 PM EST Office Visit [facility] [address] [place] [address] Valery Espinoza MD [address] [place] [address] 07/15/2025 9:00 AM EST Office Visit [facility] [address] [place] [address] Zay, Leonor, OD [address] [place] [address] documented as of this encounter Visit Diagnoses Not on filedocumented in this encounter Additional Health Concerns Assessment Noted Time PHQ-9 Depression Total Score: 2 04/25/20 23 9:44 AM EDT documented as of this encounter Care Teams Cashier Office Relationship Specialty Start Date End Date Valery Espinoza MD [address] [place] [address] PCP - General Family Medicine 09/14/21 Antoine Billings MD Occupational Health Technician 04/24/23 documented as of this encounter
--- OUTSIDE RECORDS SUMMARY | 2025-05-11 07:41 | XMS_ITS | Encounter Summary ---
Author Organization [employer] Address [address] [place] [address] [address] [place] [address] Care Team Providers Care Level Vial Sealer Name Role Phone Valery Espinoza MD Primary Care Provider [phone] Reason for Visit * Reason Comments Med Refill Encounter Details Date Type Department Care Team ([facility] st Contact Info) Description 07/31/2023 Refill [facility] [address] [place], [place] [phone] Valery Espinoza MD [address] [place] [address] Social History Tobacco Use Types Packs/Day Years [...] Description 05/13/2025 1:00 PM EST Office Visit [facility] [address] [place] [address] Valery Espinoza MD [address] [place] [address] 07/15/2025 9:00 AM EST Office Visit [facility] [address] [place] [address] Leonor Collazo, OD [address] [place] [address] documented as of this encounter Visit Diagnoses Not on filedocumented in this encounter Additional Health Concerns Assessment Noted Time PHQ-9 Depression Total Score: 2 04/25/20 23 9:44 AM EDT documented as of this encounter Care Teams Level Vial Sealer Relationship Specialty Start Date End Date Valery Espinoza MD [address] [place] [address] PCP - General Family Medicine 09/14/21 Antoine Billings MD B2B Sales Consultant 04/24/23 documented as of this encounter
--- OUTSIDE RECORDS SUMMARY | 2025-05-11 07:41 | XMS_ITS | Encounter Summary ---
Author Organization [employer] Address [address] [place] [address] [address] [place] [address] Care Team Providers Care Roving Changer Name Role Phone Valery Espinoza MD Primary Care Provider [phone] Reason for Visit * Reason Onset Date Comments Med Refill 02/14/2023 Encounter Details Date Type Department Care Team ([facility] st Contact Info) Description 02/14/2023 Telephone [facility] [address] [place], [place] [phone] Valery Espinoza MD [address] [place] [address] Med Refill Social History Tobacco Use Types [...] PM EDT Tacrolimus was sent to [facility][id number] on 02/11/23 with 1 refill and Losartan [...] Office Visit [facility] [address] [place] [address] Valery Espinoza MD [address] [place] [address] 07/15/2025 9:00 AM EST Office Visit [facility] [address] [place] [address] Leonor Collazo, OD [address] [place] [address] documented as of this encounter Visit Diagnoses Not on filedocumented in this encounter Care Teams Roving Changer Relationship Specialty Start Date End Date Valery Espinoza MD [address] [place] [address] PCP - General Family Medicine 09/14/21 Antoine Billings MD Fiberglass Pipe Covering Supervisor 04/24/23 documented as of this encounter
--- OUTSIDE RECORDS SUMMARY | 2025-05-11 07:41 | XMS_ITS | Encounter Summary ---
Author Organization [employer] Address [address] [place] [address] [address] [place] [address] Care Team Providers Care Linen Keeper Name Role Phone Valery Espinoza MD Primary Care Provider [phone] Reason for Visit * Reason Onset Date Comments Referral 10/21/2022 Encounter Details Date Type Department Care Team ([facility] st Contact Info) Description 10/21/2022 Telephone [facility] [address] [place], [place] [phone] Valery Espinoza MD [address] [place] [address] Referral Social History Tobacco Use Types Packs/Day [...] Podiatry on 09/11/2022. Please contact pt at [phone] * Telephone Encounter - Shira Mortensen - 10/21/2022 11:17 AM EDT Tc from pt requesting status on referral made for Podiatry on 09/11/2022. Please contact pt at [phone] documented in this encounter Plan of Treatment Upcoming Encounters Date Type Department Care Team (Late st Contact Info) Description 05/13/2025 1:00 PM EST Office Visit [facility]EDS [address] [place] [address] Valery Espinoza MD [address] [place] [address] 07/15/2025 9:00 AM EST Office Visit [facility] OPT[facility] [address] [place] [address] Leonor Collazo, OD [address] [place] [address] documented as of this encounter Visit Diagnoses Not on filedocumented in this encounter Care Teams Linen Keeper Relationship Specialty Start Date End Date Valery Espinoza MD [address] [place] [address] PCP - General Family Medicine 09/14/21 Antoine Billings MD Policy Service Coordinator 04/24/23 documented as of this encounter
--- OUTSIDE RECORDS SUMMARY | 2025-05-11 07:41 | XMS_ITS | Encounter Summary ---
Author Organization [employer] Address [address] [facility] [address] [place] [address] Care Team Providers Care B Operator Name Role Phone Valery Espinoza MD Primary Care Provider [phone] Encounter Details Date Type Department Care Team (Late st Contact Info) Description 04/12/2024 Telephone [facility] [address] [place] [address] Valery Espinoza MD [address] [place], [place] [phone] Social History Tobacco Use Types Packs/Day Years [...] the past 12 months, has t he [email or web address], gas, oil or water company threatened to [...] Description 05/13/2025 1:00 PM EST Office Visit [facility] PEDS [address] [place] [address] Valery Espinoza MD [address] [place] [address] 07/15/2025 9:00 AM EST Office Visit [facility] OPTOMETRY [address] [place] [address] Zay, Leonor, OD [address] [place] [address] documented as of this encounter Visit Diagnoses Not on filedocumented in this encounter Additional Health Concerns Assessment Noted Time PHQ-9 Depression Total Score: 2 04/25/20 23 9:44 AM EDT documented as of this encounter Care Teams B Operator Relationship Specialty Start Date End Date Valery Espinoza MD [address] [place] [address] PCP - General Family Medicine 09/14/21 Antoine Billings MD Visual Basic .Net Developer 04/24/23 documented as of this encounter
--- OUTSIDE RECORDS SUMMARY | 2025-05-11 07:41 | XMS_ITS | Encounter Summary ---
Author Organization [employer] Address [address] [place] [address] 7t [place] [address] Care Team Providers Care Assistant Professor Of Physics Name Role Phone Valery Espinoza MD Primary Care Provider [phone] Reason for Referral * Imaging (Routine) - Closed Specialty Diagnoses / Procedures Referred By Contac t Referred To Contact Radiology Diagnoses Abnormal renal ultrasound Procedures US RENAL BI Valery Espinoza MD [address] [place] [address] Phone: tel: fax: [address] Phone: tel: fax: Referral ID Status Reason Start Date Expiration Date Visits Re quested Visits Authorized [id number] Closed 04/29/2025 04/29/2026 1 1 Encounter Details Date Type Department Care Team ([facility] st Contact Info) Description 04/29/2025 Results Follow-Up [facility] CHC MED & PEDS [address] [place], [place] [phone] Valery Espinoza MD [address] [place], [place] [phone] US Renal Complete Social History Tobacco Use Types Packs/Day Years [...] Upcoming Encounters Date Type Department Care Team ([facility] Contact Info) Description 05/13/2025 1:00 PM EST Office Visit [facility] MED & PEDS [address] [place] [address] Valery Espinoza MD [address] [place] [address] 07/15/2025 9:00 AM EST Office Visit [facility] OPTOMETRY [address] [place] [address] ZayLeonor patel, OD [address] [place] [address] Scheduled Orders Name Type Priority Associated Diagnoses Orde r Schedule US RENAL BI Imaging Routine Abnormal renal ultrasound Expected: 10/27/2025, Expires: 04/29/2026 documented as of this encounter Visit Diagnoses Diagnosis Abnormal renal ultrasound- Primary documented in this encounter Additional Health Concerns Assessment Noted Time PHQ-9 Depression Total Score: 0 10/22/19 11:28 AM EDT documented as of this encounter Care Teams Assistant Professor Of Physics Relationship Specialty Start Date End Date Valery Espinoza MD [address] [place] [address] PCP - General Family Medicine 09/14/21 Antoine Billings MD Animal Husbandry Worker 04/24/23 documented as of this encounter
--- OUTSIDE RECORDS SUMMARY | 2025-05-11 07:42 | XMS_ITS | Encounter Summary ---
Author Organization [employer] Address [address] [place] [address] 7t [place] [address] Care Team Providers Care Leasing Specialist Name Role Phone Valery Espinoza MD Primary Care Provider [phone] Reason for Visit * Reason Comments Med Refill Encounter Details Date Type Department Care Team ([facility] Contact Info) Description 05/24/2024 Refill [facility] CHC MED & PEDS [address] [place], [place] [phone] Valery Espinoza MD [address] [place] [address] Social History Tobacco Use Types Packs/Day Years [...] Description 05/13/2025 1:00 PM EST Office Visit [facility] CHC MED & PEDS [address] [place] [address] Valery Espinoza MD [address] [place] [address] 07/15/2025 9:00 AM EST Office Visit [facility] OPTOMETRY [address] [place] [address] Zay, Leonor, OD [address] [place] [address] documented as of this encounter Visit Diagnoses Not on filedocumented in this encounter Additional Health Concerns Assessment Noted Time PHQ-9 Depression Total Score: 2 04/25/20 23 9:44 AM EDT documented as of this encounter Care Teams Leasing Specialist Relationship Specialty Start Date End Date Valery Espinoza MD [address] [place] [address] PCP - General Family Medicine 09/14/21 Antoine Billings MD Freezer Machine Operator 04/24/23 documented as of this encounter
--- OUTSIDE RECORDS SUMMARY | 2025-05-11 07:42 | XMS_ITS | Encounter Summary ---
Author Organization [employer] Address [address] [facility] 7t [place] [address] Care Team Providers Care Signal Apprentice Name Role Phone Valery Espinoza MD Primary Care Provider [phone] Encounter Details Date Type Department Care Team (Late st Contact Info) Description 07/01/2024 Telephone [facility] MEDICINE [address] [place] [address] Valery Espinoza MD [address] [place], [place] [phone] Social History Tobacco Use Types Packs/Day Years [...] the past 12 months, has t he [employer] gas, oil or water company threatened to [...] Description 05/13/2025 1:00 PM EST Office Visit [facility] CHC MED & PEDS [address] [place] [address] Valery Espinoza MD [address] [place] [address] 07/15/2025 9:00 AM EST Office Visit [facility] OPTOMETRY [address] [place] [address] Zay, Leonor, OD [address] [place] [address] documented as of this encounter Visit Diagnoses Not on filedocumented in this encounter Additional Health Concerns Assessment Noted Time PHQ-9 Depression Total Score: 2 04/25/20 23 9:44 AM EDT documented as of this encounter Care Teams Signal Apprentice Relationship Specialty Start Date End Date Valery Espinoza MD [address] [place] [address] PCP - General Family Medicine 09/14/21 Antoine Billings MD Drying Frame Operator 04/24/23 documented as of this encounter
--- OUTSIDE RECORDS SUMMARY | 2025-05-11 07:42 | XMS_ITS | Encounter Summary ---
Author Organization [employer] Address [address] [place] [address] 7t [place] [address] Care Team Providers Care Design Eng Name Role Phone Valery Espinoza MD Primary Care Provider [phone] Reason for Visit * Reason Onset Date Comments Referral 08/19/2024 Encounter Details Date Type Department Care Team (Late st Contact Info) Description 08/19/2024 Telephone [facility] MEDICINE [address] [place] [address] Valery Espinoza MD [address] [place] [address] Referral Social History Tobacco Use Types Packs/Day [...] neurology visit if it did occur in [facility] or [facility] chart. No answer, left message to call back. * Telephone Encounter - Weston Torres - 08/19/2024 12:36 PM EST TC from pt Daughter requesting Referral for Neurology for [facility]. Contact pt Daughter at [phone] documented in this encounter Plan of Treatment Upcoming Encounters Date Type Department Care Team (Late st Contact Info) Description 05/13/2025 1:00 PM EST Office Visit [facility] MED & PEDS [address] [place], [place] [phone] Valery Espinoza MD [address] [place] [address] 07/15/2025 9:00 AM EST Office Visit [facility] OPTOMETRY [address] [place] [address] Zay Leonor, OD [address] [place] [address] documented as of this encounter Visit Diagnoses Not on filedocumented in this encounter Additional Health Concerns Assessment Noted Time PHQ-9 Depression Total Score: 2 04/25/20 9:44 AM EDT documented as of this encounter Care Teams Design Eng Relationship Specialty Start Date End Date Valery Espinoza MD [address] [place] [address] PCP - General Family Medicine 09/14/21 Antoine Billings MD Sample Builder 04/24/23 documented as of this encounter
--- OUTSIDE RECORDS SUMMARY | 2025-05-11 07:42 | XMS_ITS | Encounter Summary ---
Author Organization [employer] Address [address] [place] [address] 7t [place] [address] Care Team Providers Care Acoustic Intelligence Specialist Name Role Phone Valery Espinoza MD Primary Care Provider [phone] Reason for Visit * Reason Onset Date Comments Med Refill 10/12/2024 Encounter Details Date Type Department Care Team (Late st Contact Info) Description 10/12/2024 Telephone [facility] MEDICINE [address] [place] [address] Valery Espinoza MD [address] [place] [address] Med Refill Social History Tobacco Use Types [...] 11:49 AM EDT Scripts were sent to [facility] on 09/29/24 with 11 refills. * Telephone Encounter - Weston Torres - 10/12/2024 11:32 AM EDT TC from pt requesting medication refill. Medications needing refill : ezetimibe (Zetia) 10 MG tablet rosuvastatin (Crestor) 40 MG tablet To be sent to: [facility] ([place]) - [facility] [place] - [address] [place] [address] documented in this encounter Plan of Treatment Upcoming Encounters Date Type Department Care Team (Late st Contact Info) Description 05/13/2025 1:00 PM EST Office Visit [facility] MED [facility]EDS [address] [place] [address] Valery Espinoza MD [address] [place] [address] 07/15/2025 9:00 AM EST Office Visit [facility] OPTOMETRY [address] [place] [address] ZayMitch pateln, OD [address] [place] [address] documented as of this encounter Visit Diagnoses Not on filedocumented in this encounter Additional Health Concerns Assessment Noted Time PHQ-9 Depression Total Score: 2 04/25/20 23 9:44 AM EDT documented as of this encounter Care Teams Acoustic Intelligence Specialist Relationship Specialty Start Date End Date Valery Espinoza MD [address] [place] [address] PCP - General Family Medicine 09/14/21 Antoine Billings MD Licensed Clinician 04/24/23 documented as of this encounter
--- OUTSIDE RECORDS SUMMARY | 2025-05-11 07:43 | XMS_ITS | Encounter Summary ---
Author Organization [employer] Address [address] [place] [address] 7t [place] [address] Care Team Providers Care Production Support Engineer Name Role Phone Valery Espinoza MD Primary Care Provider [phone] Encounter Details Date Type Department Care Team (Late st Contact Info) Description 05/10/2025 Telephone [facility] ADULT DENTAL [address] [place], [place] [phone] Calin Ocampo, DMD [address] [place] [address] Social History Tobacco Use Types Packs/Day Years [...] encounter Miscellaneous Notes * Telephone Encounter - Jim Sánchez - 05/10/2025 1:32 PM EST Patient Not interested in scheduling any appointments . documented in this encounter Plan of Treatment Upcoming Encounters Date Type Department Care Team (Late st Contact Info) Description 05/13/2025 1:00 PM EST Office Visit [facility] CHC MED & PEDS [address] [place] [address] Valery Espinoza MD [address] [place] [address] 07/15/2025 9:00 AM EST Office Visit [facility] OPTOMETRY [address] [place] [address] Leonor Collazo, OD [address] [place] [address] documented as of this encounter Visit Diagnoses Not on filedocumented in this encounter Additional Health Concerns Assessment Noted Time PHQ-9 Depression Total Score: 0 10/22/19 25 11:28 AM EDT documented as of this encounter Care Teams Production Support Engineer Relationship Specialty Start Date End Date Valery Espinoza MD [address] [place] [address] PCP - General Family Medicine 09/14/21 Antoine Billings MD Fisher Eel 04/24/23 documented as of this encounter
== END 2025-05-10 14:25 | disposition home or self-care (01) ==
LOC: HO.HKA 13:53
PROVIDERS: PCP Family Medicine; Referring Provider Family Medicine; Visit Provider Internal Medicine Hypertension Specialist
DX: N18.9 Chronic kidney disease, unspecified (principal)
CPT/HCPCS: 99204

== ENCOUNTER → 2025-05-10 13:53 | Outpatient (BNVA) | payer MEDICARE, SELFPAY | PROVIDERS: PCP Family Medicine; Referring Provider Family Medicine; Visit Provider Internal Medicine Hypertension Specialist | DX: N17.9 Acute kidney failure, unspecified (principal); I12.9 Hypertensive chronic kidney disease with stage 1 through stage 4 chronic kidney disease, or unspecified chronic kidney disease; E11.22 Type 2 diabetes mellitus with diabetic chronic kidney disease; N18.9 Chronic kidney disease, unspecified; Z87.891 Personal history of nicotine dependence; Z79.84 Long term (current) use of oral hypoglycemic drugs; Z09 Encounter for follow-up examination after completed treatment for conditions other than malignant neoplasm; R05.3 Chronic cough | CPT/HCPCS: 99202 ==

== ENCOUNTER 2025-05-27 14:46 | Outpatient (REF) | payer MEDICARE, SELFPAY ==
[2025-05-27 16:19] LABS: Hematocrit 48.9 % (42.0-52.0); Hemoglobin 15.8 g/dl (14.0-18.0); Mean Corpuscular HGB Conc 32.3 g/dl (31.0-36.0); Mean Corpuscular Hemoglobin 29.0 pg (27.0-33.0); Mean Corpuscular Volume 89.7 fL (80.0-98.0); NRBC Abs Auto 0.000 X10*3/uL (0.0-0.012); NRBC Pct Auto 0.0 /100WBC (0.0-0.2); Platelet Count 323 X10*3/uL (160-400); Red Blood Count 5.45 X10*6/uL (4.60-5.80); White Blood Count 9.9 X10*3/uL (4.8-10.8)
[2025-05-27 17:29] LABS: Anion Gap 12 (12-20); Blood Urea Nitrogen 19 mg/dL (9-16); Calcium 9.5 mg/dL (8.4-10.2); Carbon Dioxide 23 mmol/L (22-29); Chloride 113 mmol/L (96-108); Estimated Glomerular Filt Rate 46; Potassium 4.5 mmol/L (3.3-5.1); Sodium 143 mmol/L (135-145)
== END 2025-05-27 14:47 | disposition home or self-care (01) ==
LOC: HO.LAB 14:46
PROVIDERS: PCP Family Medicine; Visit Provider Internal Medicine Hypertension Specialist
DX: I12.9 Hypertensive chronic kidney disease with stage 1 through stage 4 chronic kidney disease, or unspecified chronic kidney disease (principal); N18.9 Chronic kidney disease, unspecified; Z87.891 Personal history of nicotine dependence; Z79.899 Other long term (current) drug therapy
CPT/HCPCS: 36415; 80048; 85027; 99212

== ENCOUNTER 2025-05-27 14:46 | Outpatient (AMB) | payer MEDICARE, SELFPAY ==
[2025-05-27 15:08] VITALS: BP 110/64; PULSE 91; O2SAT 98; BMI 22.4
--- NOTE | 2025-05-27 15:08 | HO.NEPHOV ---
Vital Signs 05/27/25 15:08 Height 5 ft 9 in Weight 152 lb BMI 22.4 BP 110/64 Blood Pressure Location Lt brachial Position Sitting Pulse 91 Pulse Source Pulse Oximeter Pulse Oximetry (%) 98 Oxygen Delivery Method Room Air Intake Visit Reasons: 1 week f/u System Architect Required: No Accompanied by: Daughter Allergies cat dander (CAT) Allergy (Unknown, Verified 05/27/25 15:10) WATERY EYES dog dander (DOG) Allergy (Unknown, Verified 05/27/25 15:10) WATERY EYES DUST Allergy (Mild, Uncoded 12/12/23 12:13) WATER EYES GRASS Allergy (Unknown, Uncoded 12/12/23 12:13) WATERY EYES Medication List - Last Reconciled 05/27/25 by Jeffery Green MD aspirin 1 tab PO DAILY clobetasol 0.05% 1 appl topical Q OTHER DAY clopidogrel 75 mg PO DAILY codeine-guaifenesin 10-100 mg/5 mL (Guaifenesin AC) 5 mL PO Q4H PRN ezetimibe 10 mg PO DAILY fenofibrate 160 mg PO DAILY lidocaine 5% 1 patch topical DAILY losartan 25 mg PO DAILY memantine 10 mg PO BID montelukast 10 mg PO DAILY pantoprazole 40 mg PO DAILY PRN prednisone 20 mg PO DAILY rosuvastatin 40 mg PO DAILY temazepam 7.5 mg PO BEDTIME PRN terbinafine HCl 1% 1 appl topical BID tramadol 50 mg PO Q6-8H PRN HPI Comments Details: The patient is a 79-year-old male presenting for an evaluation of his kidney function. The patient was hospitalized approximately one month ago after an episode of syncope. The syncopal episode occurred while he was out playing pool; he felt the need to go to the bathroom and then passed out. During the hospitalization, he received intravenous fluids and his kidney function improved. Regarding his kidney health, blood tests from April 28 showed a kidney function of about 40-%, which was an improvement from a couple of weeks prior. A kidney ultrasound performed about 10 days ago was reportedly normal. A urinalysis was negative for protein and blood. The patient reports some trouble with urination and dizziness when he stands, but denies issues with elimination. Past medical history is significant for hypertension, diabetes, and heart problems, including a triple bypass in 2007. He also reports a chronic cough that has persisted for a couple of years and wakes him up at night. He is scheduled to see his quality internship tomorrow to receive a heart monitor for further evaluation. The patient's medication history is noted to be complex. He reports taking losartan 25 mg. He was previously on Celebrex for joint pain but has been advised to discontinue it and stopped taking metformin due to concerns about its effect on his kidneys. PCP reportedly told him to stop taking lisinopril last month 05/27/25 The patient is a 79 year old male presenting for follow-up for management of his chronic kidney disease. His kidney function has improved, with his last function noted to be at 48%. He reports adequate hydration. The patient's primary care provider discontinued his lisinopril, which was previously on hold. He notes his blood pressure was previously low, but has improved to 110/64 mmHg since stopping the medication. He continues to take losartan 25 mg. The patient no longer takes prednisone. Since his last visit, the patient experienced self-resolved diarrhea for a couple of days after eating chocolate and apple pie, which caused him to reschedule a prior appointment. He underwent heart testing and has a follow-up appointment on the to discuss the results. A recent renal ultrasound was normal with no evidence of blockage, and he denies any difficulty with urination. He denies the use of NSAIDs such as Aleve or Advil and uses Tylenol for pain. 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 Father No problems noted. Social History Household Members: Family Housing: Apartment Do you presently have visiting nurse or other home services: No Alcohol intake: former Patient Tobacco Use Status: Former Tobacco user Years Smoked: 41 years +/- Substance Use Type: Marijuana service: No Physical Exam Vital Signs: Last Vital Signs Pulse 91 05/27/25 15:08 BP 110/64 05/27/25 15:08 Pulse Ox 98 05/27/25 15:08 Oxygen Delivery Method Room Air 05/27/25 15:08 BMI result Body Mass Index 22.4 Comfortable Neck supple no JVD. Lungs entry equal no rales. Heart S1-S2 heard no gallop or rub. Abdomen soft nontender. Neuro alert awake oriented. No asterixis. Extremities no edema. Results Reviewed Nephrology Results: Hgb, (14.0-18.0) 15.8 g/dl 05/27/25 WBC, (4.8-10.8) 9.9 X10*3/uL 05/27/25 Plt Count, (160-400) 323 X10*3/uL Δ 05/27/25 Sodium, (135-145) 143 mmol/L 05/27/25 Potassium, (3.3-5.1) 4.5 mmol/L 05/27/25 Chloride, (96-108) 113 mmol/L H 05/27/25 Carbon Dioxide, (22-29) 23 mmol/L 05/27/25 BUN, (9-16) 19 mg/dL H 05/27/25 Creatinine, (0.5-1.4) 1.47 mg/dL H 05/27/25 Calcium, (8.4-10.2) 9.5 mg/dL 05/27/25 Urine Protein, (Neg-Trace) Negative mg/dL 04/29/25 Urine Creatinine 72.67 mg/dL 04/29/25 Renal US 04/29/25 Assessment & Plan Assessment & Plan (1) CKD (chronic kidney disease): Code(s): N18.9 - Chronic kidney disease, unspecified Category: Medical Plan JAY superimposed on CKD. JAY is most likely due to hypoperfusion from relative low blood pressure and volume depletion. After discontinuing Celebrex and placing lisinopril on hold renal function has improved significantly. Recent EGFR is about 48 mL/minute Recent ultrasonogram did not reveal any obstruction. Recent urine studies were benign without any significant proteinuria or hematuria. 2. Hypertension Blood pressure is well controlled Keep current medications Stay on low-sodium diet 3. Diarrhea - The patient had a recent, self-resolved episode of diarrhea after eating chocolate and apple pie. - The condition is resolved, and no further intervention is needed at this time. Orders: Orders Complete Blood Count no Diff 05/27/25 N18.9 - Chronic kidney disease, unspecified Basic Metabolic Panel 05/27/25 N18.9 - Chronic kidney disease, unspecified Coding Level of Care Code Est Pt Level 4 (37783) Diagnoses CKD (chronic kidney disease) N18.9
--- OUTSIDE RECORDS SUMMARY | 2025-05-27 18:52 | XMS_ITS | Encounter Summary ---
Author Organization [employer] Address [address] 7t [place] [address] Care Team Providers Care Tubing Machine Operator Name Role Phone Valery Espinoza MD Primary Care Provider [phone] Encounter Details Date Type Department Care Team ([facility] Contact Info) Description 04/12/2024 Telephone [facility] MEDICINE [address] [place] [address] Valery Espinoza MD [address] [place] [address] Social History Tobacco Use Types Packs/Day Years [...] Care Team (Late st Contact Info) Description 06/27/2025 1:00 PM EST Office Visit [facility] CHC MED & PEDS [address] [place] [address] Valery Espinoza MD [address] [place] [address] 07/15/2025 9:00 AM EST Office Visit [facility] OPTOMETRY [address] [place] [address] Zay, Leonor, OD [address] [place] [address] documented as of this encounter Visit Diagnoses Not on filedocumented in this encounter Additional Health Concerns Assessment Noted Time PHQ-9 Depression Total Score: 2 04/25/20 23 9:44 AM EDT documented as of this encounter Care Teams Tubing Machine Operator Relationship Specialty Start Date End Date Valery Espinoza MD [address] [place] [address] PCP - General Family Medicine 09/14/21 Antoine Billings MD Director Clinical Information Services 04/24/23 documented as of this encounter
--- OUTSIDE RECORDS SUMMARY | 2025-05-27 18:52 | XMS_ITS | Encounter Summary ---
Author Organization [employer] Address [address] 7t [place] [address] Care Team Providers Care Clinical Trial Manager Name Role Phone Valery Espinoza MD Primary Care Provider [phone] Reason for Visit * Reason Onset Date Comments Med Refill 04/12/2024 Encounter Details Date Type Department Care Team ([facility] st Contact Info) Description 04/12/2024 Telephone [facility] MEDICINE [address] [place] [address] Valery Espinoza MD [address] [place] [address] Med Refill Social History Tobacco Use Types [...] - 04/12/2024 12:58 PM EDT TC from [facility] requesting medication refill for pt and changing location for pickup. Medications needing refill : montelukast (Singulair) 10 MG tablet , temazepam (Restoril) 7.5 MG capsule , rosuvastatin (Crestor) 40 MG tablet To be sent to: [facility] [id number] [place] [address] documented in this encounter Plan of Treatment Upcoming Encounters Date Type Department Care Team (Late st Contact Info) Description 06/27/2025 1:00 PM EST Office Visit [facility] MED & PEDS [address] [place] [address] Valery Espinoza MD [address] [place] [address] 07/15/2025 9:00 AM EST Office Visit [facility] OPTOMETRY [address] [place] [address] ZayMitchn, OD [address] [place] [address] documented as of this encounter Visit Diagnoses Not on filedocumented in this encounter Additional Health Concerns Assessment Noted Time PHQ-9 Depression Total Score: 2 04/25/20 9:44 AM EDT documented as of this encounter Care Teams Clinical Trial Manager Relationship Specialty Start Date End Date Valery Espinoza MD [address] [place] [address] PCP - General Family Medicine 09/14/21 Antoine Billings MD Rib Cutter 04/24/23 documented as of this encounter
--- OUTSIDE RECORDS SUMMARY | 2025-05-27 18:52 | XMS_ITS | Encounter Summary ---
Author Organization [employer] Address [address] [place] [address] Care Team Providers Care Manager Sterile Name Role Phone Valery Espinoza MD Primary Care Provider [phone] Reason for Visit * Reason Onset Date Comments Referral 08/19/2024 Encounter Details Date Type Department Care Team ([facility] st Contact Info) Description 08/19/2024 Telephone [facility] MEDICINE [address] [place] [address] Valery Espinoza MD [address] [place] [address] Referral Social History Tobacco Use Types Packs/Day [...] the past 12 months, has t he [employer] gas, oil or water [employer] threatened to shut off services in your [...] neurology visit if it did occur in [facility] or [facility] chart. No answer, left message to call back. * Telephone Encounter - Weston Torres - 08/19/2024 12:36 PM EST TC from pt Daughter requesting Referral for Neurology for [facility]. Contact pt Daughter at [phone] documented in this encounter Plan of Treatment Upcoming Encounters Date Type Department Care Team ([facility] st Contact Info) Description 06/27/2025 1:00 PM EST Office Visit [facility] CHC MED & PEDS [address] [place] [address] Valery Espinoza MD [address] [place] [address] 07/15/2025 9:00 AM EST Office Visit [facility] OPTOMETRY [address] [place], [place] [phone] Leonor Collazo, OD [address] [place] [address] documented as of this encounter Visit Diagnoses Not on filedocumented in this encounter Additional Health Concerns Assessment Noted Time PHQ-9 Depression Total Score: 2 04/25/20 23 9:44 AM EDT documented as of this encounter Care Teams Manager Sterile Relationship Specialty Start Date End Date Valery Espinoza MD [address] [place] [address] PCP - General Family Medicine 09/14/21 Antoine Billings MD Stock Controller 04/24/23 documented as of this encounter
--- OUTSIDE RECORDS SUMMARY | 2025-05-27 18:52 | XMS_ITS | Clinical Summary ---
Author Organization [employer] Address [address] [facility] 7t [place] [address] Care Team Providers Care Grain Unloader Name Role Phone Valery Espinoza MD Primary Care Provider [phone] Allergies Active Allergy Reactions Criticality Noted Date Comments Cat Dander 11/20/2018 Dust Mite Extract 11/20/2018 Gramineae Pollens 03/18/2024 Morphine Unknown 04/25/2023 Vomiting Medications cetirizine (ZyrTEC) 10 MG tablet Take 1 tablet by mouth if needed each day. 022 Active nitroglycerin (Nitrostat) 0.4 MG SL tablet [...] FOR CHOLESTEROL 90 tablet 11 025 Active Spacer/Aero-Holdi ng Chambers deviceIndications :COPD without exacerbation (CMS/HCC) ([facility]) 1 Units 2 times daily. 1 Units 1 025 Active metoprolol succinate XL (Toprol XL) 25 MG 24 hr tablet Take 0.5 tablets (12.5 mg) by mouth Once per day. Do not crush or chew. 15 tablet 5 025 Active memantine (Namenda) 10 MG tablet TAKE ONE TABLET BY MOUTH TWICE DAILY AT 9AM & 5PM 025 Active pantoprazole (ProtoNix) 40 MG EC tablet TAKE ONE TABLET (40 MG) BY MOUTH EVERY DAY NEEDED FOR ACID REFLUX 90 tablet 3 025 Active Symbicort 160-4.5 MCG/ACT inhaler Inhale 2 puffs in the morning and at bedtime. Rinse mouth with water after use to reduce aftertaste and incidence of candidiasis. Do not swallow. 10.2 g 1 025 Active albuterol 108 (90 Base) MCG/ACT inhaler Inhale 2 puffs every 4 (four) hours if needed for shortness of breath or wheezing. 18 g 2 025 Active clotrimazole-beta methasone (Lotrisone) creamIndications: Stasis dermatitis of both legs Apply topically 2 times daily. 60 g 2 025 Active predniSONE (Deltasone) 50 MG tablet Take 1 tablet (50 mg) by mouth Once per day. 5 tablet 025 Active Magnesium 400 MG capsule Take 1 capsule by mouth at bedtime. 90 capsule 1 025 Active albuterol 108 (90 Base) MCG/ACT inhaler Inhale 2 puffs every 4 (four) hours if needed for shortness of breath or wheezing. 18 g 2 023 2024 Discontinued(R eorder (will not trigger notification to Pharmacy)) pantoprazole (ProtoNix) 40 MG EC tablet Take 1 tablet (40 mg) by mouth if needed each day (acid reflux). 90 tablet 1 025 2024 Discontinued Symbicort 160-4.5 MCG/ACT inhaler Inhale 2 puffs in the morning and at bedtime. Rinse mouth with water after use to reduce aftertaste and incidence of candidiasis. Do not swallow. 10.2 g 1 025 2024 Discontinued(R eorder (will not trigger notification to Pharmacy)) Active Problems Problem Noted Date Diagnosed Date Stasis dermatitis of both legs 05/13/2025 Dizziness of unknown etiology 04/14/2025 JAY (acute kidney injury) 04/14/2025 Loss of functional autonomy in activities of daily living (ADLs) 10/21/2024 Assessment & Plan (10/21/2024 12:19 PM EDT): Patient is currently receiving some assistance from [facility], including help with medications and transportation to [...] will try another medication. COPD without exacerbation ([facility]) 09/11/2022 Assessment & Plan (10/21/2024 12:16 PM EDT): - Continue Symbicort inhaler, 2 puffs twice daily - Prescribe spacer device to improve medication delivery - Sent to patient's pharmacy with instructions for daily use - Educate patient on proper inhaler technique - Recommend visit to pharmacy for technique assessment - Consider referral to hair rooting machine operator for further evaluation and management - Advise [...] (08/13/2022): 2007 colonoscopy History of substance abuse ([facility]) 01/25/2019 Overview (08/13/2022): Hx use of cocaine. Hiatal hernia 01/25/2019 Overview (08/13/2022): [facility]uc[facility] assoc w/ GERD, barium swallow 07/2009 [facility]. History of bilateral hip replacements 01/25/2019 Asthma [...] care assistance needs - Recommend changing primary impersonator character for appointment notifications to ensure family awareness - Advise family to request portal password reset at front desk admin to maintain access to patient's medical information Assessment & Plan (03/11/2024 7:55 PM EDT): Ordering lab work for TSH and referral to Neurology for further evaluation. Encounters Date Type Department Care Team Description 05/18/2025 Telephone [facility] [address] [place] [phone] Valery Espinoza MD 05/13/2025 1:00 PM EST Office Visit [facility] [address] [place] [address] Valery Espinoza MD Stasis dermatitis of both legs (Primary Dx); History of substance abuse (CMS/HCC) (HCC); Cramps of lower extremity 05/13/2025 Travel 05/10/2025 Telephone [facility] [address] [place] [address] Calin Ocampo DMD 04/29/2025 Telephone [facility] [address] [place] [address] Calin Ocampo, ISAIAS 04/29/2025 Results Follow-Up [facility] [address] [place] [address] Valeyr Espinoza MD US Renal Complete 04/29/2025 Orders Only [facility] [address] [place] [phone] Valery Espinoza MD 04/28/2025 Telephone [facility] [address] [place] [address] Valery Espinoza MD 04/28/2025 Patient Outreach [facility] [address] [place] [address] Valery Espinoza MD Care Coordination (CHW outreach for SDOH housing search-no answer LVM ) 04/28/2025 Refill [facility] [address] [place] [address] Valery Espinoza MD 04/27/2025 11:30 AM EST Office Visit [facility] [address] [place] [address] Valery Espinoza MD Vascular dementia with other behavioral disturbance, unspecified dementia severity (CMS/HCC) ([facility]) (Primary Dx); AD (Alzheimer's disease) (HCC); Encounter for immunization 04/27/2025 Telephone [facility] [address] [place] [address] Valery Espinoza MD 04/27/2025 Travel 04/26/2025 Telephone [facility] [address] [place] [address] Valery Espinoza MD Chart Prep 04/19/2025 Telephone [facility] [address] [place] [address] Valery Espinoza MD Chart Prep 04/15/2025 Results Follow-Up [facility] [address] [place] [address] Valery Espinoza MD Basic Metabolic Panel, Basic Metabolic Panel, Basic Metabolic Panel, Osmolality, Serum 04/14/2025 11:15 AM EDT Office Visit [facility] [address] [place] [address] Valery Espinoza MD COPD without exacerbation (CMS/HCC) (HCC) (Primary Dx); Dizziness of unknown etiology; JAY (acute kidney injury) 04/14/2025 Travel 04/13/2025 Telephone [facility] [address] [place] [address] Valery Espinoza MD chart prep 03/03/2025 Results Follow-Up [facility] [address] [place] [address] Valery Espinoza MD XR Lumbar Spine Complete 4+ Views 03/02/2025 3:20 PM EDT Office Visit [facility] [address] [place] [address] Vasquez Whitley MD Acute midline low back pain without sciatica (Primary Dx) 03/02/2025 Travel 02/25/2025 Telephone [facility] [address] [place] [address] Valery Espinoza MD Appointment Request from Last 3 Months Immunizations Immunization Administration [...] Sign Reading Time Taken Comments Blood Pressure 134/78 05/13/2025 1:14 PM EST Pulse 88 05/13/2025 1:14 PM EST Temperature 36.8 C (98.2 F) 05/13/2025 1:14 PM EST Respiratory Rate 20 05/13/2025 1:14 PM EST Oxygen Saturation 98% 05/13/2025 1:14 PM EST Inhaled Oxygen Concentration - - Weight 65.8 kg (145 lb) 05/13/2025 1:14 PM EST Height 170.2 cm (5' 7 ) 05/13/2025 1:14 PM EST Body Mass Index 22.71 05/13/2025 1:14 PM EST Plan of Treatment Upcoming Encounters Date Type Department Care Team (Late st Contact Info) Description 06/27/2025 1:00 PM EST Office Visit [facility] [address] [place], [place] [phone] Valery Espinoza MD [address] [place] [address] 07/15/2025 9:00 AM EST Office Visit [facility] [address] [place] [address] Leonor Collazo, OD [address] [place] [address] Health Maintenance Due Date Last Done Comments Dental Prophylaxis 1945 Hepatitis C Screening 1964 Zoster Vaccines (1 of 2) 1996 Dental X-Ray: Bitewings 11/25/2013 11/24/2012 Dental X-Ray: Full Mouth 05/13/2016 013, 11/24/2012 RSV Patients and Patients Aged 60 years or older (1 - 1-dose 75+ series) 2021 Dental Oral Exam 09/16/2024 03/18/2024, 05/12/2013, 11/24/2012 COVID-19 Vaccine (2024-2 6 season) 2025 06/13/2021, 11/02/2020, 10/12/2020 SDOH Screening 10/14/2025 10/14/2024 Alcohol/Substance Use Screening 10/21/2025 10/21/2024 DTaP/Tdap/Td Vaccines (1 - Tdap) 10/21/2025 01/28/2012, 01/28/2012, 11/10/2010 Postponed from 01/29/2012 (Patient Refused) Depression Screening 10/21/2025 10/21/2024, 10/21/2024 Tobacco Screening 05/13/2026 05/13/2025 Lipid Panel 09/17/2028 09/18/2023, 08/23/2022 Colonoscopy Discontinued [...] Associated Diagnosis Comments BASIC METABOLIC PANEL Routine 05/27/2025 3:40 PM EST CBC Routine 05/27/2025 3:40 PM EST US RENAL COMPLETE Routine 04/29/2025 1:2 9 [...] Recently Relevant to Health Maintenance Results * CBC (05/27/2025 3:40 PM EST) White Blood Count 9.9 4.8 - 10.8 X10*3/uL [facility] Red Blood Count 5.45 4.60 - 5.80 X10*6/uL [facility] Hemoglobin 15.8 14.0 - 18.0 g/dl [facility] Hematocrit 48.9 42.0 - 52.0 % [facility] Mean Corpuscular Volume 89.7 80.0 - 98.0 fL [facility] Mean Corpuscular Hemoglobin 29.0 27.0 - 33.0 pg [facility] Mean Corpuscular HGB Conc 32.3 31.0 - 36.0 g/dl [facility] Red Cell Distribution Width 13.1 11.0 - 16.0 % [facility] Platelet Count 323 160 - 400 X10*3/uL [facility] Mean Platelet Volume 9.5 9.4 - 12.4 fL [facility] NRBC Pct Auto 0.0 0.0 - 0.2 /100WBC [facility] NRBC Abs Auto 0.000 0.0 - 0.012 X10*3/uL [facility] 05/27/2025 3:40 PM EST 05/27/2025 3:40 PM EST us Generic External Data Provider LAB BLOOD ORDERAB LES Final Result [facility] [address] [place] [phone] * (ABNORMAL) Basic Metabolic Panel (05/27/2025 3:40 PM EST) Only the most recent of4 resultswithin the time period is included. Sodium 143 135 - 145 mmol/L [facility] Potassium 4.5 3.3 - 5.1 mmol/L [facility] Chloride 113(H) 96 - 108 mmol/L [facility] Carbon Dioxide 23 22 - 29 mmol/L [facility] Anion Gap 12 12 - 20 [facility] Urea Nitrogen (BUN) 19(H) 9 - 16 mg/dL [facility] Creatinine, Serum 1.47(H) 0.5 - 1.4 mg/dL [facility] Estimated Glomerular Filt Rate 46 [facility] Comment:Chronic Kidney Disea se: Estimated GFR < 60 mL/min/1.83u7Gqyzar Kidney Disease: Estimated GFR < 15 mL/min/1.73m2 Glucose 102 60 - 115 mg/dL [facility] Calcium 9.5 8.4 - 10.2 mg/dL [facility] 05/27/2025 3:40 PM EST 05/27/2025 3:40 PM EST us Generic External Data Provider LAB BLOOD ORDERAB LES Final Result [facility] [address] [place] [phone] [phone] * US Renal Complete (04/29/2025 1:29 PM EST) Anatomical Region Laterality Modality Kidney Ultrasound 04/29/2025 1:29 PM EST Narrative 04/29/2025 2:07 PM EST [facility] Adult Primary [facility] [address] Ultrasound Report Signed Patient: Yamil Hurt MR#: [id number] 4 : 1945 Acct:[id number] Age/Sex: 79 / M ADM Date: 04/29/25 Loc: HO.HMGCX Attending Dr: Valery Espinoza MD Ordering Physician: Valery Espinoza MD Date of Service: 04/29/25 Procedure(s): US renal BI Accession Number(s): [id number] cc: Valery Espinoza MD Reason for Exam: [...] by: Dominic Albrecht MD 04/29/2025 02:05 PM [facility] Dictated By: Dominic Albrecht MD Signed By: <Electronically signed by Dominic Albrecht MD in OV> 04/29/25 1405 DD/ 1329 TD/TT: 04/29/25 1356 Electrical Automation Engineer: Procedure Note Donotuseinterpreter, Image - 04/29/2025 [facility] [address] [place] [address] [place] [address] Ultrasound Report Signed Patient: Katharina Hurt#: [id number] 4 : 1945cct:[id number] Age/Sex: 79 / MADM Date: 04/29/25 Loc: .HMGCX Attending Dr: Valery Espinoza MD Ordering Physician: Valery Espinoza MD Date of Service: 04/29/25 Procedure(s): US renal BI Accession Number(s): [id number] cc: Valery Espinoza MD Reason for Exam: [...] 04/29/25 1405 DD/ 1329 TD/TT: 04/29/25 1356 Electrical Automation Engineer: us Valery Espinoza MD IMG US PROCEDURES Final Resul t * Sodium Without creatinine, Random Urine (04/29/2025 8:12 AM EST) Sodium Urine Random 51.0 mmol/L [facility] Urine Urine specimen obtained by clean catch procedure / Unknown 04/29/2025 8:12 AM EST 04/29/2025 2:25 PM EST us Valery Espinoza MD LAB BLOOD ORDERABLES Final Re sult Performing Organization Address [facility] Co de Phone Number [facility] [address] [place] [phone] * Creatinine, Random Urine (04/29/2025 8:12 AM EST) Creatinine, Urine 72.67 mg/dL [facility] Urine (Urine, Random) 04/29/2025 8:12 AM EST 04/29/2025 2:25 PM EST Valery Espinoza MD LAB URINE ORDERABLES Final Re sult Performing Organization Address [facility] Co de Phone Number [facility] [address] [place] [phone] * Urinalysis with reflex microscopic (04/29/2025 8:12 AM EST) Color Urine Yellow [facility] Appearance Urine Clear [facility] PH 5.5 5.0 - 9.0 [facility] Glucose Urine UA Negative Negative mg/dL [facility] Urine Blood Negative Negative [facility] Specific Outlook - Urine 1.010 1.005 - 1.025 [facility] Urine Protein Negative Neg-Trace mg/dL [facility] Urine Ketones Negative Negative mg/dL [facility] Nitrite Urine Negative Negative [facility] Leukocyte Esterase Urine Negative Negative [facility] Urine (Urine, Random) 04/29/2025 8:12 AM EST 04/29/2025 2:25 PM EST Narrative [facility] - 04/29/2025 2:35 PM EST [id number], Clean Catch us Valery Espinoza MD LAB URINE ORDERABLES Final Re sult Performing Organization Address City/[facility]/ZIP Co de Phone Number [facility] [address] [place] [phone] * Osmolality, Serum (04/28/2025 1:04 PM EST) Osmolality (Serum) 303 281 - 305 mosm/kg [facility] Blood Venous blood specimen / Unknown 04/28/2025 1:04 PM EST 04/28/2025 2:02 PM EST us Valery Espinoza MD LAB BLOOD ORDERABLES Final Re sult Performing Organization Address [facility] Co de Phone Number [facility] [address] [place] [phone] * XR Lumbar Spine Complete 4+ Views (03/02/2025) Anatomical Region Laterality Modality Spine, L-spine Radiographic Dana ging us Vasquez Whitley MD IMG XR PROCEDURES Final Res ult * (ABNORMAL) Lipid Panel, Standard (09/18/2023 11:24 AM EDT) Triglycerides 191(H) <150 mg/dL [facility] Comment:Desirable Triglyceri de: less than 150 mg/dLBorderline High Triglyceride 150-199 mg/dLHigh Triglyceride: 200-499 mg/dLVery High Triglyceride: greater than or equal to 5OO mg/dL Cholesterol 120 <200 mg/dL [facility] Comment:Desirable Cholestero l: less than 200 mg/dLBorderline High Cholesterol: 200-239 mg/dLHigh Cholesterol: greater than 239 mg/dL LDL Cholesterol Calculated 40 <100 mg/dL [facility] Comment:Desirable LDL: less than 100 mg/dLNear Optimal/Above Optimal LDL: 110- 129 mg/dLBorderline High LDL: 130-159 mg/dLHigh LDL: 160-189 mg/dLVery High LDL: greater than or equal to 190 mg/dL HDL Cholesterol 42 >40 mg/dL [facility] Comment:Desirable HDL: great er than 40 mg/dL Note: This HDL assay may give artificially low results in patients with liver disease. Blood Venous blood specimen / Unknown 09/18/2023 11:24 AM EDT 09/18/2023 11:24 AM EDT us Valery Espinoza MD LAB BLOOD ORDERABLES Final Re sult [facility] [address] [place] [phone] * Hm Colonoscopy (10/18/2018) Colonoscopy performed us Historical Provider HEALTH MAINTENANCE Final Result from Last 3 Months or Most Recently Relevant to Health Maintenance Insurance [facility] MEDICARE ADVANTAGE HMO DENTAL - HSN PARTIAL (MEDICAID) Advance Directives Documents on File Type Date Recorded Patient Clinical Administrative Coordinator Expl anation MOLST form 05/21/2023 ROSE MARY valentino for Life-Sustaining Treatment Care Teams Grain Unloader Relationship Specialty Start Date End Date Valery Espinoza MD [address] [place] [phone] PCP - General Family Medicine 09/14/21 Antoine Billings MD Home Assessment Nurse 04/24/23
--- OUTSIDE RECORDS SUMMARY | 2025-05-27 18:52 | XMS_ITS | Encounter Summary ---
Author Organization [employer] Address [address] [facility] [address] [place] [address] Care Team Providers Care Outsole Rounder Name Role Phone Valery Espinoza MD Primary Care Provider [phone] Reason for Visit * Reason Comments Med Refill Encounter Details Date Type Department Care Team (Late st Contact Info) Description 10/28/2024 Refill [facility] [address] [place] [address] Pam Mendoza FNP [address] [place] [address] Social History Tobacco Use Types Packs/Day Years [...] Description 06/27/2025 1:00 PM EST Office Visit [facility] [address] [place] [address] Valery Espinoza MD [address] [place] [address] 07/15/2025 9:00 AM EST Office Visit [facility] [address] [place] [address] Zay, Leonor, OD [address] [place] [address] documented as of this encounter Visit Diagnoses Not on filedocumented in this encounter Additional Health Concerns Assessment Noted Time PHQ-9 Depression Total Score: 0 10/22/19 25 11:28 AM EDT documented as of this encounter Care Teams Outsole Rounder Relationship Specialty Start Date End Date Valery Espnioza MD [address] [place] [address] PCP - General Family Medicine 09/14/21 Antoine Billings MD Automobile And Property Underwriter 04/24/23 documented as of this encounter
--- OUTSIDE RECORDS SUMMARY | 2025-05-27 18:52 | XMS_ITS | Encounter Summary ---
Author Organization [employer] Address [address] [place] [address] [address]t [place] [address] Care Team Providers Care Front Tender Name Role Phone Valery Espinoza MD Primary Care Provider [phone] Reason for Visit * Reason Comments Med Refill Encounter Details Date Type Department Care Team ([facility] st Contact Info) Description 07/31/2023 Refill [facility] [address] [place], [place] [phone] Valery Espinoza MD [address] [place] [address] Social History Tobacco Use Types Packs/Day Years [...] the past 12 months, has t he [employer], gas, oil or water company threatened to [...] Description 06/27/2025 1:00 PM EST Office Visit [facility] [address] [place] [address] Valery Espinoza MD [address] [place] [address] 07/15/2025 9:00 AM EST Office Visit [facility] [address] [place] [address] Zay, Leonor, OD [address] [place] [address] documented as of this encounter Visit Diagnoses Not on filedocumented in this encounter Additional Health Concerns Assessment Noted Time PHQ-9 Depression Total Score: 2 04/25/20 23 9:44 AM EDT documented as of this encounter Care Teams Front Tender Relationship Specialty Start Date End Date Valery Espinoza MD [address] [place] [address] PCP - General Family Medicine 09/14/21 Antoine Billings MD Calendering Supervisor 04/24/23 documented as of this encounter
--- OUTSIDE RECORDS SUMMARY | 2025-05-27 18:52 | XMS_ITS | Encounter Summary ---
Author Organization [employer] Address [address] [place] [address] [address] [place] [address] Care Team Providers Care Gizzard Skin Remover Name Role Phone Valery Espinoza MD Primary Care Provider [phone] Reason for Visit * Reason Comments Med Refill Encounter Details Date Type Department Care Team ([facility] st Contact Info) Description 05/24/2024 Refill [facility] [address] [place], [place] [phone] Valery Espinoza MD [address] [place] [address] Social History Tobacco Use Types Packs/Day Years [...] the past 12 months, has t he [employer], gas, oil or water company threatened to [...] Description 06/27/2025 1:00 PM EST Office Visit [facility] [address] [place], [place] [phone] Valery Espinoza MD [address] [place] [address] 07/15/2025 9:00 AM EST Office Visit [facility] [address] [place] [address] Zay, Leonor, OD [address] [place] [address] documented as of this encounter Visit Diagnoses Not on filedocumented in this encounter Additional Health Concerns Assessment Noted Time PHQ-9 Depression Total Score: 2 04/25/20 23 9:44 AM EDT documented as of this encounter Care Teams Gizzard Skin Remover Relationship Specialty Start Date End Date Valery Espinoza MD [address] [place] [address] PCP - General Family Medicine 3/25/22 Antoine Billings MD Digital Recruiter 04/24/23 documented as of this encounter
--- OUTSIDE RECORDS SUMMARY | 2025-05-27 18:52 | XMS_ITS | Encounter Summary ---
Author Organization [employer] Address [address] [facility] [address] [place] [address] Care Team Providers Care Shank Faker Name Role Phone Valery Espinoza MD Primary Care Provider [phone] Reason for Visit * Reason Onset Date Comments Med Refill 02/14/2023 Encounter Details Date Type Department Care Team ([facility] Contact Info) Description 02/14/2023 Telephone [facility] [address] [place] [address] Valery Espinoza MD [address] [place] [address] Med Refill Social History Tobacco Use Types [...] PM EDT Tacrolimus was sent to [facility][id number] on 02/11/23 with 1 refill and Losartan [...] Description 06/27/2025 1:00 PM EST Office Visit [facility] [address] [place] [address] Valery Espinoza MD [address] [place] [address] 07/15/2025 9:00 AM EST Office Visit [facility] [address] [place] [address] ZayLeonor patel, OD [address] [place] [address] documented as of this encounter Visit Diagnoses Not on filedocumented in this encounter Care Teams Shank Faker Relationship Specialty Start Date End Date Valery Espinoza MD [address] [place] [address] PCP - General Family Medicine 09/14/21 Antoine Billings MD Research Associate Professor 04/24/23 documented as of this encounter
--- OUTSIDE RECORDS SUMMARY | 2025-05-27 18:52 | XMS_ITS | Encounter Summary ---
Author Organization [employer] Address [address] [place] [address] 7[address] [place] [address] Care Team Providers Care Content Specialist Name Role Phone Valery Espinoza MD Primary Care Provider [phone] Reason for Referral * Imaging (Routine) - Closed Specialty Diagnoses / Procedures Referred By Josh t Referred To Contact Radiology Diagnoses Abnormal renal ultrasound Procedures US RENAL BI Valery Espinoza MD [address] [place] [address] Phone: tel: fax: [address] [phone] Phone: tel: fax: Referral ID Status Reason Start Date Expiration Date Visits Re quested Visits Authorized [id number] Closed 04/29/2025 04/29/2026 1 1 Encounter Details Date Type Department Care Team ([facility] st Contact Info) Description 04/29/2025 Results Follow-Up [facility] CHC MED & PEDS [address] [place] [address] Valery Espinoza MD [address] [place], [place] [id number] US Renal Complete Social History Tobacco Use [...] Upcoming Encounters Date Type Department Care Team ([facility] st Contact Info) Description 06/27/2025 1:00 PM EST Office Visit [facility] CHC MED & PEDS [address] [place] [address] Valery Espinoza MD [address] [place] [address] 07/15/2025 9:00 AM EST Office Visit [facility] OPTOMETRY [address] [place] [address] Leonor Collazo, OD [address] [place] [address] Scheduled Orders Name Type Priority Associated Diagnoses Orde r Schedule US RENAL BI Imaging Routine Abnormal renal ultrasound Expected: 10/27/2025, Expires: 04/29/2026 documented as of this encounter Visit Diagnoses Diagnosis Abnormal renal ultrasound- Primary documented in this encounter Additional Health Concerns Assessment Noted Time PHQ-9 Depression Total Score: 0 10/22/19 25 11:28 AM EDT documented as of this encounter Care Teams Content Specialist Relationship Specialty Start Date End Date Valery Espinoza MD [address] [place] [address] PCP - General Family Medicine 09/14/21 Antoine Billings MD Signal Maintainer 04/24/23 documented as of this encounter
--- OUTSIDE RECORDS SUMMARY | 2025-05-27 18:52 | XMS_ITS | Encounter Summary ---
Author Organization [employer] Address [address] [facility] [address] [place] [address] Care Team Providers Care Ski Lift Attendant Name Role Phone Valery Espinoza MD Primary Care Provider Reason for Visit * Reason Onset Date Comments Med Refill 10/12/2024 Encounter Details Date Type Department Care Team (Late st Contact Info) Description 10/12/2024 Telephone [facility] MEDICINE [address] [place] [address] Valery Espinoza MD [address] [place] [address] Med Refill Social History Tobacco Use Types [...] the past 12 months, has t he [employer], gas, oil or water company threatened to [...] 11:49 AM EDT Scripts were sent to [facility] on 09/29/24 with 11 refills. * Telephone Encounter - Weston Torres - 10/12/2024 11:32 AM EDT TC from pt requesting medication refill. Medications needing refill : ezetimibe (Zetia) 10 MG tablet rosuvastatin (Crestor) 40 MG tablet To be sent to: [facility] ([place]) - [facility] [place] - [address] [place] [address] documented in this encounter Plan of Treatment Upcoming Encounters Date Type Department Care Team (Late st Contact Info) Description 06/27/2025 1:00 PM EST Office Visit [facility] MED & PEDS [address] [place] [address] Valery Espinoza MD [address] [place] [address] 07/15/2025 9:00 AM EST Office Visit [facility] OPTOMETRY [address] [place] [address] Zay, Leonor, OD [address] [place] [address] documented as of this encounter Visit Diagnoses Not on filedocumented in this encounter Additional Health Concerns Assessment Noted Time PHQ-9 Depression Total Score: 2 04/25/20 23 9:44 AM EDT documented as of this encounter Care Teams Ski Lift Attendant Relationship Specialty Start Date End Date Valery Espinoza MD [address] [place] [address] PCP - General Family Medicine 09/14/21 Antoine Billings MD Air Pollution Specialist 04/24/23 documented as of this encounter
--- OUTSIDE RECORDS SUMMARY | 2025-05-27 18:52 | XMS_ITS | Encounter Summary ---
Author Organization [employer] Address [address] [facility] 7t [place] [address] Care Team Providers Care Front End Loader Operator Name Role Phone Valery Espinoza MD Primary Care Provider Encounter Details Date Type Department Care Team ([facility] Contact Info) Description 05/18/2025 Telephone [employer] [address] [place] [address] Valery Espinoza MD [address] [place] [address] Social History Tobacco Use Types Packs/Day Years [...] Telephone Encounter - Valery Espinoza MD - 05/18/2025 1:56 PM EST Note completed * Telephone Encounter - Sylvia Curtis - 05/18/2025 1:51 [address] EST Good [address]. Espinoza, please sign chart notes from 05/13 in order to proceed with referral. Thank you. documented in this encounter Plan of Treatment Upcoming Encounters Date Type Department Care Team (Late st Contact Info) Description 06/27/2025 1:00 PM EST Office Visit [facility] CHC MED & PEDS [address] [place] [address] Valery Espinoza MD [address] [place] [address] 07/15/2025 9:00 AM EST Office Visit [facility] OPTOMETRY [address] [place] [address] Zay, Leonor, OD [address] [place] [address] documented as of this encounter Visit Diagnoses Not on filedocumented in this encounter Additional Health Concerns Assessment Noted Time PHQ-9 Depression Total Score: 0 10/22/19 25 11:28 AM EDT documented as of this encounter Care Teams Front End Loader Operator Relationship Specialty Start Date End Date Valery Espinoza MD [address] [place] [address] PCP - General Family Medicine 09/14/21 Antoine Billings MD Transport Coordinator 04/24/23 documented as of this encounter
--- OUTSIDE RECORDS SUMMARY | 2025-05-27 18:52 | XMS_ITS | Encounter Summary ---
Author Organization [employer] Address [address] [facility] [address] [place] [address] Care Team Providers Care Stoner Out Name Role Phone Valery Espinoza MD Primary Care Provider [phone] Encounter Details Date Type Department Care Team ([facility] st Contact Info) Description 07/01/2024 Telephone [facility] MEDICINE [address] [place] [address] Valery Espinoza MD [address] [place] [address] Social History Tobacco Use Types Packs/Day Years [...] Description 06/27/2025 1:00 PM EST Office Visit [facility] CHC MED & PEDS [address] [place] [address] Valery Espinoza MD [address] [place] [address] 07/15/2025 9:00 AM EST Office Visit [facility] OPTOMETRY [address] [place] [address] Zay, Leonor, OD [address] [place] [address] documented as of this encounter Visit Diagnoses Not on filedocumented in this encounter Additional Health Concerns Assessment Noted Time PHQ-9 Depression Total Score: 2 04/25/20 23 9:44 AM EDT documented as of this encounter Care Teams Stoner Out Relationship Specialty Start Date End Date Valery Espinoza MD [address] [place] [address] PCP - General Family Medicine 09/14/21 Antoine Billings MD Land Acquisition Specialist 04/24/23 documented as of this encounter
--- OUTSIDE RECORDS SUMMARY | 2025-05-27 18:52 | XMS_ITS | Encounter Summary ---
Author Organization [employer] Address [address] [place] [address] [address] [place] [address] Care Team Providers Care Pivot Maker Name Role Phone Valery Espinoza MD Primary Care Provider [phone] Reason for Visit * Reason Onset Date Comments Referral 10/21/2022 Encounter Details Date Type Department Care Team ([facility] Contact Info) Description 10/21/2022 Telephone [facility] CHC MED & PEDS [address] [place] [address] Valery Espinoza MD [address] [place] [address] Referral Social History Tobacco Use Types Packs/Day [...] Miscellaneous Notes * Telephone Encounter - Shira Matos Festus - 10/25/2022 2:09 PM EDT Tc from pt requesting status on referral made for Podiatry on 09/11/2022. Please contact pt at [phone] * Telephone Encounter - Shira Mortensen - 10/21/2022 11:17 AM EDT Tc from pt requesting status on referral made for Podiatry on 09/11/2022. Please contact pt at [phone] documented in this encounter Plan of Treatment Upcoming Encounters Date Type Department Care Team (Late st Contact Info) Description 06/27/2025 1:00 PM EST Office Visit [facility] CHC MED & PEDS [address] [place] [address] Valery Espinoza MD [address] [place] [address] 07/15/2025 9:00 AM EST Office Visit [facility] OPTOMETRY [address] [place] [address] Zay, Leonor, OD [address] [place] [address] documented as of this encounter Visit Diagnoses Not on filedocumented in this encounter Care Teams Pivot Maker Relationship Specialty Start Date End Date Valery Espinoza MD [address] [place] [address] PCP - General Family Medicine 09/14/21 Antoine Billings MD Inside Upholsterer 04/24/23 documented as of this encounter
== END 2025-05-27 15:22 | disposition home or self-care (01) ==
LOC: HO.HKA 14:47
PROVIDERS: PCP Family Medicine; Visit Provider Internal Medicine Hypertension Specialist
DX: N18.9 Chronic kidney disease, unspecified (principal)
CPT/HCPCS: 99214